=== PATIENT | male | born 1935 | race Caucasian/White ===

== ENCOUNTER 2017-03-31 10:44 | Inpatient (IN) | payer MEDICARE, BC ==
[~2017-03-31] VITALS: Ht 170.2 cm; Wt 83.8 kg
--- NOTE | 2017-03-31 11:11 | NUR ---
TO XRY PER CART
[2017-03-31] MEDS ORDERED: GEMF600T3 PO (11:36)
[2017-03-31] MEDS ORDERED: FISH1CAP2 PO (11:36)
[2017-03-31] MEDS ORDERED: ASPI-557 PO (11:36)
[2017-03-31] MEDS ORDERED: CARV12.52 PO (11:36)
[2017-03-31] MEDS ORDERED: METF500T4 PO (11:38)
[2017-03-31] MEDS ORDERED: ONDA-55 PO (11:38)
[2017-03-31] MEDS ORDERED: PARO-38 PO (11:38)
[2017-03-31] MEDS ORDERED: MULT-669 PO (11:38)
[2017-03-31] MEDS ORDERED: WARF5TAB6 PO ×2 (11:42)
[2017-03-31] MEDS ORDERED: RED600TA PO (11:42)
[2017-03-31] MEDS ORDERED: TRAM50TA4 PO (11:42)
[2017-03-31] MEDS ORDERED: NITR0.4T39 SL (11:43)
--- NOTE | 2017-03-31 11:47 | DI ---
INDICATION: ITS.REASON: chest pain PROCEDURE: CHEST 2-VIEWS UPRIGHT (PA \T\ LAT) Encounter: Initial COMPARISON: None FINDINGS: Linear atelectasis or scarring in the right middle lobe. Lungs are otherwise clear. There is no pleural effusion or pneumothorax. Left cardiac pacemaker defibrillator. Prior CABG. Cardiac silhouette is moderately enlarged. Mediastinal contours are within normal limits. Pulmonary vascularity is normal. Impression: 1. No focal pneumonia or congestive failure. 2. Enlarged cardiac silhouette could be due to cardiomegaly or pericardial effusion. .
[2017-03-31 12:16] LABS: BASOPHILS % (AUTO) 0.4 % (0-2); EOSINOPHILS # (AUTO) 0.1 T/MM3 (0-0.5); EOSINOPHILS % (AUTO) 1.1 % (0-4); HCT - HEMATOCRIT 42.8 % (41-53); HGB - HEMOGLOBIN 14.3 GM/DL (13.5-17.5); IMMATURE GRANULOCYTE # (AUTO) 0.01 T/MM3 (0.00-0.03); IMMATURE GRANULOCYTE % (AUTO) 0.1 % (0.0-0.5); LYMPHOCYTES # (AUTO) 1.4 T/MM3 (1-4.8); LYMPHOCYTES % (AUTO) 17.1 % (23-45); MEAN CORPUSCULAR HGB 30.4 UUG (26-34); MEAN CORPUSCULAR HGB CONC(MCHC 33.4 GM/DL (31-37); MEAN CORPUSCULAR VOLUME 91.1 UM3 (80-100); MONOCYTES # (AUTO) 0.8 T/MM3 (0-0.8); MONOCYTES % (AUTO) 9.5 % (0-9.0); NEUTROPHILS #(AUTO)-ABSOLUTE 5.7 T/MM3 (1.8-7.7); NEUTROPHILS % (AUTO) 71.8 % (33-66); WBC - WHITE BLOOD COUNT 7.9 T/MM3 (4.5-11.0)
[2017-03-31 12:26] LABS: ALBUMIN 4.2 G/DL (3.5-5.0); ALBUMIN/GLOBULIN RATIO 1.6 RATIO (1.1-2.2); ALKALINE PHOSPHATASE 81 U/L (38-126); ALT (SGPT) 36 U/L (21-72); ANION GAP 13 MEQ/L (5-15); AST (SGOT) 17 U/L (17-59); BUN/CREATININE RATIO 20 RATIO (6-26); CALCIUM 9.2 MG/DL (8.4-10.2); CHLORIDE 106 MEQ/L (98-107); CO2 - CARBON DIOXIDE 23 MEQ/L (22-30); CREATININE 0.9 MG/DL (0.8-1.5); GLOMERULAR FILTRATION RATE 81; GLUCOSE 230 MG/DL (75-110); POTASSIUM 4.4 MEQ/L (3.6-5); SODIUM 142 MEQ/L (134-144); TOTAL PROTEIN 6.9 G/DL (6.3-8.2)
[2017-03-31 12:27] LABS: AMPHETAMINE SCREEN,URINE NEGATIVE; BARBITURATE SCREEN,URINE NEGATIVE; BENZODIAZEPINES SCREEN,URINE NEGATIVE; CANNABINOID SCREEN,URINE NEGATIVE; COCAINE SCREEN,URINE NEGATIVE; METHADONE SCREEN, URINE NEGATIVE; METHAMPHETAMINE SCREEN, URINE NEGATIVE; OPIATE SCREEN,URINE NEGATIVE; PHENCYCLIDINE SCREEN,URINE NEGATIVE; TRICYCLIC ANTIDEPRESSANT,URINE NEGATIVE
[2017-03-31 12:32] LABS: INR 1.38 (0.77-1.03); PROTHROMBIN TIME 15.1 SEC (9.48-12.52)
[2017-03-31 12:40] LABS: ACETAMINOPHEN < 10 UG/ML (10-30); ETHANOL <10 MG/DL (<10); SALICYLATE < 1.0 MG/DL (2-20)
[2017-03-31 12:56] LABS: THYROID STIM HORMONE-TSH 1.86 MIU/L (0.47-4.68)
--- OUTSIDE RECORDS SUMMARY | 2017-03-31 14:38 | XMS REPORT | Continuity of Care Document ---
Author Author [facility] Organization [facility] Address Unknown Phone Unavailable Care Team Providers Care Hand Weaver Name Role Phone Duke Salinas Primary Care Physician [phone] Source Comments Some departments are not documenting in the electronic medical record. If you do not see the information that you expected, contact Release of Information in the Health Information Management department at [phone] for further assistance in locating additional records.[facility] Active Allergies and Adverse Reactions Not on File Current Medications Prescription Sig. Disp. Refills Start End Date Status Date carvedilol (COREG) 12.5 Take 12.5 mg by mouth Active mg tablet twice daily with meals. Take with food. Red Yeast Rice Extract Take 600 mg by mouth Active 600 mg cap twice daily. furosemide (LASIX) 40 mg Take 40 mg by mouth every Active tablet morning. potassium chloride SR Take 10 mEq by mouth Active (K-DUR) 10 mEq tablet daily. Take with a meal and a full glass of water. DOCOSAHEXANOIC ACID/EPA Take 1,000 mg by mouth Active (FISH OIL PO) daily. ASPIRIN PO Take 81 mg by mouth Active daily. metFORMIN (GLUCOPHAGE) Take 500 mg by mouth Active 500 mg tablet twice daily with meals. warfarin (COUMADIN) 5 mg Take 5 mg by mouth daily. Active tablet gemfibrozil (LOPID) 600 Take 600 mg by mouth Active mg tablet daily. Active Problems Problem Noted Date Brain mass 09/01/2016 Social History Tobacco Use Types Packs/Day Years Used Date Never Smoker Last Filed Vital Signs Vital Sign Reading Time Taken Blood Pressure 137/75 09/01/2016 12:02 PM CDT Pulse 87 09/01/2016 12:02 PM CDT Temperature 36.6 C (97.9 F) 09/01/2016 12:02 PM CDT Respiratory Rate 14 09/01/2016 12:02 PM CDT Height 1.702 m (5' 7") 09/01/2016 12:02 PM CDT Weight 81.92 kg (180 lb 9.6 oz) 09/01/2016 12:02 PM CDT Body Mass Index 28.28 09/01/2016 12:02 PM CDT Oxygen Saturation - - Plan of Care Health Maintenance Due Date Last Done Comments Physical (Comprehensive) 1941 Exam Pertussis Vaccine 1945 Tetanus Vaccine 1951 Shingles Vaccine 1994 Prevnar/Pneumovax (#1) 1999 Influenza Vaccine 07/16/2017 Results from Last 3 Months Not on file
--- OUTSIDE RECORDS SUMMARY | 2017-03-31 14:38 | XMS REPORT | Summary of Care ---
Author Author Jarek Salinas M.D. Organization Unknown Address [address], [place] [id number] Phone Unavailable Care Team Providers Care Wiring Mechanic Name Role Phone Duke Salinas M.D. Unavailable Unavailable Jarek Salinas PP Unavailable Unavailable Unavailable Functional Status Functional Status Health Issues* Name Dates Details Functional status health issues are not documented Status: Cognitive Status Health Issues* Name Dates Details Cognitive status health issues are not documented Status: Problems Name Dates Details Eye pain (379.91, H57.10) Status: Active Pre-procedural examination (V72.84, Z01.818) Status: Active Pain in hand (729.5, M79.643) Status: Active Type 2 diabetes mellitus (250.00, E11.9) Status: Active Acne (706.1, L70.9) Status: Active Trigger finger, acquired (727.03, M65.30) Status: Active Seborrheic keratosis (702.19, L82.1) Status: Active 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 Quantity: 0 Jarek Salinas M.D.* Started 16-Mar-2008 ActiveMultiple Vitamin Oral Tablet TAKE 1 TABLET DAILY. * Quantity: 0 Refills: 0 Jarek Salinas M.D.* Started 16-Mar-2008 ActiveMetFORMIN HCl - 1000 MG Oral Tablet Take One Tablet By Mouth Twice Daily * Quantity: 180 Refills: 3 Jarek Salinas M.D.* Started 18-Nov-2009 ActiveLisinopril 5 MG Oral Tablet TAKE 1 TABLET DAILY. * Quantity: 90 Refills: Jarek Xavier M.D.* Started 30-Aug-2008 ActiveGemfibrozil 600 MG Oral Tablet Take One Tablet By Mouth Twice Daily * Quantity: 180 Refills: Jarek Xavier M.D.* Started 29-Jul-2009 ActiveFish Oil 1000 MG Oral Capsule Take one capsule daily. * Refills: 0 Jarek Salinas M.D.* Started 07-Mar-2012 ActiveRed Yeast Rice 600 MG Oral Tablet TAKE 2 TABLETS DAILY. * Refills: 0 Jarek Salinas M.D.* Started 07-Mar-2012 ActiveMetoprolol Tartrate 100 MG Oral Tablet take one tablet by mouth every day * Quantity: 90 Refills: Jarek Xavier M.D.* Started 08-Mar-2012 ActiveNitrostat 0.4 MG Sublingual Tablet Sublingual PLACE 1 TABLET UNDER THE TONGUE EVERY 5 MINUTES UP TO 3 DOSES NEEDED FOR CHEST PAIN. * Quantity: 90 Refills: Jarek Xavier M.D.* Started 16-Jun-2012 ActiveTamsulosin HCl - 0.4 MG Oral Capsule TAKE 1 CAPSULE Daily * Quantity: 90 Refills: Jarek Xavier M.D.* Started 22-Sep-2013 ActiveWarfarin Sodium 5 MG Oral Tablet Take one tablet daily. * Quantity: 90 Refills: Jarek Xavier M.D.* Started 23-Mar-2014 ActiveGlipiZIDE 10 MG Oral Tablet Take one tablet twice daily. * Quantity: 180 Refills: Jarek Xavier M.D.* Started 24-Sep-2014 Active Allergies and Adverse Reactions Name Dates Details Pravachol TABS Status: Active Zocor TABS Status: Active Past Medical History Name Dates Details History of Actinic keratosis (702.0, L57.0) Status: Resolved History of Basal cell carcinoma of skin of ear (173.21, C44.211) Status: Resolved History of seborrheic keratosis (V13.3, Z87.2) Status: Resolved History of Skin Cancer (V10.83) Status: Resolved Procedures Procedure Dates Details History of Extracaps Cataract Extract With Prosthesis Insert Right Eye History of Extracaps Cataract Extract With Prosthesis Insert Left Eye History of Extracaps Cataract Extract With Prosthesis Insert Left Eye Completed:05-Aug-2010 History of Complete Colonoscopy Completed:28-Feb-2013 PROTIME PANEL 7000 Ordered:02-Nov-2014 PROTIME PANEL 7000 Ordered:29-Nov-2014 Immunization Name Dates Details Td Administered on:22-Oct-2001 Pneumo (Pneumovax) Administered on:14-Sep-2006 Influenza Administered on:03-Sep-2008 Td Lot #: [id number] Administered on: Influenza Administered on:09-Aug-2009 Influenza A (H1N1) Monoval Vac Intramuscular Suspension Administered on:28-Oct-2009 Influenza Administered on:29-Aug-2012 Influenza Administered on:05-Sep-2013 Fluzone High-Dose Intramuscular Suspension #1 Lot #: [id number] Administered on:20-Aug-2014 Prevnar 13 Intramuscular Suspension Administered on:21-Sep-2014 Family History Unknown Family Member* Name Dates Details Family history of Reported Family History Of Cancer Comments: Family History Status: Active Family history of Reported Family History Of Heart Disease Comments: Family History Status: Active Father* Name Dates Details Family history of Diabetes Mellitus (V18.0) Status: Active Social History Name Dates Details Smoking Status* Never smoker Vital Signs Date Test Result Details No Known Vitals to report Results Date Description Value Details Results not documented Plan of Care Planned Observations* Name Dates Details Planned Goals not documented Goal Planned Encounters* Appointment; Provider: Martha Gudino On 09:30 * Appointment; Provider: Donny Artis On 11-Mar-2015 08:30 * Appointment; Provider: Jarek Salinas On 18-Feb-2015 10:30 * Appointment; Provider: Alexandra Kline On 25-Dec-2014 11:00 Instructions * Instructions not documented Encounters Appointment; Noah Sheffield Encounter Diagnosis: Problem not documented On 14-Nov-2014 09:30 Appointment; Jarek Salinas Encounter Diagnosis: Problem not documented On 25-Oct-2014 15:45 Appointment; Martha Gudino Encounter Diagnosis: Problem not documented On 22-Oct-2014 09:30 Appointment; Jarek Salinas Encounter Diagnosis: Problem not documented On 21-Sep-2014 09:45 Appointment; Brianne Mendez Encounter Diagnosis: Problem not documented On 20-Aug-2014 13:00 Appointment; Jarek Salinas Encounter Diagnosis: Problem not documented On 23-Jul-2014 13:00 Appointment; Jarek Salinas Encounter Diagnosis: Problem not documented On 06-Jul-2014 13:15 Appointment; Jarek Salinas Encounter Diagnosis: Problem not documented On 22-Mar-2014 09:00 Appointment; Aleida Aparicio Encounter Diagnosis: Problem not documented On 05-Mar-2014 08:30 Appointment; Jarek Salinas Encounter Diagnosis: Problem not documented On 06-Oct-2013 14:00 Appointment; Jarek Salinas Encounter Diagnosis: Problem not documented On 21-Sep-2013 09:15 Appointment; Jarek Salinas Encounter Diagnosis: Problem not documented On 05-Sep-2013 08:30 Appointment; Jarek Salinas Encounter Diagnosis: Problem not documented On 11-Aug-2013 13:15 Appointment; Saúl Anaya Encounter Diagnosis: Problem not documented On 21-Mar-2013 07:30 Appointment; Saúl Anaya Encounter Diagnosis: Problem not documented On 14-Mar-2013 08:00 Appointment; Aleida Aparicio Encounter Diagnosis: Problem not documented On 02-Mar-2013 08:45 Appointment; Claudia Melgar Encounter Diagnosis: Problem not documented On 28-Feb-2013 07:15 Appointment; June Carmen Encounter Diagnosis: Problem not documented On 28-Feb-2013 07:15 Appointment; Jarek Salinas Encounter Diagnosis: Problem not documented On 21-Feb-2013 11:00 Appointment; Jarek Salinas Encounter Diagnosis: Problem not documented On 20-Feb-2013 09:00
--- OUTSIDE RECORDS SUMMARY | 2017-03-31 14:39 | XMS REPORT | Summary of Care ---
Author Author Jarek Salinas M.D. Organization Unknown Address [address], [place] [id number] Phone Unavailable Care Team Providers Care Pre K Special Education Teacher Name Role Phone Duke Salinas M.D. Unavailable Unavailable Elfego Sheffield M.D. Unavailable Unavailable Shahab Jovel, Martha Hollingsworth Unavailable Unavailable Jarek Salinas PP Unavailable Unavailable Unavailable Functional Status Functional Status Health Issues* Name Dates Details Functional status health issues are not documented Status: Cognitive Status Health Issues* Name Dates Details Cognitive status health issues are not documented Status: Problems Name Dates Details Atrial tachycardia (427.89, I47.1) Status: Active Fatigue (780.79, R53.83) Status: Active Dyslipidemia (272.4, E78.5) Status: Active Obesity (278.00, E66.9) Status: Active SOB (shortness of breath) on exertion (786.05, R06.02) Status: Active Shortness of breath (786.05, R06.02) Status: Active Coronary artery disease (414.00, 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 Atrial flutter with rapid ventricular response (427.32, I48.92) Status: Active AICD (automatic cardioverter/defibrillator) present (V45.02, Z95.810) Status: Active Nonsustained ventricular tachycardia (427.1, I47.2) Status: Active Anxiety (300.00, F41.9) Status: Active Cardiomyopathy (425.4, I42.9) Status: Active Diabetes mellitus, type 2 (250.00, E11.9) Status: Active CHF (congestive heart failure) (428.0, I50.9) Status: Active Cough (786.2, R05) Status: Active COPD (chronic obstructive pulmonary disease) (496, J44.9) Status: Active Hypertension (401.9, I10) Status: Active Medications Name Dates Details Aspir-81 81 MG Oral Tablet Delayed Release TAKE 1 TABLET DAILY. Quantity: 0 Jarek Salinas M.D.* Started 16-Mar-2008 ActiveMultiple Vitamin Oral Tablet TAKE 1 TABLET DAILY. * Quantity: 0 Refills: 0 Jarek Salinas M.D.* Started 16-Mar-2008 ActiveFish Oil 1000 MG Oral Capsule Take one capsule daily. * Refills: 0 Jarek Salinas M.D.* Started 07-Mar-2012 ActiveRed Yeast Rice 600 MG Oral Tablet TAKE 2 TABLETS DAILY. * Refills: 0 Jarek Salinas M.D.* Started 07-Mar-2012 ActiveWarfarin Sodium 5 MG Oral Tablet Take one tablet daily. * Quantity: 90 Refills: 3 Jarek Salinas M.D.* Started 23-Mar-2014 ActiveGemfibrozil 600 MG Oral Tablet Take 1 tablet at night * Refills: 0 Jarek Salinas M.D.* Started 25-Mar-2015 ActiveMetFORMIN HCl - 500 MG Oral Tablet TAKE ONE TABLET(S) BY MOUTH TWICE DAILY * Quantity: 60 Refills: 11 * Started ActiveTamsulosin HCl - 0.4 MG Oral Capsule take one capsule by mouth everyday * Refills: 0 * Started ActiveCarvedilol 12.5 MG Oral Tablet 1BID - TAKE ONE TABLET BY MOUTH TWICE DAILY * Quantity: 60 Refills: 5 Martha Gudino M.D.* Started 16-Sep-2015 ActiveSymbicort 160-4.5 MCG/ACT Inhalation Aerosol INHALE 2 PUFFS TWICE DAILY. RINSE MOUTH AFTER USE. * Quantity: 1 Refills: 6 Jarek Salinas M.D.* Started 17-Oct-2015 Active6 GM Inhaler Furosemide 40 MG Oral Tablet TAKE 1 TABLET DAILY DIRECTED. * Quantity: 30 Refills: 11 Noah Sheffield M.D.* Started 21-Oct-2015 Ended 19-Oct-2016 ActiveALPRAZolam 0.25 MG Oral Tablet Take 1-2 tablets every 8 hours as needed. * Quantity: 30 Refills: 3 Jarek Salinas M.D.* Started 25-Oct-2015 ActiveEscitalopram Oxalate 10 MG Oral Tablet TAKE 1 TABLET DAILY. * Quantity: 30 Refills: 5 Jarek Salinas M.D.* Started 25-Oct-2015 ActivePromethazine-Codeine 6.25-10 MG/5ML Oral Syrup TAKE 5 ML EVERY 4 HOURS NEEDED. * Quantity: 1 Refills: 0 Jarek Salinas M.D.* Started 28-Oct-2015 [id number] ML Bottle Allergies and Adverse Reactions Name Dates Details Pravachol TABS Status: Active Zocor TABS Status: Active Past Medical History Name Dates Details AICD (automatic cardioverter/defibrillator) present (V45.02, Z95.810) Status: Active Atrial flutter with rapid ventricular response (427.32, I48.92) Status: Active Cardiomyopathy (425.4, I42.9) Status: Active COPD (chronic obstructive pulmonary disease) (496, J44.9) Status: Active Coronary artery disease (414.00, 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 Diabetes mellitus, type 2 (250.00, E11.9) Status: Active Dyslipidemia (272.4, E78.5) Status: Active Hypertension (401.9, I10) Status: Active Nonsustained ventricular tachycardia (427.1, I47.2) Status: Active History of Basal cell carcinoma of skin of ear (173.21, C44.211) Status: Resolved History of myocardial infarction (412, I25.2) Status: Resolved History of seborrheic keratosis (V13.3, Z87.2) Status: Resolved History of Skin Cancer (V10.83) Status: Resolved Procedures Procedure Dates Details History of Extracaps Cataract Extract With Prosthesis Insert Right Eye History of Extracaps Cataract Extract With Prosthesis Insert Left Eye History of Extracaps Cataract Extract With Prosthesis Insert Left Eye Completed:05-Aug-2010 History of Complete Colonoscopy Completed:28-Feb-2013 History of Arterial Catheterization History of Pacemaker Placement CBC w/ Auto Diff 7150 Ordered:07-Oct-2015 Comprehensive Metabolic Panel 1212 Ordered:07-Oct-2015 THYROID STIM. HORMONE 3602 Ordered:07-Oct-2015 HEMOGLOBIN A1C 3507 Ordered:07-Oct-2015 PROTIME PANEL 7000 Ordered:18-Oct-2015 Immunization Name Dates Details Td Administered on:22-Oct-2001 Pneumo (Pneumovax) Administered on:14-Sep-2006 Influenza Administered on:03-Sep-2008 Td Lot #: [id number] Administered on: Influenza Administered on:09-Aug-2009 Influenza A (H1N1) Monoval Vac Intramuscular Suspension Administered on:28-Oct-2009 Influenza Administered on:29-Aug-2012 Influenza Administered on:05-Sep-2013 Fluzone High-Dose Intramuscular Suspension #1 Lot #: [id number] Administered on:20-Aug-2014 Prevnar 13 Intramuscular Suspension Administered on:21-Sep-2014 Fluzone High-Dose 0.5 ML Intramuscular Suspension Prefilled Syringe Lot #: [id number] Administered on:12-Aug-2015 Family History Unknown Family Member* Name Dates Details Family history of Reported Family History Of Cancer Comments: Family History Status: Active Family history of Reported Family History Of Heart Disease Comments: Family History Status: Active Father* Name Dates Details Family history of Diabetes Mellitus (V18.0) Status: Active Social History Smoking Status* Unknown if ever smoked Vital Signs Date Test Result Details 31-Oct-2015 10:34 BP Systolic 112 mm[Hg] Status: BP Diastolic 56 mm[Hg] Status: Heart Rate 80 /min Status: Height 65 in Status: Weight 192 lb Status: Body Mass Index Calculated 31.95 kg/m2 Status: Body Surface Area Calculated 1.94 m2 Status: 24-Oct-2015 15:34 BP Systolic 116 mm[Hg] Status: BP Diastolic 60 mm[Hg] Status: Heart Rate 84 /min Status: Height 65 in Status: Weight 192 lb Status: O2 SAT 94 % Status: Body Mass Index Calculated 31.95 kg/m2 Status: Body Surface Area Calculated 1.94 m2 Status: 21-Oct-2015 08:12 BP Systolic 138 mm[Hg] Status: BP Diastolic 66 mm[Hg] Status: Temperature 97.3 f Status: Heart Rate 92 /min Status: Respiration Rate 20 /min Status: O2 SAT 96 % Status: 07-Oct-2015 13:08 BP Systolic 134 mm[Hg] Status: BP Diastolic 78 mm[Hg] Status: Heart Rate 88 /min Status: Height 65 in Status: Weight 198 lb Status: Body Mass Index Calculated 32.95 kg/m2 Status: Body Surface Area Calculated 1.97 m2 Status: Results Date Description Value Details 08-Oct-2015 15:47 CBC w/ Auto Diff 7150 WBC 8.8 K/uL (Better) Range: 4.5-11.0 RBC 5.03 mil/uL (Better) Range: 4.20-5.40 HGB 15.2 g/dL (Better) Range: 14.0-18.0 HCT 47.6 % (Better) Range: 42.0-53.0 MCV 94.8 fL (Better) Range: 80.0-99.0 MCH 30.2 pg (Better) Range: 27.3-32.5 MCHC 31.9 % (Below low threshold) Range: 32.0-36.0 RDW 13.8 % (Better) Range: 11.6-14.8 PLATELETS 256 K/uL (Better) Range: 150-400 MPV 7.2 fL (Better) Range: 6.0-11.0 %NEUTRO 71.8 % (Better) Range: 37.0-80.0 %LYMPHS 15.9 % (Better) Range: 13.0-50.0 %MONO 5.8 % (Better) Range: 0.0-12.0 %EOS 2.5 % (Better) Range: 0.0-7.0 %BASO 0.6 % (Better) Range: 0.0-2.5 %LEILANI 3.3 % (Better) Range: 0.0-5.0 NEUTRO 6.3 K/uL (Better) Range: 2.0-6.9 LYMPHS 1.4 K/uL (Better) Range: 0.6-3.4 MONOS 0.5 K/uL (Better) Range: 0.0-0.9 EOS 0.2 K/uL (Better) Range: 0.0-0.7 BASO 0.1 K/uL (Better) Range: 0.0-0.2 15:48 ARTERIAL BLOOD GASES 3416 Comments: Pt is on room air pH 7.450 (Better) Range: 7.350-7.450 pCO2 31.0 mmHg (Below low threshold) Range: 35.0-45.0 pO2 83.0 mmHg (Below low threshold) Range: 85.0-95.0 HCO3 21.5 mmol/L (Better) Range: 20.0-30.0 TCO2 22.5 mmol/L (Better) Range: 19.0-29.0 BASE EXCESS -1.70 mmol/L (Better) Range: -2.50-2.50 %O2 SATURATION 97.0 % (Better) Range: 94.0-98.0 16:06 XRay CHEST-PA & LAT Comments: Exam Date: 10/08/2015 15: 48Dictation Date: 10/08/2015 16:06 X CHEST PA & LAT (Better) 16:13 Comprehensive Metabolic Panel 1212 SODIUM 138 mmol/L (Better) Range: 133-144 POTASSIUM 4.1 mmol/L (Better) Range: 3.5-5.1 CHLORIDE 103 mmol/L (Better) Range: 98-110 CARBON DIOXIDE 26.4 mmol/L (Better) Range: 23.0-33.0 ANION GAP 9 mmol/L (Better) Range: 6-16 BUN 23 mg/dL (Above high threshold) Range: 7-18 Comments: Variance from previous testing noted.----- CREATININE, SERUM 1.24 mg/dL (Better) Range: 0.70-1.30 Comments: Please note new reference ranges effective 2015.----- BUN:CREATININE RATIO 19 (Better) EST GFR, >60 ml/min (Better) Range: >60 EST GFR, NON-AFR CITIZEN OF [place] 56 ml/min (Below low threshold) Range: >60 Comments: EST GFR is reported in ml/min per 1.73 m2 of body surface area. For -[place]ian, please multiple result by 1.2.----- GLUCOSE 179 mg/dL (Above high threshold) Range: 70-100 ALK PHOSPHATASE 78 U/L (Better) Range: 46-116 TOTAL BILIRUBIN 0.50 mg/dL (Better) Range: 0.20-1.00 AST 23 U/L (Better) Range: 8-35 ALT 33 U/L (Better) Range: 16-63 Comments: Please note new reference ranges. Effective 01/24/2015.----- ALBUMIN 3.6 g/dL (Better) Range: 3.4-5.0 TOTAL PROTEIN 7.0 g/dL (Better) Range: 6.4-8.2 A/G RATIO 1.1 units (Better) Range: 1.0-1.8 CALCIUM 8.6 mg/dL (Better) Range: 8.5-10.1 16:13 CREATINE KINASE 1300 CREATINE KINASE 76 U/L (Better) Range: 39-308 16:13 TROPONIN I 3451 TROPONIN I 0.06 ng/mL (Better) Range: <0.10 Comments: Result called to Viviana by Keeley Ontiveros on 10/08/2015 at 4:18 PMVerified by Repeat Analysis<0.10 ng/ml=Negative for MI0.10-0.59 ng/ml= Indeterminate for MI0.60-1.50 ng/ml=Suggestive of [place]----- 18-Oct-2015 12:46 PROTIME PANEL 7000 Comments: Critical result called to Juwan by Sandra King on 10/18/2015 at 12:51 PM (INR) PROTIME 51.4 secs (Above high threshold) Range: 12.0-14.9 INR 5.59 (High alert) Comments: Verified by Repeat Analysis----- 21-Oct-2015 08:41 ECG/ EKG ([facility]) Electro CardioGram (Better) 09:13 XRay CHEST-PA & LAT Comments: Exam Date: 10/21/2015 08: 45Dictation Date: 10/21/2015 09:13 X CHEST PA & LAT (Better) 09:03 PROTIME PANEL 7000 PROTIME 24.2 secs (Above high threshold) Range: 12.0-14.9 INR 2.17 (Better) 09:08 CBC w/ Auto Diff 7150 Comments: Manual differential indicated. WBC 9.0 K/uL (Better) Range: 4.5-11.0 RBC 4.90 mil/uL (Better) Range: 4.20-5.40 HGB 14.8 g/dL (Better) Range: 14.0-18.0 HCT 46.2 % (Better) Range: 42.0-53.0 MCV 94.4 fL (Better) Range: 80.0-99.0 MCH 30.2 pg (Better) Range: 27.3-32.5 MCHC 32.0 % (Better) Range: 32.0-36.0 RDW 13.7 % (Better) Range: 11.6-14.8 PLATELETS 260 K/uL (Better) Range: 150-400 MPV 7.3 fL (Better) Range: 6.0-11.0 09:20 Manual Differential 7400 SEGS 77 % (Better) Range: 37-80 BANDS 0 % (Better) Range: 0-7 LYMPH 14 % (Better) Range: 13-50 MONO 8 % (Better) Range: 0-12 EOSIN 1 % (Better) Range: 0-7 BASO 0 % (Better) Range: 0-3 NORMA LYMPH 0 % (Better) Range: 0-0 META 0 % (Better) Range: 0-0 MYELO 0 % (Better) Range: 0-0 PRO 0 % (Better) Range: 0-0 BLAST 0 % (Better) Range: 0-0 NUC RBC 0 /100 WBC (Better) Range: 0-0 SMUDGE 0 /100 WBC (Better) PLATELET Adequate (Better) Range: Adequate ANISO Slight (Better) POLYCHRO Slight (Better) 09:29 BNP 3103 BNP 309.2 pg/mL (Above high threshold) Range: 0.0-100.0 09:34 TROPONIN I 3451 TROPONIN I 0.07 ng/mL (Better) Range: <0.10 Comments: <0.10 ng/ml=Negative for MI0.10-0.59 ng/ml=Indeterminate for MI0.60- 1.50 ng/ml=Suggestive of [place]----- 09:47 Comprehensive Metabolic Panel 1212 SODIUM 131 mmol/L (Below low threshold) Range: 133-144 POTASSIUM 4.2 mmol/L (Better) Range: 3.5-5.1 CHLORIDE 98 mmol/L (Better) Range: 98-110 CARBON DIOXIDE 22.7 mmol/L (Below low threshold) Range: 23.0-33.0 ANION GAP 10 mmol/L (Better) Range: 6-16 BUN 22 mg/dL (Above high threshold) Range: 7-18 CREATININE, SERUM 1.13 mg/dL (Better) Range: 0.70-1.30 Comments: Please note new reference ranges effective 2015.----- BUN:CREATININE RATIO 19 (Better) EST GFR, >60 ml/min (Better) Range: >60 EST GFR, NON-AFR CITIZEN OF [place] >60 ml/min (Better) Range: >60 Comments: EST GFR is reported in ml/min per 1.73 m2 of body surface area. For -[place]ian, please multiple result by 1.2.----- GLUCOSE 254 mg/dL (Above high threshold) Range: 70-100 Comments: Variance from previous testing noted.----- ALK PHOSPHATASE 84 U/L (Better) Range: 46-116 TOTAL BILIRUBIN 0.80 mg/dL (Better) Range: 0.20-1.00 AST 21 U/L (Better) Range: 8-35 ALT 37 U/L (Better) Range: 16-63 Comments: Please note new reference ranges. Effective 01/24/2015.----- ALBUMIN 3.6 g/dL (Better) Range: 3.4-5.0 TOTAL PROTEIN 7.0 g/dL (Better) Range: 6.4-8.2 A/G RATIO 1.1 units (Better) Range: 1.0-1.8 CALCIUM 8.7 mg/dL (Better) Range: 8.5-10.1 Plan of Care Planned Observations* Name Dates Details Planned Goals not documented Goal Planned Encounters* Appointment; Provider: Donny Artis On 12-Mar-2016 08:00 * Appointment; Provider: Martha Gudino On 02-Mar-2016 09:30 * Appointment; Provider: Jarek Salinas On 13-Feb-2016 10:00 * Appointment; Provider: Jarek Salinas On 05-Nov-2015 11:45 * Appointment; Provider: Martha Gudino On 04-Nov-2015 12:15 * Appointment; Provider: Martha Gudino On 01-Jul-2015 12:45 * Appointment; Provider: Martha Gudino On 16:00 Instructions * Instructions not documented Encounters Appointment; Jarek Salinas Encounter Diagnosis: Problem not documented On 31-Oct-2015 10:30 Appointment; Jarek Salinas Encounter Diagnosis: Problem not documented On 24-Oct-2015 15:30 Appointment; Noah Sheffield Encounter Diagnosis: Problem not documented On 21-Oct-2015 08:15 Appointment; Jarek Salinas Encounter Diagnosis: Problem not documented On 07-Oct-2015 13:15 Appointment; Martha Gudino Encounter Diagnosis: Problem not documented On 30-Sep-2015 12:45 Appointment; Martha Gudino Encounter Diagnosis: Problem not documented On 25-Sep-2015 12:00 Appointment; Martha Gudino Encounter Diagnosis: Problem not documented On 16-Sep-2015 12:15 Appointment; Martha Gudino Encounter Diagnosis: Problem not documented On 29-Aug-2015 14:00 Appointment; Jarek Salinas Encounter Diagnosis: Problem not documented On 26-Aug-2015 11:30 Appointment; Jarek Salinas Encounter Diagnosis: Problem not documented On 12-Aug-2015 12:30 Appointment; Jarek Salinas Encounter Diagnosis: Problem not documented On 30-Jul-2015 15:15 Appointment; Martha Gudino Encounter Diagnosis: Problem not documented On 18-Jul-2015 13:15 Appointment; Martha Gudino Encounter Diagnosis: Problem not documented On 15-Jul-2015 11:45 Appointment; Martha Gudino Encounter Diagnosis: Problem not documented On 24-Jun-2015 09:00 Appointment; Jarek Salinas Encounter Diagnosis: Problem not documented On 21-Jun-2015 10:45 Appointment; Noah Sheffield Encounter Diagnosis: Problem not documented On 12:35 Appointment; Martha Gudino Encounter Diagnosis: Problem not documented On 09:30 Appointment; Jarek Salinas Encounter Diagnosis: Problem not documented On 15:45 Appointment; Saúl Anaya Encounter Diagnosis: Problem not documented On 26-Mar-2015 13:15 Appointment; Jarek Salinas Encounter Diagnosis: Problem not documented On 22-Mar-2015 13:00 Appointment; Donny Artis Encounter Diagnosis: Problem not documented On 11-Mar-2015 08:30 Appointment; Jarek Salinas Encounter Diagnosis: Problem not documented On 18-Feb-2015 10:30 Appointment; Noah Sheffield Encounter Diagnosis: Problem not [...]
--- OUTSIDE RECORDS SUMMARY | 2017-03-31 14:39 | XMS REPORT | Summary of Care ---
Author Author Brock Rodriguez D.O. Organization Unknown Address [address], [place] [id number] Phone Unavailable Care Team Providers Care Material Manager Name Role Phone Brad Jovel, A Unavailable Unavailable Jarek Salinas PP Unavailable Unavailable Unavailable Functional Status Functional Status Health Issues* Name Dates Details Functional status health issues are not documented Status: Cognitive Status Health Issues* Name Dates Details Cognitive status health issues are not documented Status: Problems Name Dates Details Diabetes mellitus (250.00, E11.9) Status: Active Obesity (278.00, E66.9) Status: Active Type 2 diabetes mellitus (250.00, E11.9) Status: Active Hypertension (401.9, I10) Status: Active Dyslipidemia (272.4, E78.5) Status: Active Cardiomyopathy (425.4, I42.9) Status: Active Atrial fibrillation (427.31, I48.91) Status: Active Atherosclerotic heart disease of [place] coronary artery without angina pectoris (414.01, 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 Atrial flutter with rapid ventricular response (427.32, I48.92) Status: Active Medications Name Dates Details Aspir-81 [...] Salinas M.D.* Started 25-Mar-2015 ActiveMetFORMIN HCl - 1000 MG Oral Tablet Take one half tablet in the morning and one half tablet at night everyday * Refills: 0 * Started ActiveTamsulosin HCl - 0.4 MG Oral Capsule take one capsule by mouth everyday * Refills: 0 * Started ActiveLisinopril 5 MG Oral Tablet TAKE 1 TABLET DAILY. * Refills: 0 * Started Active Allergies and Adverse Reactions Name Dates Details Pravachol TABS Status: Active Zocor TABS Status: Active Past Medical History Name Dates Details Atherosclerotic heart disease of [place] coronary artery without angina pectoris (414.01, 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 Atrial fibrillation (427.31, I48.91) Status: Active Cardiomyopathy (425.4, I42.9) Status: Active Dyslipidemia (272.4, E78.5) Status: Active Hypertension (401.9, I10) Status: Active Type 2 diabetes mellitus (250.00, E11.9) Status: Active History of Basal cell carcinoma [...] of Complete Colonoscopy Completed:28-Feb-2013 PROTIME PANEL 7000 Ordered: Comprehensive Metabolic Panel 1212 Ordered: LIPID PROFILE 1184 Ordered: THYROID STIM. HORMONE 3602 Ordered: HEMOGLOBIN A1C 3507 Ordered: Immunization Name Dates Details Td Administered on:22-Oct-2001 Pneumo (Pneumovax) Administered on:14-Sep-2006 Influenza Administered on:03-Sep-2008 Td Lot #: [id number] Administered on: Influenza Administered on:09-Aug-2009 Influenza A (H1N1) Monoval Vac Intramuscular Suspension Administered on:28-Oct-2009 Influenza Administered on:29-Aug-2012 Influenza Administered on:05-Sep-2013 Fluzone High-Dose Intramuscular Suspension #1 Lot #: [id number] Administered on:20-Aug-2014 Prevnar 13 Intramuscular Suspension Administered [...] smoker Vital Signs Date Test Result Details 12:47 BP Systolic 136 mm[Hg] Status: BP Diastolic 86 mm[Hg] Status: Temperature 97.9 f Status: Heart Rate 151 /min Status: O2 SAT 97 % Status: Results Date Description Value Details 11:47 PROTIME PANEL 7000 PROTIME 15.0 secs (Above high threshold) Range: 12.0-14.9 INR 1.19 (Better) 13:04 ECG/ EKG ([facility]) Electro CardioGram (Better) Plan of Care Planned Observations* Name Dates Details Planned Goals not documented Goal Planned Encounters* Appointment; Provider: Donny Artis On 12-Mar-2016 08:00 * Appointment; Provider: Martha Gudino On 23-Oct-2015 09:30 * Appointment; Provider: Martha Gudino On 21-Jun-2015 14:15 * Appointment; Provider: Jarek Salinas On 21-Jun-2015 10:45 * Appointment; Provider: Martha Gudino On 16:00 [...]
--- OUTSIDE RECORDS SUMMARY | 2017-03-31 14:39 | XMS REPORT | Summary of Care ---
Author Author Martha Gudino M.D. Organization Unknown Address [address] [place] [address] Phone Unavailable Care Team Providers Care Flight Steward Name Role Phone Duke Salinas M.D. Unavailable Unavailable Martha Gudino M.D. Unavailable Unavailable Jarek Salinas PP Unavailable Unavailable Unavailable Functional Status Functional Status Health Issues* Name Dates Details Functional status health issues are not documented Status: Cognitive Status Health Issues* Name Dates Details Cognitive status health issues are not documented Status: Problems Name Dates Details Atrial tachycardia (427.89, I47.1) Status: Active Atrial flutter with rapid ventricular response (427.32, I48.92) Status: Active Fatigue (780.79, R53.83) Status: Active Nonsustained ventricular tachycardia (427.1, I47.2) Status: Active AICD (automatic cardioverter/defibrillator) present (V45.02, Z95.810) Status: Active Cardiomyopathy (425.4, I42.9) Status: Active Dyslipidemia (272.4, E78.5) Status: Active Hypertension (401.9, I10) Status: Active Obesity (278.00, E66.9) Status: Active Medications Name Dates Details Aspir-81 [...] ActiveMetFORMIN HCl - 500 MG Oral Tablet take one half tablet in the a.m. and one half tablet in the p.m. * Refills: 0 * Started ActiveTamsulosin HCl - 0.4 MG Oral Capsule take one capsule by mouth everyday * Refills: 0 * Started ActiveAmiodarone HCl - 200 MG Oral Tablet TAKE 1 TABLET TWICE DAILY. * Quantity: 60 Refills: 5 Martha Gudino M.D.* Started 16-Sep-2015 ActiveCarvedilol 3.125 MG Oral Tablet TAKE 1 TABLET TWICE DAILY, WITH MORNING AND EVENING MEAL * Quantity: 60 Refills: 5 Martha Gudino M.D.* Started 16-Sep-2015 Active Allergies and Adverse Reactions Name Dates Details Pravachol TABS Status: Active Zocor TABS Status: Active Past Medical History Name Dates Details Cardiomyopathy (425.4, I42.9) Status: Active Dyslipidemia (272.4, E78.5) Status: Active Hypertension (401.9, I10) Status: Active History of Basal cell carcinoma [...] Pacemaker Placement CBC w/ Auto Diff 7150 Ordered:02-Aug-2015 Comprehensive Metabolic Panel 1212 Ordered:02-Aug-2015 HEMOGLOBIN A1C 3507 Ordered:02-Aug-2015 LIPID PROFILE 1184 Ordered:02-Aug-2015 THYROID STIM. HORMONE 3602 Ordered:02-Aug-2015 PROTIME PANEL 7000 Ordered:09-Sep-2015 CBC w/ Auto Diff 7150 Ordered:23-Sep-2015 Comprehensive Metabolic Panel 1212 Ordered:23-Sep-2015 HEMOGLOBIN A1C 3507 Ordered:23-Sep-2015 LIPID PROFILE 1184 Ordered:23-Sep-2015 THYROID STIM. HORMONE 3602 Ordered:23-Sep-2015 Immunization Name Dates Details Td Administered on:22-Oct-2001 Pneumo (Pneumovax) Administered on:14-Sep-2006 Influenza Administered on:03-Sep-2008 Td Lot #: [id number] Administered on: Influenza Administered on:09-Aug-2009 Influenza A (H1N1) Monoval Vac Intramuscular Suspension Administered on:28-Oct-2009 Influenza Administered on:29-Aug-2012 Influenza Administered on:05-Sep-2013 Fluzone High-Dose Intramuscular Suspension #1 Lot #: [id number] Administered on:20-Aug-2014 Prevnar 13 Intramuscular Suspension Administered on:21-Sep-2014 Fluzone High-Dose 0.5 ML Intramuscular Suspension Prefilled Syringe Lot #: [id number] Administered on:12-Aug-2015 Family History Unknown Family Member* Name Dates Details Family history of Reported Family History Of Cancer Comments: Family History Status: Active Family history of Reported Family History Of Heart Disease Comments: Family History Status: Active Father* Name Dates Details Family history of Diabetes Mellitus (V18.0) Status: Active Social History Smoking Status* Unknown if ever smoked Vital Signs Date Test Result Details 25-Sep-2015 11:59 BP Systolic 124 mm[Hg] Status: BP Diastolic 82 mm[Hg] Status: Heart Rate 80 /min Status: Height 65 in Status: Weight 193 lb Status: Body Mass Index Calculated 32.12 kg/m2 Status: Body Surface Area Calculated 1.95 m2 Status: 16-Sep-2015 12:19 BP Systolic 126 mm[Hg] Status: BP Diastolic 83 mm[Hg] Status: Heart Rate 84 /min Status: Weight 193.2 lb Status: Body Mass Index Calculated 32.15 kg/m2 Status: Body Surface Area Calculated 1.95 m2 Status: 29-Aug-2015 13:58 BP Systolic 130 mm[Hg] Status: BP Diastolic 74 mm[Hg] Status: Heart Rate 84 /min Status: Weight 193.8 lb Status: Body Mass Index Calculated 32.25 kg/m2 Status: Body Surface Area Calculated 1.95 m2 Status: Results Date Description Value Details 09-Sep-2015 12:00 PROTIME PANEL 7000 PROTIME 22.8 secs (Above high threshold) Range: 12.0-14.9 INR 2.01 (Better) Plan of Care Planned Observations* Name Dates Details Planned Goals not documented Goal Planned Encounters* Appointment; Provider: Donny Artis On 12-Mar-2016 08:00 * Appointment; Provider: Martah Gudino On 02-Mar-2016 09:30 * Appointment; Provider: Jarek Salinas On 04-Oct-2015 10:30 * Appointment; Provider: Martha Gudino On 01-Jul-2015 12:45 * Appointment; Provider: Martha Gudino On 16:00 Instructions * Instructions not documented Encounters Appointment; Martha Gudino Encounter Diagnosis: Problem not [...]
--- OUTSIDE RECORDS SUMMARY | 2017-03-31 14:39 | XMS REPORT | Summary of Care ---
Author Author Jaclyn Jovel, [place] [place] Organization Unknown Address [address] [place], [place] [id number] Phone Unavailable Care Team Providers Care Branch Sales Manager Name Role Phone Duke Salinas M.D. 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, 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 Seborrheic keratosis (702.19, L82.1) Status: Active Benign neoplasm of skin of trunk (216.5, D23.5) Status: Active Diabetes mellitus (250.00, E11.9) Status: Active Dyslipidemia (272.4, E78.5) Status: Active Trigger finger, acquired (727.03, M65.30) Status: Active Arthralgia of multiple sites (719.49, M25.50) Status: Active Pain in hand (729.5, M79.643) Status: Active Tendinitis of finger (727.05, M77.9) Status: Active Type 2 diabetes mellitus (250.00, E11.9) Status: Active Hypertension (401.9, I10) Status: Active Coronary artery disease (414.00, 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 Atrial fibrillation (427.31, I48.91) Status: Active High risk medication use (V58.69, Z79.899) Status: Active Medications Name Dates Details MetFORMIN HCl - 1000 MG Oral Tablet TAKE 1 TABLET DAILY WITH FOOD. Jarek Salinas M.D.* Started 18-Nov-2009 ActiveLisinopril 5 MG Oral Tablet TAKE 1 TABLET DAILY. * Quantity: 90 Refills: Jarek Xavier M.D.* Started 30-Aug-2008 ActiveFish Oil 1000 MG Oral Capsule Take [...] 90 Refills: Jarek Xavier M.D.* Started 16-Jun-2012 ActiveWarfarin Sodium 5 MG Oral Tablet Take one tablet daily. * Quantity: 90 Refills: Jarek Xavier M.D.* Started 23-Mar-2014 ActiveGlipiZIDE 10 MG Oral Tablet Take one tablet twice daily. * Quantity: 180 Refills: Jarek Xavier M.D.* Started 24-Sep-2014 ActiveGemfibrozil 600 MG Oral Tablet TAKE 1 TABLET DAILY. * Refills: 0 Jarek Salinas M.D.* Started 25-Mar-2015 ActiveMultiple Vitamin Oral Tablet TAKE 1 TABLET DAILY. * Quantity: 0 Refills: 0 Jarek Salinas M.D.* Started 16-Mar-2008 ActiveAspir-81 81 MG Oral Tablet Delayed Release TAKE 1 TABLET DAILY. * Quantity: 0 Refills: 0 Jarek Salinas M.D.* Started 16-Mar-2008 Active Allergies and Adverse Reactions Name Dates Details Pravachol TABS Status: Active Zocor TABS Status: Active Past Medical History Name Dates Details History of Basal cell carcinoma of skin [...] of Complete Colonoscopy Completed:28-Feb-2013 PROTIME PANEL 7000 Ordered:04-Mar-2015 PROTIME PANEL 7000 Ordered:22-Mar-2015 Immunization Name Dates Details Td Administered on:22-Oct-2001 Pneumo (Pneumovax) Administered on:14-Sep-2006 Influenza Administered on:03-Sep-2008 Td Lot #: [id number] Administered on: Influenza Administered on:09-Aug-2009 Influenza A (H1N1) Monoval Vac Intramuscular Suspension Administered on:28-Oct-2009 Influenza Administered on:29-Aug-2012 Influenza Administered on:05-Sep-2013 Fluzone High-Dose Intramuscular Suspension #1 Lot #: [id number] Administered on:20-Aug-2014 Prevnar 13 Intramuscular Suspension Administered [...] smoker Vital Signs Date Test Result Details 26-Mar-2015 13:10 BP Systolic 126 mm[Hg] Status: BP Diastolic 70 mm[Hg] Status: Weight 196 lb Status: Body Mass Index Calculated 32.62 kg/m2 Status: Body Surface Area Calculated 1.96 m2 Status: 22-Mar-2015 13:01 BP Systolic 136 mm[Hg] Status: BP Diastolic 68 mm[Hg] Status: Heart Rate 76 /min Status: Weight 196 lb Status: Height 65 in Status: Body Mass Index Calculated 32.62 kg/m2 Status: Body Surface Area Calculated 1.96 m2 Status: Results Date Description Value Details 01-Mar-2015 10:34 PROTIME PANEL 7000 PROTIME 20.6 secs (Above high threshold) Range: 12.0-14.9 INR 1.80 (Better) 22-Mar-2015 14:00 PROTIME PANEL 7000 PROTIME 20.3 secs (Above high threshold) Range: 12.0-14.9 INR 1.77 (Better) 14:10 Urinalysis, Reflex to Microscopic or Culture PRN 8005 pH 5.5 (Better) Range: 5.0-7.5 SP GRAVITY 1.020 (Better) Range: 1.010-1.030 APPEARANCE CLEAR (Better) Range: Clear COLOR YELLOW (Better) Range: Straw-Yellow PROTEIN NEGATIVE mg/dL (Better) Range: Negative-Trace GLUCOSE NEGATIVE mg/dL (Better) Range: Negative KETONE NEGATIVE mg/dL (Better) Range: Negative BILIRUB NEGATIVE (Better) Range: Negative BLOOD NEGATIVE (Better) Range: Negative UROBIL 0.2 EU/dL (Better) Range: 0.2-1.0 NITRITE NEGATIVE (Better) Range: Negative LEUK NEGATIVE (Better) Range: Negative Plan of Care Planned Observations* Name Dates Details Planned Goals not documented Goal Planned Encounters* Appointment; Provider: Donny Artis On 12-Mar-2016 08:00 * Appointment; Provider: Jarek Salinas On 17-Jun-2015 09:15 * Appointment; Provider: Martha Gudino On 09:30 Instructions * Instructions not documented Encounters Appointment; Saúl Anaya Encounter Diagnosis: Problem not [...]
--- OUTSIDE RECORDS SUMMARY | 2017-03-31 14:39 | XMS REPORT | Summary of Care ---
Author Author Jarek Salinas M.D. Organization Unknown Address [address] [place], [place] [id number] Phone Unavailable Care Team Providers Care Daycare Assistant Name Role Phone Duke Salinas M.D. 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 * Quantity: 180 Refills: Jarek Xavire M.D.* Started 24-Sep-2014 Active Allergies and Adverse [...] Complete Colonoscopy Completed:28-Feb-2013 PROTIME PANEL 7000 Ordered:02-Nov-2014 Immunization Name Dates Details Td Administered on:22-Oct-2001 Pneumo (Pneumovax) Administered on:14-Sep-2006 Influenza Administered on:03-Sep-2008 Td Lot #: [id number] Administered on: Influenza Administered on:09-Aug-2009 Influenza A (H1N1) Monoval Vac Intramuscular Suspension Administered on:28-Oct-2009 Influenza Administered on:29-Aug-2012 Influenza Administered on:05-Sep-2013 Fluzone High-Dose Intramuscular Suspension #1 Lot #: [id number] Administered on:20-Aug-2014 Prevnar 13 Intramuscular Suspension Administered [...] smoker Vital Signs Date Test Result Details 14-Nov-2014 09:48 BP Systolic 142 mm[Hg] Status: BP Diastolic 68 mm[Hg] Status: Heart Rate 82 /min Status: Temperature 99 f Status: O2 SAT 98 % Status: Results Date Description Value Details 02-Nov-2014 13:36 PROTIME PANEL 7000 PROTIME 22.0 secs (Above high threshold) Range: 12.0-14.9 INR 1.96 (Better) Plan of Care Planned Observations* Name [...]
--- OUTSIDE RECORDS SUMMARY | 2017-03-31 14:39 | XMS REPORT | Summary of Care ---
Author Author Jarek Salinas M.D. Organization Unknown Address [address], [place] [id number] Phone Unavailable Care Team Providers Care Senior Embedded Software Engineer Name Role Phone Duke Salinas M.D. Unavailable Unavailable Martha Gudino M.D. Unavailable Unavailable Jarek Salinas Unavailable Unavailable Unavailable Unavailable Functional Status Name Dates Details Functional status health issues are not documented Status: Name Dates Details Cognitive status health issues are not documented Status: Problems Name Dates Details Atrial tachycardia (427.89, I47.1) Status: Active Fatigue (780.79, R53.83) Status: Active Shortness of breath (786.05, R06.02) Status: Active High risk medication use (V58.69, Z79.899) Status: Active Actinic keratosis (702.0, L57.0) Status: Active [place] hemangioma (448.1, I78.1) Status: Active Cardiomyopathy (425.4, I42.9) Status: Active Coronary artery disease (414.00, 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 Dyslipidemia (272.4, E78.5) Status: Active Nonsustained ventricular tachycardia (427.1, I47.2) Status: Active COPD (chronic obstructive pulmonary disease) (496, J44.9) Status: Active Hypertension (401.9, I10) Status: Active Nausea (787.02, R11.0) Status: Active Obesity (278.00, E66.9) Status: Active SOB (shortness of breath) on exertion (786.05, R06.02) Status: Active Anxiety (300.00, F41.9) Status: Active Seborrheic keratosis (702.19, L82.1) Status: Active 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, 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 Sustained VT (ventricular tachycardia) (427.1, I47.2) Status: Active 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, 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 Headache (784.0, R51) Status: Active Shingles (053.9, B02.9) Status: Active Atrial fibrillation (427.31, I48.91) Status: Active ACC/AHA stage C heart failure with preserved ejection fraction (428.9, I50.9) Status: Active Diabetes mellitus, type 2 (250.00, E11.9) Status: Active 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 Quantity: 0 Jarek Salinas M.D. * Start 16-Mar-2008 Active Multiple Vitamin TABS TAKE 1 TABLET DAILY. * Quantity: 0 Refills: 0 Jarek Salinas M.D. * Start 16-Mar-2008 Active Fish Oil 1000 MG Oral Capsule Take one capsule daily. * Refills: 0 Jarek Salinas M.D. * Start 07-Mar-2012 Active Red Yeast Rice 600 MG Oral Tablet TAKE 2 TABLETS DAILY. * Refills: 0 Jarek Salinas M.D. * Start 07-Mar-2012 Active Warfarin Sodium 5 MG Oral Tablet ON HOLD UNTIL LAB 01/21 * Refills: 3 Jarek Salinas M.D. * Start 23-Mar-2014 Active Gemfibrozil 600 MG Oral Tablet Take 1 tablet at night * Quantity: 90 Refills: 3 Jarek Salinas M.D. * Start 25-Mar-2015 Active Carvedilol 12.5 MG Oral Tablet Take One Tablet By Mouth Twice Daily * Quantity: 60 Refills: 5 Martha Gudino M.D. * Start 16-Sep-2015 Active MetFORMIN HCl - 500 MG Oral Tablet take 1/2 tablet twice daily * Refills: 0 Jarek Salinas M.D. * Start Active Potassium Chloride ER 10 MEQ Oral Tablet Extended Release Take one tablet daily. * Refills: 0 Brad Jovel, Jarek Wall * Start 13-Feb-2016 Active Furosemide 40 MG Oral Tablet TAKE 1 TABLET DAILY. * Refills: 0 Brad Jovel, Jarek Wall * Start 13-Feb-2016 Active Allergies and Adverse Reactions Name Dates Details Pravachol TABS (Allergy) Status: Active Zocor TABS (Allergy) Status: Active Past Medical History Name Dates Details ACC/AHA stage C heart failure with preserved ejection fraction (428.9, I50.9) Status: Active AICD (automatic cardioverter/defibrillator) present (V45.02, Z95.810) Status: Active Anxiety (300.00, F41.9) Status: Active Atrial flutter with rapid ventricular response (427.32, I48.92) Status: Active Cardiomyopathy (425.4, I42.9) Status: Active COPD (chronic obstructive pulmonary disease) (496, J44.9) Status: Active Coronary artery disease (414.00, 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 Diabetes mellitus, type 2 (250.00, E11.9) Status: Active Dyslipidemia (272.4, E78.5) Status: Active Hypertension (401.9, I10) Status: Active 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, 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 Nonsustained ventricular tachycardia (427.1, I47.2) Status: Active Obesity (278.00, E66.9) Status: Active 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, 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 Seborrheic keratosis (702.19, L82.1) Status: Active SOB (shortness of breath) on exertion (786.05, R06.02) Status: Active Sustained VT (ventricular tachycardia) (427.1, I47.2) Status: Active History of Basal [...] Cataract Extract With Prosthesis Insert Left Eye Completed: 05-Aug-2010 History of Complete Colonoscopy Completed: 28-Feb-2013 History of Arterial Catheterization History of Pacemaker Placement CBC w/ Auto Diff 7150 Ordered: 14-Jul-2016 Comprehensive Metabolic Panel 1212 Ordered: 14-Jul-2016 LIPID PROFILE 1184 Ordered: 14-Jul-2016 HEMOGLOBIN A1C 3507 Ordered: 14-Jul-2016 THYROID STIM. HORMONE 3602 Ordered: 14-Jul-2016 PROTIME PANEL 7000 Ordered: 07-Aug-2016 Immunization Name Dates Details Td on: 22-Oct-2001 Pneumo (Pneumovax) on: 14-Sep-2006 Influenza on: 03-Sep-2008 Td Lot #: [id number] on: Influenza on: 09-Aug-2009 Influenza A (H1N1) Monoval Vac SUSP on: 28-Oct-2009 Influenza on: 29-Aug-2012 Influenza on: 05-Sep-2013 Fluzone High-Dose SUSP #1 Lot #: [id number] on: 20-Aug-2014 Prevnar 13 Intramuscular Suspension on: 21-Sep-2014 Fluzone High-Dose 0.5 ML Intramuscular Suspension Prefilled Syringe Lot #: [id number] on: 12-Aug-2015 Pneumovax 23 25 MCG/0.5ML Injection Injectable Lot #: [id number] on: 10-Aug-2016 Fluzone High-Dose 0.5 ML Intramuscular Suspension Prefilled Syringe Lot #: [id number] on: 10-Aug-2016 Family History Name Dates Details Family history of Reported Family History Of Cancer Comments: Family History Status: Active Family history of Reported Family History Of Heart Disease Comments: Family History Status: Active Name Dates Details Family history of Diabetes Mellitus (V18.0) Status: Active Social History Name Dates Details - Status: Name Dates Details Never smoker Vital Signs Date Test Result Details 20-Aug-2016 14:18 BP Systolic 128 mm[Hg] Status: Comments: Location: LUE; Position: Sitting BP Diastolic 72 mm[Hg] Status: Comments: Location: LUE; Position: Sitting Heart Rate 91 /min Status: Comments: Location: ; Weight 184.0 lb Status: Physical Findings 95 Status: Comments: O2 Saturation Body Mass Index Calculated 30.62 kg/m2 Status: Body Surface Area Calculated 1.91 m2 Status: 13-Aug-2016 11:56 BP Systolic 120 mm[Hg] Status: Comments: Location: ; Position: BP Diastolic 78 mm[Hg] Status: Comments: Location: ; Position: Heart Rate 92 /min Status: Comments: Location: ; Weight 183 lb Status: Physical Findings 95 Status: Comments: O2 Saturation Body Mass Index Calculated 30.45 kg/m2 Status: Body Surface Area Calculated 1.9 m2 Status: 27-Jul-2016 09:23 BP Systolic 118 mm[Hg] Status: Comments: Location: RUE; Position: Sitting BP Diastolic 70 mm[Hg] Status: Comments: Location: RUE; Position: Sitting Heart Rate 85 /min Status: Comments: Location: ; Weight 185.4 lb Status: Physical Findings 93 Status: Comments: O2 Saturation Body Mass Index Calculated 30.85 kg/m2 Status: Body Surface Area Calculated 1.92 m2 Status: Results Date Description Value Details 29-Jul-2016 14:47 ECG/ EKG Outside Interp Electro CardioGram 31-Jul-2016 14:59 PROTIME PANEL 7000 PROTIME 33.1 secs (Above high threshold) Range: 12.0-14.9 INR 3.22 05-Aug-2016 09:23 Diabetic Eye Exam No diabetic retinopathy Range: 0 07-Aug-2016 11:54 PROTIME PANEL 7000 PROTIME 31.1 secs (Above high threshold) Range: 12.0-14.9 INR 2.97 19-Aug-2016 13:08 CT HEAD WITHOUT AND WITH IV CONTRAST Comments: Exam Date: 08/19/2016 12:32Dictation Date: 08/19/2016 13:08 [facility] Radiologic ReportETHAN NUNO- [id number] (X-RAY)PATIENT OF DR. HERNANDEZ BD: 1935 SECONDARY 08/19/16 XC HEAD WITHOUT/ WITH XC OPTIRAY 320 75ML INDICATION: R22.0: LOCAL Plan of Care Name Dates Details Planned Observations PROTIME PANEL 7000 On 10-Aug-2016 Intent Planned Goals not documented Planned Encounters Appointment; Provider: Donny Artis M.D. On 14-Jan-2017 09:15 Appointment; Provider: Jarek Salinas M.D. On 10-Sep-2016 10:15 Appointment; Provider: Schedule Radiology On 19-Aug-2016 13:00 Instructions Name Dates Details Instructions not documented Encounters Appointment; Glenroy Hernandez M.D. Encounter Diagnosis: Problem not documented On 27-Jul-2016 09:15 Appointment; Jarek Salinas M.D. Encounter Diagnosis: Problem not documented On 13-Jul-2016 09:00 Appointment; Glenroy Hernandez M.D. Encounter Diagnosis: Problem not documented On 25-Jun-2016 09:00 Appointment; Noah Sheffield M.D. Encounter Diagnosis: Problem not documented On 19-Jun-2016 14:25 Appointment; Jarek Salinas M.D. Encounter Diagnosis: Problem not documented On 14:00 Appointment; Glenroy Hernandez M.D. Encounter Diagnosis: Problem not documented On 11:45 Appointment; Noah Sheffield M.D. Encounter Diagnosis: Problem not documented On 11:44 Appointment; Jarek Salinas M.D. Encounter Diagnosis: Problem not documented On 02-Apr-2016 12:15 Appointment; Jarek Salinas M.D. Encounter Diagnosis: Problem not documented On 13-Feb-2016 10:00 Appointment; Martha Gudino M.D. Encounter Diagnosis: Problem not documented On 20-Jan-2016 09:30 Appointment; Megan Blanca P.A. Encounter Diagnosis: Problem not documented On 15-Jan-2016 09:45 Appointment; Martha Gudino M.D. Encounter Diagnosis: Problem not documented On 09-Dec-2015 11:45 Appointment; Jarek Salinas M.D. Encounter Diagnosis: Problem not documented On 09-Dec-2015 09:00 Appointment; Jarek Salinas M.D. Encounter Diagnosis: Problem not documented On 05-Nov-2015 11:45 Appointment; Jarek Salinas M.D. Encounter Diagnosis: Problem not documented On 31-Oct-2015 10:30 Appointment; Jarek Salinas M.D. Encounter Diagnosis: Problem not documented On 24-Oct-2015 15:30 Appointment; Noah Sheffield M.D. Encounter Diagnosis: Problem not documented On 21-Oct-2015 08:15 Appointment; Jarek Salinas M.D. Encounter Diagnosis: Problem not documented On 07-Oct-2015 13:15 Appointment; Martha Gudino M.D. Encounter Diagnosis: Problem not documented On 30-Sep-2015 12:45 Appointment; Martha Gudino M.D. Encounter Diagnosis: Problem not documented On 25-Sep-2015 12:00 Appointment; Martha Gudino M.D. Encounter Diagnosis: Problem not documented On 16-Sep-2015 12:15 Appointment; Martah Gudino M.D. Encounter Diagnosis: Problem not documented On 29-Aug-2015 14:00 Appointment; Jarek Salinas M.D. Encounter Diagnosis: Problem not documented On 26-Aug-2015 11:30 Appointment; Jarek Salinas M.D. Encounter Diagnosis: Problem not documented On 12-Aug-2015 12:30 Appointment; Jarek Salinas M.D. Encounter Diagnosis: Problem not documented On 30-Jul-2015 15:15 Appointment; Martha Gudino M.D. Encounter Diagnosis: Problem not documented On 18-Jul-2015 13:15 Appointment; Martha Gudino M.D. Encounter Diagnosis: Problem not documented On 15-Jul-2015 11:45 Appointment; Martha Gudino M.D. Encounter Diagnosis: Problem not documented On 24-Jun-2015 09:00 Appointment; Jarek Salinas M.D. Encounter Diagnosis: Problem not documented On 21-Jun-2015 10:45 Appointment; Noah Sheffield M.D. Encounter Diagnosis: Problem not documented On 12:35 Appointment; Martha Gudino M.D. Encounter Diagnosis: Problem not documented On 09:30 Appointment; Jarek Salinas M.D. Encounter Diagnosis: Problem not documented On 15:45 Appointment; Saúl Anaya M.D. Encounter Diagnosis: Problem not documented On 26-Mar-2015 13:15 Appointment; Jarek Salinas M.D. Encounter Diagnosis: Problem not documented On 22-Mar-2015 13:00 Appointment; Donny Artis M.D. Encounter Diagnosis: Problem not documented On 11-Mar-2015 08:30 Appointment; Jarek Salinas M.D. Encounter Diagnosis: Problem not documented On 18-Feb-2015 10:30 Appointment; Noah Sheffield M.D. Encounter Diagnosis: Problem not documented On 14-Nov-2014 09:30 Appointment; Jarek Salinas M.D. Encounter Diagnosis: Problem not documented On 25-Oct-2014 15:45 Appointment; Martha Gudino M.D. Encounter Diagnosis: Problem not documented On 22-Oct-2014 09:30 Appointment; Jarek Salinas M.D. Encounter Diagnosis: Problem not documented On 21-Sep-2014 09:45
--- OUTSIDE RECORDS SUMMARY | 2017-03-31 14:39 | XMS REPORT | Summary of Care ---
Author Author Jarek Salinas M.D. Organization Unknown Address [address] [place], [place] [id number] Phone Unavailable Care Team Providers Care Commercial Management Accountant Name Role Phone Duke Salinas M.D. Unavailable Unavailable Jarek Salinas PP Unavailable Unavailable Unavailable Functional Status Functional Status Health Issues* Name Dates Details Functional status health issues are not documented Status: Cognitive Status Health Issues* Name Dates Details Cognitive status health issues are not documented Status: Problems Name Dates Details Type 2 diabetes mellitus (250.00, E11.9) Status: Active Atrial tachycardia (427.89, I47.1) Status: Active Atrial flutter with rapid ventricular response (427.32, I48.92) Status: Active Diabetes mellitus (250.00, E11.9) Status: Active Fatigue (780.79, R53.83) Status: Active Atherosclerotic heart disease of [place] coronary artery without angina pectoris (414.01, 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 Atrial fibrillation (427.31, I48.91) Status: Active Cardiomyopathy (425.4, I42.9) Status: Active Dyslipidemia (272.4, E78.5) Status: Active Hypertension (401.9, I10) Status: Active Obesity (278.00, E66.9) Status: Active AICD (automatic cardioverter/defibrillator) present (V45.02, Z95.810) Status: Active Medications Name Dates Details Aspir-81 [...] mouth everyday * Refills: 0 * Started ActiveSotalol HCl - 80 MG Oral Tablet Take one tablet daily * Refills: 0 Jarek Salinas M.D.* Started 01-Aug-2015 Active Allergies and Adverse Reactions Name Dates Details Pravachol TABS Status: Active Zocor TABS Status: Active Past Medical History Name Dates Details Atherosclerotic heart disease of [place] coronary artery without angina pectoris (414.01, 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 Atrial fibrillation (427.31, I48.91) Status: Active Cardiomyopathy (425.4, I42.9) Status: Active Dyslipidemia (272.4, E78.5) Status: Active Hypertension (401.9, I10) Status: Active Type 2 diabetes mellitus (250.00, E11.9) Status: Active History of Basal cell carcinoma of skin of ear (173.21, C44.211) Status: Resolved History of myocardial infarction (412, I25.2) Status: Resolved History of Pre-operative cardiovascular examination (V72.81, Z01.810) Status: Resolved History of seborrheic keratosis (V13.3, Z87.2) Status: Resolved History of Skin Cancer (V10.83) Status: Resolved Procedures Procedure Dates Details History of Extracaps Cataract Extract With Prosthesis Insert Right Eye History of Extracaps Cataract Extract With Prosthesis Insert Left Eye History of Extracaps Cataract Extract With Prosthesis Insert Left Eye Completed:05-Aug-2010 History of Complete Colonoscopy Completed:28-Feb-2013 History of Arterial Catheterization CBC w/ Auto Diff 7150 Ordered:02-Aug-2015 Comprehensive Metabolic Panel 1212 Ordered:02-Aug-2015 HEMOGLOBIN A1C 3507 Ordered:02-Aug-2015 LIPID PROFILE 1184 Ordered:02-Aug-2015 THYROID STIM. HORMONE 3602 Ordered:02-Aug-2015 PROTIME PANEL 7000 Ordered:12-Aug-2015 Immunization Name Dates Details Td Administered on:22-Oct-2001 Pneumo (Pneumovax) Administered on:14-Sep-2006 Influenza Administered on:03-Sep-2008 Td Lot #: [id number] Administered on: Influenza Administered on:09-Aug-2009 Influenza A (H1N1) Monoval Vac Intramuscular Suspension Administered on:28-Oct-2009 Influenza Administered on:29-Aug-2012 Influenza Administered on:05-Sep-2013 Fluzone High-Dose Intramuscular Suspension #1 Lot #: [id number] Administered on:20-Aug-2014 Prevnar 13 Intramuscular Suspension Administered on:21-Sep-2014 Fluzone High-Dose 0.5 ML Intramuscular Suspension Prefilled Syringe Lot #: [id number] Administered on:12-Aug-2015 Family History Unknown Family Member* [...] smoker Vital Signs Date Test Result Details 29-Aug-2015 13:58 BP Systolic 130 mm[Hg] Status: BP Diastolic 74 mm[Hg] Status: Heart Rate 84 /min Status: Weight 193.8 lb Status: Body Mass Index Calculated 32.25 kg/m2 Status: Body Surface Area Calculated 1.95 m2 Status: 26-Aug-2015 11:16 BP Systolic 120 mm[Hg] Status: BP Diastolic 52 mm[Hg] Status: Heart Rate 92 /min Status: Height 65 in Status: Weight 194 lb Status: Body Mass Index Calculated 32.28 kg/m2 Status: Body Surface Area Calculated 1.95 m2 Status: Results Date Description Value Details 12-Aug-2015 13:29 PROTIME PANEL 7000 PROTIME 26.7 secs (Above high threshold) Range: 12.0-14.9 INR 2.45 (Better) 31-Jul-2015 10:43 Diabetic Eye Exam No diabetic retinopathy (Better) Range : 0 Plan of Care Planned Observations* Name Dates [...]
--- OUTSIDE RECORDS SUMMARY | 2017-03-31 14:40 | XMS REPORT | Summary of Care ---
Author Author Jarek Salinas M.D. Organization Unknown Address [address], [place] [id number] Phone Unavailable Care Team Providers Care Asphalt Screed Operator Name Role Phone Duke Salinas M.D. 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 Sustained VT (ventricular tachycardia) (427.1, I47.2) Status: Active Headache (784.0, R51) Status: Active Shingles (053.9, B02.9) Status: Active ACC/AHA stage C heart failure with preserved ejection fraction (428.9, I50.9) Status: Active Right forearm cellulitis (682.3, L03.113) Status: Active Dyslipidemia (272.4, E78.5) Status: Active Lung disease, chronic obstructive (496, J44.9) Status: Active 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, 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 Encounter for medication counseling (V65.49, Z71.89) Status: Active 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, 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 Quantity: 0 Brad Jovel, Jarek A * Start 16-Mar-2008 Active Multiple Vitamin TABS TAKE 1 TABLET DAILY. * Quantity: 0 Refills: 0 Brad Jovel, Jarek A * Start 16-Mar-2008 Active Fish Oil 1000 MG Oral Capsule Take one capsule daily. * Refills: 0 Brad Jovel, Jarek A * Start 07-Mar-2012 Active Red Yeast Rice 600 MG Oral Tablet TAKE 2 TABLETS DAILY. * Refills: 0 Brad Jovel, Jarek A * Start 07-Mar-2012 Active Warfarin Sodium 5 MG Oral Tablet TAKE ONE TABLET BY MOUTH ONCE DAILY * Quantity: 90 Refills: 0 Brad Jovel, Jarek A * Start 29-Jan-2017 Active Gemfibrozil 600 MG Oral Tablet TAKE ONE TABLET BY MOUTH ONCE DAILY AT NIGHT * Quantity: 90 Refills: 0 Brad Jovel, Jarek Wall * Start 01-Feb-2017 Active MetFORMIN HCl - 500 MG Oral Tablet take 1/2 tablet twice daily * Refills: 0 Brad Jovel, Jarek Duke * Start Active Carvedilol 12.5 MG Oral Tablet Take 1 1/2 tablets twice daily * Refills: 0 Martha Gudino M.D. * Start 16-Sep-2015 Active Potassium Chloride ER 10 MEQ Oral Tablet Extended Release Take one tablet daily. 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 Lung disease, chronic obstructive (496, J44.9) Status: Active Nonsustained ventricular tachycardia (427.1, I47.2) [...] of Arterial Catheterization History of Pacemaker Placement PROTIME PANEL 7000 Ordered: 28-Jan-2017 PROTIME PANEL 7000 Ordered: 12-Feb-2017 CT HEAD WITHOUT AND WITH IV CONTRAST Ordered: 11-Jan-2017 Immunization Name Dates Details Td on: 22-Oct-2001 Pneumo (Pneumovax) on: 14-Sep-2006 Influenza on: 03-Sep-2008 Td Lot #: [id number] on: Influenza on: 09-Aug-2009 Influenza A (H1N1) Monoval Vac SUSP on: 28-Oct-2009 Influenza on: 29-Aug-2012 Influenza on: 05-Sep-2013 Fluzone High-Dose SUSP #1 Lot #: [id number] on: 20-Aug-2014 Prevnar 13 Intramuscular Suspension on: 21-Sep-2014 Fluzone High-Dose 0.5 ML Intramuscular Suspension Prefilled Syringe Lot #: [id number] on: 12-Aug-2015 Pneumovax 23 25 MCG/0.5ML Injection Injectable Lot #: [id number] on: 10-Aug-2016 Fluzone High-Dose 0.5 ML Intramuscular Suspension Prefilled Syringe Lot #: [id number] on: 10-Aug-2016 Family History Name Dates Details Family history of Reported Family History Of Cancer Comments: Family History Status: Active Family history of Reported Family History Of Heart Disease Comments: Family History Status: Active Name Dates Details Family history of malignant neoplasm of breast (V16.3, Z80.3) Status: Active Name Dates Details Family history of cardiac disorder (V17.49, Z82.49) Status: Active Name Dates Details Family history of Diabetes Mellitus (V18.0) Status: Active Social History Name Dates Details - Status: Name Dates Details Never smoker Vital Signs Date Test Result Details 15-Feb-2017 13:58 BP Systolic 121 mm[Hg] Status: Comments: Location: ; Position: BP Diastolic 60 mm[Hg] Status: Comments: Location: ; Position: Heart Rate 77 /min Status: Comments: Location: ; Weight 183 lb Status: Physical Findings 93 Status: Comments: O2 Saturation Body Mass Index Calculated 30.45 kg/m2 Status: Body Surface Area Calculated 1.9 m2 Status: 04-Feb-2017 14:47 BP Systolic 120 mm[Hg] Status: Comments: Location: ; Position: Standing BP Diastolic 58 mm[Hg] Status: Comments: Location: ; Position: Standing Heart Rate 107 /min Status: Comments: Location: ; Weight 187 lb Status: Physical Findings 94 Status: Comments: O2 Saturation Body Mass Index Calculated 31.12 kg/m2 Status: Body Surface Area Calculated 1.92 m2 Status: 25-Jan-2017 13:46 BP Systolic 137 mm[Hg] Status: Comments: Location: ; Position: BP Diastolic 80 mm[Hg] Status: Comments: Location: ; Position: Heart Rate 91 /min Status: Comments: Location: ; Weight 183 lb Status: Body Mass Index Calculated 30.45 kg/m2 Status: Body Surface Area Calculated 1.9 m2 Status: 19-Jan-2017 14:07 BP Systolic 120 mm[Hg] Status: Comments: Location: ; Position: BP Diastolic 60 mm[Hg] Status: Comments: Location: ; Position: Heart Rate 78 /min Status: Comments: Location: ; Weight 184 lb Status: Physical Findings 94 Status: Comments: O2 Saturation Body Mass Index Calculated 30.62 kg/m2 Status: Body Surface Area Calculated 1.91 m2 Status: Results Date Description Value Details 27-Jan-2017 12:12 PROTIME PANEL 7000 PROTIME 27.9 secs (Above high threshold) Range: 12.0-14.9 INR 2.73 10-Feb-2017 12:55 PROTIME PANEL 7000 PROTIME 28.1 secs (Above high threshold) Range: 12.0-14.9 INR 2.76 12-Feb-2017 08:05 CBC w/ Auto Diff 7150 Comments: Fastin hours WBC 7.8 K/uL Range: 4.5-11.0 RBC 5.12 mil/uL Range: 4.20-5.40 HGB 15.8 g/dL Range: 14.0-18.0 HCT 47.0 % Range: 42.0-53.0 MCV 91.7 fL Range: 80.0-99.0 MCH 30.9 pg Range: 27.3-32.5 MCHC 33.7 % Range: 32.0-36.0 RDW 14.4 % Range: 11.6-14.8 PLATELETS 317 K/uL Range: 150-400 MPV 6.7 fL Range: 6.0-11.0 %NEUTRO 69.8 % Range: 37.0-80.0 %LYMPHS 18.6 % Range: 13.0-50.0 %MONO 6.3 % Range: 0.0-12.0 %EOS 2.1 % Range: 0.0-7.0 %BASO 0.6 % Range: 0.0-2.5 %LEILANI 2.5 % Range: 0.0-5.0 NEUTRO 5.4 K/uL Range: 2.0-6.9 LYMPHS 1.5 K/uL Range: 0.6-3.4 MONOS 0.5 K/uL Range: 0.0-0.9 EOS 0.2 K/uL Range: 0.0-0.7 BASO 0.1 K/uL Range: 0.0-0.2 08:35 LIPID PROFILE 1184 Comments: Fastin hours CHOLESTEROL 141 mg/dL Range: <200 TRIGLYCERIDES 82 mg/dL Range: 30-200 HDL Cholesterol 32 mg/dL (Below low threshold) Range: >39 NON HDL CHOLESTEROL 109 CARDIAC RSK FACTOR 4.4 units Range: 4.4-5.0 LDL - CALCULATED 93 mg/dL Range: 0-130 08:35 Comprehensive Metabolic Panel 1212 Comments: Fastin hours SODIUM 135 mmol/L Range: 133-144 POTASSIUM 4.0 mmol/L Range: 3.5-5.1 CHLORIDE 99 mmol/L Range: 98-110 CARBON DIOXIDE 28.3 mmol/L Range: 23.0-33.0 ANION GAP 8 mmol/L Range: 6-16 BUN 19 mg/dL (Above high threshold) Range: 7-18 CREATININE, SERUM 1.05 mg/dL Range: 0.70-1.30 BUN:CREATININE RATIO 18 EST GFR, >60 ml/min Range: >60 EST GFR, NON-AFR [place] >60 ml/min Range: >60 Comments: EST GFR is reported in ml/min per 1.73 m2 of body surface area. ----- GLUCOSE 164 mg/dL (Above high threshold) Range: 70-100 ALK PHOSPHATASE 88 U/L Range: 46-116 TOTAL BILIRUBIN 0.90 mg/dL Range: 0.20-1.00 AST 16 U/L Range: 8-35 ALT 18 U/L Range: 16-63 ALBUMIN 3.6 g/dL Range: 3.4-5.0 TOTAL PROTEIN 7.5 g/dL Range: 6.4-8.2 A/G RATIO 0.9 units (Below low threshold) Range: 1.0-1.8 CALCIUM 8.8 mg/dL Range: 8.5-10.1 08:46 HEMOGLOBIN A1C 3507 Comments: Fastin hours Hemoglobin A1C 9.6 % ESTIMATED AVG. GLUCOSE 229 08:53 THYROID STIM. HORMONE 3602 Comments: Fastin hours THYROID STIM. HORMONE 1.372 uIU/mL Range: 0.550-4.780 Comments: No established reference ranges for infants and children <2 years of age----- Plan of Care Name Dates Details Planned Observations Planned Goals not documented Planned Encounters Appointment; Provider: Glenroy Joyner M.D. On 09-Apr-2017 10:45 Appointment; Provider: Schedule Radiology On 22-Mar-2017 09:00 Appointment; Provider: Jarek Sailnas M.D. On 22-Mar-2017 08:00 Appointment; Provider: Devon Tyler M.D. On 22-Feb-2017 13:45 Appointment; Provider: Donny Artis M.D. On 18-Feb-2017 11:15 Instructions Name Dates Details Instructions not documented Encounters Appointment; Jarek Salinas M.D. Encounter Diagnosis: Problem not documented On 04-Feb-2017 14:45 Appointment; Shannon Reeder Au.D. Encounter Diagnosis: Problem not documented On 25-Jan-2017 14:15 Appointment; Devon Tyler M.D. Encounter Diagnosis: Problem not documented On 25-Jan-2017 14:00 Appointment; Jarek Salinas M.D. Encounter Diagnosis: Problem not documented On 19-Jan-2017 14:00 Appointment; Jarek Salinas M.D. Encounter Diagnosis: Problem not documented On 12-Jan-2017 11:45 Appointment; Glenroy Joyner M.D. Encounter Diagnosis: Problem not documented On 11-Jan-2017 09:00 Appointment; Zuri Benson A.P.R.N. Encounter Diagnosis: Problem not documented On 08-Jan-2017 13:00 Appointment; Zuri Benson A.P.R.N. Encounter Diagnosis: Problem not documented On 31-Dec-2016 13:00 Appointment; Glenroy Joyner M.D. Encounter Diagnosis: Problem not documented On 04-Nov-2016 08:30 Appointment; Jarek Salinas M.D. Encounter Diagnosis: Problem not documented On 05-Oct-2016 14:00 Appointment; Jarek Salinas M.D. Encounter Diagnosis: Problem not documented On 10-Sep-2016 10:15 Appointment; Glenroy Joyner M.D. Encounter Diagnosis: Problem not documented On 09-Sep-2016 09:45 Appointment; Glenroy Joyner M.D. Encounter Diagnosis: Problem not documented On 20-Aug-2016 14:15 Appointment; Jarek Salinas M.D. Encounter Diagnosis: Problem not documented On 13-Aug-2016 11:45 Appointment; Jarek Salinas M.D. Encounter Diagnosis: Problem not documented On 10-Aug-2016 12:00 Appointment; Glenroy Joyner M.D. Encounter Diagnosis: Problem not documented On 27-Jul-2016 09:15 Appointment; Jarek Salinas M.D. Encounter Diagnosis: Problem not documented On 13-Jul-2016 09:00 Appointment; Glenroy Joyner M.D. Encounter Diagnosis: Problem not documented On 25-Jun-2016 09:00 Appointment; Noah Sheffield M.D. Encounter Diagnosis: Problem not documented On 19-Jun-2016 14:25 Appointment; Jarek Salinas M.D. Encounter Diagnosis: Problem not documented On 14:00 Appointment; Glenroy Joyner M.D. Encounter Diagnosis: Problem not documented On [...] documented On 16-Sep-2015 12:15 Appointment; Martha Gudino M.D. Encounter Diagnosis: Problem [...]
--- OUTSIDE RECORDS SUMMARY | 2017-03-31 14:40 | XMS REPORT ---
Author Author GENERATED, SYSTEM Organization Unknown Address Unknown Phone Unavailable Care Team Providers Care Bar And Filler Assembler Name Role Phone MD TIGRE, COLLIN PP Unavailable Reason For Visit Chief Complaint TRANS FROM SAME DAY [facility] TO [facility] Social History Functional Status Vital Signs Results Problems Encounter Diagnosis No relevant problems exist. Additional Problems * Atrial Flutter Status:Active. * Diabetes Mellitus Status:Active. * Fall Risk Status:Active. * History of Atrial Fibrillation Status:Active. * History of Coronary Artery Bypass Grafting Status:Active. * History of Raised Blood Lipids Status:Active. * Mobility Impairment Status:Active. Encounters Encounter Diagnosis No relevant problems exist. Plan of Care Procedures No relevant procedures performed. Immunizations No immunizations administered or ordered. Hospital Course Hospital Discharge Instructions Allergies, Adverse Reactions, Alerts * Latex Allergy has not been assessed. * IV Contrast Allergy has not been assessed. * No Known Drug Allergies. Medication Medication reconciliation has not been performed.
--- OUTSIDE RECORDS SUMMARY | 2017-03-31 14:40 | XMS REPORT | Summary of Care ---
Author Author Noah Sheffield M.D. Unknown Address Unknown Phone Unavailable Care Team Providers Care Home Office Claims Examiner Name Role Phone Duke Salinas M.D. Unavailable Unavailable Elfego Sheffield M.D. Unavailable Unavailable Martha Gudino M.D. 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 Atrial flutter with rapid ventricular response (427.32, I48.92) Status: Active AICD (automatic cardioverter/defibrillator) present (V45.02, Z95.810) Status: Active Headache (784.0, R51) Status: Active Atrial fibrillation (427.31, I48.91) Status: Active Brain mass (348.9, G93.9) Status: Active Cerebral infarction (434.91, I63.9) Status: Active ACC/AHA stage C heart failure with preserved ejection fraction (428.9, I50.9) Status: Active Diabetes mellitus, type 2 (250.00, E11.9) Status: Active Shingles (053.9, B02.9) Status: Active Medications Name Dates Details Aspir-81 81 MG Oral Tablet Delayed Release TAKE 1 TABLET DAILY. Quantity: 0 Brad Jovel, Jarek Wall * Start 16-Mar-2008 Active Multiple Vitamin TABS [...] Jarek Salinas M.D. * Start 25-Mar-2015 Active MetFORMIN HCl - 500 MG Oral Tablet take 1/2 tablet twice daily * Refills: 0 Jarek Salinas M.D. * Start Active Carvedilol 12.5 MG Oral Tablet Take One Tablet By Mouth Twice Daily * Quantity: 60 Refills: 5 Martha Gudino M.D. * Start 16-Sep-2015 Active Furosemide 40 MG Oral Tablet TAKE 1 TABLET DAILY. * Refills: 0 Jarek Salinas M.D. * Start 13-Feb-2016 Active Potassium Chloride ER 10 MEQ Oral Tablet Extended Release Take one tablet daily. * Refills: 0 Brad Jovel, Jarek Wall * Start 13-Feb-2016 Active Acyclovir 800 MG Oral Tablet TAKE 1 TABLET EVERY 4 HOURS, 5 TIMES DAILY FOR 7 TO 10 DAYS. * Quantity: 35 Refills: 0 Nettie Jovel, Noah Telles * Start 19-Jun-2016 Active Allergies and Adverse Reactions Name Dates [...] of Pacemaker Placement PROTIME PANEL 7000 Ordered: CT HEAD WITHOUT AND WITH IV CONTRAST Ordered: Immunization Name Dates Details Td on: 22-Oct-2001 Pneumo (Pneumovax) on: 14-Sep-2006 Influenza on: 03-Sep-2008 Td Lot #: [id number] on: Influenza on: 09-Aug-2009 Influenza A (H1N1) Monoval Vac SUSP on: 28-Oct-2009 Influenza on: 29-Aug-2012 Influenza on: 05-Sep-2013 Fluzone High-Dose SUSP #1 Lot #: [id number] on: 20-Aug-2014 Prevnar 13 Intramuscular Suspension on: 21-Sep-2014 Fluzone High-Dose 0.5 ML Intramuscular Suspension Prefilled Syringe Lot #: [id number] on: 12-Aug-2015 Family History Name Dates Details Family history of Reported Family History Of Cancer Comments: Family History Status: Active Family history of Reported Family History Of Heart Disease Comments: Family History Status: Active Name Dates Details Family history of Diabetes Mellitus (V18.0) Status: Active Social History Name Dates Details - Status: Name Dates Details Never smoker Vital Signs Date Test Result Details 19-Jun-2016 14:46 BP Systolic 118 mm[Hg] Status: Comments: Location: [facility] [place] Position: Sitting BP Diastolic 60 mm[Hg] Status: Comments: Location: E; Position: Sitting Temperature 97.5 f Status: Heart Rate 68 /min Status: Comments: Location: ; Physical Findings 98 Status: Comments: O2 Saturation 13:52 BP Systolic 129 mm[Hg] Status: Comments: Location: ; Position: BP Diastolic 61 mm[Hg] Status: Comments: Location: ; Position: Heart Rate 82 /min Status: Comments: Location: ; Weight 186 lb Status: Body Mass Index Calculated 30.95 kg/m2 Status: Body Surface Area Calculated 1.92 m2 Status: 11:44 BP Systolic 130 mm[Hg] Status: Comments: Location: ; Position: BP Diastolic 76 mm[Hg] Status: Comments: Location: ; Position: Heart Rate 92 /min Status: Comments: Location: ; Weight 184.8 lb Status: Physical Findings 93 Status: Comments: O2 Saturation Body Mass Index Calculated 30.75 kg/m2 Status: Body Surface Area Calculated 1.91 m2 Status: Results Date Description Value Details 11:32 ECG/ EKG Outside Inter Electro CardioGram 10:47 BASIC METABOLIC PROFILE 1210 SODIUM 134 mmol/L Range: 133-144 POTASSIUM 3.8 mmol/L Range: 3.5-5.1 CHLORIDE 97 mmol/L (Below low threshold) Range: 98-110 CARBON DIOXIDE 26.0 mmol/L Range: 23.0-33.0 ANION GAP 11 mmol/L Range: 6-16 BUN 29 mg/dL (Above high threshold) Range: 7-18 CREATININE, SERUM 1.35 mg/dL (Above high threshold) Range: 0.70-1.30 Comments: Please note new reference ranges effective 2015.----- EST GFR, >60 ml/min Range: >60 EST GFR, NON-AFR [place] 51 ml/min (Below low threshold) Range: >60 Comments: EST GFR is reported in ml/min per 1.73 m2 of body surface area. For -[place], please multiple result by 1.2.----- BUN:CREATININE RATIO 21 GLUCOSE 293 mg/dL (Above high threshold) Range: 70-100 CALCIUM 8.7 mg/dL Range: 8.5-10.1 11:04 PROTIME PANEL 7000 PROTIME 23.7 secs (Above high threshold) Range: 12.0-14.9 INR 2.11 11:22 HEMOGLOBIN A1C 3507 Hemoglobin A1C 10.3 % ESTIMATED AVG. GLUCOSE 249 10:59 CT HEAD WITHOUT IV CONTRAST Comments: Exam Date: 2015 09:33Dictation Date: 06/05/2016 10:59 XC HEAD 11:45 PROTIME PANEL 7000 PROTIME 38.4 secs (Above high threshold) Range: 12.0-14.9 INR 3.88 Plan of Care Name Dates Details Planned Observations Planned Goals not documented Planned Encounters Appointment; Provider: Donny Artis M.D. On 14-Jan-2017 09:15 Appointment; Provider: Martha Gudino M.D. On 29-Jul-2016 09:45 Appointment; Provider: Jarek Salinas M.D. On 13-Jul-2016 09:00 Appointment; Provider: Glenroy Joyner M.D. On 25-Jun-2016 09:00 Appointment; Provider: Schedule Radiology On 24-Jun-2016 15:00 Interventions Provided Medication Changes* Acyclovir 800 MG Oral Tablet - Start Instructions Name Dates Details Instructions not documented [...] documented On 20-Aug-2014 13:00 Appointment; Jarek Salinas M.D. Encounter Diagnosis: Problem not documented On 23-Jul-2014 13:00 Appointment; Jarek Salinas M.D. Encounter Diagnosis: Problem not documented On 06-Jul-2014 13:15
--- OUTSIDE RECORDS SUMMARY | 2017-03-31 14:40 | XMS REPORT | Summary of Care ---
Author Jarek Jacobs M.D. Organization Unknown Address [address], [place] [id number] Phone Unavailable Care Team Providers Care Customer Resource Specialist Name Role Phone Duke Salinas M.D. Unavailable [...] Status: Active Fatigue (780.79, R53.83) Status: Active Coronary artery disease (414.00, 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 Atrial flutter with rapid ventricular response (427.32, I48.92) Status: Active AICD (automatic cardioverter/defibrillator) present (V45.02, Z95.810) Status: Active Cardiomyopathy (425.4, I42.9) Status: Active Dyslipidemia (272.4, E78.5) Status: Active Hypertension (401.9, I10) Status: Active Obesity (278.00, E66.9) Status: Active Nonsustained ventricular tachycardia (427.1, I47.2) Status: Active Medications Name Dates Details Aspir-81 [...] 5 Martha Gudino M.D.* Started 16-Sep-2015 ActiveCarvedilol 12.5 MG Oral Tablet 1BID - [...] 1184 Ordered:02-Aug-2015 THYROID STIM. HORMONE 3602 Ordered:02-Aug-2015 Comprehensive Metabolic Panel 1212 Ordered:23-Sep-2015 HEMOGLOBIN A1C 3507 Ordered:23-Sep-2015 LIPID PROFILE 1184 Ordered:23-Sep-2015 THYROID STIM. HORMONE 3602 Ordered:23-Sep-2015 PROTIME PANEL 7000 Ordered:09-Sep-2015 CBC w/ Auto Diff 7150 Ordered:23-Sep-2015 Immunization Name Dates Details Td Administered on:22-Oct-2001 Pneumo (Pneumovax) Administered on:14-Sep-2006 Influenza Administered on:03-Sep-2008 Td Lot #: [id number] Administered on: Influenza Administered on:09-Aug-2009 Influenza A (H1N1) Monoval Vac Intramuscular Suspension Administered on:28-Oct-2009 Influenza Administered on:29-Aug-2012 Influenza Administered on:05-Sep-2013 Fluzone High-Dose Intramuscular Suspension #1 Lot #: [id number] Administered on:20-Aug-2014 Prevnar 13 Intramuscular Suspension Administered on:21-Sep-2014 Fluzone High-Dose 0.5 ML Intramuscular Suspension Prefilled Syringe Lot #: [id number] Administered on:12-Aug-2015 Family History Unknown Family Member* [...] 10:30 * Appointment; Provider: Martha Gudino On 30-Sep-2015 12:45 * Appointment; Provider: Martha Gudino On 01-Jul-2015 [...]
--- OUTSIDE RECORDS SUMMARY | 2017-03-31 14:41 | XMS REPORT | Summary of Care ---
Author Author Martha Gudino M.D. Organization Unknown Address [address] [place] [address] Phone Unavailable Care Team Providers Care Maintenance Supervisor 2Nd Shift Name Role Phone Duke Salinas M.D. Unavailable Unavailable Jarek Salinas PP Unavailable Unavailable Unavailable Functional Status Functional Status Health Issues* Name Dates Details Functional status health issues are not documented Status: Cognitive Status Health Issues* Name Dates Details Cognitive status health issues are not documented Status: Problems Name Dates Details Diabetes mellitus (250.00, E11.9) Status: Active Type 2 diabetes mellitus (250.00, E11.9) Status: Active Atrial fibrillation (427.31, I48.91) Status: Active Pre-operative cardiovascular examination (V72.81, Z01.810) Status: Active Atrial tachycardia (427.89, I47.1) Status: Active Atrial flutter with rapid ventricular response (427.32, I48.92) Status: Active 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, 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 Cardiomyopathy (425.4, I42.9) Status: Active [...] Name Dates Details 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, I25.10) [...] Complete Colonoscopy Completed:28-Feb-2013 History of Arterial Catheterization PROTIME PANEL 7000 Ordered:20-Jun-2015 Immunization Name Dates Details Td Administered on:22-Oct-2001 Pneumo (Pneumovax) Administered on:14-Sep-2006 Influenza Administered on:03-Sep-2008 Td Lot #: [id number] Administered on: Influenza Administered on:09-Aug-2009 Influenza A (H1N1) Monoval Vac Intramuscular Suspension Administered on:28-Oct-2009 Influenza Administered on:29-Aug-2012 Influenza Administered on:05-Sep-2013 Fluzone High-Dose Intramuscular Suspension #1 Lot #: [id number] Administered on:20-Aug-2014 Prevnar 13 Intramuscular Suspension Administered [...] smoker Vital Signs Date Test Result Details 15-Jul-2015 11:42 BP Systolic 158 mm[Hg] Status: BP Diastolic 78 mm[Hg] Status: Heart Rate 80 /min Status: Weight 191.2 lb Status: Body Mass Index Calculated 31.82 kg/m2 Status: Body Surface Area Calculated 1.94 m2 Status: 24-Jun-2015 08:57 BP Systolic 148 mm[Hg] Status: BP Diastolic 70 mm[Hg] Status: Heart Rate 88 /min Status: Weight 189.0 lb Status: Body Mass Index Calculated 31.45 kg/m2 Status: Body Surface Area Calculated 1.93 m2 Status: 21-Jun-2015 10:59 BP Systolic 122 mm[Hg] Status: BP Diastolic 62 mm[Hg] Status: Heart Rate 76 /min Status: Height 65 in Status: Weight 190 lb Status: Body Mass Index Calculated 31.62 kg/m2 Status: Body Surface Area Calculated 1.94 m2 Status: Results Date Description Value Details 19-Jun-2015 09:22 PROTIME PANEL 7000 Comments: Fastin hours PROTIME 18.6 secs (Above high threshold) Range: 12.0-14.9 INR 1.58 (Better) 09:48 Comprehensive Metabolic Panel 1212 Comments: 06/17 Fastin hours SODIUM 138 mmol/L (Better) Range: 133-144 POTASSIUM 4.5 mmol/L (Better) Range: 3.5-5.1 CHLORIDE 101 mmol/L (Better) Range: 98-110 CARBON DIOXIDE 25.3 mmol/L (Better) Range: 23.0-33.0 ANION GAP 12 mmol/L (Better) Range: 6-16 BUN 24 mg/dL (Above high threshold) Range: 7-18 CREATININE, SERUM 1.25 mg/dL (Better) Range: 0.70-1.30 Comments: Please note new reference ranges effective 2015.----- BUN:CREATININE RATIO 19 (Better) EST GFR, >60 ml/min (Better) Range: >60 EST GFR, NON-AFR RWANDAN 55 ml/min (Below low threshold) Range: >60 Comments: EST GFR is reported in ml/min per 1.73 m2 of body surface area. For -Dominican, please multiple result by 1.2.----- GLUCOSE 149 mg/dL (Above high threshold) Range: 70-100 ALK PHOSPHATASE 81 U/L (Better) Range: 46-116 TOTAL BILIRUBIN 0.60 mg/dL (Better) Range: 0.20-1.00 AST 18 U/L (Better) Range: 8-35 ALT 25 U/L (Better) Range: 16-63 Comments: Please note new reference ranges. Effective 01/24/2015.----- ALBUMIN 3.5 g/dL (Better) Range: 3.4-5.0 TOTAL PROTEIN 7.6 g/dL (Better) Range: 6.4-8.2 A/G RATIO 0.9 units (Below low threshold) Range: 1.0-1.8 CALCIUM 9.2 mg/dL (Better) Range: 8.5-10.1 09:48 LIPID PROFILE 1184 Comments: Fastin hours CHOLESTEROL 174 mg/dL (Better) Range: <200 TRIGLYCERIDES 96 mg/dL (Better) Range: 30-200 HDL Cholesterol 38 mg/dL (Below low threshold) Range: >39 NON HDL CHOLESTEROL 136 (Better) CARDIAC RSK FACTOR 4.6 units (Better) Range: 4.4-5.0 LDL - CALCULATED 117 mg/dL (Better) Range: 0-130 10:11 THYROID STIM. HORMONE 3602 Comments: Fastin hours THYROID STIM. HORMONE 1.574 uIU/mL (Better) Range: 0.550-4.780 Comments: \[id number]\No established reference ranges for infants and children < 2 years of ageNo established reference ranges for infants and children <2 years of age----- 10:29 HEMOGLOBIN A1C 3507 Comments: Fastin hours Hemoglobin A1C 8.7 % (Better) ESTIMATED AVG. GLUCOSE 203 (Better) 28-Jun-2015 09:01 CBC w/ Auto Diff 7150 WBC 9.8 K/uL (Better) Range: 4.5-11.0 RBC 5.22 mil/uL (Better) Range: 4.20-5.40 HGB 16.2 g/dL (Better) Range: 14.0-18.0 HCT 47.9 % (Better) Range: 42.0-53.0 MCV 91.8 fL (Better) Range: 80.0-99.0 MCH 31.1 pg (Better) Range: 27.3-32.5 MCHC 33.9 % (Better) Range: 32.0-36.0 RDW 13.3 % (Better) Range: 11.6-14.8 PLATELETS 301 K/uL (Better) Range: 150-400 MPV 7.1 fL (Better) Range: 6.0-11.0 %NEUTRO 73.1 % (Better) Range: 37.0-80.0 %LYMPHS 17.1 % (Better) Range: 13.0-50.0 %MONO 4.4 % (Better) Range: 0.0-12.0 %EOS 1.8 % (Better) Range: 0.0-7.0 %BASO 0.7 % (Better) Range: 0.0-2.5 %LEILANI 3.0 % (Better) Range: 0.0-5.0 NEUTRO 7.2 K/uL (Above high threshold) Range: 2.0-6.9 LYMPHS 1.7 K/uL (Better) Range: 0.6-3.4 MONOS 0.4 K/uL (Better) Range: 0.0-0.9 EOS 0.2 K/uL (Better) Range: 0.0-0.7 BASO 0.1 K/uL (Better) Range: 0.0-0.2 09:14 PROTIME PANEL 7000 PROTIME 17.7 secs (Above high threshold) Range: 12.0-14.9 INR 1.48 (Better) 09:14 BASIC METABOLIC PROFILE 1210 SODIUM 138 mmol/L (Better) Range: 133-144 POTASSIUM 4.5 mmol/L (Better) Range: 3.5-5.1 CHLORIDE 103 mmol/L (Better) Range: 98-110 CARBON DIOXIDE 22.3 mmol/L (Below low threshold) Range: 23.0-33.0 ANION GAP 13 mmol/L (Better) Range: 6-16 BUN 24 mg/dL (Above high threshold) Range: 7-18 CREATININE, SERUM 1.09 mg/dL (Better) Range: 0.70-1.30 Comments: Please note new reference ranges effective 2015.----- EST GFR, >60 ml/min (Better) Range: >60 EST GFR, NON-AFR [place] >60 ml/min (Better) Range: >60 Comments: EST GFR is reported in ml/min per 1.73 m2 of body surface area. For -Dominican, please multiple result by 1.2.----- BUN:CREATININE RATIO 22 (Better) GLUCOSE 160 mg/dL (Above high threshold) Range: 70-100 CALCIUM 9.0 mg/dL (Better) Range: 8.5-10.1 10-Jul-2015 10:58 ECG/ EKG Outside Interp Electro CardioGram (Better) Plan of Care Planned Observations* Name Dates Details Planned Goals not documented Goal Planned Encounters* Appointment; Provider: Donny Artis On 12-Mar-2016 08:00 * Appointment; Provider: Jarek Salinas On 26-Jul-2015 09:15 * Appointment; Provider: Martha Gudino On 01-Jul-2015 [...] not documented On 26-Mar-2015 13:15 Appointment; Jarek aSlinas Encounter Diagnosis: Problem not documented On 22-Mar-2015 [...]
--- OUTSIDE RECORDS SUMMARY | 2017-03-31 14:41 | XMS REPORT | Summary of Care ---
Author Author Jarek Salinas M.D. Organization Unknown Address [address], [place] [id number] Phone Unavailable Care Team Providers Care Hardware Installer Name Role Phone Duke Salinas M.D. 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, 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 Dyslipidemia (272.4, E78.5) Status: Active Cardiomyopathy (425.4, I42.9) Status: Active Atrial flutter with rapid ventricular [...] Name Dates Details 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
--- OUTSIDE RECORDS SUMMARY | 2017-03-31 14:41 | XMS REPORT | Summary of Care ---
Author Author Glenroy Hernandez M.D. Unknown Address Unknown Phone Unavailable Care Team Providers Care Spa Technician Name Role Phone Duke Salinas M.D. Unavailable Unavailable Martha Gudino M.D. Unavailable Unavailable Anand Hernandez M.D. 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) Status: Active Right forearm cellulitis (682.3, L03.113) Status: Active AICD (automatic cardioverter/defibrillator) present (V45.02, Z95.810) Status: Active Atrial flutter with rapid ventricular response (427.32, I48.92) Status: Active 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 * Refills: 0 Brad Jovel, Jarek A * Start 13-Feb-2016 Active Allergies and Adverse [...] of Pacemaker Placement PROTIME PANEL 7000 Ordered: 03-Sep-2016 BASIC METABOLIC PROFILE 1210 Ordered: 07-Sep-2016 CT HEAD WITHOUT AND WITH IV CONTRAST Ordered: 09-Sep-2016 Immunization Name Dates Details Td on: 22-Oct-2001 Pneumo (Pneumovax) on: 14-Sep-2006 Influenza on: 03-Sep-2008 Td Lot #: [id number] on: Influenza on: 09-Aug-2009 Influenza A (H1N1) Monoval Vac SUSP on: 28-Oct-2009 Influenza on: 29-Aug-2012 Influenza on: 05-Sep-2013 Fluzone High-Dose SUSP #1 Lot #: [id number] on: 20-Aug-2014 Prevnar 13 Intramuscular Suspension on: 21-Sep-2014 Fluzone High-Dose 0.5 ML Intramuscular Suspension Prefilled Syringe Lot #: [id number] on: 12-Aug-2015 Pneumovax 23 25 MCG/0.5ML Injection Injectable Lot #: [id number] on: 10-Aug-2016 Fluzone High-Dose 0.5 ML Intramuscular Suspension Prefilled Syringe Lot #: [id number] on: 10-Aug-2016 Family History Name Dates Details Family history of Reported Family History Of Cancer Comments: Family History Status: Active Family history of Reported Family History Of Heart Disease Comments: Family History Status: Active Name Dates Details Family history of Diabetes Mellitus (V18.0) Status: Active Social History Name Dates Details - Status: Name Dates Details Never smoker Vital Signs Date Test Result Details 09-Sep-2016 09:50 BP Systolic 132 mm[Hg] Status: Comments: Location: ; Position: BP Diastolic 74 mm[Hg] Status: Comments: Location: ; Position: Heart Rate 84 /min Status: Comments: Location: ; Weight 183.0 lb Status: Physical Findings 92 Status: Comments: O2 Saturation Body Mass Index Calculated 30.45 kg/m2 Status: Body Surface Area Calculated 1.9 m2 Status: 20-Aug-2016 14:18 BP Systolic 128 mm[Hg] Status: Comments: Location: RUE; Position: Sitting BP Diastolic 72 mm[Hg] Status: Comments: Location: RUE; Position: Sitting Heart Rate 91 /min Status: Comments: Location: ; Weight 184.0 lb Status: Physical Findings 95 Status: Comments: O2 Saturation Body Mass Index Calculated 30.62 kg/m2 Status: Body Surface Area Calculated 1.91 m2 Status: 13-Aug-2016 11:56 BP Systolic 120 mm[Hg] Status: Comments: Location: LUE; Position: Sitting BP Diastolic 78 mm[Hg] Status: Comments: Location: LUE; Position: Sitting Heart Rate 92 /min Status: Comments: Location: ; Weight 183 lb Status: Physical Findings 95 Status: Comments: O2 Saturation Body Mass Index Calculated 30.45 kg/m2 Status: Body Surface Area Calculated 1.9 m2 Status: Results Date Description Value Details 19-Aug-2016 13:08 CT HEAD WITHOUT AND WITH IV CONTRAST Comments: Exam Date: 08/19/2016 12:32Dictation Date: 08/19/2016 13:08 [facility] Radiologic ReportETHAN NUNO- [id number] (X-RAY)PATIENT OF DR. HERNANDEZ BD: 1935 SECONDARY 08/19/16 XC HEAD WITHOUT/ WITH XC OPTIRAY 320 75ML INDICATION: R22.0: LOCAL 24-Aug-2016 14:45 PROTIME PANEL 7000 PROTIME 15.7 secs (Above high threshold) Range: 12.0-14.9 INR 1.26 02-Sep-2016 11:42 PROTIME PANEL 7000 PROTIME 21.3 secs (Above high threshold) Range: 12.0-14.9 INR 1.85 07-Sep-2016 08:30 CBC w/ Auto Diff 7150 Comments: Fastin hours WBC 7.8 K/uL Range: 4.5-11.0 RBC 5.01 mil/uL Range: 4.20-5.40 HGB 15.5 g/dL Range: 14.0-18.0 HCT 46.5 % Range: 42.0-53.0 MCV 92.8 fL Range: 80.0-99.0 MCH 31.0 pg Range: 27.3-32.5 MCHC 33.4 % Range: 32.0-36.0 RDW 14.4 % Range: 11.6-14.8 PLATELETS 281 K/uL Range: 150-400 MPV 6.4 fL Range: 6.0-11.0 %NEUTRO 66.9 % Range: 37.0-80.0 %LYMPHS 20.9 % Range: 13.0-50.0 %MONO 5.3 % Range: 0.0-12.0 %EOS 2.4 % Range: 0.0-7.0 %BASO 0.8 % Range: 0.0-2.5 %LEILANI 3.8 % Range: 0.0-5.0 NEUTRO 5.2 K/uL Range: 2.0-6.9 LYMPHS 1.6 K/uL Range: 0.6-3.4 MONOS 0.4 K/uL Range: 0.0-0.9 EOS 0.2 K/uL Range: 0.0-0.7 BASO 0.1 K/uL Range: 0.0-0.2 09:06 Comprehensive Metabolic Panel 1212 Comments: Fastin hours SODIUM 138 mmol/L Range: 133-144 POTASSIUM 3.8 mmol/L Range: 3.5-5.1 CHLORIDE 101 mmol/L Range: 98-110 CARBON DIOXIDE 28.2 mmol/L Range: 23.0-33.0 ANION GAP 9 mmol/L Range: 6-16 BUN 22 mg/dL (Above high threshold) Range: 7-18 CREATININE, SERUM 1.19 mg/dL Range: 0.70-1.30 BUN:CREATININE RATIO 18 EST GFR, >60 ml/min Range: >60 EST GFR, NON-AFR [place] 58 ml/min (Below low threshold) Range: >60 Comments: EST GFR is reported in ml/min per 1.73 m2 of body surface area. ----- GLUCOSE 171 mg/dL (Above high threshold) Range: 70-100 ALK PHOSPHATASE 80 U/L Range: 46-116 TOTAL BILIRUBIN 1.20 mg/dL (Above high threshold) Range: 0.20-1.00 AST 17 U/L Range: 8-35 ALT 16 U/L Range: 16-63 ALBUMIN 3.9 g/dL Range: 3.4-5.0 TOTAL PROTEIN 7.8 g/dL Range: 6.4-8.2 A/G RATIO 1.0 units Range: 1.0-1.8 CALCIUM 9.2 mg/dL Range: 8.5-10.1 09:06 LIPID PROFILE 1184 Comments: Fastin hours CHOLESTEROL 170 mg/dL Range: <200 TRIGLYCERIDES 78 mg/dL Range: 30-200 HDL Cholesterol 46 mg/dL Range: >39 NON HDL CHOLESTEROL 124 CARDIAC RSK FACTOR 3.7 units (Below low threshold) Range: 4.4-5.0 LDL - CALCULATED 108 mg/dL Range: 0-130 09:14 THYROID STIM. HORMONE 3602 Comments: Fastin hours THYROID STIM. HORMONE 1.320 uIU/mL Range: 0.550-4.780 Comments: No established reference ranges for infants and children <2 years of age----- 09:22 HEMOGLOBIN A1C 3507 Comments: Fastin hours Hemoglobin A1C 10.8 % ESTIMATED AVG. GLUCOSE 263 Plan of Care Name Dates Details Planned Observations CT HEAD WITHOUT AND WITH IV CONTRAST On 02-Nov-2016 Intent Planned Goals not documented Planned Encounters Appointment; Provider: Donny Artis M.D. On 14-Jan-2017 09:15 Appointment; Provider: Jarek Salinas M.D. On 10-Sep-2016 10:15 Instructions Name Dates Details Instructions not documented Encounters Appointment; Glenroy Hernandez M.D. Encounter Diagnosis: Problem not documented On 20-Aug-2016 14:15 Appointment; Jarek Salinas M.D. Encounter Diagnosis: Problem not documented On 13-Aug-2016 11:45 Appointment; Jarek Salinas M.D. Encounter Diagnosis: Problem not documented On 10-Aug-2016 12:00 Appointment; Glenroy Hernandez M.D. Encounter Diagnosis: Problem [...]
--- OUTSIDE RECORDS SUMMARY | 2017-03-31 14:41 | XMS REPORT | Summary of Care ---
Author Author Zuri Benson APRN Organization Unknown Address [address] [place] [id number] Phone Unavailable Care Team Providers Care Solar Energy System Installer Name Role Phone Duke Salinas M.D. Unavailable Unavailable Martha Gudino M.D. Unavailable Unavailable Zuri Benson APRN Unavailable Unavailable Jarek Salinas Unavailable Unavailable Unavailable Unavailable Functional Status Name Dates Details Functional status health issues are not documented Status: Name Dates Details Cognitive status health issues are not documented Status: Problems Name Dates Details Atrial tachycardia (427.89, I47.1) Status: Active Fatigue (780.79, R53.83) Status: Active Shortness of breath (786.05, R06.02) Status: Active High risk medication use (V58.69, Z79.899) Status: Active [place] hemangioma (448.1, I78.1) Status: Active Cardiomyopathy (425.4, I42.9) Status: Active Coronary artery disease (414.00, 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 Nonsustained ventricular tachycardia (427.1, I47.2) Status: Active Nausea (787.02, R11.0) Status: Active Obesity (278.00, E66.9) Status: Active SOB (shortness of breath) on exertion (786.05, R06.02) Status: Active 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, 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: [...] hearing loss, 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.18, H90.3) Status: Active Anxiety (300.00, F41.9) Status: Active Atrial fibrillation (427.31, I48.91) Status: Active CHF (congestive heart failure) (428.0, I50.9) Status: Active Diabetes mellitus, type 2 (250.00, E11.9) Status: Active Vestibular dizziness, bilateral (386.9, H83.8X3) Status: Active Actinic keratosis (702.0, L57.0) Status: Active Seborrheic keratosis (702.19, L82.1) Status: Active Benign neoplasm of skin of trunk (216.5, D23.5) Status: Active 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 Quantity: 0 Yackterrence M.D., Jarek A * Start 16-Mar-2008 Active Multiple Vitamin TABS TAKE 1 TABLET DAILY. * Quantity: 0 Refills: 0 Yackterrence M.D., Jarek A * Start 16-Mar-2008 Active Fish Oil 1000 MG Oral Capsule Take one capsule daily. * Refills: 0 Yabrady M.Richard., Jarek A * Start 07-Mar-2012 Active Red Yeast Rice 600 MG Oral Tablet TAKE 2 TABLETS DAILY. * Refills: 0 Yackterrence M.D., Jarek A * Start 07-Mar-2012 Active Warfarin Sodium 5 MG Oral Tablet TAKE ONE TABLET BY MOUTH ONCE DAILY * Quantity: 90 Refills: 0 Brad Jovel, Jarek Wall * Start 29-Jan-2017 Active Gemfibrozil 600 MG Oral Tablet TAKE ONE TABLET BY MOUTH ONCE DAILY AT NIGHT * Quantity: 90 Refills: 0 Brad Jovel, Jarek Wall * Start 01-Feb-2017 Active MetFORMIN HCl - 500 MG Oral Tablet Take 1 tablet twice daily * Refills: 0 Brad Jovel, Jarek Wall * Start Active Carvedilol 12.5 MG Oral Tablet Take 1 1/2 tablets twice daily * Refills: 0 Martha Gudino M.D. * Start 16-Sep-2015 Active TraZODone HCl - 50 MG Oral Tablet Take 1/2 to 1 tablet PO at HS PRN. * Quantity: 30 Refills: 0 Zuri Benson APRN * Start 01-Mar-2017 Active Allergies and Adverse Reactions Name Dates [...] 14-Sep-2006 Influenza on: 03-Sep-2008 Td Lot #: [id number] on: Influenza on: 09-Aug-2009 Influenza A (H1N1) Monoval Vac SUSP on: 28-Oct-2009 Influenza on: 29-Aug-2012 Influenza on: 05-Sep-2013 Fluzone High-Dose SUSP #1 Lot #: [id number] on: 20-Aug-2014 Prevnar 13 Intramuscular Suspension on: 21-Sep-2014 Fluzone High-Dose 0.5 ML Intramuscular Suspension Prefilled Syringe Lot #: [id number] on: 12-Aug-2015 Pneumovax 23 25 MCG/0.5ML Injection Injectable Lot #: [id number] on: 10-Aug-2016 Fluzone High-Dose 0.5 ML Intramuscular Suspension Prefilled Syringe Lot #: [id number] on: 10-Aug-2016 Family History Name Dates Details [...] smoker Vital Signs Date Test Result Details 01-Mar-2017 09:24 BP Systolic 110 mm[Hg] Status: Comments: Location: ; Position: BP Diastolic 70 mm[Hg] Status: Comments: Location: ; Position: Heart Rate 88 /min Status: Comments: Location: ; Weight 186.0 lb Status: Physical Findings 95 Status: Comments: O2 Saturation Body Mass Index Calculated 30.95 kg/m2 Status: Body Surface Area Calculated 1.92 m2 Status: 15-Feb-2017 13:58 BP Systolic 121 mm[Hg] Status: [...] Status: Comments: Location: ; Position: BP Diastolic 58 mm[Hg] Status: Comments: Location: ; Position: Heart Rate 107 /min Status: Comments: Location: ; Weight 187 lb Status: Physical Findings 94 Status: Comments: O2 Saturation Body Mass Index Calculated 31.12 kg/m2 Status: Body Surface Area Calculated 1.92 m2 Status: Results Date Description Value Details 10-Feb-2017 12:55 PROTIME PANEL 7000 PROTIME 28.1 [...] >60 ml/min Range: >60 EST GFR, NON-AFR CITIZEN OF [place] >60 ml/min Range: >60 Comments: EST GFR [...] Encounters Appointment; Provider: Donny Artis M.D. On 24-Feb-2018 11:15 Appointment; Provider: Glenroy Joyner M.D. On 09-Apr-2017 10:45 Appointment; Provider: Schedule Radiology On 22-Mar-2017 09:00 Appointment; Provider: Jarek Salinas M.D. On 22-Mar-2017 08:00 Interventions Provided Medication Changes* TraZODone HCl - 50 MG Oral Tablet - Start Instructions Name Dates Details Instructions not documented Encounters Appointment; Devon Tyler M.D. Encounter Diagnosis: Problem not documented On 22-Feb-2017 13:45 Appointment; Donny Artis M.D. Encounter Diagnosis: Problem not documented On 18-Feb-2017 11:15 Appointment; Jarek Salinas M.D. Encounter Diagnosis: Problem not documented On 15-Feb-2017 13:45 Appointment; Jarek Salinas M.D. Encounter Diagnosis: Problem [...] not documented On 11-Jan-2017 09:00 Appointment; Zuri Bneson A.P.R.N. Encounter Diagnosis: Problem not documented On [...]
--- OUTSIDE RECORDS SUMMARY | 2017-03-31 14:41 | XMS REPORT | Summary of Care ---
Author Author Jarek Salinas M.D. Organization Unknown Address [address], [place] [id number] Phone Unavailable Care Team Providers Care Inspector Agricultural Commodities Name Role Phone Duke Salinas M.D. 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 Sensorineural hearing loss, 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.18, H90.3) Status: Active Benign paroxysmal positional vertigo, right (386.11, H81.11) Status: Active Vestibular dizziness, bilateral (386.9, H83.8X3) Status: Active Anxiety (300.00, F41.9) Status: Active CHF (congestive heart failure) (428.0, I50.9) Status: Active Hypertension (401.9, I10) Status: Active [...] AT NIGHT * Quantity: 90 Refills: 0 Bard Jovel, Jarek Wall * Start 01-Feb-2017 Active [...] Pacemaker Placement PROTIME PANEL 7000 Ordered: 28-Jan-2017 CT HEAD WITHOUT AND WITH IV CONTRAST Ordered: 11-Jan-2017 Immunization Name Dates Details Td on: 22-Oct-2001 Pneumo (Pneumovax) on: 14-Sep-2006 Influenza on: 03-Sep-2008 Td Lot #: [id number] on: Influenza on: 09-Aug-2009 Influenza A (H1N1) Monoval Vac SUSP on: 28-Oct-2009 Influenza on: 29-Aug-2012 Influenza on: 05-Sep-2013 Fluzone High-Dose SUSP #1 Lot #: [id number] on: 20-Aug-2014 Prevnar 13 Intramuscular Suspension on: 21-Sep-2014 Fluzone High-Dose 0.5 ML Intramuscular Suspension Prefilled Syringe Lot #: [id number] on: 12-Aug-2015 Pneumovax 23 25 MCG/0.5ML Injection Injectable Lot #: [id number] on: 10-Aug-2016 Fluzone High-Dose 0.5 ML Intramuscular Suspension Prefilled Syringe Lot #: [id number] on: 10-Aug-2016 Family History Name Dates Details [...] smoker Vital Signs Date Test Result Details 04-Feb-2017 14:47 BP Systolic 120 mm[Hg] Status: [...] 137 mm[Hg] Status: Comments: Location: ; Position: Standing BP Diastolic 80 mm[Hg] Status: Comments: Location: ; Position: Standing Heart Rate 91 /min Status: Comments: Location: [...] Range: 0.0-0.7 BASO 0.1 K/uL Range: 0.0-0.2 Plan of Care Name Dates Details Planned Observations Comprehensive Metabolic Panel 1212 On 24-Jan-2017 Intent LIPID PROFILE 1184 On 24-Jan-2017 Intent THYROID STIM. HORMONE 3602 On 24-Jan-2017 Intent HEMOGLOBIN A1C 3507 On 24-Jan-2017 Intent Planned Goals not documented Planned Encounters Appointment; Provider: Glenroy Joyner M.D. On 09-Apr-2017 10:45 Appointment; Provider: Schedule Radiology On 22-Mar-2017 09:00 Appointment; Provider: Devon Tyler M.D. On 22-Feb-2017 13:45 Appointment; Provider: Donny Artis M.D. On 18-Feb-2017 11:15 Appointment; Provider: Jarek Salinas M.D. On 15-Feb-2017 13:45 Appointment; Provider: Schedule Radiology On 04-Jan-2017 09:00 Appointment; Provider: Schedule Radiology On 02-Nov-2016 09:00 Interventions Provided Labs/Procedures/Imaging* CBC w/ Auto Diff 7150; Done: Feb 12 2017 7:59AM Instructions Name Dates Details Instructions not documented Encounters Appointment; Glenroy Joyner M.D. Encounter Diagnosis: Problem [...]
--- OUTSIDE RECORDS SUMMARY | 2017-03-31 14:42 | XMS REPORT | Summary of Care ---
Author Author Jarek Salinas M.D. Organization Unknown Address [address], [place] [id number] Phone Unavailable Care Team Providers Care Production Operations Inspector Name Role Phone Duke Salinas M.D. 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 * Refills: 0 Brad Yates., Jarek A * Start 13-Feb-2016 Active Allergies [...] 3602 Ordered: 14-Jul-2016 PROTIME PANEL 7000 Ordered: 31-Jul-2016 PROTIME PANEL 7000 Ordered: 07-Aug-2016 CT HEAD WITHOUT AND WITH IV CONTRAST Ordered: 05-Aug-2016 Immunization Name Dates Details Td on: 22-Oct-2001 Pneumo (Pneumovax) on: 14-Sep-2006 Influenza on: 03-Sep-2008 Td Lot #: [id number] on: Influenza on: 09-Aug-2009 Influenza A (H1N1) Monoval Vac SUSP on: 28-Oct-2009 Influenza on: 29-Aug-2012 Influenza on: 05-Sep-2013 Fluzone High-Dose SUSP #1 Lot #: [id number] on: 20-Aug-2014 Prevnar 13 Intramuscular Suspension on: 21-Sep-2014 Fluzone High-Dose 0.5 ML Intramuscular Suspension Prefilled Syringe Lot #: [id number] on: 12-Aug-2015 Family History Name Dates Details Family history of Reported Family History Of Cancer Comments: Family History Status: Active Family history of Reported Family History Of Heart Disease Comments: Family History Status: Active Name Dates Details Family history of Diabetes Mellitus (V18.0) Status: Active Social History Name Dates Details - Status: Name Dates Details Never smoker Vital Signs Date Test Result Details 27-Jul-2016 09:23 BP Systolic 118 mm[Hg] Status: Comments: Location: ; Position: BP Diastolic 70 mm[Hg] Status: Comments: Location: ; Position: Heart Rate 85 /min Status: Comments: Location: ; Weight 185.4 lb Status: Physical Findings 93 Status: Comments: O2 Saturation Body Mass Index Calculated 30.85 kg/m2 Status: Body Surface Area Calculated 1.92 m2 Status: 13-Jul-2016 09:13 BP Systolic 120 mm[Hg] Status: Comments: Location: LUE; Position: Sitting BP Diastolic 70 mm[Hg] Status: Comments: Location: LUE; Position: Sitting Heart Rate 76 /min Status: Comments: Location: ; Weight 184.4 lb Status: Body Mass Index Calculated 30.69 kg/m2 Status: Body Surface Area Calculated 1.91 m2 Status: Results Date Description Value Details 13-Jul-2016 11:12 PROTIME PANEL 7000 PROTIME 31.6 secs (Above high threshold) Range: 12.0-14.9 INR 3.03 21-Jul-2016 14:00 PROTIME PANEL 7000 PROTIME 32.2 secs (Above high threshold) Range: 12.0-14.9 INR 3.11 24-Jul-2016 09:26 CT HEAD WITHOUT AND WITH IV CONTRAST Comments: Exam Date: 07/24/2016 08:40Dictation Date: 07/24/2016 09:26 XC HEAD 29-Jul-2016 14:47 ECG/ EKG Outside Interp Electro CardioGram 31-Jul-2016 14:59 PROTIME PANEL 7000 PROTIME 33.1 secs (Above high threshold) Range: 12.0-14.9 INR 3.22 05-Aug-2016 09:23 Diabetic Eye Exam No diabetic retinopathy Range: 0 Plan of Care Name Dates Details Planned Observations PROTIME PANEL 7000 On 03-Aug-2016 Intent Planned Goals not documented Planned Encounters Appointment; Provider: Donny Artis M.D. On 14-Jan-2017 09:15 Appointment; Provider: Jarek Salinas M.D. On 10-Sep-2016 10:15 Appointment; Provider: Glenroy Joyner M.D. On 20-Aug-2016 14:15 Appointment; Provider: Schedule Radiology On 19-Aug-2016 13:00 [...]
--- OUTSIDE RECORDS SUMMARY | 2017-03-31 14:42 | XMS REPORT | Summary of Care ---
Author Author Jarek Salinas M.D. Organization Unknown Address [address], [place] [id number] Phone Unavailable Care Team Providers Care Truck Leasing Manager Name Role Phone Duke Salinas M.D. 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 HORMONE 3602 Ordered: 14-Sep-2016 HEMOGLOBIN A1C 3507 Ordered: 14-Sep-2016 CT HEAD WITHOUT AND WITH IV CONTRAST Ordered: 09-Sep-2016 Immunization Name Dates Details Td on: 22-Oct-2001 Pneumo (Pneumovax) on: 14-Sep-2006 Influenza on: 03-Sep-2008 Td Lot #: [id number] on: Influenza on: 09-Aug-2009 Influenza A (H1N1) Monoval Vac SUSP on: 28-Oct-2009 Influenza on: 29-Aug-2012 Influenza on: 05-Sep-2013 Fluzone High-Dose SUSP #1 Lot #: [id number] on: 20-Aug-2014 Prevnar 13 Intramuscular Suspension on: 21-Sep-2014 Fluzone High-Dose 0.5 ML Intramuscular Suspension Prefilled Syringe Lot #: [id number] on: 12-Aug-2015 Pneumovax 23 25 MCG/0.5ML Injection Injectable Lot #: [id number] on: 10-Aug-2016 Fluzone High-Dose 0.5 ML Intramuscular Suspension Prefilled Syringe Lot #: [id number] on: 10-Aug-2016 Family History Name Dates Details Family history of Reported Family History Of Cancer Comments: Family History Status: Active Family history of Reported Family History Of Heart Disease Comments: Family History Status: Active Name Dates Details Family history of Diabetes Mellitus (V18.0) Status: Active Social History Name Dates Details - Status: Name Dates Details Never smoker Vital Signs Date Test Result Details 05-Oct-2016 13:46 BP Systolic 120 mm[Hg] Status: Comments: Location: ; Position: BP Diastolic 58 mm[Hg] Status: Comments: Location: ; Position: Heart Rate 78 /min Status: Comments: Location: ; Weight 182 lb Status: Physical Findings 96 Status: Comments: O2 Saturation Body Mass Index Calculated 30.29 kg/m2 Status: Body Surface Area Calculated 1.9 m2 Status: Results Date Description Value Details 16-Sep-2016 10:23 PROTIME PANEL 7000 PROTIME 18.2 secs (Above high threshold) Range: 12.0-14.9 INR 1.51 05-Oct-2016 13:42 PROTIME PANEL 7000 PROTIME 23.3 secs (Above high threshold) Range: 12.0-14.9 INR 2.07 Plan of Care Name Dates Details Planned Observations CBC w/ Auto Diff 7150 On 04-Feb-2017 Intent Comprehensive Metabolic Panel 1212 On 04-Feb-2017 Intent LIPID PROFILE 1184 On 04-Feb-2017 Intent THYROID STIM. HORMONE 3602 On 04-Feb-2017 Intent HEMOGLOBIN A1C 3507 On 04-Feb-2017 Intent Planned Goals not documented Planned Encounters Appointment; Provider: Jarek Salinas M.D. On 15-Feb-2017 13:45 Appointment; Provider: Jarek Salinas M.D. On 04-Feb-2017 10:00 Appointment; Provider: Donny Artis M.D. On 14-Jan-2017 09:15 Appointment; Provider: Glenroy Joyner M.D. On 04-Nov-2016 08:30 Appointment; Provider: Schedule Radiology On 02-Nov-2016 09:00 Instructions Name Dates Details Instructions not documented [...]
--- OUTSIDE RECORDS SUMMARY | 2017-03-31 14:42 | XMS REPORT | Summary of Care ---
Author Author Martha Gudino M.D. Organization Unknown Address [address] [place] [address] Phone Unavailable Care Team Providers Care Collections Officer Name Role Phone Duke Salinas M.D. 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, I25.10) [...] HORMONE 3602 Ordered:02-Aug-2015 PROTIME PANEL 7000 Ordered:09-Sep-2015 Immunization Name Dates Details Td Administered on:22-Oct-2001 Pneumo (Pneumovax) Administered on:14-Sep-2006 Influenza Administered on:03-Sep-2008 Td Lot #: [id number] Administered on: Influenza Administered on:09-Aug-2009 Influenza A (H1N1) Monoval Vac Intramuscular Suspension Administered on:28-Oct-2009 Influenza Administered on:29-Aug-2012 Influenza Administered on:05-Sep-2013 Fluzone High-Dose Intramuscular Suspension #1 Lot #: [id number] Administered on:20-Aug-2014 Prevnar 13 Intramuscular Suspension Administered on:21-Sep-2014 Fluzone High-Dose 0.5 ML Intramuscular Suspension Prefilled Syringe Lot #: [id number] Administered on:12-Aug-2015 Family History Unknown Family Member* [...] smoker Vital Signs Date Test Result Details 16-Sep-2015 12:19 BP Systolic 126 mm[Hg] Status: [...] m2 Status: Results Date Description Value Details 31-Jul-2015 10:43 Diabetic Eye Exam No diabetic retinopathy (Better) Range : 0 09-Sep-2015 12:00 PROTIME PANEL 7000 PROTIME 22.8 [...]
--- OUTSIDE RECORDS SUMMARY | 2017-03-31 14:42 | XMS REPORT | Summary of Care ---
Author Author Jarek Salinas M.D. Organization Unknown Address [address], [place] [id number] Phone Unavailable Care Team Providers Care Asset Manager Name Role Phone Duke Salinas M.D. 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 Atrial flutter with rapid ventricular response (427.32, I48.92) Status: Active Anxiety (300.00, F41.9) Status: Active AICD (automatic cardioverter/defibrillator) present (V45.02, Z95.810) Status: Active Abnormal brain scan (794.09, R94.02) Status: Active Brain mass (348.9, G93.9) Status: Active Diabetes mellitus, type 2 (250.00, E11.9) Status: Active Vestibular dizziness, bilateral (386.9, H83.8X3) Status: Active Hypertension (401.9, I10) Status: Active Atrial fibrillation (427.31, I48.91) Status: Active 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, 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) Status: Active Benign paroxysmal positional vertigo, right (386.11, H81.11) Status: Active Sensorineural hearing loss, 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.18, H90.3) Status: Active Medications Name Dates Details Aspir-81 [...] HOLD UNTIL LAB 01/21 * Refills: 3 Brad Jovel, Jarek A * Start 23-Mar-2014 Active Gemfibrozil 600 MG Oral Tablet Take 1 tablet at night * Quantity: 90 Refills: 3 Brad Jovel, Jarek Wall * Start 25-Mar-2015 Active MetFORMIN HCl - 500 MG Oral Tablet take 1/2 tablet twice daily * Refills: 0 Brad Jovel Jarek Duke * Start Active Carvedilol 12.5 MG Oral Tablet Take 1 1/2 tablets twice daily * Refills: 0 Martha Gudino M.D. * Start 16-Sep-2015 Active Furosemide 40 MG Oral Tablet TAKE 1 TABLET DAILY. * Refills: 0 Brad Jovel, Jarek Duke * Start 13-Feb-2016 Active Potassium Chloride ER [...] of Pacemaker Placement PROTIME PANEL 7000 Ordered: 12-Jan-2017 PROTIME PANEL 7000 Ordered: 19-Jan-2017 CT HEAD WITHOUT AND WITH IV CONTRAST Ordered: 11-Jan-2017 Immunization Name Dates Details Td on: 22-Oct-2001 Pneumo (Pneumovax) on: 14-Sep-2006 Influenza on: 03-Sep-2008 Td Lot #: [id number] on: Influenza on: 09-Aug-2009 Influenza A (H1N1) Monoval Vac SUSP on: 28-Oct-2009 Influenza on: 29-Aug-2012 Influenza on: 05-Sep-2013 Fluzone High-Dose SUSP #1 Lot #: [id number] on: 20-Aug-2014 Prevnar 13 Intramuscular Suspension on: 21-Sep-2014 Fluzone High-Dose 0.5 ML Intramuscular Suspension Prefilled Syringe Lot #: [id number] on: 12-Aug-2015 Pneumovax 23 25 MCG/0.5ML Injection Injectable Lot #: [id number] on: 10-Aug-2016 Fluzone High-Dose 0.5 ML Intramuscular Suspension Prefilled Syringe Lot #: [id number] on: 10-Aug-2016 Family History Name Dates Details [...] smoker Vital Signs Date Test Result Details 25-Jan-2017 13:46 BP Systolic 137 mm[Hg] Status: [...] Body Surface Area Calculated 1.91 m2 Status: 11-Jan-2017 08:55 BP Systolic 138 mm[Hg] Status: Comments: Location: RUE; Position: Sitting BP Diastolic 72 mm[Hg] Status: Comments: Location: RUE; Position: Sitting Heart Rate 90 /min Status: Comments: Location: ; Height 65 in Status: Weight 184.6 lb Status: Physical Findings 92 Status: Comments: O2 Saturation Body Mass Index Calculated 30.72 kg/m2 Status: Body Surface Area Calculated 1.91 m2 Status: 08-Jan-2017 13:12 BP Systolic 112 mm[Hg] Status: Comments: Location: ; Position: BP Diastolic 62 mm[Hg] Status: Comments: Location: ; Position: Heart Rate 67 /min Status: Comments: Location: ; Weight 182.4 lb Status: Physical Findings 90 Status: Comments: O2 Saturation Body Mass Index Calculated 30.35 kg/m2 Status: Body Surface Area Calculated 1.9 m2 Status: 31-Dec-2016 13:00 BP Systolic 122 mm[Hg] Status: Comments: Location: ; Position: Standing BP Diastolic 68 mm[Hg] Status: Comments: Location: ; Position: Standing Heart Rate 91 /min Status: Comments: Location: ; Weight 182.0 lb Status: Physical Findings 93 Status: Comments: O2 Saturation Body Mass Index Calculated 30.29 kg/m2 Status: Body Surface Area Calculated 1.9 m2 Status: Results Date Description Value Details 04-Jan-2017 09:17 CT HEAD WITHOUT AND WITH IV CONTRAST Comments: Exam Date: 01/04/2017 08:28Dictation Date: 01/04/2017 09:17 XC HEAD 12-Jan-2017 12:38 PROTIME PANEL 7000 PROTIME 21.7 secs (Above high threshold) Range: 12.0-14.9 INR 1.98 Plan of Care Name Dates Details Planned Observations Planned Goals not documented Planned Encounters Appointment; Provider: Glenroy Joyner M.D. On 09-Apr-2017 10:45 Appointment; Provider: Schedule Radiology On 22-Mar-2017 09:00 Appointment; Provider: Devon Tyler M.D. On 22-Feb-2017 13:45 Appointment; Provider: Donny Artis M.D. On 18-Feb-2017 11:15 Appointment; Provider: Jarek Salinas M.D. On 15-Feb-2017 13:45 Interventions Provided Labs/Procedures/Imaging* PROTIME PANEL 7000; To be Done: 19 Jan 2017 Instructions Name Dates Details Instructions not documented Encounters Appointment; Jarek Salinas M.D. Encounter Diagnosis: Problem not documented On 12-Jan-2017 11:45 Appointment; Glenroy Joyner M.D. Encounter Diagnosis: Problem not documented On 11-Jan-2017 09:00 Appointment; Zuri Benson A.P.RLester Encounter Diagnosis: Problem not documented On 08-Jan-2017 13:00 Appointment; Zuri Benson A.P.RLester Encounter Diagnosis: Problem not documented On 31-Dec-2016 [...]
--- OUTSIDE RECORDS SUMMARY | 2017-03-31 14:43 | XMS REPORT ---
Author Author Aleida Aparicio Organization Unknown Address [address], [place] [id number] Phone Care Team Providers Care Broadcast Maintenance Technician Name Role Phone Brad Tilley PP Unavailable Unavailable Reason for Referral No Reason for Referral was given. History of Present Illness No HPI available. 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); (Active) * Eye Pain (379.91); (Active) * Acne (706.1); (Active) * Diabetes Mellitus (250.00); (Active) * Hypertension (401.9); (Active) * Benign Prostatic Hypertrophy (600.00); (Active) * Visit For: Pre-procedural Exam (V72.84); (Active) * Visit For: Screening Malignant Neoplasm Colon (V76.51); (Active) * Atrial Fibrillation (427.31); (Active) Medication * Aspir-81 81 MG Oral Tablet Delayed Release; TAKE 1 TABLET DAILY.; Start Date: 03/16/2008 (Active) * Multiple Vitamin Oral Tablet; TAKE 1 TABLET DAILY.; Start Date: 03/16/2008 ( Active) * MetFORMIN HCl 1000 MG Oral Tablet; Take One Tablet By Mouth Twice Daily; Start Date: 11/18/2009; End Date: (Active) * Lisinopril 5 MG Oral Tablet; TAKE 1 TABLET DAILY.; Start Date: 08/30/2008 ( Active) * Gemfibrozil 600 MG Oral Tablet; Take One Tablet By Mouth Twice Daily; Start Date: 07/29/2009; End Date: (Active) * Tamsulosin HCl 0.4 MG Oral Capsule; Take one capsule daily.; Start Date: 09/10; End Date: (Active) * Warfarin Sodium 5 MG Oral Tablet; Take one tablet daily.; Start Date: 2011; End Date: (Active) * Fish Oil 1000 MG Oral Capsule; Take one capsule daily.; Start Date: 2011 (Active) * Red Yeast Rice 600 MG Oral Tablet; TAKE 2 TABLETS DAILY.; Start Date: 2011 (Active) * Metoprolol Tartrate 100 MG Oral Tablet; TAKE 1 TABLET DAILY.; Start Date: (Active) * Nitrostat 0.4 MG Sublingual Tablet Sublingual; PLACE 1 TABLET UNDER THE TONGUE EVERY 5 MINUTES UP TO 3 DOSES NEEDED FOR CHEST PAIN.; Start Date: 12/2011; End Date: (Active) Allergies and Adverse Reactions * Zocor TABS (Active) * Pravachol TABS (Active) Past Medical History * History of Actinic Keratosis (702.0); (Resolved) * History of Skin Cancer Comments: 04/24/2003: BCC Right Mid SubOrbital Crease; Excised (V10.83); (Resolved) * History of Seborrheic Keratosis (702.19); (Resolved) * 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 Comments: 07/29/11 L postauricular ear, Alvaro/c (173.2); (Resolved) Procedures Procedure Procedure Date Date Completed Status Extracaps Cataract Extract With Prosthesis Insert Right Eye - - Active Extracaps Cataract Extract With Prosthesis Insert Left Eye - - Active Extracaps Cataract Extract With Prosthesis Insert Left Eye 08/05/2010 - Active Complete Colonoscopy 02/28/2013 - Active Immunization * Td - Administered on: 10/22/2001 * Pneumo (Pneumovax) - Administered on: 09/14/2006 * Influenza - Administered on: 09/03/2008 * Td (Lot #: [id number]) - Administered on: 05/22/2009 * Influenza - Administered on: 08/09/2009 * Influenza A (H1N1) Monoval Vac Intramuscular Suspension - Administered on: * Influenza - Administered on: 08/29/2012 Family History * Paternal history of Diabetes Mellitus (V18.0); (Active) * Family history of Reported Family History Of Cancer (Active) * Family history of Reported Family History Of Heart Disease (Active) Social History * Marital History - Currently (Active) * No History of Alcohol Use (Active) * Never A Smoker (Active) Vital Signs Date Description Test Result 28 Feb 2013 10:22 AM recorded by: Neris Mckeon BP Systolic 144 mm[Hg] BP Diastolic 78 mm[Hg] Temperature 98.3 F Heart Rate 80 /min O2 SAT 94 % Results Date Description Test Name Value Reference Interpretation Status 02 Mar 2013 10:05 AM PROTIME PANEL 7000 PROTIME 16.3 secs 12.0-14.9 H Active INR 1.36 Active 28 Feb 2013 07:43 AM PROTIME PANEL 7000 INR 1.44 Active PROTIME 17.0 secs 12.0-14.9 H Active Treatment Plan * XO ELBOW (2V) RT 05/16/2009 Routine * Urine Culture PRN 8000 02/27/2010 Routine * XC CT RECON FOR NON CTA EXAMS 07/14/2010 Routine * Urine Culture PRN 8000 07/22/2010 Routine * PROTIME PANEL 7000 02/27/2013 Routine * PROTIME PANEL 7000 03/21/2013 Routine Advance Directives * No Advance Directives available. Encounters * Appointment 03/02/2013 * RTNPT , Provider: Brad Tilley, Status: Can , Time: 10:00 AM 2012 * NEWPT30 , Provider: Jaclyn Hays, Status: Mois[place] , Time: 8:00 AM * RTNPT , Provider: Brad Tilley, Status: Mois[place] , Time: 9:45 AM 2012 * RTNPT , Provider: Markus Shin, Status: Mois[place] , Time: 8:30 AM 2013
--- OUTSIDE RECORDS SUMMARY | 2017-03-31 14:43 | XMS REPORT | Summary of Care ---
Author Author Jarek Salinas M.D. Organization Unknown Address [address], [place] [id number] Phone Unavailable Care Team Providers Care Herb Digger Name Role Phone Duke Salinas M.D. 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 * Quantity: 90 Refills: 3 Jarek Salinas M.D.* Started 16-Jun-2012 ActiveTamsulosin HCl - 0.4 MG Oral Capsule TAKE 1 CAPSULE Daily * Quantity: 90 Refills: Jarek Xavier M.D.* Started 22-Sep-2013 ActiveWarfarin Sodium 5 MG Oral Tablet Take one tablet daily. * Quantity: 90 Refills: Jarek Xavier M.D.* Started 23-Mar-2014 ActiveGlipiZIDE 10 MG Oral Tablet Take one tablet twice daily. * Quantity: 180 Refills: Jarek Xavier M.D.* Started 24-Sep-2014 ActiveRed Yeast Rice 600 MG Oral Tablet TAKE 2 TABLETS DAILY. * Refills: 0 Jarek Salinas M.D.* Started 07-Mar-2012 ActiveFish Oil 1000 MG Oral Capsule Take one capsule daily. * Refills: 0 Jarek Salinas M.D.* Started 07-Mar-2012 ActiveGemfibrozil 600 MG Oral Tablet Take One Tablet By Mouth Twice Daily * Quantity: 180 Refills: Jarek Xavier M.D.* Started 29-Jul-2009 ActiveLisinopril 5 MG Oral Tablet TAKE 1 TABLET DAILY. * Quantity: 90 Refills: Jarek Xavier M.D.* Started 30-Aug-2008 ActiveMetFORMIN HCl - 1000 MG Oral Tablet Take One Tablet By Mouth Twice Daily * Quantity: 180 Refills: Jarek Xavier M.D.* Started 18-Nov-2009 ActiveMultiple Vitamin Oral Tablet TAKE 1 TABLET [...] on:14-Sep-2006 Influenza Administered on:03-Sep-2008 Td Lot #: [id number] Administered on: Influenza Administered on:09-Aug-2009 Influenza A (H1N1) Monoval Vac Intramuscular Suspension Administered on:28-Oct-2009 Influenza Administered on:29-Aug-2012 Influenza Administered on:05-Sep-2013 Fluzone High-Dose Intramuscular Suspension #1 Lot #: [id number] Administered on:20-Aug-2014 Prevnar 13 Intramuscular Suspension Administered [...] not documented On 21-Sep-2014 09:45 Appointment; Brianne Mednez Encounter Diagnosis: Problem not documented On 20-Aug-2014 [...]
--- OUTSIDE RECORDS SUMMARY | 2017-03-31 14:43 | XMS REPORT | Summary of Care ---
Author Author Noah Sheffield M.D. Unknown Address Unknown Phone Unavailable Care Team Providers Care Monitor Worker Name Role Phone Duke Salinas M.D. Unavailable [...] Shortness of breath (786.05, R06.02) Status: Active Atrial flutter with rapid ventricular response (427.32, I48.92) Status: Active High risk medication use (V58.69, Z79.899) Status: Active Actinic keratosis (702.0, L57.0) Status: Active [place] hemangioma (448.1, I78.1) Status: Active AICD (automatic cardioverter/defibrillator) present (V45.02, Z95.810) Status: Active Cardiomyopathy (425.4, I42.9) Status: Active Coronary artery disease (414.00, 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 Dyslipidemia (272.4, E78.5) Status: Active Nonsustained ventricular tachycardia (427.1, I47.2) Status: Active Diabetes mellitus, type 2 (250.00, E11.9) Status: Active COPD (chronic obstructive pulmonary disease) (496, J44.9) Status: Active Hypertension (401.9, I10) Status: Active Atrial fibrillation (427.31, I48.91) Status: Active Headache (784.0, R51) Status: Active Nausea (787.02, R11.0) Status: Active Obesity (278.00, E66.9) Status: Active SOB (shortness of breath) on exertion (786.05, R06.02) Status: Active CHF (congestive heart failure) (428.0, I50.9) Status: Active Anxiety (300.00, F41.9) Status: Active Seborrheic keratosis (702.19, L82.1) Status: Active 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, 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 Sustained VT (ventricular tachycardia) (427.1, I47.2) Status: Active 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, 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 Cerebral infarction (434.91, I63.9) Status: Active Medications Name Dates Details Aspir-81 [...] 07-Mar-2012 ActiveWarfarin Sodium 5 MG Oral Tablet ON HOLD UNTIL LAB 01/21 * Refills: 3 Jarek Salinas M.D.* Started 23-Mar-2014 ActiveGemfibrozil 600 MG Oral Tablet Take 1 tablet at night * Quantity: 90 Refills: 3 Jarek Salinas M.D.* Started 25-Mar-2015 ActiveMetFORMIN HCl - 500 MG Oral Tablet TAKE 1 TABLET(S) BY MOUTH TWICE DAILY * Quantity: 60 Refills: 0 Jarek Salinas M.D.* Started ActiveTamsulosin HCl - 0.4 MG Oral Capsule take one capsule by mouth everyday * Refills: 0 * Started ActiveCarvedilol 12.5 MG Oral Tablet Take One Tablet By Mouth Twice Daily * Quantity: 60 Refills: 5 Martha Gudino M.D.* Started 16-Sep-2015 ActiveFurosemide 40 MG Oral Tablet TAKE 1 TABLET DAILY. * Refills: 0 Jarek Salinas M.D.* Started 13-Feb-2016 ActivePotassium Chloride ER 10 MEQ Oral Tablet Extended Release Take one tablet daily. * Refills: 0 Jarek Salinas M.D.* Started 13-Feb-2016 ActiveMorphine Sulfate 10 MG/ML Injection Solution 5 MG injection * Quantity: 1 Refills: 0 Noah Sheffield M.D.* Started Admin Requested Allergies and Adverse Reactions Name Dates Details Pravachol TABS Status: Active Zocor TABS Status: Active Past Medical History Name Dates Details AICD (automatic cardioverter/defibrillator) present (V45.02, Z95.810) Status: Active Anxiety (300.00, F41.9) Status: Active Atrial flutter with rapid ventricular response (427.32, I48.92) Status: Active Cardiomyopathy (425.4, I42.9) Status: Active CHF (congestive heart failure) (428.0, I50.9) Status: Active COPD (chronic obstructive pulmonary disease) [...] History of Pacemaker Placement PROTIME PANEL 7000 Ordered:06-Apr-2016 BASIC METABOLIC PROFILE 1210 Ordered: HEMOGLOBIN A1C 3507 Ordered: Immunization Name Dates Details Td Administered on:22-Oct-2001 Pneumo (Pneumovax) Administered on:14-Sep-2006 Influenza Administered on:03-Sep-2008 Td Lot #: [id number] Administered on: Influenza Administered on:09-Aug-2009 Influenza A (H1N1) Monoval Vac Intramuscular Suspension Administered on:28-Oct-2009 Influenza Administered on:29-Aug-2012 Influenza Administered on:05-Sep-2013 Fluzone High-Dose Intramuscular Suspension #1 Lot #: [id number] Administered on:20-Aug-2014 Prevnar 13 Intramuscular Suspension Administered on:21-Sep-2014 Fluzone High-Dose 0.5 ML Intramuscular Suspension Prefilled Syringe Lot #: [id number] Administered on:12-Aug-2015 Family History Unknown Family Member* [...] smoker Vital Signs Date Test Result Details 12:06 BP Systolic 132 mm[Hg] Status: BP Diastolic 73 mm[Hg] Status: Temperature 98.6 f Status: Heart Rate 77 /min Status: O2 SAT 95 % Status: Results Date Description Value Details 09:50 ECG/ EKG Outside Interp Electro CardioGram (Better) 12:42 ECG/ EKG (Specialists) Electro CardioGram (Better) 12:41 CBC w/ Auto Diff 7150 Comments: Items were attached to this order : Extra Tube WBC 8.9 K/uL (Better) Range: 4.5-11.0 RBC 4.77 mil/uL (Better) Range: 4.20-5.40 HGB 14.9 g/dL (Better) Range: 14.0-18.0 HCT 44.9 % (Better) Range: 42.0-53.0 MCV 94.1 fL (Better) Range: 80.0-99.0 MCH 31.2 pg (Better) Range: 27.3-32.5 MCHC 33.2 % (Better) Range: 32.0-36.0 RDW 13.9 % (Better) Range: 11.6-14.8 PLATELETS 328 K/uL (Better) Range: 150-400 MPV 6.8 fL (Better) Range: 6.0-11.0 %NEUTRO 72.3 % (Better) Range: 37.0-80.0 %LYMPHS 17.6 % (Better) Range: 13.0-50.0 %MONO 4.9 % (Better) Range: 0.0-12.0 %EOS 2.0 % (Better) Range: 0.0-7.0 %BASO 0.6 % (Better) Range: 0.0-2.5 %LEILANI 2.7 % (Better) Range: 0.0-5.0 NEUTRO 6.4 K/uL (Better) Range: 2.0-6.9 LYMPHS 1.6 K/uL (Better) Range: 0.6-3.4 MONOS 0.4 K/uL (Better) Range: 0.0-0.9 EOS 0.2 K/uL (Better) Range: 0.0-0.7 BASO 0.1 K/uL (Better) Range: 0.0-0.2 13:10 CT HEAD WITHOUT IV CONTRAST Comments: Exam Date: 05/19/2016 12: 35Dictation Date: 05/19/2016 13:10 XC HEAD (Better) 13:09 Comprehensive Metabolic Panel 1212 Comments: Items were attached to this order: Extra Tube SODIUM 132 mmol/L (Below low threshold) Range: 133-144 POTASSIUM 4.3 mmol/L (Better) Range: 3.5-5.1 CHLORIDE 97 mmol/L (Below low threshold) Range: 98-110 CARBON DIOXIDE 28.3 mmol/L (Better) Range: 23.0-33.0 ANION GAP 7 mmol/L (Better) Range: 6-16 BUN 24 mg/dL (Above high threshold) Range: 7-18 CREATININE, SERUM 1.29 mg/dL (Better) Range: 0.70-1.30 Comments: Please note new reference ranges effective 2015.----- BUN:CREATININE RATIO 19 (Better) EST GFR, >60 ml/min (Better) Range: >60 EST GFR, NON-AFR QATARI 53 ml/min (Below low threshold) Range: >60 Comments: EST GFR is reported in ml/min per 1.73 m2 of body surface area. For -[place]isian, please multiple result by 1.2.----- GLUCOSE 314 mg/dL (Above high threshold) Range: 70-100 ALK PHOSPHATASE 90 U/L (Better) Range: 46-116 TOTAL BILIRUBIN 0.70 mg/dL (Better) Range: 0.20-1.00 AST 17 U/L (Better) Range: 8-35 ALT 19 U/L (Better) Range: 16-63 Comments: Please note new reference ranges. Effective 01/24/2015.----- ALBUMIN 3.7 g/dL (Better) Range: 3.4-5.0 TOTAL PROTEIN 7.5 g/dL (Better) Range: 6.4-8.2 A/G RATIO 1.0 units (Better) Range: 1.0-1.8 CALCIUM 8.6 mg/dL (Better) Range: 8.5-10.1 13:10 TROPONIN I 3451 Comments: Items were attached to this order: Extra Tube TROPONIN I 0.04 ng/mL (Better) Range: <0.10 Comments: Result called to Marily by Keeley Ontiveros on 05/19/2016 at 1:15 PMVerified by Repeat Analysis<0.10 ng/ml=Negative for MI0.10-0.59 ng/ml= Indeterminate for MI0.60-1.50 ng/ml=Suggestive of [place]----- 13:12 BNP 3103 Comments: Items were attached to this order: Extra Tube BNP 302.6 pg/mL (Above high threshold) Range: 0.0-100.0 Plan of Care Planned Observations* Name Dates Details Planned Goals not documented Goal Planned Encounters* Appointment; Provider: Donny Artis On 14-Jan-2017 09:15 * Appointment; Provider: Martha Gudino On 29-Jul-2016 09:45 * Appointment; Provider: Jarek Salinas On 09:30 * Appointment; Provider: Schedule Radiology On 13:00 * Appointment; Provider: Martha Gudino On 01-Jul-2015 12:45 * Appointment; Provider: Martha Gudino On 16:00 Instructions * Instructions not documented Encounters Appointment; Noah Sheffield Encounter Diagnosis: Problem not documented On 11:44 Appointment; Jarek Salinas Encounter Diagnosis: Problem not documented On 02-Apr-2016 12:15 Appointment; Jarek Salinas Encounter Diagnosis: Problem not documented On 13-Feb-2016 10:00 Appointment; Martha Gudino Encounter Diagnosis: Problem not documented On 20-Jan-2016 09:30 Appointment; Megan Blanca Encounter Diagnosis: Problem not documented On 15-Jan-2016 09:45 Appointment; Martha Gudino Encounter Diagnosis: Problem not documented On 09-Dec-2015 11:45 Appointment; Jarek Salinas Encounter Diagnosis: Problem not documented On 09-Dec-2015 09:00 Appointment; Jarek Salinas Encounter Diagnosis: Problem not documented On 05-Nov-2015 11:45 Appointment; Jarek Salinas Encounter Diagnosis: Problem not [...] not documented On 21-Jun-2015 10:45 Appointment; Noah Sheffiedl Encounter Diagnosis: Problem not documented On 12:35 [...]
--- OUTSIDE RECORDS SUMMARY | 2017-03-31 14:43 | XMS REPORT | Summary of Care ---
Author Author Jarek Salinas M.D. Organization Unknown Address Unknown Phone Unavailable Care Team Providers Care Party Director Name Role Phone Duke Salinas M.D. Unavailable [...] Refills: 0 Jarek Salinas M.D.* Started 13-Feb-2016 ActiveAmiodarone HCl - 100 MG Oral Tablet TAKE 1 TABLET DAILY. * Quantity: 90 Refills: 0 Jarek Salinas M.D.* Started Active Allergies and Adverse Reactions Name [...] of Arterial Catheterization History of Pacemaker Placement BASIC METABOLIC PROFILE 1210 Ordered: HEMOGLOBIN A1C 3507 Ordered: PROTIME PANEL 7000 Ordered: Immunization Name Dates Details Td Administered on:22-Oct-2001 Pneumo (Pneumovax) Administered on:14-Sep-2006 Influenza Administered on:03-Sep-2008 Td Lot #: [id number] Administered on: Influenza Administered on:09-Aug-2009 Influenza A (H1N1) Monoval Vac Intramuscular Suspension Administered on:28-Oct-2009 Influenza Administered on:29-Aug-2012 Influenza Administered on:05-Sep-2013 Fluzone High-Dose Intramuscular Suspension #1 Lot #: [id number] Administered on:20-Aug-2014 Prevnar 13 Intramuscular Suspension Administered on:21-Sep-2014 Fluzone High-Dose 0.5 ML Intramuscular Suspension Prefilled Syringe Lot #: [id number] Administered on:12-Aug-2015 Family History Unknown Family Member* [...] ml/min (Better) Range: >60 EST GFR, NON-AFR BURKINAN 53 ml/min (Below low threshold) Range: >60 Comments: EST GFR is reported in ml/min per 1.73 m2 of body surface area. For -[place]ian, please multiple result by 1.2.----- GLUCOSE 314 [...] MI0.10-0.59 ng/ml= Indeterminate for MI0.60-1.50 ng/ml=Suggestive of [place]----- 13:12 BNP 3103 Comments: Items were attached to this order: Extra Tube BNP 302.6 pg/mL (Above high threshold) Range: 0.0-100.0 11:32 ECG/ EKG Outside Interp Electro CardioGram ECG waiting for interpretation, click ImageLink button to view/confirm the study. (Better) Plan of Care Planned Observations* Name Dates Details Planned Goals not documented Goal Planned Encounters* Appointment; Provider: Donny Artis On 14-Jan-2017 09:15 * Appointment; Provider: Martha Gudino On 29-Jul-2016 09:45 * Appointment; Provider: Jarek Salinsa On 14:00 * Appointment; Provider: Glenroy Joyner On 11:45 * Appointment; Provider: Schedule Radiology On 10:30 * Appointment; Provider: Schedule Radiology On 13:00 [...]
--- OUTSIDE RECORDS SUMMARY | 2017-03-31 14:43 | XMS REPORT | Summary of Care ---
Author Author Noah Sheffield M.D. Organization Unknown Address [address], [place] [id number] Phone Unavailable Care Team Providers Care Plush Weaver Name Role Phone Duke Salinas M.D. Unavailable [...] Status: Active Fatigue (780.79, R53.83) Status: Active AICD (automatic cardioverter/defibrillator) present (V45.02, Z95.810) Status: Active Dyslipidemia (272.4, E78.5) Status: Active Obesity (278.00, E66.9) Status: Active Nonsustained ventricular tachycardia (427.1, I47.2) Status: Active Cardiomyopathy (425.4, I42.9) Status: Active Coronary artery disease (414.00, 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 Atrial flutter with rapid ventricular response (427.32, I48.92) Status: Active Hypertension (401.9, I10) Status: Active Diabetes mellitus, type 2 (250.00, E11.9) Status: Active SOB (shortness of breath) on exertion (786.05, R06.02) Status: Active COPD (chronic obstructive pulmonary disease) (496, J44.9) Status: Active Shortness of breath (786.05, R06.02) Status: Active CHF (congestive heart failure) (428.0, I50.9) Status: Active Medications Name Dates Details Aspir-81 [...] TAKE 1 TABLET DAILY DIRECTED. * Quantity: 5 Refills: 0 Noah Sheffield M.D.* Started 21-Oct-2015 Ended 26-Oct-2015 Active Allergies and Adverse Reactions Name Dates [...] on:14-Sep-2006 Influenza Administered on:03-Sep-2008 Td Lot #: [id number] Administered on: Influenza Administered on:09-Aug-2009 Influenza A (H1N1) Monoval Vac Intramuscular Suspension Administered on:28-Oct-2009 Influenza Administered on:29-Aug-2012 Influenza Administered on:05-Sep-2013 Fluzone High-Dose Intramuscular Suspension #1 Lot #: [id number] Administered on:20-Aug-2014 Prevnar 13 Intramuscular Suspension Administered on:21-Sep-2014 Fluzone High-Dose 0.5 ML Intramuscular Suspension Prefilled Syringe Lot #: [id number] Administered on:12-Aug-2015 Family History Unknown Family Member* Name Dates Details Family history of Reported Family History Of Cancer Comments: Family History Status: Active Family history of Reported Family History Of Heart Disease Comments: Family History Status: Active Father* Name Dates Details Family history of Diabetes Mellitus (V18.0) Status: Active Social History Smoking Status* Unknown if ever smoked Vital Signs Date Test Result Details 21-Oct-2015 08:12 BP Systolic 138 mm[Hg] Status: [...] Body Surface Area Calculated 1.97 m2 Status: 30-Sep-2015 13:01 BP Systolic 128 mm[Hg] Status: BP Diastolic 64 mm[Hg] Status: Heart Rate 78 /min Status: Weight 195.0 lb Status: Body Mass Index Calculated 32.45 kg/m2 Status: Body Surface Area Calculated 1.96 m2 Status: 25-Sep-2015 11:59 BP Systolic 124 mm[Hg] Status: BP Diastolic 82 mm[Hg] Status: Heart Rate 80 /min Status: Height 65 in Status: Weight 193 lb Status: Body Mass Index Calculated 32.12 kg/m2 Status: Body Surface Area Calculated 1.95 m2 Status: Results Date Description Value Details 30-Sep-2015 07:46 CBC w/ Auto Diff 7150 Comments: Fastin hours WBC 8.1 K/uL (Better) Range: 4.5-11.0 RBC 5.34 mil/uL (Better) Range: 4.20-5.40 HGB 16.3 g/dL (Better) Range: 14.0-18.0 HCT 50.6 % (Better) Range: 42.0-53.0 MCV 94.8 fL (Better) Range: 80.0-99.0 MCH 30.5 pg (Better) Range: 27.3-32.5 MCHC 32.2 % (Better) Range: 32.0-36.0 RDW 13.8 % (Better) Range: 11.6-14.8 PLATELETS 293 K/uL (Better) Range: 150-400 MPV 7.2 fL (Better) Range: 6.0-11.0 %NEUTRO 70.1 % (Better) Range: 37.0-80.0 %LYMPHS 17.1 % (Better) Range: 13.0-50.0 %MONO 6.2 % (Better) Range: 0.0-12.0 %EOS 2.3 % (Better) Range: 0.0-7.0 %BASO 0.8 % (Better) Range: 0.0-2.5 %LEILANI 3.4 % (Better) Range: 0.0-5.0 NEUTRO 5.7 K/uL (Better) Range: 2.0-6.9 LYMPHS 1.4 K/uL (Better) Range: 0.6-3.4 MONOS 0.5 K/uL (Better) Range: 0.0-0.9 EOS 0.2 K/uL (Better) Range: 0.0-0.7 BASO 0.1 K/uL (Better) Range: 0.0-0.2 07:58 PROTIME PANEL 7000 Comments: Fastin hours PROTIME 20.4 secs (Above high threshold) Range: 12.0-14.9 INR 1.75 (Better) 08:13 Comprehensive Metabolic Panel 1212 Comments: Fastin hours SODIUM 135 mmol/L (Better) Range: 133-144 POTASSIUM 3.9 mmol/L (Better) Range: 3.5-5.1 CHLORIDE 99 mmol/L (Better) Range: 98-110 CARBON DIOXIDE 24.8 mmol/L (Better) Range: 23.0-33.0 ANION GAP 11 mmol/L (Better) Range: 6-16 BUN 12 mg/dL (Better) Range: 7-18 CREATININE, SERUM 1.20 mg/dL (Better) Range: 0.70-1.30 Comments: Please note new reference ranges effective 2015.----- BUN:CREATININE RATIO 10 (Better) EST GFR, >60 ml/min (Better) Range: >60 EST GFR, NON-AFR GAMBIAN 58 ml/min (Below low threshold) Range: >60 Comments: EST GFR is reported in ml/min per 1.73 m2 of body surface area. For -Nicaraguan, please multiple result by 1.2.----- GLUCOSE 170 mg/dL (Above high threshold) Range: 70-100 ALK PHOSPHATASE 79 U/L (Better) Range: 46-116 TOTAL BILIRUBIN 0.90 mg/dL (Better) Range: 0.20-1.00 AST 17 U/L (Better) Range: 8-35 ALT 19 U/L (Better) Range: 16-63 Comments: Please note new reference ranges. Effective 01/24/2015.----- ALBUMIN 3.8 g/dL (Better) Range: 3.4-5.0 TOTAL PROTEIN 7.4 g/dL (Better) Range: 6.4-8.2 A/G RATIO 1.1 units (Better) Range: 1.0-1.8 CALCIUM 8.6 mg/dL (Better) Range: 8.5-10.1 08:13 LIPID PROFILE 1184 Comments: Fastin hours CHOLESTEROL 186 mg/dL (Better) Range: <200 TRIGLYCERIDES 85 mg/dL (Better) Range: 30-200 HDL Cholesterol 38 mg/dL (Below low threshold) Range: >39 NON HDL CHOLESTEROL 148 (Better) CARDIAC RSK FACTOR 4.9 units (Better) Range: 4.4-5.0 LDL - CALCULATED 131 mg/dL (Above high threshold) Range: 0-130 08:59 HEMOGLOBIN A1C 3507 Comments: Fastin hours Hemoglobin A1C 9.0 % (Better) ESTIMATED AVG. GLUCOSE 212 (Better) 09:07 THYROID STIM. HORMONE 3602 Comments: Fastin hours THYROID STIM. HORMONE 2.932 uIU/mL (Better) Range: 0.550-4.780 Comments: No established reference ranges for infants and children <2 years of age----- 08-Oct-2015 15:47 CBC w/ Auto Diff 7150 [...] ml/min (Better) Range: >60 EST GFR, NON-AFR GAMBIAN 56 ml/min (Below low threshold) Range: >60 Comments: EST GFR is reported in ml/min per 1.73 m2 of body surface area. For -[place]icaraguan, please multiple result by 1.2.----- GLUCOSE 179 [...] MI0.10-0.59 ng/ml= Indeterminate for MI0.60-1.50 ng/ml=Suggestive of [place]----- 18-Oct-2015 12:46 PROTIME PANEL 7000 Comments: Critical [...] MI0.10-0.59 ng/ml=Indeterminate for MI0.60- 1.50 ng/ml=Suggestive of [place]----- 09:47 Comprehensive Metabolic Panel 1212 SODIUM 131 [...] ml/min (Better) Range: >60 EST GFR, NON-AFR GAMBIAN >60 ml/min (Better) Range: >60 Comments: EST GFR is reported in ml/min per 1.73 m2 of body surface area. For -[place]icaraguan, please multiple result by 1.2.----- GLUCOSE 254 [...] Salinas On 13-Feb-2016 10:00 * Appointment; Provider: Martha Gudino On 28-Oct-2015 09:00 * Appointment; Provider: Martha Gudino On 01-Jul-2015 [...] not documented On 21-Sep-2014 09:45 Appointment; Brianne eMndez Encounter Diagnosis: Problem not documented On 20-Aug-2014 13:00 Appointment; Jarek Salinas Encounter Diagnosis: Problem not documented On 23-Jul-2014 13:00 Appointment; Jarek Salinas Encounter Diagnosis: Problem not documented On 06-Jul-2014 13:15 Appointment; Jarek Salinas Encounter Diagnosis: Problem not documented On 22-Mar-2014 09:00 Appointment; Aleida Aparicio Encounter Diagnosis: Problem not documented On 05-Mar-2014 08:30
--- OUTSIDE RECORDS SUMMARY | 2017-03-31 14:44 | XMS REPORT | Summary of Care ---
Author Author Jarek Salinas M.D. Organization Unknown Address [address], [place] [id number] Phone Unavailable Care Team Providers Care Geology Technician Name Role Phone Duke Salinas M.D. Unavailable Unavailable Elfego Rodriguez D.O. Unavailable Unavailable Martha Gudino M.D. 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 Encounter for medication counseling (V65.49, Z71.89) Status: Active Atrial flutter with rapid ventricular response (427.32, I48.92) Status: Active AICD (automatic cardioverter/defibrillator) present (V45.02, Z95.810) Status: Active Abnormal brain scan (794.09, R94.02) Status: Active Brain mass (348.9, G93.9) Status: Active Sensorineural hearing loss, 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.18, H90.3) Status: Active CHF (congestive heart failure) (428.0, I50.9) Status: Active Vestibular dizziness, bilateral (386.9, H83.8X3) Status: Active Actinic keratosis (702.0, L57.0) Status: Active Seborrheic keratosis (702.19, L82.1) Status: Active Benign neoplasm of skin of trunk (216.5, D23.5) Status: Active 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, 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 Benign paroxysmal positional vertigo, right (386.11, H81.11) Status: Active Insomnia (780.52, G47.00) Status: Active Nocturia (788.43, R35.1) Status: Active 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 Quantity: 0 Brad Michel.Richard., Jarek A * Start 16-Mar-2008 Active Multiple [...] Jarek Salinas M.D. * Start 07-Mar-2012 Active Carvedilol 12.5 MG Oral Tablet Take 1 1/2 tablets twice daily * Refills: 0 Martha Gudino M.D. * Start 16-Sep-2015 Active Zolpidem Tartrate 10 MG Oral Tablet TAKE ONE TABLET BY MOUTH EVERY NIGHT AT BEDTIME * Quantity: 30 Refills: 1 Zuri Benson APRN * Start 03-Mar-2017 Active TraMADol HCl - 50 MG Oral Tablet 1-2 PO every 6 hours as needed for Headache * Quantity: 50 Refills: 0 Brock Rodriguez D.O. * Start 12-Mar-2017 Active MetFORMIN HCl - 500 MG Oral Tablet Take 1 tablet twice daily * Refills: 0 Jarek Salinas M.D. * Start Active Gemfibrozil 600 MG Oral Tablet TAKE ONE TABLET BY MOUTH ONCE DAILY AT NIGHT * Quantity: 90 Refills: 0 Jarek Salinas M.D. * Start 01-Feb-2017 Active Warfarin Sodium 5 MG Oral Tablet TAKE ONE TABLET BY MOUTH ONCE DAILY * Quantity: 90 Refills: 0 Jarek Salinas M.D. * Start 29-Jan-2017 Active BusPIRone HCl - 10 MG Oral Tablet take one tab bid * Quantity: 60 Refills: 4 Jarek Salinas M.D. * Start 17-Mar-2017 Active Ondansetron 4 MG Oral Tablet Dispersible TAKE 1 TABLET Every 6 hours PRN nausea and vomiting * Quantity: 20 Refills: 0 Brock Rodriguez D.O. * Start 12-Mar-2017 Active Allergies and Adverse Reactions Name Dates [...] Ordered: 28-Jan-2017 PROTIME PANEL 7000 Ordered: 12-Feb-2017 Immunization Name Dates Details Td on: 22-Oct-2001 Pneumo (Pneumovax) on: 14-Sep-2006 Influenza on: 03-Sep-2008 Td Lot #: [id number] on: Influenza on: 09-Aug-2009 Influenza A (H1N1) Monoval Vac SUSP on: 28-Oct-2009 Influenza on: 29-Aug-2012 Influenza on: 05-Sep-2013 Fluzone High-Dose SUSP #1 Lot #: [id number] on: 20-Aug-2014 Prevnar 13 Intramuscular Suspension on: 21-Sep-2014 Fluzone High-Dose 0.5 ML Intramuscular Suspension Prefilled Syringe Lot #: [id number] on: 12-Aug-2015 Pneumovax 23 25 MCG/0.5ML Injection Injectable Lot #: [id number] on: 10-Aug-2016 Fluzone High-Dose 0.5 ML Intramuscular Suspension Prefilled Syringe Lot #: [id number] on: 10-Aug-2016 Family History Name Dates Details [...] smoker Vital Signs Date Test Result Details 22-Mar-2017 14:25 BP Systolic 140 mm[Hg] Status: Comments: Location: ; Position: BP Diastolic 60 mm[Hg] Status: Comments: Location: ; Position: Heart Rate 107 /min Status: Comments: Location: ; Weight 187 lb Status: Body Mass Index Calculated 29.29 kg/m2 Status: Body Surface Area Calculated 1.97 m2 Status: 19-Mar-2017 15:25 BP Systolic 130 mm[Hg] Status: Comments: Location: LUE; Position: Sitting BP Diastolic 60 mm[Hg] Status: Comments: Location: LUE; Position: Sitting Heart Rate 80 /min Status: Comments: Location: ; Weight 184 lb Status: Body Mass Index Calculated 28.82 kg/m2 Status: Body Surface Area Calculated 1.95 m2 Status: 16-Mar-2017 10:20 BP Systolic 120 mm[Hg] Status: Comments: Location: ; Position: BP Diastolic 58 mm[Hg] Status: Comments: Location: ; Position: Heart Rate 78 /min Status: Comments: Location: ; Weight 186 lb Status: Body Mass Index Calculated 29.13 kg/m2 Status: Body Surface Area Calculated 1.96 m2 Status: 12-Mar-2017 12:33 BP Systolic 163 mm[Hg] Status: Comments: Location: ; Position: BP Diastolic 93 mm[Hg] Status: Comments: Location: ; Position: Temperature 96.5 f Status: Heart Rate 89 /min Status: Comments: Location: ; Height 67 in Status: Weight 181.5 lb Status: Physical Findings 94 Status: Comments: O2 Saturation Body Mass Index Calculated 28.43 kg/m2 Status: Body Surface Area Calculated 1.94 m2 Status: 01-Mar-2017 09:24 BP Systolic 110 mm[Hg] Status: Comments: Location: ; Position: BP Diastolic 70 mm[Hg] Status: Comments: Location: ; Position: Heart Rate 88 /min Status: Comments: Location: ; Weight 186.0 lb Status: Physical Findings 95 Status: Comments: O2 Saturation Body Mass Index Calculated 30.95 kg/m2 Status: Body Surface Area Calculated 1.92 m2 Status: Results Date Description Value Details 15-Mar-2017 11:32 CT HEAD WITHOUT AND WITH IV CONTRAST Comments: Exam Date: 03/15/2017 10:53Dictation Date: 03/15/2017 11:32 [facility] Radiologic ReportHUETHAN NUNO A- [id number] (X-RAY)PATIENT OF DR. 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 On 24-Feb-2018 11:15 Appointment; Provider: Glenroy Joyner M.D. On 09-Apr-2017 10:45 Appointment; Provider: Jarek Salinas M.D. On 01-Apr-2017 14:15 Instructions Name Dates Details Instructions not documented Encounters Appointment; Jarek Salinas M.D. Encounter Diagnosis: Problem not documented On 19-Mar-2017 15:30 Appointment; Jarek Salinas M.D. Encounter Diagnosis: Problem not documented On 16-Mar-2017 10:00 Appointment; Brock Rodriguez D.O. Encounter Diagnosis: Problem not documented On 12-Mar-2017 12:15 Appointment; Zuri Benson A.P.R.N. Encounter Diagnosis: Problem not documented On 01-Mar-2017 09:45 Appointment; Devon Tyler M.D. Encounter Diagnosis: Problem [...] documented On 11-Jan-2017 09:00 Appointment; Zuri Benson A.PLluviaRLester Encounter Diagnosis: Problem not documented On 08-Jan-2017 13:00 Appointment; Zuri Benson A.PLluviaRLester Encounter Diagnosis: Problem not documented On 31-Dec-2016 13:00 Appointment; Glenroy Joyner M.D. Encounter Diagnosis: Problem not documented On 04-Nov-2016 08:30 Appointment; Jarek Salinas M.D. Encounter Diagnosis: Problem not documented On 05-Oct-2016 14:00 Appointment; Jarek Salinas M.D. Encounter Diagnosis: Problem not documented On 10-Sep-2016 10:15 Appointment; Glenroy Joyenr M.D. Encounter Diagnosis: Problem not documented On [...] Problem not documented On 24-Oct-2015 15:30 Appointment; Noha Sheffield M.D. Encounter Diagnosis: Problem not documented [...] Problem not documented On 26-Mar-2015 13:15 Appointment; aJrek Salinas M.D. Encounter Diagnosis: Problem not documented On 22-Mar-2015 13:00
--- OUTSIDE RECORDS SUMMARY | 2017-03-31 14:44 | XMS REPORT | Summary of Care ---
Author Author Jarek Salinas M.D. Organization Unknown Address [address], [place] [id number] Phone Unavailable Care Team Providers Care Psychology Intern Name Role Phone Duke Salinas M.D. 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 * Quantity: 90 Refills: 3 Jarek Salinas M.D.* Started 30-Aug-2008 ActiveGemfibrozil 600 MG Oral Tablet Take One Tablet By Mouth Twice Daily * Quantity: 180 Refills: 3 Jarek Salinas M.D.* Started 29-Jul-2009 ActiveMetoprolol Tartrate 100 MG Oral Tablet take one tablet by mouth every day * Quantity: 90 Refills: 3 Jarek Salinas M.D.* Started 08-Mar-2012 ActiveNitrostat 0.4 MG Sublingual Tablet Sublingual PLACE 1 TABLET UNDER THE TONGUE EVERY 5 MINUTES UP TO 3 DOSES NEEDED FOR CHEST PAIN. * Quantity: 90 Refills: 3 Jarek Salinas M.D.* Started 16-Jun-2012 ActiveWarfarin Sodium 5 MG Oral Tablet Take one tablet daily. * Quantity: 90 Refills: 3 Jarek Salinas M.D.* Started 23-Mar-2014 ActiveGlipiZIDE 10 MG Oral Tablet Take one tablet twice daily. * Quantity: 180 Refills: 3 Jarek Salinas M.D.* Started 24-Sep-2014 ActiveOndansetron HCl - 4 MG Oral Tablet ONE TABLET BY MOUTH EVERY 4 HOURS NEEDED * Quantity: 10 Refills: 1 Jarek Salinas M.D.* Started 19-Feb-2015 ActiveRed Yeast Rice 600 MG Oral Tablet TAKE 2 TABLETS DAILY. * Refills: 0 Jarek Salinas M.D.* Started 07-Mar-2012 ActiveFish Oil 1000 MG Oral Capsule Take one capsule daily. * Refills: 0 Jarek Salinas M.D.* Started 07-Mar-2012 Active Allergies and Adverse Reactions Name Dates [...] of Complete Colonoscopy Completed:28-Feb-2013 PROTIME PANEL 7000 Ordered:28-Jan-2015 Immunization Name Dates Details Td Administered on:22-Oct-2001 Pneumo (Pneumovax) Administered on:14-Sep-2006 Influenza Administered on:03-Sep-2008 Td Lot #: [id number] Administered on: Influenza Administered on:09-Aug-2009 Influenza A (H1N1) Monoval Vac Intramuscular Suspension Administered on:28-Oct-2009 Influenza Administered on:29-Aug-2012 Influenza Administered on:05-Sep-2013 Fluzone High-Dose Intramuscular Suspension #1 Lot #: [id number] Administered on:20-Aug-2014 Prevnar 13 Intramuscular Suspension Administered [...] smoker Vital Signs Date Test Result Details 18-Feb-2015 10:48 BP Systolic 138 mm[Hg] Status: BP Diastolic 62 mm[Hg] Status: Heart Rate 84 /min Status: Weight 194 lb Status: Height 65 in Status: Body Mass Index Calculated 32.28 kg/m2 Status: Body Surface Area Calculated 1.95 m2 Status: Results Date Description Value Details 13-Feb-2015 09:14 CBC w/ Auto Diff 7150 Comments: Fastin hours WBC 7.9 K/uL (Better) Range: 4.5-11.0 RBC 5.14 mil/uL (Better) Range: 4.20-5.40 HGB 15.8 g/dL (Better) Range: 14.0-18.0 HCT 45.3 % (Better) Range: 42.0-53.0 MCV 88.1 fL (Better) Range: 80.0-99.0 MCH 30.7 pg (Better) Range: 27.3-32.5 MCHC 34.9 % (Better) Range: 32.0-36.0 RDW 13.5 % (Better) Range: 11.6-14.8 PLATELETS 322 K/uL (Better) Range: 150-400 MPV 6.9 fL (Better) Range: 6.0-11.0 %NEUTRO 72.3 % (Better) Range: 37.0-80.0 %LYMPHS 17.9 % (Better) Range: 13.0-50.0 %MONO 5.7 % (Better) Range: 0.0-12.0 %EOS 1.3 % (Better) Range: 0.0-7.0 %BASO 0.6 % (Better) Range: 0.0-2.5 %LEILANI 2.1 % (Better) Range: 0.0-5.0 NEUTRO 5.7 K/uL (Better) Range: 2.0-6.9 LYMPHS 1.4 K/uL (Better) Range: 0.6-3.4 MONOS 0.5 K/uL (Better) Range: 0.0-0.9 EOS 0.1 K/uL (Better) Range: 0.0-0.7 BASO 0.1 K/uL (Better) Range: 0.0-0.2 09:33 Comprehensive Metabolic Panel 1212 Comments: Fastin hours SODIUM 138 mmol/L (Better) Range: 133-144 POTASSIUM 4.4 mmol/L (Better) Range: 3.5-5.1 CHLORIDE 102 mmol/L (Better) Range: 98-110 CARBON DIOXIDE 23.7 mmol/L (Better) Range: 23.0-33.0 ANION GAP 12 mmol/L (Better) Range: 6-16 BUN 25 mg/dL (Above high threshold) Range: 7-18 CREATININE, SERUM 1.10 mg/dL (Better) Range: 0.43-1.13 BUN:CREATININE RATIO 23 (Better) EST GFR, >60 ml/min (Better) Range: >60 EST GFR, NON-AFR [place] >60 ml/min (Better) Range: >60 Comments: EST GFR is reported in ml/min per 1.73 m2 of body surface area. For -Jordanian, please multiple result by 1.2.----- GLUCOSE 98 mg/dL (Better) Range: 70-100 ALK PHOSPHATASE 66 U/L (Better) Range: 46-116 TOTAL BILIRUBIN 1.10 mg/dL (Above high threshold) Range: 0.20-1.00 AST 17 U/L (Better) Range: 8-35 ALT 20 U/L (Better) Range: 16-63 Comments: Please note new reference ranges. Effective 01/24/2015.----- ALBUMIN 4.0 g/dL (Better) Range: 3.4-5.0 TOTAL PROTEIN 7.7 g/dL (Better) Range: 6.4-8.2 A/G RATIO 1.1 units (Better) Range: 1.0-1.8 CALCIUM 9.1 mg/dL (Better) Range: 8.5-10.1 09:33 LIPID PROFILE 1184 Comments: Fastin hours CHOLESTEROL 145 mg/dL (Better) Range: <200 TRIGLYCERIDES 63 mg/dL (Better) Range: 30-200 HDL Cholesterol 40 mg/dL (Better) Range: >39 NON HDL CHOLESTEROL 105 (Better) CARDIAC RSK FACTOR 3.6 units (Below low threshold) Range: 4.4-5.0 LDL - CALCULATED 92 mg/dL (Better) Range: 0-130 10:02 THYROID STIM. HORMONE 3602 Comments: Fastin hours THYROID STIM. HORMONE 1.090 uIU/mL (Better) Range: 0.550-4.780 Comments: \[id number]\No established reference ranges for infants and children < 2 years of ageNo established reference ranges for infants and children <2 years of age----- 10:10 HEMOGLOBIN A1C 3507 Comments: Fastin hours Hemoglobin A1C 7.8 % (Better) ESTIMATED AVG. GLUCOSE 177 (Better) Plan of Care Planned Observations* Name Dates Details Planned Goals not documented Goal Planned Encounters* Appointment; Provider: Jarek Salinas On 17-Jun-2015 09:15 * Appointment; Provider: Martha Gudino On 09:30 * Appointment; Provider: Donny Artis On 11-Mar-2015 08:30 Instructions * Instructions not documented Encounters Appointment; [...]
--- OUTSIDE RECORDS SUMMARY | 2017-03-31 14:44 | XMS REPORT | Summary of Care ---
Author Author Jarek Salinas M.D. Organization Unknown Address [address], [place] [id number] Phone Unavailable Care Team Providers Care Cotton Presser Name Role Phone Duke Salinas M.D. 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, I63.311) Status: Active Atrial fibrillation (427.31, I48.91) Status: [...] of Pacemaker Placement PROTIME PANEL 7000 Ordered: 13-Jul-2016 CT HEAD WITHOUT AND WITH IV CONTRAST Ordered: 25-Jun-2016 Immunization Name Dates Details Td on: 22-Oct-2001 Pneumo (Pneumovax) on: 14-Sep-2006 Influenza on: 03-Sep-2008 Td Lot #: [id number] on: Influenza on: 09-Aug-2009 Influenza A (H1N1) Monoval Vac SUSP on: 28-Oct-2009 Influenza on: 29-Aug-2012 Influenza on: 05-Sep-2013 Fluzone High-Dose SUSP #1 Lot #: [id number] on: 20-Aug-2014 Prevnar 13 Intramuscular Suspension on: 21-Sep-2014 Fluzone High-Dose 0.5 ML Intramuscular Suspension Prefilled Syringe Lot #: [id number] on: 12-Aug-2015 Family History Name Dates Details Family history of Reported Family History Of Cancer Comments: Family History Status: Active Family history of Reported Family History Of Heart Disease Comments: Family History Status: Active Name Dates Details Family history of Diabetes Mellitus (V18.0) Status: Active Social History Name Dates Details - Status: Name Dates Details Never smoker Vital Signs Date Test Result Details 13-Jul-2016 09:13 BP Systolic 120 mm[Hg] Status: Comments: Location: ; Position: BP Diastolic 70 mm[Hg] Status: Comments: Location: ; Position: Heart Rate 76 /min Status: Comments: Location: ; Weight 184.4 lb Status: Body Mass Index Calculated 30.69 kg/m2 Status: Body Surface Area Calculated 1.91 m2 Status: 25-Jun-2016 09:14 BP Systolic 136 mm[Hg] Status: Comments: Location: LUE; Position: Sitting BP Diastolic 72 mm[Hg] Status: Comments: Location: LUE; Position: Sitting Heart Rate 83 /min Status: Comments: Location: ; Weight 183.6 lb Status: Physical Findings 92 Status: Comments: O2 Saturation Body Mass Index Calculated 30.55 kg/m2 Status: Body Surface Area Calculated 1.91 m2 Status: 19-Jun-2016 14:46 BP Systolic 118 mm[Hg] Status: Comments: Location: ; Position: BP Diastolic 60 mm[Hg] Status: Comments: Location: ; Position: Temperature 97.5 f Status: Heart Rate 68 /min Status: Comments: Location: ; Physical Findings 98 Status: Comments: O2 Saturation Results Date Description Value Details 24-Jun-2016 14:48 PROTIME PANEL 7000 PROTIME 20.3 secs (Above high threshold) Range: 12.0-14.9 INR 1.74 15:21 CT HEAD WITHOUT AND WITH IV CONTRAST Comments: Exam Date: 06/24/2016 14:31Dictation Date: 06/24/2016 15:21 XC HEAD 06-Jul-2016 10:58 PROTIME PANEL 7000 PROTIME 30.3 secs (Above high threshold) Range: 12.0-14.9 INR 2.88 Plan of Care Name Dates Details Planned Observations Planned Goals not documented Planned Encounters Appointment; Provider: Donny Artis M.D. On 14-Jan-2017 09:15 Appointment; Provider: Martha Gudino M.D. On 29-Jul-2016 09:45 Appointment; Provider: Glenroy Joyner M.D. On 27-Jul-2016 09:15 Appointment; Provider: Schedule Radiology On 24-Jul-2016 09:00 Interventions Provided Medication Changes* Acyclovir 800 MG Oral Tablet - Completed Labs/Procedures/Imaging* PROTIME PANEL 7000; To be Done: 13 Jul 2016 Instructions Name Dates Details Instructions not documented [...]
--- OUTSIDE RECORDS SUMMARY | 2017-03-31 14:44 | XMS REPORT | Summary of Care ---
Author Author Jarek Salinas M.D. Organization Unknown Address Unknown Phone Unavailable Care Team Providers Care Ornamental Metal Erector Apprentice Name Role Phone Duke Salinas M.D. Unavailable [...] mellitus, type 2 (250.00, E11.9) Status: Active Medications Name Dates Details Aspir-81 [...] twice daily * Refills: 0 Jarek Salinas M.D.* Started ActiveCarvedilol 12.5 MG Oral Tablet Take One Tablet By Mouth Twice Daily * Quantity: 60 Refills: 5 Martha Gudino M.D.* Started 16-Sep-2015 ActiveFurosemide 40 MG Oral Tablet TAKE 1 TABLET DAILY. * Refills: 0 Jarek Salinas M.D.* Started 13-Feb-2016 ActivePotassium Chloride ER 10 MEQ Oral Tablet Extended Release Take one tablet daily. * Refills: 0 Jarek Salinas M.D.* Started 13-Feb-2016 Active Allergies and Adverse Reactions Name [...] CONTRAST Ordered: Immunization Name Dates Details Td Administered on:22-Oct-2001 Pneumo (Pneumovax) Administered on:14-Sep-2006 Influenza Administered on:03-Sep-2008 Td Lot #: [id number] Administered on: Influenza Administered on:09-Aug-2009 Influenza A (H1N1) Monoval Vac Intramuscular Suspension Administered on:28-Oct-2009 Influenza Administered on:29-Aug-2012 Influenza Administered on:05-Sep-2013 Fluzone High-Dose Intramuscular Suspension #1 Lot #: [id number] Administered on:20-Aug-2014 Prevnar 13 Intramuscular Suspension Administered on:21-Sep-2014 Fluzone High-Dose 0.5 ML Intramuscular Suspension Prefilled Syringe Lot #: [id number] Administered on:12-Aug-2015 Family History Unknown Family Member* [...] smoker Vital Signs Date Test Result Details 13:52 BP Systolic 129 mm[Hg] Status: BP Diastolic 61 mm[Hg] Status: Heart Rate 82 /min Status: Weight 186 lb Status: Body Mass Index Calculated 30.95 kg/m2 Status: Body Surface Area Calculated 1.92 m2 Status: 11:44 BP Systolic 130 mm[Hg] Status: BP Diastolic 76 mm[Hg] Status: Heart Rate 92 /min Status: Weight 184.8 lb Status: O2 SAT 93 % Status: Body Mass Index Calculated 30.75 kg/m2 Status: Body Surface Area Calculated 1.91 m2 Status: 12:06 BP Systolic 132 mm[Hg] Status: BP Diastolic 73 mm[Hg] Status: Temperature 98.6 f Status: Heart Rate 77 /min Status: O2 SAT 95 % Status: Results Date Description Value Details 12:42 ECG/ EKG (Specialists) Electro CardioGram (Better) [...] ml/min (Better) Range: >60 EST GFR, NON-AFR [place] 53 ml/min (Below low threshold) Range: >60 Comments: EST GFR is reported in ml/min per 1.73 m2 of body surface area. For -Honduran, please multiple result by 1.2.----- GLUCOSE 314 [...] MI0.10-0.59 ng/ml= Indeterminate for MI0.60-1.50 ng/ml=Suggestive of MA----- 13:12 BNP 3103 Comments: Items were attached to this order: Extra Tube BNP 302.6 pg/mL (Above high threshold) Range: 0.0-100.0 11:32 ECG/ EKG Outside Interp Electro CardioGram (Better) 10:47 BASIC METABOLIC PROFILE 1210 SODIUM 134 mmol/L (Better) Range: 133-144 POTASSIUM 3.8 mmol/L (Better) Range: 3.5-5.1 CHLORIDE 97 mmol/L (Below low threshold) Range: 98-110 CARBON DIOXIDE 26.0 mmol/L (Better) Range: 23.0-33.0 ANION GAP 11 mmol/L (Better) Range: 6-16 BUN 29 mg/dL (Above high threshold) Range: 7-18 CREATININE, SERUM 1.35 mg/dL (Above high threshold) Range: 0.70-1.30 Comments: Please note new reference ranges effective 2015.----- EST GFR, >60 ml/min (Better) Range: >60 EST GFR, NON-AFR [place] 51 ml/min (Below low threshold) Range: >60 Comments: EST GFR is reported in ml/min per 1.73 m2 of body surface area. For -Honduran, please multiple result by 1.2.----- BUN:CREATININE RATIO 21 (Better) GLUCOSE 293 mg/dL (Above high threshold) Range: 70-100 CALCIUM 8.7 mg/dL (Better) Range: 8.5-10.1 11:04 PROTIME PANEL 7000 PROTIME 23.7 secs (Above high threshold) Range: 12.0-14.9 INR 2.11 (Better) 11:22 HEMOGLOBIN A1C 3507 Hemoglobin A1C 10.3 % (Better) ESTIMATED AVG. GLUCOSE 249 (Better) 10:59 CT HEAD WITHOUT IV CONTRAST Comments: Exam Date: 09:33Dictation Date: 06/05/2016 10:59 XC HEAD (Better) Plan of Care Planned Observations* Name Dates Details Planned Goals not documented Goal Planned Encounters* Appointment; Provider: Donny Artis On 14-Jan-2017 09:15 * Appointment; Provider: Martha Gudino On 29-Jul-2016 09:45 * Appointment; Provider: Jarek Salinas On 13-Jul-2016 09:00 * Appointment; Provider: Glenroy Joyner On 25-Jun-2016 09:00 * Appointment; Provider: Schedule Radiology On 24-Jun-2016 15:00 * Appointment; Provider: Schedule Radiology On 10:30 * Appointment; Provider: Schedule Radiology On 13:00 * Appointment; Provider: Martha Gudino On 01-Jul-2015 12:45 * Appointment; Provider: Martha Gudino On 16:00 Instructions * Instructions not documented Encounters Appointment; Jarek Salinas Encounter Diagnosis: Problem not documented On 14:00 Appointment; Glenroy Joyner Encounter Diagnosis: Problem not documented On 11:45 Appointment; Noah Sheffield Encounter Diagnosis: Problem not [...]
--- OUTSIDE RECORDS SUMMARY | 2017-03-31 14:45 | XMS REPORT ---
Author Author Hemalatha Davidson Organization [employer] Address Unknown Phone Unavailable Care Team Providers Care Scheduling Analyst Name Role Phone Hemalatha Davidson CP Unavailable Allergies No Known Allergies Problems Problem Type Condition Code Onset Dates Condition Status Problem Ventricular Tachycardia, Nonsustained 427.1 Active Problem Atrial flutter 427.32 Active Problem Atrial flutter I48.92 Active Problem ICD (implantable cardioverter-defibrillator) in place Z95.810 Active Problem Ventricular tachyarrhythmia I47.2 Active Problem High risk medication use Z79.899 Active Problem S/P AICD V45.02 Active Problem Chronic atrial fibrillation I48.2 Active Problem Congestive heart failure I50.9 Active Medications Medication Code System Code Instructions Start Date End Date Status Dosage Lab Order NDC 0 Orders Sep 07, 2016 as directed Results No Known Results Summary Purpose [employer] Submission
--- OUTSIDE RECORDS SUMMARY | 2017-03-31 14:45 | XMS REPORT | Summary of Care ---
Author Author Martha Gudino M.D. 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, I25.10) [...] on:14-Sep-2006 Influenza Administered on:03-Sep-2008 Td Lot #: [id number] Administered on: Influenza Administered on:09-Aug-2009 Influenza A (H1N1) Monoval Vac Intramuscular Suspension Administered on:28-Oct-2009 Influenza Administered on:29-Aug-2012 Influenza Administered on:05-Sep-2013 Fluzone High-Dose Intramuscular Suspension #1 Lot #: [id number] Administered on:20-Aug-2014 Prevnar 13 Intramuscular Suspension Administered on:21-Sep-2014 Fluzone High-Dose 0.5 ML Intramuscular Suspension Prefilled Syringe Lot #: [id number] Administered on:12-Aug-2015 Family History Unknown Family Member* [...]
--- OUTSIDE RECORDS SUMMARY | 2017-03-31 14:45 | XMS REPORT | Summary of Care ---
Author Author Jarek Salinas M.D. Organization Unknown Address [address], [place] [id number] Phone Unavailable Care Team Providers Care Player Services Representative Name Role Phone Duke Salinas M.D. 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) Status: Active Cardiomyopathy (425.4, I42.9) Status: Active Coronary artery disease (414.00, 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 Dyslipidemia (272.4, E78.5) Status: Active Nonsustained ventricular tachycardia (427.1, I47.2) Status: Active Obesity (278.00, E66.9) Status: Active CHF (congestive heart failure) (428.0, I50.9) Status: Active Diabetes mellitus, type 2 (250.00, E11.9) Status: Active COPD (chronic obstructive pulmonary disease) (496, J44.9) Status: Active Anxiety (300.00, F41.9) Status: Active Hypertension (401.9, I10) Status: Active Atrial fibrillation (427.31, I48.91) Status: Active Sustained VT (ventricular tachycardia) (427.1, I47.2) Status: Active Medications Name Dates Details Aspir-81 81 MG Oral Tablet Delayed Release TAKE 1 TABLET DAILY. Quantity: 0 Jarek Salinas M.D.* Started 16-Mar-2008 ActiveMultiple Vitamin Oral Tablet TAKE 1 TABLET DAILY. * Quantity: 0 Refills: 0 Jarek Salinas M.D.* Started 16-Mar-2008 ActiveWarfarin Sodium 5 MG Oral Tablet ON HOLD UNTIL LAB 01/21 * Refills: 3 Jarek Salinas M.D.* Started 23-Mar-2014 ActiveGemfibrozil 600 MG Oral Tablet Take 1 tablet at night * Quantity: 90 Refills: Jarek Xavier M.D.* Started 25-Mar-2015 ActiveMetFORMIN HCl - 500 [...] Refills: 0 Jarek Salinas M.D.* Started 13-Feb-2016 ActiveRed Yeast Rice 600 MG Oral Tablet [...] History of Pacemaker Placement PROTIME PANEL 7000 Ordered:19-Mar-2016 Immunization Name Dates Details Td Administered on:22-Oct-2001 Pneumo (Pneumovax) Administered on:14-Sep-2006 Influenza Administered on:03-Sep-2008 Td Lot #: [id number] Administered on: Influenza Administered on:09-Aug-2009 Influenza A (H1N1) Monoval Vac Intramuscular Suspension Administered on:28-Oct-2009 Influenza Administered on:29-Aug-2012 Influenza Administered on:05-Sep-2013 Fluzone High-Dose Intramuscular Suspension #1 Lot #: [id number] Administered on:20-Aug-2014 Prevnar 13 Intramuscular Suspension Administered on:21-Sep-2014 Fluzone High-Dose 0.5 ML Intramuscular Suspension Prefilled Syringe Lot #: [id number] Administered on:12-Aug-2015 Family History Unknown Family Member* Name Dates Details Family history of Reported Family History Of Cancer Comments: Family History Status: Active Family history of Reported Family History Of Heart Disease Comments: Family History Status: Active Father* Name Dates Details Family history of Diabetes Mellitus (V18.0) Status: Active Social History Smoking Status* Unknown if ever smoked Vital Signs Date Test Result Details 01-Apr-2016 12:26 BP Systolic 128 mm[Hg] Status: BP Diastolic 66 mm[Hg] Status: Temperature 97.7 f Status: Heart Rate 80 /min Status: Respiration Rate 16 /min Status: O2 SAT 97 % Status: Results Date Description Value Details 09-Mar-2016 10:43 PROTIME PANEL 7000 PROTIME 19.2 secs (Above high threshold) Range: 12.0-14.9 INR 1.62 (Better) 18-Mar-2016 13:51 PROTIME PANEL 7000 PROTIME 26.0 secs (Above high threshold) Range: 12.0-14.9 INR 2.37 (Better) Plan of Care Planned Observations* Name Dates Details Planned Goals not documented Goal Planned Encounters* Appointment; Provider: Donny Artis On 14-Jan-2017 09:15 * Appointment; Provider: Martha Gudino On 29-Jul-2016 09:45 * Appointment; Provider: Jarek Salinas On 09:30 * Appointment; Provider: Martha Gudino On 01-Jul-2015 [...]
--- OUTSIDE RECORDS SUMMARY | 2017-03-31 14:45 | XMS REPORT | Summary of Care ---
Author Author Jarek Salinas M.D. Organization Unknown Address [address], [place] [id number] Phone Unavailable Care Team Providers Care Fashion Show Director Name Role Phone Duke Salinas M.D. [...] I48.91) Status: Active Medications Name Dates Details Fish Oil 1000 MG Oral Capsule Take one capsule daily. Jarek Salinas M.D.* Started 07-Mar-2012 ActiveRed Yeast Rice 600 MG Oral Tablet TAKE 2 TABLETS DAILY. * Refills: 0 Jarek Salinas M.D.* Started 07-Mar-2012 ActiveTamsulosin HCl - 0.4 MG Oral Capsule take one capsule by mouth everyday * Refills: 0 * Started ActivePotassium Chloride ER 10 MEQ Oral Tablet Extended Release Take one tablet daily. * Refills: 0 Jarek Salinas M.D.* Started 13-Feb-2016 ActiveFurosemide 40 MG Oral Tablet TAKE 1 TABLET DAILY. * Refills: 0 Jarek Salinas M.D.* Started 13-Feb-2016 ActiveMetFORMIN HCl - 500 MG Oral Tablet TAKE 1 TABLET(S) BY MOUTH TWICE DAILY * Quantity: 60 Refills: 0 Jarek Salinas M.D.* Started ActiveGemfibrozil 600 MG Oral Tablet Take 1 tablet at night * Quantity: 90 Refills: 3 Jarek Salinas M.D.* Started 25-Mar-2015 ActiveCarvedilol 12.5 MG Oral Tablet 1BID - TAKE ONE TABLET BY MOUTH TWICE DAILY * Quantity: 60 Refills: 5 Martha Gudino M.D.* Started 16-Sep-2015 ActiveWarfarin Sodium 5 MG Oral Tablet ON HOLD UNTIL LAB 01/21 * Refills: 3 Jarek Salinas M.D.* Started 23-Mar-2014 ActiveAspir-81 81 MG Oral Tablet Delayed Release TAKE 1 TABLET DAILY. * Quantity: 0 Refills: 0 Jarek Salinas M.D.* Started 16-Mar-2008 ActiveMultiple [...] History of Pacemaker Placement PROTIME PANEL 7000 Ordered:24-Feb-2016 Immunization Name Dates Details Td Administered on:22-Oct-2001 Pneumo (Pneumovax) Administered on:14-Sep-2006 Influenza Administered on:03-Sep-2008 Td Lot #: [id number] Administered on: Influenza Administered on:09-Aug-2009 Influenza A (H1N1) Monoval Vac Intramuscular Suspension Administered on:28-Oct-2009 Influenza Administered on:29-Aug-2012 Influenza Administered on:05-Sep-2013 Fluzone High-Dose Intramuscular Suspension #1 Lot #: [id number] Administered on:20-Aug-2014 Prevnar 13 Intramuscular Suspension Administered on:21-Sep-2014 Fluzone High-Dose 0.5 ML Intramuscular Suspension Prefilled Syringe Lot #: [id number] Administered on:12-Aug-2015 Family History Unknown Family Member* Name Dates Details Family history of Reported Family History Of Cancer Comments: Family History Status: Active Family history of Reported Family History Of Heart Disease Comments: Family History Status: Active Father* Name Dates Details Family history of Diabetes Mellitus (V18.0) Status: Active Social History Smoking Status* Unknown if ever smoked Vital Signs Date Test Result Details 13-Feb-2016 09:56 BP Systolic 108 mm[Hg] Status: BP Diastolic 60 mm[Hg] Status: Heart Rate 72 /min Status: Height 65 in Status: Weight 187 lb Status: Body Mass Index Calculated 31.12 kg/m2 Status: Body Surface Area Calculated 1.92 m2 Status: Results Date Description Value Details 03-Feb-2016 13:16 PROTIME PANEL 7000 Comments: Critical result called to Ariela by Sandra King on 02/03/2016 at 1:20 PM (INR) PROTIME 44.3 secs (Above high threshold) Range: 12.0-14.9 INR 4.64 Verified by Repeat Analysis (High alert) 05-Feb-2016 10:29 ECG/ EKG Outside Interp Electro CardioGram (Better) 10-Feb-2016 07:45 CBC w/ Auto Diff 7150 Comments: Fastin hours WBC 8.8 K/uL (Better) Range: 4.5-11.0 RBC 5.11 mil/uL (Better) Range: 4.20-5.40 HGB 15.9 g/dL (Better) Range: 14.0-18.0 HCT 49.4 % (Better) Range: 42.0-53.0 MCV 96.7 fL (Better) Range: 80.0-99.0 MCH 31.2 pg (Better) Range: 27.3-32.5 MCHC 32.2 % (Better) Range: 32.0-36.0 RDW 14.2 % (Better) Range: 11.6-14.8 PLATELETS 323 K/uL (Better) Range: 150-400 MPV 5.8 fL (Below low threshold) Range: 6.0-11.0 %NEUTRO 72.2 % (Better) Range: 37.0-80.0 %LYMPHS 15.8 % (Better) Range: 13.0-50.0 %MONO 7.2 % (Better) Range: 0.0-12.0 %EOS 1.2 % (Better) Range: 0.0-7.0 %BASO 0.7 % (Better) Range: 0.0-2.5 %LEILANI 2.9 % (Better) Range: 0.0-5.0 NEUTRO 6.3 K/uL (Better) Range: 2.0-6.9 LYMPHS 1.4 K/uL (Better) Range: 0.6-3.4 MONOS 0.6 K/uL (Better) Range: 0.0-0.9 EOS 0.1 K/uL (Better) Range: 0.0-0.7 BASO 0.1 K/uL (Better) Range: 0.0-0.2 08:03 PROTIME PANEL 7000 Comments: Fastin hours PROTIME 21.7 secs (Above high threshold) Range: 12.0-14.9 INR 1.89 (Better) 08:26 Comprehensive Metabolic Panel 1212 Comments: Fastin hours SODIUM 134 mmol/L (Better) Range: 133-144 POTASSIUM 3.7 mmol/L (Better) Range: 3.5-5.1 CHLORIDE 97 mmol/L (Below low threshold) Range: 98-110 CARBON DIOXIDE 30.2 mmol/L (Better) Range: 23.0-33.0 ANION GAP 7 mmol/L (Better) Range: 6-16 BUN 26 mg/dL (Above high threshold) Range: 7-18 CREATININE, SERUM 1.16 mg/dL (Better) Range: 0.70-1.30 Comments: Please note new reference ranges effective 2015.----- BUN:CREATININE RATIO 22 (Better) EST GFR, >60 ml/min (Better) Range: >60 EST GFR, NON-AFR [place] >60 ml/min (Better) Range: >60 Comments: EST GFR is reported in ml/min per 1.73 m2 of body surface area. For -[place], please multiple result by 1.2.----- GLUCOSE 183 mg/dL (Above high threshold) Range: 70-100 ALK PHOSPHATASE 81 U/L (Better) Range: 46-116 TOTAL BILIRUBIN 1.20 mg/dL (Above high threshold) Range: 0.20-1.00 AST 16 U/L (Better) Range: 8-35 ALT 23 U/L (Better) Range: 16-63 Comments: Please note new reference ranges. Effective 01/24/2015.----- ALBUMIN 3.7 g/dL (Better) Range: 3.4-5.0 TOTAL PROTEIN 7.3 g/dL (Better) Range: 6.4-8.2 A/G RATIO 1.0 units (Better) Range: 1.0-1.8 CALCIUM 9.0 mg/dL (Better) Range: 8.5-10.1 08:28 HEMOGLOBIN A1C 3507 Comments: Fastin hours Hemoglobin A1C 10.1 % (Better) ESTIMATED AVG. GLUCOSE 243 (Better) 09:43 THYROID STIM. HORMONE 3602 Comments: Fastin hours THYROID STIM. HORMONE 2.421 uIU/mL (Better) Range: 0.550-4.780 Comments: No established reference ranges for infants and children <2 years of age----- 24-Feb-2016 08:16 PROTIME PANEL 7000 Comments: Critical result called to Viviana by Elsie Pulliam on 02/24/2016 at 8:21 AM (INR) PROTIME 41.0 secs (Above high threshold) Range: 12.0-14.9 INR 4.22 (High alert) Comments: Verified by Repeat Analysis----- Plan of Care Planned Observations* Name Dates [...]
--- OUTSIDE RECORDS SUMMARY | 2017-03-31 14:45 | XMS REPORT | Summary of Care ---
Author Author Jarek Salinas M.D. Organization Unknown Address [address] [place], [place] [id number] Phone Unavailable Care Team Providers Care Interface Analyst Name Role Phone Duke Salinas M.D. Unavailable [...] Jarek Salinas M.D. * Start 07-Mar-2012 Active Gemfibrozil 600 MG Oral Tablet Take [...] tablet daily. * Refills: 0 Jarek Salinas M.D. * Start 13-Feb-2016 Active Warfarin Sodium 5 MG Oral Tablet ON HOLD UNTIL LAB 01/21 * Refills: 3 Brad Jovel, Jarek A * Start 23-Mar-2014 Active Allergies and Adverse Reactions Name Dates [...] 14-Sep-2006 Influenza on: 03-Sep-2008 Td Lot #: [id number] on: Influenza on: 09-Aug-2009 Influenza A (H1N1) Monoval Vac SUSP on: 28-Oct-2009 Influenza on: 29-Aug-2012 Influenza on: 05-Sep-2013 Fluzone High-Dose SUSP #1 Lot #: [id number] on: 20-Aug-2014 Prevnar 13 Intramuscular Suspension on: 21-Sep-2014 Fluzone High-Dose 0.5 ML Intramuscular Suspension Prefilled Syringe Lot #: [id number] on: 12-Aug-2015 Family History Name Dates Details [...] Details 13:52 BP Systolic 129 mm[Hg] Status: Comments: Location: ; Position: BP Diastolic 61 mm[Hg] Status: Comments: Location: ; Position: Heart Rate 82 /min Status: Comments: Location: ; Weight 186 lb Status: Body Mass Index Calculated 30.95 kg/m2 Status: Body Surface Area Calculated 1.92 m2 Status: 11:44 BP Systolic 130 mm[Hg] Status: Comments: Location: LUE; Position: Sitting BP Diastolic 76 mm[Hg] Status: Comments: Location: LUE; Position: Sitting Heart Rate 92 /min Status: Comments: Location: ; Weight 184.8 lb Status: Physical Findings 93 Status: Comments: O2 Saturation Body Mass Index Calculated 30.75 kg/m2 Status: Body Surface Area Calculated 1.91 m2 Status: 12:06 BP Systolic 132 mm[Hg] Status: Comments: Location: ; Position: BP Diastolic 73 mm[Hg] Status: Comments: Location: ; Position: Temperature 98.6 f Status: Heart Rate 77 /min Status: Comments: Location: ; Physical Findings 95 Status: Comments: O2 Saturation Results Date Description Value Details 12:42 ECG/ EKG ([facility]) Electro CardioGram 12:41 CBC w/ Auto Diff 7150 Comments: Items were attached to this order: Extra Tube WBC 8.9 K/uL Range: 4.5-11.0 RBC 4.77 mil/uL Range: 4.20-5.40 HGB 14.9 g/dL Range: 14.0-18.0 HCT 44.9 % Range: 42.0-53.0 MCV 94.1 fL Range: 80.0-99.0 MCH 31.2 pg Range: 27.3-32.5 MCHC 33.2 % Range: 32.0-36.0 RDW 13.9 % Range: 11.6-14.8 PLATELETS 328 K/uL Range: 150-400 MPV 6.8 fL Range: 6.0-11.0 %NEUTRO 72.3 % Range: 37.0-80.0 %LYMPHS 17.6 % Range: 13.0-50.0 %MONO 4.9 % Range: 0.0-12.0 %EOS 2.0 % Range: 0.0-7.0 %BASO 0.6 % Range: 0.0-2.5 %LEILANI 2.7 % Range: 0.0-5.0 NEUTRO 6.4 K/uL Range: 2.0-6.9 LYMPHS 1.6 K/uL Range: 0.6-3.4 MONOS 0.4 K/uL Range: 0.0-0.9 EOS 0.2 K/uL Range: 0.0-0.7 BASO 0.1 K/uL Range: 0.0-0.2 13:10 CT HEAD WITHOUT IV CONTRAST Comments: Exam Date: 05/19/2016 12: 35Dictation Date: 05/19/2016 13:10 XC HEAD 13:09 Comprehensive Metabolic Panel 1212 Comments: Items were attached to this order: Extra Tube SODIUM 132 mmol/L (Below low threshold) Range: 133-144 POTASSIUM 4.3 mmol/L Range: 3.5-5.1 CHLORIDE 97 mmol/L (Below low threshold) Range: 98-110 CARBON DIOXIDE 28.3 mmol/L Range: 23.0-33.0 ANION GAP 7 mmol/L Range: 6-16 BUN 24 mg/dL (Above high threshold) Range: 7-18 CREATININE, SERUM 1.29 mg/dL Range: 0.70-1.30 Comments: Please note new reference ranges effective 2015.----- BUN:CREATININE RATIO 19 EST GFR, >60 ml/min Range: >60 EST GFR, NON-AFR NIUEAN 53 ml/min (Below low threshold) Range: >60 Comments: EST GFR is reported in ml/min per 1.73 m2 of body surface area. For -[place], please multiple result by 1.2.----- GLUCOSE 314 mg/dL (Above high threshold) Range: 70-100 ALK PHOSPHATASE 90 U/L Range: 46-116 TOTAL BILIRUBIN 0.70 mg/dL Range: 0.20-1.00 AST 17 U/L Range: 8-35 ALT 19 U/L Range: 16-63 Comments: Please note new reference ranges. Effective 01/24/2015.----- ALBUMIN 3.7 g/dL Range: 3.4-5.0 TOTAL PROTEIN 7.5 g/dL Range: 6.4-8.2 A/G RATIO 1.0 units Range: 1.0-1.8 CALCIUM 8.6 mg/dL Range: 8.5-10.1 13:10 TROPONIN I 3451 Comments: Items were attached to this order: Extra Tube TROPONIN I 0.04 ng/mL Range: <0.10 Comments: Result called to Marily by Keeley Ontiveros on 05/19/2016 at 1:15 PMVerified by Repeat Analysis<0.10 ng/ml=Negative for MI0.10-0.59 ng/ml= Indeterminate for MI0.60-1.50 ng/ml=Suggestive of [place]----- 13:12 BNP 3103 Comments: Items were attached to this order: Extra Tube BNP 302.6 pg/mL (Above high threshold) Range: 0.0-100.0 11:32 ECG/ EKG Outside Interp Electro CardioGram 10:47 BASIC METABOLIC PROFILE 1210 [...] >60 ml/min Range: >60 EST GFR, NON-AFR NIUEAN 51 ml/min (Below low threshold) Range: >60 Comments: EST GFR is reported in ml/min per 1.73 m2 of body surface area. For -[place], please multiple result by 1.2.----- BUN:CREATININE RATIO 21 GLUCOSE 293 mg/dL (Above high threshold) Range: 70-100 CALCIUM 8.7 mg/dL Range: 8.5-10.1 11:04 PROTIME PANEL 7000 PROTIME 23.7 secs (Above high threshold) Range: 12.0-14.9 INR 2.11 11:22 HEMOGLOBIN A1C 3507 Hemoglobin A1C 10.3 % ESTIMATED AVG. GLUCOSE 249 10:59 CT HEAD WITHOUT IV CONTRAST Comments: Exam Date: 2015 09:33Dictation Date: 06/05/2016 10:59 XC HEAD Plan of Care Name Dates Details Planned Observations PROTIME PANEL 7000 On Intent Planned Goals not documented Planned Encounters Appointment; Provider: Donny Artis M.D. On 14-Jan-2017 09:15 Appointment; Provider: Martha Gudino M.D. On 29-Jul-2016 09:45 Appointment; Provider: Jarek Salinas M.D. On 13-Jul-2016 09:00 Appointment; Provider: Glenroy Joyner M.D. On 25-Jun-2016 09:00 Appointment; Provider: Schedule Radiology On 24-Jun-2016 15:00 Appointment; Provider: Schedule Radiology On 10:30 Instructions Name Dates Details Instructions not documented Encounters Appointment; Noah Sheffield M.D. Encounter Diagnosis: Problem [...]
--- OUTSIDE RECORDS SUMMARY | 2017-03-31 14:45 | XMS REPORT | Summary of Care ---
Author Author Jarek Salinas M.D. Organization Unknown Address [address], [place] [id number] Phone Unavailable Care Team Providers Care Instructor [employer] Name Role Phone Duke Salinas M.D. Unavailable [...] Status: Active Anxiety (300.00, F41.9) Status: Active High risk medication use (V58.69, Z79.899) Status: Active SOB (shortness of breath) on exertion (786.05, R06.02) Status: Active CHF (congestive heart failure) (428.0, I50.9) Status: Active COPD (chronic obstructive pulmonary disease) (496, J44.9) Status: Active Diabetes mellitus, type 2 (250.00, E11.9) Status: Active Actinic keratosis (702.0, L57.0) Status: [...] HCl - 500 MG Oral Tablet TAKE 1/2 TABLET(S) BY MOUTH TWICE DAILY * Refills: 0 * Started ActiveTamsulosin HCl - 0.4 MG Oral Capsule take one capsule by mouth everyday * Refills: 0 * Started ActiveCarvedilol 12.5 MG Oral Tablet 1BID - TAKE ONE TABLET BY MOUTH TWICE DAILY * Quantity: 60 Refills: 5 Martha Gudino M.D.* Started 16-Sep-2015 ActiveAmiodarone HCl - 200 MG Oral Tablet TAKE 1 TABLET DAILY. * Quantity: 30 Refills: 5 Martha Gudino M.D.* Started 11-Dec-2015 Active Allergies and Adverse Reactions Name Dates [...] of Arterial Catheterization History of Pacemaker Placement ECG/ EKG Outside Interp Pendin29-Jan-2016 PROTIME PANEL 7000 Ordered:23-Jan-2016 Immunization Name Dates Details Td Administered on:22-Oct-2001 Pneumo (Pneumovax) Administered on:14-Sep-2006 Influenza Administered on:03-Sep-2008 Td Lot #: [id number] Administered on: Influenza Administered on:09-Aug-2009 Influenza A (H1N1) Monoval Vac Intramuscular Suspension Administered on:28-Oct-2009 Influenza Administered on:29-Aug-2012 Influenza Administered on:05-Sep-2013 Fluzone High-Dose Intramuscular Suspension #1 Lot #: [id number] Administered on:20-Aug-2014 Prevnar 13 Intramuscular Suspension Administered on:21-Sep-2014 Fluzone High-Dose 0.5 ML Intramuscular Suspension Prefilled Syringe Lot #: [id number] Administered on:12-Aug-2015 Family History Unknown Family Member* Name Dates Details Family history of Reported Family History Of Cancer Comments: Family History Status: Active Family history of Reported Family History Of Heart Disease Comments: Family History Status: Active Father* Name Dates Details Family history of Diabetes Mellitus (V18.0) Status: Active Social History Smoking Status* Unknown if ever smoked Vital Signs Date Test Result Details 20-Jan-2016 09:41 BP Systolic 118 mm[Hg] Status: BP Diastolic 66 mm[Hg] Status: Heart Rate 72 /min Status: Height 65 in Status: Weight 188 lb Status: Body Mass Index Calculated 31.29 kg/m2 Status: Body Surface Area Calculated 1.93 m2 Status: Results Date Description Value Details 15-Jan-2016 09:13 PROTIME PANEL 7000 Comments: Critical result called to Camron by Dannielle Sam on 01/15/2016 at 9:18 AM (INR) PROTIME 49.0 secs (Above high threshold) Range: 12.0-14.9 INR 5.27 (High alert) Comments: Verified by Repeat Analysis----- 22-Jan-2016 09:58 PROTIME PANEL 7000 PROTIME 23.0 secs (Above high threshold) Range: 12.0-14.9 INR 2.03 (Better) Plan of Care Planned Observations* Name Dates Details Planned Goals not documented Goal Planned Encounters* Appointment; Provider: Donny Artis On 14-Jan-2017 09:15 * Appointment; Provider: Martha Gudino On 29-Jul-2016 09:45 * Appointment; Provider: Jarek Salinas On 13-Feb-2016 10:00 * Appointment; Provider: Jarek Salinas On 11-Feb-2016 09:15 * Appointment; Provider: Martha Gudino On [...] not documented On 07-Oct-2015 13:15 Appointment; Martha Gudion Encounter Diagnosis: Problem not documented On 30-Sep-2015 [...]
--- OUTSIDE RECORDS SUMMARY | 2017-03-31 14:46 | XMS REPORT | Summary of Care ---
Author Author Jarek Salinas M.D. Organization Unknown Address [address], [place] [id number] Phone Unavailable Care Team Providers Care Clinical Rehab Liaison Name Role Phone Duke Salinas M.D. 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: Active Lung disease, chronic obstructive (496, J44.9) Status: Active CHF (congestive heart failure) (428.0, I50.9) Status: Active Atrial flutter with rapid ventricular response (427.32, I48.92) Status: Active AICD (automatic cardioverter/defibrillator) present (V45.02, Z95.810) Status: Active 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, 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 Abnormal brain scan (794.09, R94.02) Status: Active 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, 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 Brain mass (348.9, G93.9) Status: [...] of Pacemaker Placement PROTIME PANEL 7000 Ordered: 18-Nov-2016 CT HEAD WITHOUT AND WITH IV CONTRAST Ordered: 04-Nov-2016 Immunization Name Dates Details Td on: 22-Oct-2001 Pneumo (Pneumovax) on: 14-Sep-2006 Influenza on: 03-Sep-2008 Td Lot #: [id number] on: Influenza on: 09-Aug-2009 Influenza A (H1N1) Monoval Vac SUSP on: 28-Oct-2009 Influenza on: 29-Aug-2012 Influenza on: 05-Sep-2013 Fluzone High-Dose SUSP #1 Lot #: [id number] on: 20-Aug-2014 Prevnar 13 Intramuscular Suspension on: 21-Sep-2014 Fluzone High-Dose 0.5 ML Intramuscular Suspension Prefilled Syringe Lot #: [id number] on: 12-Aug-2015 Pneumovax 23 25 MCG/0.5ML Injection Injectable Lot #: [id number] on: 10-Aug-2016 Fluzone High-Dose 0.5 ML Intramuscular Suspension Prefilled Syringe Lot #: [id number] on: 10-Aug-2016 Family History Name Dates Details Family history of Reported Family History Of Cancer Comments: Family History Status: Active Family history of Reported Family History Of Heart Disease Comments: Family History Status: Active Name Dates Details Family history of Diabetes Mellitus (V18.0) Status: Active Social History Name Dates Details - Status: Name Dates Details Never smoker Vital Signs Date Test Result Details 04-Nov-2016 08:30 BP Systolic 138 mm[Hg] Status: Comments: Location: LUE; Position: Sitting BP Diastolic 78 mm[Hg] Status: Comments: Location: LUE; Position: Sitting Heart Rate 85 /min Status: Comments: Location: ; Weight 184.4 lb Status: Physical Findings 98 Status: Comments: O2 Saturation Body Mass Index Calculated 30.69 kg/m2 Status: Body Surface Area Calculated 1.91 m2 Status: Results Date Description Value Details 28-Oct-2016 13:12 ECG/ EKG Outside Interp Electro CardioGram 02-Nov-2016 09:35 CT HEAD WITHOUT AND WITH IV CONTRAST Comments: Exam Date: 11/02/2016 08:47Dictation Date: 11/02/2016 09:35 XC HEAD 04-Nov-2016 10:09 PROTIME PANEL 7000 PROTIME 20.1 secs (Above high threshold) Range: 12.0-14.9 INR 1.72 Plan of Care Name Dates Details Planned Observations PROTIME PANEL 7000 On 18-Nov-2016 Intent Planned Goals not documented Planned Encounters Appointment; Provider: Jarek Salinas M.D. On 15-Feb-2017 13:45 Appointment; Provider: Jarek Salinas M.D. On 04-Feb-2017 10:00 Appointment; Provider: Donny Artis M.D. On 14-Jan-2017 09:15 Appointment; Provider: Glenroy Joyner M.D. On 11-Jan-2017 09:00 Instructions Name Dates Details Instructions not [...] not documented On 20-Aug-2016 14:15 Appointment; Jarek Slainas M.D. Encounter Diagnosis: Problem not documented On [...]
--- OUTSIDE RECORDS SUMMARY | 2017-03-31 14:46 | XMS REPORT | Summary of Care ---
Author Author Martha Gudino M.D. Organization Unknown Address [address] [place] [address] Phone Unavailable Care Team Providers Care Contract Engineer Name Role Phone Duke Salinas M.D. 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, I25.10) [...] on:14-Sep-2006 Influenza Administered on:03-Sep-2008 Td Lot #: [id number] Administered on: Influenza Administered on:09-Aug-2009 Influenza A (H1N1) Monoval Vac Intramuscular Suspension Administered on:28-Oct-2009 Influenza Administered on:29-Aug-2012 Influenza Administered on:05-Sep-2013 Fluzone High-Dose Intramuscular Suspension #1 Lot #: [id number] Administered on:20-Aug-2014 Prevnar 13 Intramuscular Suspension Administered [...] smoker Vital Signs Date Test Result Details 18-Jul-2015 13:22 BP Systolic 122 mm[Hg] Status: BP Diastolic 78 mm[Hg] Status: Heart Rate 92 /min Status: Weight 191.4 lb Status: Body Mass Index Calculated 31.85 kg/m2 Status: Body Surface Area Calculated 1.94 m2 Status: 15-Jul-2015 11:42 BP Systolic 158 mm[Hg] Status: [...] ml/min (Better) Range: >60 EST GFR, NON-AFR NIGERIAN 55 ml/min (Below low threshold) Range: >60 Comments: EST GFR is reported in ml/min per 1.73 m2 of body surface area. For -Nigerien, please multiple result by 1.2.----- GLUCOSE 149 [...] ml/min (Better) Range: >60 EST GFR, NON-AFR NIGERIAN >60 ml/min (Better) Range: >60 Comments: EST GFR is reported in ml/min per 1.73 m2 of body surface area. For -[place], please multiple result by 1.2.----- BUN:CREATININE RATIO 22 (Better) GLUCOSE 160 mg/dL (Above high threshold) Range: 70-100 CALCIUM 9.0 mg/dL (Better) Range: 8.5-10.1 10-Jul-2015 10:58 ECG/ EKG Outside Interp Electro CardioGram (Better) Plan of Care Planned Observations* Name Dates Details Planned Goals not documented Goal Planned Encounters* Appointment; Provider: Donny Artis On 12-Mar-2016 08:00 * Appointment; Provider: Jarek Salinas On 30-Jul-2015 15:15 * Appointment; Provider: Martha Gudino On 01-Jul-2015 [...]
--- OUTSIDE RECORDS SUMMARY | 2017-03-31 14:46 | XMS REPORT | Summary of Care ---
Author Author Jarek Salinas M.D. Organization Unknown Address [address], [place] [id number] Phone Unavailable Care Team Providers Care Professor Of Historical Theology Name Role Phone Duke Salinas M.D. Unavailable [...] middle cerebral artery (434.01, I63.311) Status: Active Medications Name Dates Details Aspir-81 [...] 1/2 tablet twice daily * Refills: 0 Yackley M.D., Jarek Wall * Start Active Carvedilol 12.5 [...] of Pacemaker Placement PROTIME PANEL 7000 Ordered: 19-Jan-2017 PROTIME PANEL 7000 Ordered: 12-Jan-2017 CT HEAD WITHOUT AND WITH IV CONTRAST Ordered: 11-Jan-2017 Immunization Name Dates Details Td on: 22-Oct-2001 Pneumo (Pneumovax) on: 14-Sep-2006 Influenza on: 03-Sep-2008 Td Lot #: [id number] on: Influenza on: 09-Aug-2009 Influenza A (H1N1) Monoval Vac SUSP on: 28-Oct-2009 Influenza on: 29-Aug-2012 Influenza on: 05-Sep-2013 Fluzone High-Dose SUSP #1 Lot #: [id number] on: 20-Aug-2014 Prevnar 13 Intramuscular Suspension on: 21-Sep-2014 Fluzone High-Dose 0.5 ML Intramuscular Suspension Prefilled Syringe Lot #: [id number] on: 12-Aug-2015 Pneumovax 23 25 MCG/0.5ML Injection Injectable Lot #: [id number] on: 10-Aug-2016 Fluzone High-Dose 0.5 ML Intramuscular Suspension Prefilled Syringe Lot #: [id number] on: 10-Aug-2016 Family History Name Dates Details Family history of Reported Family History Of Cancer Comments: Family History Status: Active Family history of Reported Family History Of Heart Disease Comments: Family History Status: Active Name Dates Details Family history of Diabetes Mellitus (V18.0) Status: Active Social History Name Dates Details - Status: Name Dates Details Never smoker Vital Signs Date Test Result Details 19-Jan-2017 14:07 BP Systolic 120 mm[Hg] Status: Comments: Location: ; Position: BP Diastolic 60 mm[Hg] Status: Comments: Location: ; Position: Heart Rate 78 /min Status: Comments: Location: ; Weight 184 lb Status: Physical Findings 94 Status: Comments: O2 Saturation Body Mass Index Calculated 30.62 kg/m2 Status: Body Surface Area Calculated 1.91 m2 Status: 11-Jan-2017 08:55 BP Systolic 138 mm[Hg] Status: Comments: Location: ; Position: BP Diastolic 72 mm[Hg] Status: Comments: Location: ; Position: Heart Rate 90 /min Status: Comments: Location: ; Height 65 in Status: Weight 184.6 lb Status: Physical Findings 92 Status: Comments: O2 Saturation Body Mass Index Calculated 30.72 kg/m2 Status: Body Surface Area Calculated 1.91 m2 Status: 08-Jan-2017 13:12 BP Systolic 112 mm[Hg] Status: Comments: Location: RUE; Position: Sitting BP Diastolic 62 mm[Hg] Status: Comments: Location: RUE; Position: Sitting Heart Rate 67 /min Status: Comments: Location: ; Weight 182.4 lb Status: Physical Findings 90 Status: Comments: O2 Saturation Body Mass Index Calculated 30.35 kg/m2 Status: Body Surface Area Calculated 1.9 m2 Status: 31-Dec-2016 13:00 BP Systolic 122 mm[Hg] Status: Comments: Location: ; Position: BP Diastolic 68 mm[Hg] Status: Comments: Location: ; Position: Heart [...] Details Planned Observations PROTIME PANEL 7000 On 26-Jan-2017 Intent Planned Goals not documented Planned Encounters Appointment; Provider: Glenroy Joyner M.D. On 09-Apr-2017 10:45 Appointment; Provider: Schedule Radiology On 22-Mar-2017 09:00 Appointment; Provider: Jarek Salinas M.D. On 22-Feb-2017 14:45 Appointment; Provider: Donny Artis M.D. On 18-Feb-2017 11:15 Appointment; Provider: Jarek Salinas M.D. On 15-Feb-2017 13:45 Appointment; Provider: Devon Tyler M.D. On 25-Jan-2017 14:00 Instructions Name Dates Details Instructions not documented [...]
--- OUTSIDE RECORDS SUMMARY | 2017-03-31 14:46 | XMS REPORT | Summary of Care ---
Author Author Martha Gudino M.D. [facility] Unknown Address [address] [place] [address] Phone Unavailable Care Team Providers Care Table Saw Operator Name Role Phone Duke Salinas M.D. 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 * Quantity: 90 Refills: 3 Jarek Salinas M.D.* Started 23-Mar-2014 ActiveGlipiZIDE 10 MG Oral Tablet Take one tablet twice daily. * Quantity: 180 Refills: 3 Jarek Salinas M.D.* Started 24-Sep-2014 ActiveRed Yeast Rice 600 MG Oral Tablet TAKE 2 TABLETS DAILY. * Refills: 0 Jarek Salinas M.D.* Started 07-Mar-2012 ActiveFish Oil 1000 MG Oral Capsule Take one capsule daily. * Refills: 0 Jarek Salinas M.D.* Started 07-Mar-2012 ActiveMultiple Vitamin Oral Tablet TAKE 1 TABLET [...] on:14-Sep-2006 Influenza Administered on:03-Sep-2008 Td Lot #: [id number] Administered on: Influenza Administered on:09-Aug-2009 Influenza A (H1N1) Monoval Vac Intramuscular Suspension Administered on:28-Oct-2009 Influenza Administered on:29-Aug-2012 Influenza Administered on:05-Sep-2013 Fluzone High-Dose Intramuscular Suspension #1 Lot #: [id number] Administered on:20-Aug-2014 Prevnar 13 Intramuscular Suspension Administered [...]
--- OUTSIDE RECORDS SUMMARY | 2017-03-31 14:46 | XMS REPORT | Summary of Care ---
Author Author Jarek Salinas M.D. Organization Unknown Address [address], [place] [id number] Phone Unavailable Care Team Providers Care Surgical Manager Name Role Phone Duke Salinas M.D. 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 HORMONE 3602 Ordered:12-Feb-2015 HEMOGLOBIN A1C 3507 Ordered:12-Feb-2015 PROTIME PANEL 7000 Ordered:28-Jan-2015 Immunization Name Dates Details Td Administered on:22-Oct-2001 Pneumo (Pneumovax) Administered on:14-Sep-2006 Influenza Administered on:03-Sep-2008 Td Lot #: [id number] Administered on: Influenza Administered on:09-Aug-2009 Influenza A (H1N1) Monoval Vac Intramuscular Suspension Administered on:28-Oct-2009 Influenza Administered on:29-Aug-2012 Influenza Administered on:05-Sep-2013 Fluzone High-Dose Intramuscular Suspension #1 Lot #: [id number] Administered on:20-Aug-2014 Prevnar 13 Intramuscular Suspension Administered [...] to report Results Date Description Value Details 25-Jan-2015 09:46 PROTIME PANEL 7000 PROTIME 27.5 secs (Above high threshold) Range: 12.0-14.9 INR 2.62 (Better) Plan of Care Planned Observations* Name Dates Details Planned Goals not documented Goal Planned Encounters* Appointment; Provider: Martha Gudino On 09:30 * Appointment; Provider: Donny Artis On 11-Mar-2015 08:30 * Appointment; Provider: Jarek Salinas On 18-Feb-2015 10:30 Instructions * Instructions not documented Encounters Appointment; [...]
--- OUTSIDE RECORDS SUMMARY | 2017-03-31 14:47 | XMS REPORT | Summary of Care ---
Author Author Jarek Salinas M.D. Organization Unknown Address [address] [place], [place] [id number] Phone Unavailable Care Team Providers Care Bottle Filler Name Role Phone Duke Salinas M.D. Unavailable [...] breath) on exertion (786.05, R06.02) Status: Active Coronary artery disease (414.00, 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 AICD (automatic cardioverter/defibrillator) present (V45.02, Z95.810) Status: Active Dyslipidemia (272.4, E78.5) Status: Active Nonsustained ventricular tachycardia (427.1, I47.2) Status: Active CHF (congestive heart failure) (428.0, I50.9) Status: Active Cardiomyopathy (425.4, I42.9) Status: Active [...] 07-Mar-2012 ActiveGemfibrozil 600 MG Oral Tablet Take 1 [...] 16-Sep-2015 ActiveFurosemide 40 MG Oral Tablet TAKE 1/2 TABLET DAILY DIRECTED. * Refills: 0 Noah Sheffield M.D.* Started 21-Oct-2015 Ended 03-Dec-2016 ActiveAmiodarone HCl - 200 MG Oral Tablet TAKE 1 TABLET DAILY. * Quantity: 30 Refills: 5 Martha Gudino M.D.* Started 11-Dec-2015 ActiveWarfarin Sodium 5 MG Oral Tablet TAKE ONE TABLET BY MOUTH ONCE DAILY * Quantity: 90 Refills: 3 Jarek Salinas M.D.* Started 23-Mar-2014 Active Allergies and Adverse Reactions Name [...] History of Pacemaker Placement PROTIME PANEL 7000 Ordered:10-Dec-2015 PROTIME PANEL 7000 Ordered:31-Dec-2015 Immunization Name Dates Details Td Administered on:22-Oct-2001 Pneumo (Pneumovax) Administered on:14-Sep-2006 Influenza Administered on:03-Sep-2008 Td Lot #: [id number] Administered on: Influenza Administered on:09-Aug-2009 Influenza A (H1N1) Monoval Vac Intramuscular Suspension Administered on:28-Oct-2009 Influenza Administered on:29-Aug-2012 Influenza Administered on:05-Sep-2013 Fluzone High-Dose Intramuscular Suspension #1 Lot #: [id number] Administered on:20-Aug-2014 Prevnar 13 Intramuscular Suspension Administered on:21-Sep-2014 Fluzone High-Dose 0.5 ML Intramuscular Suspension Prefilled Syringe Lot #: [id number] Administered on:12-Aug-2015 Family History Unknown Family Member* Name Dates Details Family history of Reported Family History Of Cancer Comments: Family History Status: Active Family history of Reported Family History Of Heart Disease Comments: Family History Status: Active Father* Name Dates Details Family history of Diabetes Mellitus (V18.0) Status: Active Social History Smoking Status* Unknown if ever smoked Vital Signs Date Test Result Details No Known Vitals to report Results Date Description Value Details Results not documented Plan of Care Planned Observations* Name Dates Details Planned Goals not documented Goal Planned Encounters* Appointment; Provider: Donny Artis On 12-Mar-2016 08:00 * Appointment; Provider: Martha Gudino On 02-Mar-2016 09:30 * Appointment; Provider: Jarek Salinas On 13-Feb-2016 10:00 * Appointment; Provider: Martha Gudino On 01-Jul-2015 [...] not documented On 25-Sep-2015 12:00 Appointment; Martha Gudion Encounter Diagnosis: Problem not documented On 16-Sep-2015 [...]
--- OUTSIDE RECORDS SUMMARY | 2017-03-31 14:47 | XMS REPORT | Summary of Care ---
Author Author Jarek Salinas M.D. Organization Unknown Address [address] [place], [place] [address] Phone Unavailable Care Team Providers Care Inspector Water Pollution Control Name Role Phone Duke Salinas M.D. 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 Atrial fibrillation (427.31, I48.91) Status: Active AICD (automatic cardioverter/defibrillator) present (V45.02, [...] of Pacemaker Placement PROTIME PANEL 7000 Ordered:10-Dec-2015 Immunization Name Dates Details Td Administered on:22-Oct-2001 Pneumo (Pneumovax) Administered on:14-Sep-2006 Influenza Administered on:03-Sep-2008 Td Lot #: [id number] Administered on: Influenza Administered on:09-Aug-2009 Influenza A (H1N1) Monoval Vac Intramuscular Suspension Administered on:28-Oct-2009 Influenza Administered on:29-Aug-2012 Influenza Administered on:05-Sep-2013 Fluzone High-Dose Intramuscular Suspension #1 Lot #: [id number] Administered on:20-Aug-2014 Prevnar 13 Intramuscular Suspension Administered on:21-Sep-2014 Fluzone High-Dose 0.5 ML Intramuscular Suspension Prefilled Syringe Lot #: [id number] Administered on:12-Aug-2015 Family History Unknown Family Member* [...] Problem not documented On 15-Jan-2016 09:45 Appointment; aMrtha Gudino Encounter Diagnosis: Problem not documented On [...] Problem not documented On 16-Sep-2015 12:15 Appointment; Matrha Gudino Encounter Diagnosis: Problem not documented On [...]
--- OUTSIDE RECORDS SUMMARY | 2017-03-31 14:47 | XMS REPORT ---
Author Author Hemalahta Davidson [facility] eClinical[employer] Address Unknown Phone Unavailable Care Team Providers Care Hospital Nurse Liaison Name Role Phone Hemalatha Davidson CP Unavailable Allergies, Adverse Reactions, Alerts Substance Reaction Event Type Zocor Info Not Available Drug Allergy Pravachol Info Not Available Drug Allergy Problems Problem Type Condition ICD-9 Code Onset Dates Condition Status Problem Ventricular Tachycardia, Nonsustained 427.1 Active Problem Atrial flutter 427.32 Active Problem S/P AICD V45.02 Active Assessment S/P AICD V45.02 Active Assessment Ventricular Tachycardia, Nonsustained 427.1 Active Assessment Atrial flutter 427.32 Active Medications Medication Code System Code Instructions Start Date End Date Status Dosage Lisinopril [facility] [address]-27 5 MG Orally Once a day 1 tablet Warfarin Sodium [facility] [address]-84 5 MG ASDIR 1 tablet Tamsulosin HCl [facility] [address]-41 0.4 MG Orally Once a day 1 capsule 30 minutes after the same meal each day Gemfibrozil [facility] [address]-33 600 MG Orally Twice a day 1 tablet Fish Oil [facility] [address]-02 1000 MG Orally Once a day 1 capsule Metformin HCl [facility] [address]-88 1000 MG Orally Twice a day 1 tablet with meals Multiple Vitamin [facility] [address]-61 Orally Once a day 1 tablet Red Yeast Rice [facility] [address] 600 MG Orally QD 2 cap Aspirin [facility] [address] 81 MG Orally Once a day 1 tablet Procedures Procedure Coding System Code Date Office Visit, Est Pt., Level 4 CPT-4 83270 Aug 01, 2015 Ofc Program ICD Dual, Staff CPT-4 79825 Aug 01, 2015 ELECTROCARDIOGRAM, COMPLETE CPT-4 11549 Aug 01, 2015 Vital Signs Date/Time: Aug 01, 2015 BMI 29.85 Index Weight 190.6 lbs Height 67 in Cardiac Monitoring Heart Rate 81 /min Oximetry 99% % Blood Pressure Diastolic 62 mm Hg Blood Pressure Systolic 120 mm Hg Results Name Result Date Reference Range Unit Abnormality Flag Atria ECG Summary Purpose eClinicalWorks Submission
--- OUTSIDE RECORDS SUMMARY | 2017-03-31 14:47 | XMS REPORT | Continuity of Care Document ---
Author Author [facility] Organization [facility] Address Unknown Phone Unavailable Allergies Active Description Code Type Severity Reaction Onset Reported/Identified Relationship to Patient Clinical Status Yes pravastatin pravastatin Drug Allergy Unknown LEG SWELLING 07/25/2015 Yes pravastatin pravastatin Drug Allergy Unknown UNKNOWN 07/25/2015 Yes simvastatin simvastatin Drug Allergy Unknown LEG MUSCLE CRAMPS 07/25/2015 Yes simvastatin simvastatin Drug Allergy Unknown UNKNOWN 07/25/2015 Medications Problems Date Dx Coded Attending Type Code Diagnosis Diagnosed By 06/18/2015 UNASSIGNED DOCTORDOCTOR Ramos 85349 ATRIAL FIBRILLATION 06/18/2015 COLLIN LADNEROS 01439 DM2/NOS UNCOMP NSU 06/18/2015 COLLIN LANDEROS 2724 HYPERLIPIDEMIA NEC/NOS 06/18/2015 COLLIN LANDEROS 13832 OBESITY, UNSPECIFIED 06/18/2015 COLLIN LANDEROS 68572 ANXIETY STATE NOS 06/18/2015 COLLIN LANDEROS 33567 HTN CKD NOS I-IV/NOS 06/18/2015 COLLIN LANDEROS 14574 CAD UNS VESSEL/NINILCHIK/GR 06/18/2015 COLLIN LANDEROS 4254 PRIM CARDIOMYOPATHY NEC 06/18/2015 COLLIN LANDEROS 17892 ATRIAL FIBRILLATION 06/18/2015 COLLIN LANDEROS 92974 ATRIAL FLUTTER 06/18/2015 COLLIN LANDEROS 5859 CHRONIC KIDNEY DIS NOS 06/18/2015 COLLIN LADNEROS V4581 AORTOCORONARY BYPASS 06/18/2015 COLLIN LANDEROS V8530 BMI 30.0-30.9 ADULT 03/26/2017 LAURA BRYSON R400 Somnolence 03/26/2017 LAURA BRYSON R410 Disorientation, unspecified 03/26/2017 LAURA BRYSON R4182 Altered mental status, unspecified 03/26/2017 LAURA BRYSON Z950 Presence of cardiac pacemaker 03/26/2017 LAURA BRYSON Z951 Presence of aortocoronary bypass graft Procedures Code Description Performed By Performed On A0398 06/10/2015 A0425 06/10/2015 A0427 06/10/2015 8872 06/11/2015 37.26 CATHETER BASED INVASIVE ELECTROPHYSIOLOGIC TESTING Jame Davidson MD, [facility] 07/25/2015 37.27 CARDIAC MAPPING Jame Davidson MD, [facility] 07/25/2015 37.28 INTRACARDIAC ECHOCARDIOGRAPHY Jame Davidson MD, [facility] 07/25/2015 37.34 EXC/DESTRUCTN OF OTH LES/TIS OF HEART, ENDOVASCULA Jame Davidson MD, [facility] 07/25/2015 37.94 IMPLT/REPL CARDDEFIB TOT Jame Davidson MD , [facility] 07/25/2015 28581 03/19/2017 73702 03/19/2017 74222 03/19/2017 80040 03/19/2017 03206 03/19/2017 68082 03/19/2017 81259 03/19/2017 28883 03/19/2017 41421 03/19/2017 Results Test Result Range B-TYPE NATRIURETIC PEPTIDE - 07/25/15 12:37 B-TYPE NATRIURETIC PEPTIDE 113 pg/mL < 100 Microbiology CBC - 07/25/15 12:37 MEAN CELL HGB 30.0 pg 27.0-33.0 MEAN CELL HGB CONCENTRATION 34.1 g/dL 32.0-37.0 MEAN CELL VOLUME 87.9 fl 80.0-100.0 RED BLOOD CELL 5.30 m/cumm 4.00-6.00 RED CELL DISTRIBUTION WIDTH 13.2 % 11.0- 15.6 WHITE BLOOD CELL 10.2 k/cumm 5.0-10.0 HEMOGLOBIN 15.9 gm/dL 14.0-18.0 HEMATOCRIT 46.6 % 40.0-54.0 PLATELET COUNT 312 k/cumm 150-400 PROTHROMBIN TIME WITH INR - 07/25/15 12:37 INTERNATIONAL NORMAL RATIO 1.1 0.9-1.1 PROTHROMBIN TIME 12.6 sec 9.3-12.2 Microbiology PARTIAL THROMBOPLASTIN TIME - 07/25/15 12:37 PARTIAL THROMBOPLASTIN TIME 35 sec 24-36 METABOLIC PANEL, COMPREHN - 07/25/15 12:37 POTASSIUM 4.5 mmol/L 3.5-5.3 EST GFR (MDRD) > 60 mL/min > 59 ANION GAP 10 mmol/L 5-15 EST CrCl (CG) 58 mL/min > 59 GLUCOSE 175 mg/dL 70-99 CALCIUM 9.5 mg/dL 8.5-10.1 BLOOD UREA NITROGEN 23 mg/dL 7-20 CREATININE 1.0 mg/dL 0.7-1.3 SODIUM 138 mmol/L 135-148 CHLORIDE 104 mmol/L 98-110 AST/SGOT 20 Units/L 10-37 ALT/SGPT 17 Units/L < 66 CARBON DIOXIDE 24 mmol/L 21-32 TOTAL PROTEIN 7.9 gm/dL 6.4-8.2 ALBUMIN 3.9 gm/dL 3.4-5.0 BILI TOTAL 0.8 mg/dL 0.0-1.0 ALKALINE PHOSPHATASE TOTAL 83 IU/L 45- 117 Microbiology MAGNESIUM - 07/25/15 12:37 MAGNESIUM 2.1 mg/dL 1.8-2.4 THYROID STIM HORMONE (TSH) - 07/25/15 12:37 THYROID STIM HORMONE (TSH) 1.82 uIU/mL 0.34-4.82 GLUCOSE (POC) - 07/26/15 05:46 GLUCOSE (POC) 149 mg/dL 70-99 Microbiology CBC WITH PLATELET AND DIFFERENTIAL - 03/19/17 04:33 SEGS 62.3 % NRG *BASOPHILS 1.3 % NRG *EOSINOPHILS 2.8 % NRG AUTOMATED DIFF PERFORMED NRG *LYMPHOCYTES 23.1 % NRG *MONOCYTES 10.5 % NRG *ABSOLUTE BASOPHILS 0.10 10*3/uL 0.00- 0.20 *ABSOLUTE EOSINOPHILS 0.20 10*3/uL 0.00- 0.50 *ABSOLUTE LYMPHOCYTES 1.70 10*3/uL 1.00- 3.00 *ABSOLUTE MONOCYTES 0.80 10*3/uL 0.30- 1.00 *ABSOLUTE NEUTROPHILS 4.60 10*3/uL 1.80- 7.80 MPV 7.0 fL 7.4-10.4 PLATELETS 237 10*3/uL 159-386 WBC 7.3 10*3/uL 3.6-11.2 RBC 4.98 4.06-5.63 HEMOGLOBIN 14.8 12.5-16.3 HEMATOCRIT 44.9 % 36.7-47.1 MCV 90.1 fL 80.0-100.0 MCH 29.7 pg 27.0-33.0 MCHC 33.0 32.0-36.0 RDW 14.5 % 12.3-17.0 RDWSD 45.9 37.1-47.8 PROTHROMBIN TIME - 03/19/17 04:33 *INR 1.6 0.9-1.1 *PROTHROMBIN TIME 17.0 s 9.4-11.5 COMPREHENSIVE METABOLIC PANEL - 03/19/17 04:33 BILIFUBIN TOTAL 0.70 0.20-1.00 TOTAL PROTEIN 7.2 6.4-8.2 ALBUMIN 3.7 3.4-5.0 *GLOBULIN 3.5 2.3-3.5 *A/G RATIO 1.1 1.5-2.2 ALK PHOS 91 U/L 46-116 ALT (SGPT) 25 U/L 14-59 AST (SGOT) 19 U/L 15-37 GFR ESTIMATION - 03/19/17 04:33 *GFR EST NON AFR ZAMBIAN 65 mL/min NRG *GRFA EST AFR AMER 76 mL/min NRG TROPONIN-I - 03/19/17 04:33 TROPONIN-I 0.031 ng/mL 0.000-0.056 URINALYSIS (CULTURE PRN) - 03/19/17 05:30 *URINE APPEARANCE CLEAR CLEAR *URINE BILIRUBIN NEGATIVE NEGATIVE *URINE BLOOD NEGATIVE NEGATIVE *URINE GLUCOSE NEGATIVE NEGATIVE *URINE KETONES NEGATIVE NEGATIVE *URINE LEUKOCYTES NEGATIVE NEGATIVE *URINE NITRITES NEGATIVE NEGATIVE URINE PH 5.5 5.0-8.0 *URINE PROTEIN NEGATIVE NEGATIVE URINE SPECIFIC GRAVITY 1.010 <=1.005->= 1.030 *URINE UROBILINOGEN 0.2 0.2-1.0 *URINE COLOR YELLOW STRAW/YELL/DK YELL Encounters ACCT No. Visit Date/Time Discharge Status Pt. Type Provider Facility Loc./Unit Complaint [id number] 07/25/2015 11:43:00 2014 12:15:00 DIS Outpatient Jame Davidson MD, [facility]
--- OUTSIDE RECORDS SUMMARY | 2017-03-31 14:47 | XMS REPORT | Summary of Care ---
Author Author Jarek Salinas M.D. Organization Unknown Address Unknown Phone Unavailable Care Team Providers Care Remote Encoding Center Manager Name Role Phone Duke Salinas M.D. [...] on:14-Sep-2006 Influenza Administered on:03-Sep-2008 Td Lot #: [id number] Administered on: Influenza Administered on:09-Aug-2009 Influenza A (H1N1) Monoval Vac Intramuscular Suspension Administered on:28-Oct-2009 Influenza Administered on:29-Aug-2012 Influenza Administered on:05-Sep-2013 Fluzone High-Dose Intramuscular Suspension #1 Lot #: [id number] Administered on:20-Aug-2014 Prevnar 13 Intramuscular Suspension Administered on:21-Sep-2014 Fluzone High-Dose 0.5 ML Intramuscular Suspension Prefilled Syringe Lot #: [id number] Administered on:12-Aug-2015 Family History Unknown Family Member* [...] ml/min (Better) Range: >60 EST GFR, NON-AFR [place]YRGY[place] 53 ml/min (Below low threshold) Range: >60 Comments: EST GFR is reported in ml/min per 1.73 m2 of body surface area. For -Malian, please multiple result by 1.2.----- GLUCOSE 314 [...] MI0.10-0.59 ng/ml= Indeterminate for MI0.60-1.50 ng/ml=Suggestive of [place]----- 13:12 BNP 3103 Comments: Items were attached [...] 09:45 * Appointment; Provider: Jarek Salinas On 14:00 * Appointment; Provider: Glenroy Joyner [...]
--- OUTSIDE RECORDS SUMMARY | 2017-03-31 14:47 | XMS REPORT | Summary of Care ---
Author Author Jarek Salinas M.D. Organization Unknown Address [address], [place] [id number] Phone Unavailable Care Team Providers Care Internal Wholesaler Name Role Phone Duke Salinas M.D. Unavailable [...] of Arterial Catheterization History of Pacemaker Placement Procedures not documented Immunization Name Dates Details Td Administered on:22-Oct-2001 Pneumo (Pneumovax) Administered on:14-Sep-2006 Influenza Administered on:03-Sep-2008 Td Lot #: [id number] Administered on: Influenza Administered on:09-Aug-2009 Influenza A (H1N1) Monoval Vac Intramuscular Suspension Administered on:28-Oct-2009 Influenza Administered on:29-Aug-2012 Influenza Administered on:05-Sep-2013 Fluzone High-Dose Intramuscular Suspension #1 Lot #: [id number] Administered on:20-Aug-2014 Prevnar 13 Intramuscular Suspension Administered on:21-Sep-2014 Fluzone High-Dose 0.5 ML Intramuscular Suspension Prefilled Syringe Lot #: [id number] Administered on:12-Aug-2015 Family History Unknown Family Member* [...] ml/min (Better) Range: >60 EST GFR, NON-AFR [place] >60 ml/min (Better) Range: >60 Comments: EST GFR is reported in ml/min per 1.73 m2 of body surface area. For -Surinamese, please multiple result by 1.2.----- GLUCOSE 183 [...] (High alert) Comments: Verified by Repeat Analysis----- 27-Feb-2016 08:30 PROTIME PANEL 7000 Comments: Critical result called to Viviana by Dannielle Sam on 02/27/2016 at 8:35 AM (INR)Verified by Repeat Analysis PROTIME 40.1 secs (Above high threshold) Range: 12.0-14.9 INR 4.09 (High alert) Plan of Care Planned Observations* Name Dates [...]
--- OUTSIDE RECORDS SUMMARY | 2017-03-31 14:48 | XMS REPORT | Summary of Care ---
Author Author Jarek Salinas M.D. Organization Unknown Address [address], [place] [id number] Phone Unavailable Care Team Providers Care Astrophysics Teacher Name Role Phone Duke Salinas M.D. [...] Mouth Twice Daily * Quantity: 60 Refills: 0 Shahab Jovel, Martha Hollingsworth * Start 19-Oct-2016 Active Furosemide 40 MG Oral Tablet TAKE [...] Ordered: 14-Sep-2016 HEMOGLOBIN A1C 3507 Ordered: 14-Sep-2016 PROTIME PANEL 7000 Ordered: 02-Nov-2016 CT HEAD WITHOUT AND WITH IV CONTRAST Ordered: 09-Sep-2016 Immunization Name Dates Details Td on: 22-Oct-2001 Pneumo (Pneumovax) on: 14-Sep-2006 Influenza on: 03-Sep-2008 Td Lot #: [id number] on: Influenza on: 09-Aug-2009 Influenza A (H1N1) Monoval Vac SUSP on: 28-Oct-2009 Influenza on: 29-Aug-2012 Influenza on: 05-Sep-2013 Fluzone High-Dose SUSP #1 Lot #: [id number] on: 20-Aug-2014 Prevnar 13 Intramuscular Suspension on: 21-Sep-2014 Fluzone High-Dose 0.5 ML Intramuscular Suspension Prefilled Syringe Lot #: [id number] on: 12-Aug-2015 Pneumovax 23 25 MCG/0.5ML Injection Injectable Lot #: [id number] on: 10-Aug-2016 Fluzone High-Dose 0.5 ML Intramuscular Suspension Prefilled Syringe Lot #: [id number] on: 10-Aug-2016 Family History Name Dates Details [...] m2 Status: Results Date Description Value Details 05-Oct-2016 13:42 PROTIME PANEL 7000 PROTIME 23.3 secs (Above high threshold) Range: 12.0-14.9 INR 2.07 28-Oct-2016 13:12 ECG/ EKG Outside Interp Electro CardioGram Plan of Care Name Dates Details Planned Observations Planned Goals not documented Planned Encounters Appointment; Provider: Jarek Salinas M.D. On 15-Feb-2017 13:45 Appointment; Provider: Jarek Salinas M.D. On 04-Feb-2017 10:00 Appointment; Provider: Donny Artis M.D. On 14-Jan-2017 09:15 Appointment; Provider: Glenroy Joyner M.D. On 04-Nov-2016 08:30 Appointment; Provider: Schedule Radiology On 02-Nov-2016 09:00 Interventions Provided Labs/Procedures/Imaging* PROTIME PANEL 7000; To be Done: 02 Nov 2016 Instructions Name Dates Details Instructions not [...]
--- OUTSIDE RECORDS SUMMARY | 2017-03-31 14:48 | XMS REPORT ---
Author Author Hemalatha Davidson [facility] eClinical[employer] Address Unknown Phone Unavailable Care Team Providers Care Bottling Attendant Name Role Phone Hemalatha Davidson CP Unavailable Allergies No Known Allergies Problems Problem Type Condition ICD-9 Code Onset Dates Condition Status Problem Atrial flutter 427.32 Active Problem Ventricular Tachycardia, Nonsustained 427.1 Active Medications No Known Medications Results No Known Results Summary Purpose eClinicalWorks Submission
--- OUTSIDE RECORDS SUMMARY | 2017-03-31 14:48 | XMS REPORT ---
Author Author Hemalatha Davidson [facility] [employer] Address Unknown Phone Unavailable Care Team Providers Care Loss Control Technician Name Role Phone Hemalatha Davidson CP Unavailable Allergies No Known Allergies Problems Problem Type Condition ICD-9 Code Onset Dates Condition Status Problem Atrial flutter 427.32 Active Problem Ventricular Tachycardia, Nonsustained 427.1 Active Medications No Known Medications Results No Known Results Summary Purpose eClinicalWorks Submission
--- OUTSIDE RECORDS SUMMARY | 2017-03-31 14:48 | XMS REPORT | Summary of Care ---
Author Author Jarek Salinas M.D. Organization Unknown Address Unknown Phone Unavailable Care Team Providers Care Lead Infrastructure Architect Name Role Phone Duke Salinsa M.D. Unavailable Unavailable Martha Gudino M.D. Unavailable [...] of Pacemaker Placement ECG/ EKG Outside Interp Pendin BASIC METABOLIC PROFILE 1210 Ordered: HEMOGLOBIN A1C 3507 Ordered: Immunization Name Dates Details Td Administered on:22-Oct-2001 Pneumo (Pneumovax) Administered on:14-Sep-2006 Influenza Administered on:03-Sep-2008 Td Lot #: [id number] Administered on: Influenza Administered on:09-Aug-2009 Influenza A (H1N1) Monoval Vac Intramuscular Suspension Administered on:28-Oct-2009 Influenza Administered on:29-Aug-2012 Influenza Administered on:05-Sep-2013 Fluzone High-Dose Intramuscular Suspension #1 Lot #: [id number] Administered on:20-Aug-2014 Prevnar 13 Intramuscular Suspension Administered on:21-Sep-2014 Fluzone High-Dose 0.5 ML Intramuscular Suspension Prefilled Syringe Lot #: [id number] Administered on:12-Aug-2015 Family History Unknown Family Member* [...] Range: >60 EST GFR, NON-AFR CITIZEN OF [place] 53 ml/min (Below low threshold) Range: >60 Comments: EST GFR is reported in ml/min per 1.73 m2 of body surface area. For -Panamanian, please multiple result by 1.2.----- GLUCOSE 314 [...] MI0.10-0.59 ng/ml= Indeterminate for MI0.60-1.50 ng/ml=Suggestive of [place]----- 13:12 BNP 3103 Comments: Items were attached [...]
--- OUTSIDE RECORDS SUMMARY | 2017-03-31 14:48 | XMS REPORT | Summary of Care ---
Author Author Glenroy Joyner M.D. Unknown Address Unknown Phone Unavailable Care Team Providers Care Manager Field Services Name Role Phone Duke Salinas M.D. 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, 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 Atrial flutter with rapid ventricular response (427.32, I48.92) Status: Active AICD (automatic cardioverter/defibrillator) present (V45.02, Z95.810) Status: Active Headache (784.0, R51) Status: Active Medications Name Dates Details Aspir-81 [...] on:14-Sep-2006 Influenza Administered on:03-Sep-2008 Td Lot #: [id number] Administered on: Influenza Administered on:09-Aug-2009 Influenza A (H1N1) Monoval Vac Intramuscular Suspension Administered on:28-Oct-2009 Influenza Administered on:29-Aug-2012 Influenza Administered on:05-Sep-2013 Fluzone High-Dose Intramuscular Suspension #1 Lot #: [id number] Administered on:20-Aug-2014 Prevnar 13 Intramuscular Suspension Administered on:21-Sep-2014 Fluzone High-Dose 0.5 ML Intramuscular Suspension Prefilled Syringe Lot #: [id number] Administered on:12-Aug-2015 Family History Unknown Family Member* [...] smoker Vital Signs Date Test Result Details 11:44 BP Systolic 130 mm[Hg] Status: BP [...] ml/min (Better) Range: >60 EST GFR, NON-AFR [place] 53 ml/min (Below low threshold) Range: >60 Comments: EST GFR is reported in ml/min per 1.73 m2 of body surface area. For -Colombian, please multiple result by 1.2.----- GLUCOSE 314 [...] ml/min (Better) Range: >60 EST GFR, NON-AFR [place] 51 ml/min (Below low threshold) Range: >60 Comments: EST GFR is reported in ml/min per 1.73 m2 of body surface area. For -Colombian, please multiple result by 1.2.----- BUN:CREATININE RATIO [...] Gudino On 29-Jul-2016 09:45 * Appointment; Provider: Glenroy Joyner On 25-Jun-2016 09:00 * Appointment; Provider: Jarek Salinas On 14:00 * Appointment; Provider: Schedule Radiology On 10:30 * Appointment; Provider: Schedule Radiology On 13:00 * Appointment; Provider: Martha Gudino On 01-Jul-2015 12:45 * Appointment; Provider: Martha Gudino On 16:00 Instructions * Instructions not documented Encounters Appointment; Glenroy Joyner Encounter Diagnosis: Problem not [...]
--- OUTSIDE RECORDS SUMMARY | 2017-03-31 14:48 | XMS REPORT | Summary of Care ---
Author Author Noah Sheffield M.D. Organization Unknown Address [address], [place] [id number] Phone Unavailable Care Team Providers Care Xm1 Tank Driver Name Role Phone Duke Salinas M.D. Unavailable [...] Shortness of breath (786.05, R06.02) Status: Active Medications Name Dates Details Aspir-81 [...] Salinas M.D.* Started 17-Oct-2015 Active6 GM Inhaler Allergies and Adverse Reactions Name Dates Details [...] A1C 3507 Ordered:07-Oct-2015 PROTIME PANEL 7000 Ordered:18-Oct-2015 BNP 3103 Ordered:21-Oct-2015 Comprehensive Metabolic Panel 1212 Ordered:21-Oct-2015 CBC w/ Auto Diff 7150 Ordered:21-Oct-2015 TROPONIN I 3451 Ordered:21-Oct-2015 PROTIME PANEL 7000 Ordered:21-Oct-2015 XRay CHEST-PA & LAT Ordered:21-Oct-2015 Immunization Name Dates Details Td Administered on:22-Oct-2001 Pneumo (Pneumovax) Administered on:14-Sep-2006 Influenza Administered on:03-Sep-2008 Td Lot #: [id number] Administered on: Influenza Administered on:09-Aug-2009 Influenza A (H1N1) Monoval Vac Intramuscular Suspension Administered on:28-Oct-2009 Influenza Administered on:29-Aug-2012 Influenza Administered on:05-Sep-2013 Fluzone High-Dose Intramuscular Suspension #1 Lot #: [id number] Administered on:20-Aug-2014 Prevnar 13 Intramuscular Suspension Administered on:21-Sep-2014 Fluzone High-Dose 0.5 ML Intramuscular Suspension Prefilled Syringe Lot #: [id number] Administered on:12-Aug-2015 Family History Unknown Family Member* [...] ml/min (Better) Range: >60 EST GFR, NON-AFR [place] 58 ml/min (Below low threshold) Range: >60 Comments: EST GFR is reported in ml/min per 1.73 m2 of body surface area. For -Tuvaluan, please multiple result by 1.2.----- GLUCOSE 170 [...] ml/min (Better) Range: >60 EST GFR, NON-AFR [place] 56 ml/min (Below low threshold) Range: >60 Comments: EST GFR is reported in ml/min per 1.73 m2 of body surface area. For -Tuvaluan, please multiple result by 1.2.----- GLUCOSE 179 [...] MI0.10-0.59 ng/ml= Indeterminate for MI0.60-1.50 ng/ml=Suggestive of [place]----- 18-Oct-2015 12:46 PROTIME PANEL 7000 Comments: Critical [...]
--- OUTSIDE RECORDS SUMMARY | 2017-03-31 14:49 | XMS REPORT | Summary of Care ---
Author Author Devon Tyler M.D. Unknown Address Unknown Phone Unavailable Care Team Providers Care Patient Consumer Marketer Name Role Phone Duke Salinas M.D. Unavailable Unavailable Martha Gudino M.D. Unavailable Unavailable Duke Tyler M.D. Unavailable Unavailable Jarek Salinas Unavailable Unavailable [...] 14-Sep-2006 Influenza on: 03-Sep-2008 Td Lot #: [id number] on: Influenza on: 09-Aug-2009 Influenza A (H1N1) Monoval Vac SUSP on: 28-Oct-2009 Influenza on: 29-Aug-2012 Influenza on: 05-Sep-2013 Fluzone High-Dose SUSP #1 Lot #: [id number] on: 20-Aug-2014 Prevnar 13 Intramuscular Suspension on: 21-Sep-2014 Fluzone High-Dose 0.5 ML Intramuscular Suspension Prefilled Syringe Lot #: [id number] on: 12-Aug-2015 Pneumovax 23 25 MCG/0.5ML Injection Injectable Lot #: [id number] on: 10-Aug-2016 Fluzone High-Dose 0.5 ML Intramuscular Suspension Prefilled Syringe Lot #: [id number] on: 10-Aug-2016 Family History Name Dates Details [...] Salinas M.D. On 22-Feb-2017 14:45 Appointment; Provider: Devon Tyler M.D. On 22-Feb-2017 13:45 Appointment; Provider: Donny Artis M.D. On 18-Feb-2017 11:15 Appointment; Provider: Jarek Salinas M.D. On 15-Feb-2017 13:45 Instructions Name Dates Details Instructions not documented [...]
--- OUTSIDE RECORDS SUMMARY | 2017-03-31 14:49 | XMS REPORT | Summary of Care ---
Author Author Jarek Salinas M.D. Organization Unknown Address [address], [place] [id number] Phone Unavailable Care Team Providers Care Shark Biologist Name Role Phone Duke Salinas M.D. 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
--- OUTSIDE RECORDS SUMMARY | 2017-03-31 14:49 | XMS REPORT | Summary of Care ---
Author Author Jarek Salinas M.D. Organization Unknown Address [address], [place] [id number] Phone Unavailable Care Team Providers Care Cross Cut Saw Operator Name Role Phone Duke Salinas [...] breath) on exertion (786.05, R06.02) Status: Active Medications Name Dates Details Aspir-81 81 MG Oral Tablet Delayed Release TAKE 1 TABLET DAILY. Quantity: 0 Jarek Salinas M.D.* Started 16-Mar-2008 ActiveMultiple Vitamin Oral Tablet TAKE 1 TABLET DAILY. * Quantity: 0 Refills: 0 Jarek Slainas M.D.* Started 16-Mar-2008 ActiveFish Oil 1000 MG [...] History of Pacemaker Placement PROTIME PANEL 7000 Ordered:30-Sep-2015 CBC w/ Auto Diff 7150 Ordered:07-Oct-2015 Comprehensive Metabolic Panel 1212 Ordered:07-Oct-2015 THYROID STIM. HORMONE 3602 Ordered:07-Oct-2015 HEMOGLOBIN A1C 3507 Ordered:07-Oct-2015 Comprehensive Metabolic Panel 1212 Ordered:08-Oct-2015 TROPONIN I 3451 Ordered:08-Oct-2015 CREATINE KINASE 1300 Ordered:08-Oct-2015 ARTERIAL BLOOD GASES 3416 Ordered:08-Oct-2015 CBC w/ Auto Diff 7150 Ordered:08-Oct-2015 XRay CHEST-PA & LAT Ordered:08-Oct-2015 Immunization Name Dates Details Td Administered on:22-Oct-2001 Pneumo (Pneumovax) Administered on:14-Sep-2006 Influenza Administered on:03-Sep-2008 Td Lot #: [id number] Administered on: Influenza Administered on:09-Aug-2009 Influenza A (H1N1) Monoval Vac Intramuscular Suspension Administered on:28-Oct-2009 Influenza Administered on:29-Aug-2012 Influenza Administered on:05-Sep-2013 Fluzone High-Dose Intramuscular Suspension #1 Lot #: [id number] Administered on:20-Aug-2014 Prevnar 13 Intramuscular Suspension Administered on:21-Sep-2014 Fluzone High-Dose 0.5 ML Intramuscular Suspension Prefilled Syringe Lot #: [id number] Administered on:12-Aug-2015 Family History Unknown Family Member* Name Dates Details Family history of Reported Family History Of Cancer Comments: Family History Status: Active Family history of Reported Family History Of Heart Disease Comments: Family History Status: Active Father* Name Dates Details Family history of Diabetes Mellitus (V18.0) Status: Active Social History Smoking Status* Unknown if ever smoked Vital Signs Date Test Result Details 07-Oct-2015 13:08 BP Systolic 134 mm[Hg] Status: [...] high threshold) Range: 12.0-14.9 INR 2.01 (Better) 30-Sep-2015 07:46 CBC w/ Auto Diff 7150 [...] ml/min (Better) Range: >60 EST GFR, NON-AFR [place] 58 ml/min (Below low threshold) Range: >60 Comments: EST GFR is reported in ml/min per 1.73 m2 of body surface area. For -Kyrgyz, please multiple result by 1.2.----- GLUCOSE 170 [...] <2 years of age----- Plan of Care Planned Observations* Name Dates [...]
--- OUTSIDE RECORDS SUMMARY | 2017-03-31 14:49 | XMS REPORT | Summary of Care ---
Author Author Jarek Salinas M.D. Organization Unknown Address [address], [place] [id number] Phone Unavailable Care Team Providers Care Novelty Candy Maker Name Role Phone Duke Salinas M.D. 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 * Quantity: 90 Refills: 3 Jarek Salinas M.D.* Started 30-Aug-2008 ActiveGlipiZIDE 10 MG Oral Tablet Take one tablet twice daily. * Quantity: 180 Refills: 3 Jarek Salinas M.D.* Started 24-Sep-2014 ActiveWarfarin Sodium 5 MG Oral Tablet Take [...] of Complete Colonoscopy Completed:28-Feb-2013 PROTIME PANEL 7000 Ordered:29-Nov-2014 PROTIME PANEL 7000 Ordered:02-Nov-2014 Immunization Name Dates Details Td Administered on:22-Oct-2001 Pneumo (Pneumovax) Administered on:14-Sep-2006 Influenza Administered on:03-Sep-2008 Td Lot #: [id number] Administered on: Influenza Administered on:09-Aug-2009 Influenza A (H1N1) Monoval Vac Intramuscular Suspension Administered on:28-Oct-2009 Influenza Administered on:29-Aug-2012 Influenza Administered on:05-Sep-2013 Fluzone High-Dose Intramuscular Suspension #1 Lot #: [id number] Administered on:20-Aug-2014 Prevnar 13 Intramuscular Suspension Administered [...] Instructions * Instructions not documented Encounters Appointment; oNah Sheffield Encounter Diagnosis: Problem not documented On [...]
--- OUTSIDE RECORDS SUMMARY | 2017-03-31 14:49 | XMS REPORT | Summary of Care ---
Author Author Jarek Salinas M.D. Organization Unknown Address [address], [place] [id number] Phone Unavailable Care Team Providers Care Shot Blaster Name Role Phone Duke Salinas M.D. Unavailable [...] 2 TABLETS DAILY. * Refills: 0 Brad Jvoel, Jarek A * Start 07-Mar-2012 Active Warfarin [...] tablets twice daily * Refills: 0 Martha Gudnio M.D. * Start 16-Sep-2015 Active Furosemide 40 [...] 7000 Ordered: 12-Jan-2017 PROTIME PANEL 7000 Ordered: 28-Jan-2017 CT HEAD WITHOUT AND WITH IV CONTRAST Ordered: 11-Jan-2017 Immunization Name Dates Details Td on: 22-Oct-2001 Pneumo (Pneumovax) on: 14-Sep-2006 Influenza on: 03-Sep-2008 Td Lot #: [id number] on: Influenza on: 09-Aug-2009 Influenza A (H1N1) Monoval Vac SUSP on: 28-Oct-2009 Influenza on: 29-Aug-2012 Influenza on: 05-Sep-2013 Fluzone High-Dose SUSP #1 Lot #: [id number] on: 20-Aug-2014 Prevnar 13 Intramuscular Suspension on: 21-Sep-2014 Fluzone High-Dose 0.5 ML Intramuscular Suspension Prefilled Syringe Lot #: [id number] on: 12-Aug-2015 Pneumovax 23 25 MCG/0.5ML Injection Injectable Lot #: [id number] on: 10-Aug-2016 Fluzone High-Dose 0.5 ML Intramuscular Suspension Prefilled Syringe Lot #: [id number] on: 10-Aug-2016 Family History Name Dates Details [...] BP Systolic 137 mm[Hg] Status: Comments: Location: RUE; Position: Sitting BP Diastolic 80 mm[Hg] Status: Comments: Location: RUE; Position: Sitting [...] 138 mm[Hg] Status: Comments: Location: ; Position: Standing BP Diastolic 72 mm[Hg] Status: Comments: Location: ; Position: Standing Heart Rate 90 /min Status: Comments: Location: [...] m2 Status: Results Date Description Value Details 12-Jan-2017 12:38 PROTIME PANEL 7000 PROTIME 21.7 secs (Above high threshold) Range: 12.0-14.9 INR 1.98 27-Jan-2017 12:12 PROTIME PANEL 7000 PROTIME 27.9 secs (Above high threshold) Range: 12.0-14.9 INR 2.73 Plan of Care Name Dates Details Planned Observations Planned Goals not documented Planned Encounters Appointment; Provider: Glenroy Joyner M.D. On 09-Apr-2017 10:45 Appointment; Provider: Schedule Radiology On 22-Mar-2017 09:00 Appointment; Provider: Devon Tyler M.D. On 22-Feb-2017 13:45 Appointment; Provider: Donny Artis M.D. On 18-Feb-2017 11:15 Appointment; Provider: Jarek Salinas M.D. On 15-Feb-2017 13:45 Instructions Name Dates Details Instructions not documented Encounters Appointment; Shannon Reeder Au.D. Encounter Diagnosis: Problem [...]
--- OUTSIDE RECORDS SUMMARY | 2017-03-31 14:50 | XMS REPORT | Summary of Care ---
Author Author Martha Gudino M.D. Organization Unknown Address [address] [place] [address] Phone Unavailable Care Team Providers Care Shipping Clerk Name Role Phone Duke Salinas M.D. 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 * Refills: 0 * Started ActiveAmiodarone HCl - 200 MG Oral Tablet TAKE 1 TABLET TWICE DAILY. 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, I25.10) [...] of Complete Colonoscopy Completed:28-Feb-2013 PROTIME PANEL 7000 Ordered:20-Jun-2015 BASIC METABOLIC PROFILE 1210 Ordered:24-Jun-2015 CBC w/ Auto Diff 7150 Ordered:24-Jun-2015 PROTIME PANEL 7000 Ordered:24-Jun-2015 Immunization Name Dates Details Td Administered on:22-Oct-2001 Pneumo (Pneumovax) Administered on:14-Sep-2006 Influenza Administered on:03-Sep-2008 Td Lot #: [id number] Administered on: Influenza Administered on:09-Aug-2009 Influenza A (H1N1) Monoval Vac Intramuscular Suspension Administered on:28-Oct-2009 Influenza Administered on:29-Aug-2012 Influenza Administered on:05-Sep-2013 Fluzone High-Dose Intramuscular Suspension #1 Lot #: [id number] Administered on:20-Aug-2014 Prevnar 13 Intramuscular Suspension Administered [...] smoker Vital Signs Date Test Result Details 24-Jun-2015 08:57 BP Systolic 148 mm[Hg] Status: [...] Body Surface Area Calculated 1.94 m2 Status: 12:47 BP Systolic 136 mm[Hg] Status: BP Diastolic 86 mm[Hg] Status: Temperature 97.9 f Status: Heart Rate 151 /min Status: O2 SAT 97 % Status: Results Date Description Value Details 13:04 ECG/ EKG (Specialists) Electro CardioGram (Better) 19-Jun-2015 09:22 PROTIME PANEL 7000 Comments: Fastin [...] ml/min (Better) Range: >60 EST GFR, NON-AFR [place] 55 ml/min (Below low threshold) Range: >60 Comments: EST GFR is reported in ml/min per 1.73 m2 of body surface area. For -[place], please multiple result by 1.2.----- GLUCOSE 149 [...] % (Better) ESTIMATED AVG. GLUCOSE 203 (Better) Plan of Care Planned Observations* Name Dates Details Planned Goals not documented Goal Planned Encounters* Appointment; Provider: Donny Artis On 12-Mar-2016 08:00 * Appointment; Provider: Martha Gudino On 23-Oct-2015 09:30 * Appointment; Provider: Jarek Salinas On 26-Jul-2015 09:15 * Appointment; Provider: Martha Gudino On 16:00 [...]
--- OUTSIDE RECORDS SUMMARY | 2017-03-31 14:50 | XMS REPORT | Summary of Care ---
Author Author Jarek Salinas M.D. Organization Unknown Address [address], [place] [id number] Phone Unavailable Care Team Providers Care Public Policy Analyst Name Role Phone Duke Salinas M.D. [...] Ordered: 14-Sep-2016 HEMOGLOBIN A1C 3507 Ordered: 14-Sep-2016 BASIC METABOLIC PROFILE 1210 Ordered: 07-Sep-2016 CT HEAD WITHOUT AND WITH IV CONTRAST Ordered: 09-Sep-2016 Immunization Name Dates Details Td on: 22-Oct-2001 Pneumo (Pneumovax) on: 14-Sep-2006 Influenza on: 03-Sep-2008 Td Lot #: [id number] on: Influenza on: 09-Aug-2009 Influenza A (H1N1) Monoval Vac SUSP on: 28-Oct-2009 Influenza on: 29-Aug-2012 Influenza on: 05-Sep-2013 Fluzone High-Dose SUSP #1 Lot #: [id number] on: 20-Aug-2014 Prevnar 13 Intramuscular Suspension on: 21-Sep-2014 Fluzone High-Dose 0.5 ML Intramuscular Suspension Prefilled Syringe Lot #: [id number] on: 12-Aug-2015 Pneumovax 23 25 MCG/0.5ML Injection Injectable Lot #: [id number] on: 10-Aug-2016 Fluzone High-Dose 0.5 ML Intramuscular Suspension Prefilled Syringe Lot #: [id number] on: 10-Aug-2016 Family History Name Dates Details [...] Comments: Location: LUE; Position: Sitting BP Diastolic 58 mm[Hg] Status: Comments: Location: LUE; Position: Sitting Heart Rate 78 /min Status: Comments: Location: ; Weight 182 lb Status: Physical Findings 96 Status: Comments: O2 Saturation Body Mass Index Calculated 30.29 kg/m2 Status: Body Surface Area Calculated 1.9 m2 Status: 10-Sep-2016 09:14 BP Systolic 120 mm[Hg] Status: Comments: Location: ; Position: BP Diastolic 60 mm[Hg] Status: Comments: Location: ; Position: Heart Rate 71 /min Status: Comments: Location: ; Weight 183 lb Status: Physical Findings 93 Status: Comments: O2 Saturation Body Mass Index Calculated 30.45 kg/m2 Status: Body Surface Area Calculated 1.9 m2 Status: 09-Sep-2016 09:50 BP Systolic 132 mm[Hg] Status: Comments: Location: ; Position: BP Diastolic 74 mm[Hg] Status: Comments: Location: ; Position: Heart Rate 84 /min Status: Comments: Location: ; Weight 183.0 lb Status: Physical Findings 92 Status: Comments: O2 Saturation Body Mass Index Calculated 30.45 kg/m2 Status: Body Surface Area Calculated 1.9 m2 Status: Results Date Description Value Details 07-Sep-2016 08:30 CBC w/ Auto Diff 7150 [...] >60 ml/min Range: >60 EST GFR, NON-AFR [place] 58 ml/min (Below low threshold) Range: >60 [...] A1C 10.8 % ESTIMATED AVG. GLUCOSE 263 16-Sep-2016 10:23 PROTIME PANEL 7000 PROTIME 18.2 [...]
--- OUTSIDE RECORDS SUMMARY | 2017-03-31 14:50 | XMS REPORT | Summary of Care ---
Author Author Martha Gudino M.D. Organization Unknown Address [address] [place] [address] Phone Unavailable Care Team Providers Care Powerhouse Mechanic Name Role Phone Duke Salinas M.D. [...] 2 TABLETS DAILY. * Refills: 0 Jarek aSlinas M.D.* Started 07-Mar-2012 ActiveWarfarin Sodium 5 MG [...] on:14-Sep-2006 Influenza Administered on:03-Sep-2008 Td Lot #: [id number] Administered on: Influenza Administered on:09-Aug-2009 Influenza A (H1N1) Monoval Vac Intramuscular Suspension Administered on:28-Oct-2009 Influenza Administered on:29-Aug-2012 Influenza Administered on:05-Sep-2013 Fluzone High-Dose Intramuscular Suspension #1 Lot #: [id number] Administered on:20-Aug-2014 Prevnar 13 Intramuscular Suspension Administered on:21-Sep-2014 Fluzone High-Dose 0.5 ML Intramuscular Suspension Prefilled Syringe Lot #: [id number] Administered on:12-Aug-2015 Family History Unknown Family Member* [...] 09:15 * Appointment; Provider: Martha Gudino On 02-Mar-2016 [...]
--- OUTSIDE RECORDS SUMMARY | 2017-03-31 14:50 | XMS REPORT | Summary of Care ---
Author Author Martha Gudino M.D. Organization Unknown Address [address] [place] [address] Phone Unavailable Care Team Providers Care Artificial Flowers Supervisor Name Role Phone Duke Salinas M.D. 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, I25.10) [...] on:14-Sep-2006 Influenza Administered on:03-Sep-2008 Td Lot #: [id number] Administered on: Influenza Administered on:09-Aug-2009 Influenza A (H1N1) Monoval Vac Intramuscular Suspension Administered on:28-Oct-2009 Influenza Administered on:29-Aug-2012 Influenza Administered on:05-Sep-2013 Fluzone High-Dose Intramuscular Suspension #1 Lot #: [id number] Administered on:20-Aug-2014 Prevnar 13 Intramuscular Suspension Administered [...] ml/min (Better) Range: >60 EST GFR, NON-AFR [place] 55 ml/min (Below low threshold) Range: >60 Comments: EST GFR is reported in ml/min per 1.73 m2 of body surface area. For -[place], please multiple result by 1.2.----- GLUCOSE 149 [...] Problem not documented On 23-Jul-2014 13:00 Appointment; Jaerk Salinas Encounter Diagnosis: Problem not documented On [...]
--- OUTSIDE RECORDS SUMMARY | 2017-03-31 14:51 | XMS REPORT | Summary of Care ---
Author Author Megan Velarde Unknown Address [address] [place] [id number] Phone Unavailable Care Team Providers Care Sourcing Associate Name Role Phone Duke Salinas M.D. 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 Medications Name Dates Details Aspir-81 [...] 07-Mar-2012 ActiveWarfarin Sodium 5 MG Oral Tablet TAKE [...] TWICE DAILY * Quantity: 60 Refills: 5 aMrtha Gudino M.D.* Started 16-Sep-2015 ActiveFurosemide 40 MG [...] on:14-Sep-2006 Influenza Administered on:03-Sep-2008 Td Lot #: [id number] Administered on: Influenza Administered on:09-Aug-2009 Influenza A (H1N1) Monoval Vac Intramuscular Suspension Administered on:28-Oct-2009 Influenza Administered on:29-Aug-2012 Influenza Administered on:05-Sep-2013 Fluzone High-Dose Intramuscular Suspension #1 Lot #: [id number] Administered on:20-Aug-2014 Prevnar 13 Intramuscular Suspension Administered on:21-Sep-2014 Fluzone High-Dose 0.5 ML Intramuscular Suspension Prefilled Syringe Lot #: [id number] Administered on:12-Aug-2015 Family History Unknown Family Member* [...] to report Results Date Description Value Details 15-Jan-2016 09:13 [...] Instructions * Instructions not documented Encounters Appointment; Megan Blanca Encounter Diagnosis: Problem not [...] not documented On 07-Oct-2015 13:15 Appointment; Martha uGdino Encounter Diagnosis: Problem not documented On 30-Sep-2015 [...]
--- OUTSIDE RECORDS SUMMARY | 2017-03-31 14:51 | XMS REPORT ---
Author Author GENERATED, SYSTEM Organization Unknown Address Unknown Phone Unavailable Care Team Providers Care Switchboard Mechanic Name Role Phone MD TIGRE, COLLIN GONZALEZ Unavailable Reason For Visit Reason for Visit from 05/19/2016 3:50 PM:* Pt Stated Reason for Adm : i have been having headaches for last 3 days Chief Complaint CEREBRAL INFARCTION Social History Social History from 05/22/2016 10:06 AM:* Tobacco Use? : Never Smoker Social History from 05/19/2016 3:50 PM:* Tobacco Use? : Never Smoker Functional Status Functional Status from 05/22/2016 9:03 AM:* LOC : Alert * Oriented To : Person,Place,Time,Event * Weight Bearing Status : Full * Assist Level : Independent * # Assists : Independent Functional Status from 05/22/2016 8:57 AM:* # Assists : Independent Functional Status from 05/21/2016 7:47 PM:* LOC : Alert * Oriented To : Person,Place,Time,Event * Weight Bearing Status : Full * Assist Level : Independent * # Assists : 1 Functional Status from 05/21/2016 9:38 AM:* LOC : Alert * Oriented To : Person,Place,Time,Event * Weight Bearing Status : Full * Assist Level : Independent * # Assists : 1 Functional Status from 05/20/2016 8:29 PM:* LOC : Alert * Oriented To : Person,Place,Time,Event * Weight Bearing Status : Full * Assist Level : Independent * # Assists : Independent Functional Status from 05/20/2016 9:55 AM:* Oriented To : Person,Place,Event Functional Status from 05/20/2016 9:09 AM:* Oriented To : Person,Place,Time,Event Functional Status from 05/20/2016 8:47 AM:* Oriented To : Person,Place,Time,Event Functional Status from 05/20/2016 7:40 AM:* LOC : Alert * Oriented To : Person,Place,Time,Event * Weight Bearing Status : Full * Assist Level : Partial * # Assists : 1 Functional Status from 05/19/2016 7:40 PM:* LOC : Alert * Oriented To : Person,Place,Time * Weight Bearing Status : Full * Assist Level : Partial * # Assists : 1 Functional Status from 05/19/2016 3:50 PM:* LOC : Alert * Oriented To : Person,Place,Time * Weight Bearing Status : Full * Assist Level : Partial * # Assists : 1 Vital Signs Hospital Vital Signs from 05/22/2016 9:03 AM:* Heart Rate : 75 Hospital Vital Signs from 05/22/2016 8:33 AM:* Height : 5/7 ft,in * Temperature : 97.1 F * Pulse : 66 * Respirations : 20 * BP : 133/58 Hospital Vital Signs from 05/22/2016 4:08 AM:* Heart Rate : 66 Hospital Vital Signs from 05/22/2016 3:21 AM:* Height : 5/7 ft,in * Temperature : 96.6 F * Pulse : 71 * Respirations : 18 * BP : 127/58 Hospital Vital Signs from 05/21/2016 10:31 PM:* Height : 5/7 ft,in * Temperature : 97.1 F * Pulse : 65 * Respirations : 18 * BP : 114/55 Hospital Vital Signs from 05/21/2016 7:47 PM:* Heart Rate : 72 Hospital Vital Signs from 05/21/2016 7:34 PM:* Height : 5/7 ft,in * Temperature : 96.8 F * Pulse : 68 * Respirations : 18 * BP : 127/58 Hospital Vital Signs from 05/21/2016 3:48 PM:* Height : 5/7 ft,in * Temperature : 96.5 F * Pulse : 60 * Respirations : 18 * BP : 119/65 Hospital Vital Signs from 05/21/2016 10:20 AM:* Height : 5/7 ft,in * Temperature : 96.9 F * Pulse : 59 * Respirations : 18 * BP : 107/58 Hospital Vital Signs from 05/21/2016 9:38 AM:* Heart Rate : 67 Hospital Vital Signs from 05/21/2016 7:05 AM:* Height : 5/7 ft,in * Temperature : 96.4 F * Pulse : 75 * Respirations : 18 * BP : 129/58 Hospital Vital Signs from 05/21/2016 4:00 AM:* Heart Rate : 65 Hospital Vital Signs from 05/21/2016 3:36 AM:* Height : 5/7 ft,in * Temperature : 97.3 F * Pulse : 66 * Respirations : 20 * BP : 104/56 Hospital Vital Signs from 05/20/2016 10:47 PM:* Height : 5/7 ft,in * Temperature : 98.2 F * Pulse : 66 * Respirations : 20 * BP : 118/56 Hospital Vital Signs from 05/20/2016 8:31 PM:* Height : 5/7 ft,in * Pulse : 66 * BP : 113/64 Hospital Vital Signs from 05/20/2016 8:29 PM:* Heart Rate : 66 Hospital Vital Signs from 05/20/2016 7:04 PM:* Height : 5/7 ft,in * Temperature : 96.7 F * Pulse : 76 * Respirations : 20 * BP : 110/57 Hospital Vital Signs from 05/20/2016 3:54 PM:* Height : 5/7 ft,in * Temperature : 98.1 F * Pulse : 68 * Respirations : 20 * BP : 103/53 Hospital Vital Signs from 05/20/2016 11:00 AM:* Height : 5/7 ft,in * Temperature : 97.9 F * Pulse : 66 * Respirations : 20 * BP : 98/53 Hospital Vital Signs from 05/20/2016 8:54 AM:* Height : 5/7 ft,in Hospital Vital Signs from 05/20/2016 7:34 AM:* Height : 5/7 ft,in * Temperature : 97.7 F * Pulse : 70 * Respirations : 20 * BP : 114/73 Hospital Vital Signs from 05/20/2016 2:44 AM:* Height : 5/7 ft,in * Temperature : 98.0 F * Pulse : 72 * Respirations : 20 * BP : 97/55 Hospital Vital Signs from 05/19/2016 10:22 PM:* Height : 5/7 ft,in * Temperature : 98.0 F * Pulse : 81 * Respirations : 20 * BP : 132/70 Hospital Vital Signs from 05/19/2016 7:40 PM:* Heart Rate : 74 Hospital Vital Signs from 05/19/2016 7:01 PM:* Height : 5/7 ft,in * Temperature : 96.9 F * Pulse : 94 * Respirations : 20 * BP : 109/75 Hospital Vital Signs from 05/19/2016 3:53 PM:* Weight : 82.0/ kg * Height : 5/7 ft,in * Temperature : 98.7 F * Pulse : 72 * Respirations : 20 * BP : 146/84 Hospital Vital Signs from 05/19/2016 3:50 PM:* Weight : 84.7/ kg * Height : 5/7 ft,in Results Chemistry from 05/22/2016 6:07 AMSODIUM 138 MMOL/L (136-145 MMOL/L) POTASSIUM 3.6 MMOL/L (3.5-5.1 MMOL/L) CHLORIDE 101 MMOL/L (98-107 MMOL/L) TCO2 28.8 MMOL/L (21.0-32.0 MMOL/L) *ANION GAP 8.2 MMOL/L (8.0-16.0 MMOL/L) BUN 21 MG/DL H (7-18 MG/DL) CREATININE 1.37 MG/DL H (0.70-1.30 MG/DL) *BUN/CREATININE RATIO 15.3 (9.1-17.0 ) GLUCOSE 157 MG/DL H (65-99 MG/DL) *GFR EST NON AFR PERUVIAN 48 ML/MIN *GFRA EST AFR AMER 55 ML/MIN CALCIUM 8.4 MG/DL L (8.5-10.1 MG/DL) Chemistry from 05/21/2016 12:21 PMBUN 30 MG/DL H (7-18 MG/DL) CREATININE 1.52 MG/DL H (0.70-1.30 MG/DL) *GFR EST NON AFR PERUVIAN 42 ML/MIN *GFRA EST AFR AMER 49 ML/MIN Hematology from 05/22/2016 6:07 AMWBC 7.2 X10e3/UL (3.6-11.2 X10e3/UL) RBC 4.53 X10e6/UL (4.06-5.63 X10e6/UL) HEMOGLOBIN 14.0 G/DL (12.5-16.3 G/DL) HEMATOCRIT 41.2 % (36.7-47.1 %) *MCV 90.9 FL (80.0-100.0 FL) *MCH 30.8 PG (27.0-33.0 PG) *MCHC 33.9 G/DL (32.0-36.0 G/DL) *RDW 13.2 % (12.3-17.0 %) *RDWSD 42.0 (37.1-47.8 ) PLATELET 258 X10e3/UL (159-386 X10e3/UL) *MPV 6.9 FL L (7.4-10.4 FL) Coagulation from 05/22/2016 6:07 AM*PROTHROMBIN TIME 14.0 SECONDS H (9.4-11.5 SECONDS) *INR 1.3 H (0.9-1.1 ) Problems Encounter Diagnosis * Acute Pain Status:Active. * Cerebral infarction Status:Active. * Fall Risk Status:Active. Additional Problems * Atrial Flutter Comment:Problem resolved by [facility] upon Discharge, Status:Resolved. * Diabetes Mellitus Comment:Problem resolved by [facility] upon Discharge , Status:Resolved. * History of Atrial Fibrillation Comment:Problem resolved by [facility] upon Discharge, Status:Resolved. * History of Coronary Artery Bypass Grafting Comment:Problem resolved by [facility] upon Discharge, Status:Resolved. * History of Raised Blood Lipids Comment:Problem resolved by [facility] upon Discharge, Status:Resolved. * Mobility Impairment Comment:Problem resolved by [facility] upon Discharge, Status:Resolved. Encounters Encounter Diagnosis * Acute Pain Status:Active. * Cerebral infarction Status:Active. * Fall Risk Status:Active. Plan of Care Follow-up Appointments from 05/22/2016 10:06 AM:* #1 Office appointment: : [facility]--go for lab only at anytime during the day * #1 Date/Time : 05/22/2016 8:00 AM * Address # 1 : [facility]: [address] [place]- [phone] or * #2 Office appointment: : X-ray dept at [facility] * #2 Date/Time : 06/05/2016 10:30 AM * Address # 2 : [facility]: [address] [place]- [phone] or * #3 Office appointment: : Dr. Joyner * #3 Date/Time : 06/05/2016 11:45 AM * Address # 3 : [facility]: [address] [place]- [phone] or * #4 Office appointment: : Dr. Landeros * #4 Date/Time : 06/05/2016 2:00 PM * Address # 4 : [facility]: [address] [place]- or Treatment Plan from 05/22/2016 9:55 AM:* Care Management Note : Spoke with both patient and spouse regarding possible needs at discharge. Both in agreement that patient will return home where he lives with spouse. Both in agreement that they are able to manage needs at home and deny need for assistance. Spouse plans to provide transportation. Patient at this time is a rising risk for hostipal readmit. Treatment Plan from 05/22/2016 8:00 AM:* Care Management Note : patient is going home today - will notify Arley HUSTON. Treatment Plan from 05/21/2016 12:30 PM:* Care Management Note : patient up ambulating in halls without deficit noted. CT pending to evaluate cerebral infarct and mass. neurology following. follow labs. Patient is still complaining of ELENA - requiring PRN Tylenol. Started Coumadin again today - monitor closely for deficit. stay to exceed 2 midnights for monitoring following CVA. talked with Dr Landeros's nurse. meets inpatient status - see orders. Treatment Plan from 05/20/2016 10:25 AM:* Care Management Note : Spoke with patient, spouse and family in the room regarding possible needs at discharge. Patient stated that his plan was to return home where he lives with his spouse. Patient and spouse both deny at this time the need for services to be set up. Contact information left in patient's room, SW will continue to assist as needed. Treatment Plan from 05/20/2016 9:53 AM:* Care Management Note : Admission status: Outpatient observation Patient presented to clinic for complaints of ELENA. CT head: Moderate-sized area of low density right temporal cortex which is indeterminate between a moderate sized common nonhemorrhagic infarct and right temporal mass with surrounding edema. labs: Bun 24. Bun/cr 20.5. Glucose 181. Bili 1.10. Alb 3.3. ALT 10. Neurology and Cardiology consulted. PT/OT/ST to evaluate. patient is up walking in halls with PT as SBA. follow vital signs with oximetry. bedside gluce checks ac/hs. Up ad kyra. Monitor I/O and daily weight. Continuous cardiac monitoring. patient is anticipate to have a short stay. meets outpatient observation status. Procedures * Completed Procedure Code: 00.00 Procedure Name: not valued, on 07/01/2015 12: 00 AM * Completed Procedure Code: 88.72 Procedure Name: not valued, on 06/11/2015 12: 00 AM Immunizations No immunizations administered or ordered. Hospital Course Hospital Discharge Instructions How to care for yourself at home from 05/22/2016 10:06 AM:* Discharge Activity : Activity as tolerated,May Shower * Do not drive or operate machinery for: : Until cleared by physician. * Discharge Diet : As before hospitalization * Discharge Diet: : DiabeticDiabetic * Call your doctor if: : Fever over 101 F or severe chills,Chest pain or other unexplained symptoms,Tingling or numbness develops,A sudden increase or decrease in weight,You have persistent or worsening symptoms,If you have Heart Failure and you gain 3 pounds within 1 week or your symptoms worsen. (Weigh at home tomorrow morning) * Specific Discharge Teaching Instructions provided: : Yes * Specific Discharge Teaching Instructions Reviewed: : Coumadin Teaching,Stroke Education Packet * Discharge on Warfarin : Yes * Appointment for INR : 05/29/16 Allergies, Adverse Reactions, Alerts * Pravachol causes unspecified. * Zocor causes unspecified. * No Latex Allergy. * No IV Contrast Allergy. Medication It is the responsibility of the patient or patient customer engagement representative to confirm the list of medications with either the patient's personal care provider or the patient's follow-up care provider to ensure the patient has an appropriate list of medications to take at home. Discharge medications New medications* polyethylene glycol 3350 17 gram Powder in Packet, Ordered By: COLLIN LANDEROS MD Directions: 1 each oral daily Continued medications* furosemide 40 mg Tablet, Ordered By: COLLIN LANDEROS MD Directions: 1 tablet oral daily * gemfibrozil 600 mg Tablet, Ordered By: COLLIN LANDEROS MD Directions: 1 tablet oral daily at bedtime * metFORMIN 500 mg Tablet, Ordered By: ELIANE FARR RN Directions: 0.5 tablet oral twice a day with or after meal Additional Instructions: Restart on 05/23/16 with evening meal * multivitamin supplement 1 tab daily * omega-3 fatty acids (Fish Oil) 500 mg Capsule, Ordered By: COLLIN LANDEROS MD Directions: 2 capsule oral daily * potassium chloride 10 mEq Capsule, Extended Release, Ordered By: COLLIN LANDEROS MD Directions: 1 capsule oral daily * red yeast rice 600 mg Capsule, Ordered By: COLLIN LANDEROS MD Directions: 1 capsule oral twice a day * warfarin 5 mg Tablet, Ordered By: COLLIN LANDEROS MD Directions: 1 tablet oral daily * carvedilol (Coreg) 12.5 mg Tablet, Ordered By: ELIANE FARR RN Directions: 1.5 tablet oral twice a day Changed medications* aspirin 81 mg tablet,chewable, Ordered By: COLLIN LANDEROS MD Directions: 1 tablet oral daily every morning * amiodarone 200 mg Tablet, Ordered By: ELIANE FARR RN Directions: 0.5 tablet oral daily Additional Instructions: ZYD Stopped medications* None
--- OUTSIDE RECORDS SUMMARY | 2017-03-31 14:51 | XMS REPORT | Summary of Care ---
Author Author Jarek Salinas M.D. Organization Unknown Address [address], [place] [id number] Phone Unavailable Care Team Providers Care Direct Support Specialist Name Role Phone Duke Salinas M.D. 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 Jarek Salinas M.D. * Start 07-Mar-2012 Active Red Yeast Rice 600 MG Oral Tablet TAKE 2 TABLETS DAILY. * Refills: 0 Jarek Salinas M.D. * Start 07-Mar-2012 Active MetFORMIN HCl - 500 MG Oral Tablet take 1/2 tablet twice daily * Refills: 0 Jarek Salinas M.D. * Start Active Warfarin Sodium 5 MG Oral Tablet ON HOLD UNTIL LAB 01/21 * Refills: 3 Jarek Salinas M.D. * Start 23-Mar-2014 Active Multiple Vitamin TABS TAKE 1 TABLET DAILY. * Quantity: 0 Refills: 0 Jarek Salinas M.D. * Start 16-Mar-2008 Active Aspir-81 81 MG Oral Tablet Delayed Release TAKE 1 TABLET DAILY. * Quantity: 0 Refills: 0 Jarek Salinas M.D. * Start 16-Mar-2008 Active Potassium Chloride ER 10 MEQ Oral Tablet Extended Release Take one tablet daily. * Refills: 0 Brad Jovel, Jarek Wall * Start 13-Feb-2016 Active Furosemide 40 MG Oral Tablet TAKE 1 TABLET DAILY. * Refills: 0 Brad Jovel, Jarek Wall * Start 13-Feb-2016 Active Carvedilol 12.5 MG Oral Tablet Take 1 1/2 tablets twice daily * Refills: 0 Shahab Jovel, Martha Hollingsworth * Start 16-Sep-2015 Active Gemfibrozil 600 MG Oral Tablet Take 1 tablet at night * Quantity: 90 Refills: 3 Bard Yates., Jarek Wall * Start 25-Mar-2015 Active Allergies and Adverse Reactions Name Dates [...] Pacemaker Placement PROTIME PANEL 7000 Ordered: 12-Jan-2017 CT HEAD WITHOUT AND WITH IV CONTRAST Ordered: 11-Jan-2017 Immunization Name Dates Details Td on: 22-Oct-2001 Pneumo (Pneumovax) on: 14-Sep-2006 Influenza on: 03-Sep-2008 Td Lot #: [id number] on: Influenza on: 09-Aug-2009 Influenza A (H1N1) Monoval Vac SUSP on: 28-Oct-2009 Influenza on: 29-Aug-2012 Influenza on: 05-Sep-2013 Fluzone High-Dose SUSP #1 Lot #: [id number] on: 20-Aug-2014 Prevnar 13 Intramuscular Suspension on: 21-Sep-2014 Fluzone High-Dose 0.5 ML Intramuscular Suspension Prefilled Syringe Lot #: [id number] on: 12-Aug-2015 Pneumovax 23 25 MCG/0.5ML Injection Injectable Lot #: [id number] on: 10-Aug-2016 Fluzone High-Dose 0.5 ML Intramuscular Suspension Prefilled Syringe Lot #: [id number] on: 10-Aug-2016 Family History Name Dates Details Family history of Reported Family History Of Cancer Comments: Family History Status: Active Family history of Reported Family History Of Heart Disease Comments: Family History Status: Active Name Dates Details Family history of Diabetes Mellitus (V18.0) Status: Active Social History Name Dates Details - Status: Name Dates Details Never smoker Vital Signs Date Test Result Details 11-Jan-2017 08:55 BP Systolic 138 mm[Hg] Status: [...] BP Systolic 122 mm[Hg] Status: Comments: Location: RUE; Position: Sitting BP Diastolic 68 mm[Hg] Status: Comments: Location: RUE; Position: Sitting Heart Rate 91 /min Status: Comments: Location: ; Weight 182.0 lb Status: Physical Findings 93 Status: Comments: O2 Saturation Body Mass Index Calculated 30.29 kg/m2 Status: Body Surface Area Calculated 1.9 m2 Status: Results Date Description Value Details 14-Dec-2016 11:44 PROTIME PANEL 7000 PROTIME 24.1 secs (Above high threshold) Range: 12.0-14.9 INR 2.26 04-Jan-2017 09:17 CT HEAD WITHOUT AND WITH IV CONTRAST Comments: Exam Date: 01/04/2017 08:28Dictation Date: 01/04/2017 09:17 XC HEAD 12-Jan-2017 12:38 PROTIME PANEL 7000 PROTIME 21.7 secs (Above high threshold) Range: 12.0-14.9 INR 1.98 Plan of Care Name Dates Details Planned Observations Planned Goals not documented Planned Encounters Appointment; Provider: Glenroy Joyner M.D. On 09-Apr-2017 10:45 Appointment; Provider: Donny Artis M.D. On 18-Feb-2017 11:15 Appointment; Provider: Jarek Salinas M.D. On 15-Feb-2017 13:45 Appointment; Provider: Devon Tyler M.D. On 25-Jan-2017 14:00 Appointment; Provider: Jarek Salinas M.D. On 19-Jan-2017 14:00 Instructions Name Dates Details Instructions not [...]
--- OUTSIDE RECORDS SUMMARY | 2017-03-31 14:51 | XMS REPORT ---
Author Author Hemalatha Davidson [facility] eClinicalWorks Address Unknown Phone Unavailable Care Team Providers Care Boring Machine Operator Name Role Phone Hemalatha Davidson CP Unavailable [...] Problem Congestive heart failure I50.9 Active Medications No Known Medications Results No Known Results Summary Purpose eClinicalWorks Submission
--- OUTSIDE RECORDS SUMMARY | 2017-03-31 14:51 | XMS REPORT | Summary of Care ---
Author Author Jarek Salinas M.D. Organization Unknown Address [address], [place] [phone] Phone Unavailable Care Team Providers Care Paper Core Machine Operator Name Role Phone Duke Salinas M.D. [...] Jovel, Jarek A * Start 07-Mar-2012 Active Furosemide 40 MG Oral Tablet TAKE 1 TABLET DAILY. * Refills: 0 Brad Jovel, Jarek A * Start 13-Feb-2016 Active Potassium Chloride ER 10 MEQ Oral Tablet Extended Release Take one tablet daily. * Refills: 0 Brad Jovel, Jarek Wall * Start 13-Feb-2016 Active MetFORMIN HCl - 500 MG Oral Tablet take 1/2 tablet twice daily * Refills: 0 Jarek Salinas M.D. * Start Active Carvedilol 12.5 MG Oral Tablet Take 1 1/2 tablets twice daily * Refills: 0 Martha Gudino M.D. * Start 16-Sep-2015 Active Warfarin Sodium 5 MG Oral Tablet TAKE ONE TABLET BY MOUTH ONCE DAILY * Quantity: 90 Refills: 0 Brad Jovel, Jarek Wall * Start 29-Jan-2017 Active Gemfibrozil 600 MG Oral Tablet TAKE ONE TABLET BY MOUTH ONCE DAILY AT NIGHT * Quantity: 90 Refills: 0 Brad Jovel, Jarek Wall * Start 01-Feb-2017 Active Allergies and Adverse Reactions Name Dates [...] 14-Sep-2006 Influenza on: 03-Sep-2008 Td Lot #: [id number] on: Influenza on: 09-Aug-2009 Influenza A (H1N1) Monoval Vac SUSP on: 28-Oct-2009 Influenza on: 29-Aug-2012 Influenza on: 05-Sep-2013 Fluzone High-Dose SUSP #1 Lot #: [id number] on: 20-Aug-2014 Prevnar 13 Intramuscular Suspension on: 21-Sep-2014 Fluzone High-Dose 0.5 ML Intramuscular Suspension Prefilled Syringe Lot #: [id number] on: 12-Aug-2015 Pneumovax 23 25 MCG/0.5ML Injection Injectable Lot #: [id number] on: 10-Aug-2016 Fluzone High-Dose 0.5 ML Intramuscular Suspension Prefilled Syringe Lot #: [id number] on: 10-Aug-2016 Family History Name Dates Details [...] Details Planned Observations PROTIME PANEL 7000 On 29-Jan-2017 Intent Planned Goals not documented Planned Encounters [...] not documented On 20-Aug-2016 14:15 Appointment; Jarek Sailnas M.D. Encounter Diagnosis: Problem not documented On [...] Problem not documented On 19-Jun-2016 14:25 Appointment; Jaerk Salinas M.D. Encounter Diagnosis: Problem not documented [...] Problem not documented On 12:35 Appointment; Martha Guidno M.D. Encounter Diagnosis: Problem not documented On [...]
--- OUTSIDE RECORDS SUMMARY | 2017-03-31 14:51 | XMS REPORT | Summary of Care ---
Author Author Glenroy Hernandez M.D. Unknown Address Unknown Phone Unavailable Care Team Providers Care Leach Runner Name Role Phone Duke Salinas M.D. Unavailable Unavailable Martha Gudino M.D. Unavailable Unavailable Anand Hernandez M.D. Unavailable Unavailable Jarek Salinas Unavailable Unavailable [...] one tablet daily. * Refills: 0 Brad Jvoel, Jarek A * Start 13-Feb-2016 Active Allergies [...] 14-Sep-2006 Influenza on: 03-Sep-2008 Td Lot #: [id number] on: Influenza on: 09-Aug-2009 Influenza A (H1N1) Monoval Vac SUSP on: 28-Oct-2009 Influenza on: 29-Aug-2012 Influenza on: 05-Sep-2013 Fluzone High-Dose SUSP #1 Lot #: [id number] on: 20-Aug-2014 Prevnar 13 Intramuscular Suspension on: 21-Sep-2014 Fluzone High-Dose 0.5 ML Intramuscular Suspension Prefilled Syringe Lot #: [id number] on: 12-Aug-2015 Pneumovax 23 25 MCG/0.5ML Injection Injectable Lot #: [id number] on: 10-Aug-2016 Fluzone High-Dose 0.5 ML Intramuscular Suspension Prefilled Syringe Lot #: [id number] on: 10-Aug-2016 Family History Name Dates Details [...] m2 Status: Results Date Description Value Details 24-Jul-2016 09:26 CT HEAD WITHOUT AND WITH [...] 12:32Dictation Date: 08/19/2016 13:08 [facility] Radiologic ReportHUETHAN NUNO A- [id number] (X-RAY)PATIENT OF DR. HERNANDEZ BD: 1935 SECONDARY 08/19/16 XC HEAD WITHOUT/ WITH XC OPTIRAY 320 75ML INDICATION: R22.0: LOCAL Plan of Care Name Dates Details Planned Observations Planned Goals not documented Planned Encounters Appointment; Provider: Donny Artis M.D. On 14-Jan-2017 09:15 Appointment; Provider: Jarek Salinas M.D. On 10-Sep-2016 10:15 Interventions Provided Medication Changes* Cephalexin 500 MG Oral Capsule - Completed Instructions Name Dates Details Instructions not documented [...]
--- OUTSIDE RECORDS SUMMARY | 2017-03-31 14:52 | XMS REPORT | Summary of Care ---
Author Author Jarek Salinas M.D. Organization Unknown Address [address], [place] [address] Phone Unavailable Care Team Providers Care Shift Supervisor Name Role Phone Duke Salinas M.D. [...] HORMONE 3602 Ordered:07-Oct-2015 HEMOGLOBIN A1C 3507 Ordered:07-Oct-2015 Immunization Name Dates Details Td Administered on:22-Oct-2001 Pneumo (Pneumovax) Administered on:14-Sep-2006 Influenza Administered on:03-Sep-2008 Td Lot #: [id number] Administered on: Influenza Administered on:09-Aug-2009 Influenza A (H1N1) Monoval Vac Intramuscular Suspension Administered on:28-Oct-2009 Influenza Administered on:29-Aug-2012 Influenza Administered on:05-Sep-2013 Fluzone High-Dose Intramuscular Suspension #1 Lot #: [id number] Administered on:20-Aug-2014 Prevnar 13 Intramuscular Suspension Administered on:21-Sep-2014 Fluzone High-Dose 0.5 ML Intramuscular Suspension Prefilled Syringe Lot #: [id number] Administered on:12-Aug-2015 Family History Unknown Family Member* [...] ml/min (Better) Range: >60 EST GFR, NON-AFR MEXICAN 58 ml/min (Below low threshold) Range: >60 Comments: EST GFR is reported in ml/min per 1.73 m2 of body surface area. For -Fijian, please multiple result by 1.2.----- GLUCOSE 170 [...]
--- OUTSIDE RECORDS SUMMARY | 2017-03-31 14:52 | XMS REPORT | Summary of Care ---
Author Author Jarek Salinas M.D. Organization Unknown Address [address], [place] [address] Phone Unavailable Care Team Providers Care Residential Treatment Staff Name Role Phone Duke Salinas M.D. Unavailable Unavailable Martha Guidno M.D. Unavailable Unavailable Jarek Salinas Unavailable Unavailable [...] obstructive pulmonary disease) (496, J44.9) Status: Active Nausea (787.02, R11.0) Status: Active [...] Status: Active Dyslipidemia (272.4, E78.5) Status: Active Medications Name Dates Details Aspir-81 [...] Twice Daily * Quantity: 60 Refills: 5 AhMartha mendoza M.D. * Start 16-Sep-2015 Active Furosemide 40 [...] 3507 Ordered: 14-Sep-2016 PROTIME PANEL 7000 Ordered: 17-Sep-2016 BASIC METABOLIC PROFILE 1210 Ordered: 07-Sep-2016 CT HEAD WITHOUT AND WITH IV CONTRAST Ordered: 09-Sep-2016 Immunization Name Dates Details Td on: 22-Oct-2001 Pneumo (Pneumovax) on: 14-Sep-2006 Influenza on: 03-Sep-2008 Td Lot #: [id number] on: Influenza on: 09-Aug-2009 Influenza A (H1N1) Monoval Vac SUSP on: 28-Oct-2009 Influenza on: 29-Aug-2012 Influenza on: 05-Sep-2013 Fluzone High-Dose SUSP #1 Lot #: [id number] on: 20-Aug-2014 Prevnar 13 Intramuscular Suspension on: 21-Sep-2014 Fluzone High-Dose 0.5 ML Intramuscular Suspension Prefilled Syringe Lot #: [id number] on: 12-Aug-2015 Pneumovax 23 25 MCG/0.5ML Injection Injectable Lot #: [id number] on: 10-Aug-2016 Fluzone High-Dose 0.5 ML Intramuscular Suspension Prefilled Syringe Lot #: [id number] on: 10-Aug-2016 Family History Name Dates Details Family history of Reported Family History Of Cancer Comments: Family History Status: Active Family history of Reported Family History Of Heart Disease Comments: Family History Status: Active Name Dates Details Family history of Diabetes Mellitus (V18.0) Status: Active Social History Name Dates Details - Status: Name Dates Details Never smoker Vital Signs Date Test Result Details 10-Sep-2016 09:14 BP Systolic 120 mm[Hg] Status: Comments: Location: LUE; Position: Sitting BP Diastolic 60 mm[Hg] Status: Comments: Location: LUE; Position: Sitting Heart Rate 71 /min Status: Comments: Location: [...] >60 ml/min Range: >60 EST GFR, NON-AFR [place] 58 ml/min (Below low threshold) Range: >60 [...] (Above high threshold) Range: 12.0-14.9 INR 1.51 Plan of Care Name Dates Details Planned Observations PROTIME PANEL 7000 On 20-Sep-2016 Intent Planned Goals not documented Planned Encounters Appointment; Provider: Jarek Salinas M.D. On 04-Feb-2017 [...]
--- OUTSIDE RECORDS SUMMARY | 2017-03-31 14:52 | XMS REPORT | Summary of Care ---
Author Author Jarek Salinas M.D. Organization Unknown Address [address] [place], [place] [id number] Phone Unavailable Care Team Providers Care Klystrom Tube Tester Name Role Phone Duke Salinas M.D. 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 Seborrheic keratosis (702.19, L82.1) Status: Active Benign neoplasm of skin of trunk (216.5, D23.5) Status: Active Trigger finger, acquired (727.03, M65.30) Status: Active Arthralgia of multiple sites (719.49, M25.50) Status: Active Pain in hand (729.5, M79.643) Status: Active Tendinitis of finger (727.05, M77.9) Status: Active Type 2 diabetes mellitus (250.00, E11.9) Status: Active Atrial fibrillation (427.31, I48.91) Status: Active High risk medication use (V58.69, Z79.899) Status: Active Diabetes mellitus (250.00, E11.9) Status: [...] Refills: 0 Jarek Salinas M.D.* Started 07-Mar-2012 ActiveNitrostat 0.4 MG Sublingual Tablet Sublingual PLACE 1 TABLET UNDER THE TONGUE EVERY 5 MINUTES UP TO 3 DOSES NEEDED FOR CHEST PAIN. * Quantity: 90 Refills: 3 Jarek Salinas M.D.* Started 16-Jun-2012 ActiveWarfarin Sodium 5 MG Oral Tablet Take one tablet daily. * Quantity: 90 Refills: 3 Jarek Salinas M.D.* Started 23-Mar-2014 ActiveGemfibrozil 600 MG Oral Tablet TAKE 1 TABLET DAILY. * Refills: 0 Jarek Salinas M.D.* Started 25-Mar-2015 Active Allergies and Adverse Reactions Name [...] on:14-Sep-2006 Influenza Administered on:03-Sep-2008 Td Lot #: [id number] Administered on: Influenza Administered on:09-Aug-2009 Influenza A (H1N1) Monoval Vac Intramuscular Suspension Administered on:28-Oct-2009 Influenza Administered on:29-Aug-2012 Influenza Administered on:05-Sep-2013 Fluzone High-Dose Intramuscular Suspension #1 Lot #: [id number] Administered on:20-Aug-2014 Prevnar 13 Intramuscular Suspension Administered [...] smoker Vital Signs Date Test Result Details 15:51 BP Systolic 156 mm[Hg] Status: BP Diastolic 66 mm[Hg] Status: Heart Rate 88 /min Status: Weight 193 lb Status: Height 65 in Status: Body Mass Index Calculated 32.12 kg/m2 Status: Body Surface Area Calculated 1.95 m2 Status: 26-Mar-2015 13:10 BP Systolic 126 mm[Hg] Status: [...] m2 Status: Results Date Description Value Details 22-Mar-2015 14:00 PROTIME PANEL 7000 PROTIME 20.3 [...]
--- OUTSIDE RECORDS SUMMARY | 2017-03-31 14:52 | XMS REPORT | Summary of Care ---
Author Author Martha Gudino M.D. Organization Unknown Address [address] [place] [address] Phone Unavailable Care Team Providers Care Graphics Production Specialist Name Role Phone Duke Salinas M.D. 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, I25.10) [...] on:14-Sep-2006 Influenza Administered on:03-Sep-2008 Td Lot #: [id number] Administered on: Influenza Administered on:09-Aug-2009 Influenza A (H1N1) Monoval Vac Intramuscular Suspension Administered on:28-Oct-2009 Influenza Administered on:29-Aug-2012 Influenza Administered on:05-Sep-2013 Fluzone High-Dose Intramuscular Suspension #1 Lot #: [id number] Administered on:20-Aug-2014 Prevnar 13 Intramuscular Suspension Administered on:21-Sep-2014 Fluzone High-Dose 0.5 ML Intramuscular Suspension Prefilled Syringe Lot #: [id number] Administered on:12-Aug-2015 Family History Unknown Family Member* [...] Body Surface Area Calculated 1.95 m2 Status: 30-Jul-2015 15:55 BP Systolic 93 mm[Hg] Status: BP Diastolic 61 mm[Hg] Status: Temperature 97.8 f Status: Heart Rate 66 /min Status: Weight 190 lb Status: O2 SAT 96 % Status: Body Mass Index Calculated 31.62 kg/m2 Status: Body Surface Area Calculated 1.94 m2 Status: Results Date Description Value Details 30-Jul-2015 16:38 PROTIME PANEL 7000 PROTIME 15.9 secs (Above high threshold) Range: 12.0-14.9 INR 1.29 (Better) 07-Aug-2015 11:35 ECG/ EKG Outside Interp Electro CardioGram (Better) 12-Aug-2015 13:29 PROTIME PANEL 7000 PROTIME 26.7 [...] not documented On 22-Mar-2014 09:00 Appointment; Aleida Aapricio Encounter Diagnosis: Problem not documented On 05-Mar-2014 08:30 Appointment; Jarek Salinas Encounter Diagnosis: Problem not documented On 06-Oct-2013 14:00 Appointment; Jarek Salinas Encounter Diagnosis: Problem not documented On 21-Sep-2013 09:15 Appointment; Jarek Salinas Encounter Diagnosis: Problem not documented On 05-Sep-2013 08:30
--- OUTSIDE RECORDS SUMMARY | 2017-03-31 14:52 | XMS REPORT | Summary of Care ---
Author Author Glenroy Joyner M.D. Unknown Address Unknown Phone Unavailable Care Team Providers Care Capacitor Repairer Name Role Phone Brad Jovel, Duke Unavailable Unavailable Nettie Jovel, Elfego Unavailable Unavailable Shahab Jovel, Martha Hollingsworth Unavailable Unavailable Anand Joyner M.D. Unavailable Unavailable Jarek Salinas Unavailable Unavailable [...] VT (ventricular tachycardia) (427.1, I47.2) Status: Active Mass of right temporal lobe [...] one tablet daily. * Refills: 0 Brad JovelJarek * Start 13-Feb-2016 Active Acyclovir 800 MG Oral Tablet TAKE 1 TABLET EVERY 4 HOURS, 5 TIMES DAILY FOR 7 TO 10 DAYS. * Quantity: 35 Refills: 0 Davontedawn BeckaNoah Start 19-Jun-2016 Active Allergies and Adverse Reactions [...] not documented Immunization Name Dates Details Td on: 22-Oct-2001 Pneumo (Pneumovax) on: 14-Sep-2006 Influenza on: 03-Sep-2008 Td Lot #: [id number] on: Influenza on: 09-Aug-2009 Influenza A (H1N1) Monoval Vac SUSP on: 28-Oct-2009 Influenza on: 29-Aug-2012 Influenza on: 05-Sep-2013 Fluzone High-Dose SUSP #1 Lot #: [id number] on: 20-Aug-2014 Prevnar 13 Intramuscular Suspension on: 21-Sep-2014 Fluzone High-Dose 0.5 ML Intramuscular Suspension Prefilled Syringe Lot #: [id number] on: 12-Aug-2015 Family History Name Dates Details [...] BP Systolic 118 mm[Hg] Status: Comments: Location: [facility]; Position: Sitting BP Diastolic 60 mm[Hg] Status: Comments: Location: [facility]; Position: Sitting Temperature 97.5 f Status: Heart [...] Description Value Details 11:32 ECG/ EKG Outside [facility] Electro CardioGram 10:47 BASIC METABOLIC PROFILE 1210 [...] >60 ml/min Range: >60 EST GFR, NON-AFR [place] 51 ml/min (Below low threshold) Range: >60 Comments: EST GFR is reported in ml/min per 1.73 m2 of body surface area. For -Irish, please multiple result by 1.2.----- BUN:CREATININE RATIO [...] (Above high threshold) Range: 12.0-14.9 INR 3.88 24-Jun-2016 14:48 PROTIME PANEL 7000 PROTIME 20.3 secs (Above high threshold) Range: 12.0-14.9 INR 1.74 15:21 CT HEAD WITHOUT AND WITH IV CONTRAST Comments: Exam Date: 06/24/2016 14:31Dictation Date: 06/24/2016 15:21 XC HEAD Plan of Care Name Dates Details Planned Observations Planned Goals not documented Planned Encounters Appointment; Provider: Donny Artis M.D. On 14-Jan-2017 09:15 Appointment; Provider: Martha Gudino M.D. On 29-Jul-2016 09:45 Appointment; Provider: Jarek Salinas M.D. On 13-Jul-2016 09:00 Appointment; Provider: Schedule Radiology On 24-Jun-2016 15:00 Interventions Provided Labs/Procedures/Imaging* CT HEAD WITHOUT AND WITH IV CONTRAST; Done: Jun 24 2016 3:21PM Instructions Name Dates Details Instructions not documented [...]
--- OUTSIDE RECORDS SUMMARY | 2017-03-31 14:53 | XMS REPORT | Summary of Care ---
Author Author Jarek Salinas M.D. Organization Unknown Address [address], [place] [id number] Phone Unavailable Care Team Providers Care Lens Matcher Name Role Phone Duke Salinas M.D. 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 Obesity (278.00, E66.9) Status: Active Sustained VT (ventricular tachycardia) (427.1, [...] 14-Sep-2006 Influenza on: 03-Sep-2008 Td Lot #: [id number] on: Influenza on: 09-Aug-2009 Influenza A (H1N1) Monoval Vac SUSP on: 28-Oct-2009 Influenza on: 29-Aug-2012 Influenza on: 05-Sep-2013 Fluzone High-Dose SUSP #1 Lot #: [id number] on: 20-Aug-2014 Prevnar 13 Intramuscular Suspension on: 21-Sep-2014 Fluzone High-Dose 0.5 ML Intramuscular Suspension Prefilled Syringe Lot #: [id number] on: 12-Aug-2015 Pneumovax 23 25 MCG/0.5ML Injection Injectable Lot #: [id number] on: 10-Aug-2016 Fluzone High-Dose 0.5 ML Intramuscular Suspension Prefilled Syringe Lot #: [id number] on: 10-Aug-2016 Family History Name Dates Details [...] BP Systolic 120 mm[Hg] Status: Comments: Location: RUE; Position: Sitting BP Diastolic 60 mm[Hg] Status: Comments: Location: RUE; Position: Sitting Heart Rate 71 /min Status: Comments: Location: ; Weight 183 lb Status: Physical Findings 93 Status: Comments: O2 Saturation Body Mass Index Calculated 30.45 kg/m2 Status: Body Surface Area Calculated 1.9 m2 Status: 09-Sep-2016 09:50 BP Systolic 132 mm[Hg] Status: Comments: Location: LUE; Position: Sitting BP Diastolic 74 mm[Hg] Status: Comments: Location: LUE; Position: Sitting Heart Rate 84 /min Status: Comments: Location: ; Weight 183.0 lb Status: Physical Findings 92 Status: Comments: O2 Saturation Body Mass Index Calculated 30.45 kg/m2 Status: Body Surface Area Calculated 1.9 m2 Status: 20-Aug-2016 14:18 BP Systolic 128 mm[Hg] Status: Comments: Location: ; Position: BP [...] FINAL RESULTCan[facility] Treatment [facility] Of America Radiologic ReportHUNURYSETHAN A- [id number] (X-RAY)PATIENT OF DR. HERNANDEZ BD: 1935 SECONDARY [...] Range: >60 EST GFR, NON-AFR CITIZ[place] 58 ml/min (Below low threshold) Range: >60 [...] Artis M.D. On 14-Jan-2017 09:15 Appointment; Provider: Schedule Radiology On 02-Nov-2016 09:00 Interventions Provided Labs/Procedures/Imaging* PROTIME PANEL 7000; Done: Sep 16 2016 10:14AM Instructions Name Dates Details Instructions not documented [...]
--- OUTSIDE RECORDS SUMMARY | 2017-03-31 14:53 | XMS REPORT | Summary of Care ---
Author Author Jarek Salinas M.D. Organization Unknown Address [address], [place] [address] Phone Unavailable Care Team Providers Care Librarian Assistant Name Role Phone Duke Salinas M.D. [...] Active Atrial fibrillation (427.31, I48.91) Status: Active Lung disease, chronic obstructive (496, [...] (automatic cardioverter/defibrillator) present (V45.02, Z95.810) Status: Active Vestibular dizziness, bilateral (386.9, H83.8X3) Status: Active Abnormal brain scan (794.09, R94.02) [...] of Arterial Catheterization History of Pacemaker Placement CT HEAD WITHOUT AND WITH IV CONTRAST Ordered: 11-Jan-2017 Immunization Name Dates Details Td on: 22-Oct-2001 Pneumo (Pneumovax) on: 14-Sep-2006 Influenza on: 03-Sep-2008 Td Lot #: [id number] on: Influenza on: 09-Aug-2009 Influenza A (H1N1) Monoval Vac SUSP on: 28-Oct-2009 Influenza on: 29-Aug-2012 Influenza on: 05-Sep-2013 Fluzone High-Dose SUSP #1 Lot #: [id number] on: 20-Aug-2014 Prevnar 13 Intramuscular Suspension on: 21-Sep-2014 Fluzone High-Dose 0.5 ML Intramuscular Suspension Prefilled Syringe Lot #: [id number] on: 12-Aug-2015 Pneumovax 23 25 MCG/0.5ML Injection Injectable Lot #: [id number] on: 10-Aug-2016 Fluzone High-Dose 0.5 ML Intramuscular Suspension Prefilled Syringe Lot #: [id number] on: 10-Aug-2016 Family History Name Dates Details [...] Provider: Jarek Salinas M.D. On 19-Jan-2017 14:00 Appointment; Provider: Schedule Radiology On 04-Jan-2017 09:00 Interventions Provided Labs/Procedures/Imaging* PROTIME PANEL 7000; Done: Jan 12 2017 12:29PM Instructions Name Dates Details Instructions not documented [...] Problem not documented On 20-Jan-2016 09:30 Appointment; Megna Blanca P.A. Encounter Diagnosis: Problem not documented [...] not documented On 26-Mar-2015 13:15 Appointment; Jarek Salians M.D. Encounter Diagnosis: Problem not documented On 22-Mar-2015 13:00 Appointment; Donny Artis M.D. Encounter Diagnosis: Problem not documented On 11-Mar-2015 08:30 Appointment; Jarek Salinas M.D. Encounter Diagnosis: Problem not documented On 18-Feb-2015 10:30
--- OUTSIDE RECORDS SUMMARY | 2017-03-31 14:53 | XMS REPORT | Summary of Care ---
Author Author Jarek Salinas M.D. Organization Unknown Address [address], [place] [address] Phone Unavailable Care Team Providers Care Mobility Manager Name Role Phone Duke Salinas M.D. 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 * Quantity: 90 Refills: 3 Jarek Salinas M.D.* Started 30-Aug-2008 ActiveGemfibrozil 600 MG Oral Tablet Take One Tablet By Mouth Twice Daily * Quantity: 180 Refills: 3 Jarek Sailnas M.D.* Started 29-Jul-2009 ActiveFish Oil 1000 MG [...] 180 Refills: Jarek Xavier M.D.* Started 24-Sep-2014 ActiveMetFORMIN HCl - 1000 MG Oral Tablet Take One Tablet By Mouth Twice Daily * Quantity: 180 Refills: 3 Jarek Salinas M.D.* Started 18-Nov-2009 Active Allergies and Adverse Reactions Name Dates [...] of Complete Colonoscopy Completed:28-Feb-2013 PROTIME PANEL 7000 Ordered:28-Dec-2014 Immunization Name Dates Details Td Administered on:22-Oct-2001 Pneumo (Pneumovax) Administered on:14-Sep-2006 Influenza Administered on:03-Sep-2008 Td Lot #: [id number] Administered on: Influenza Administered on:09-Aug-2009 Influenza A (H1N1) Monoval Vac Intramuscular Suspension Administered on:28-Oct-2009 Influenza Administered on:29-Aug-2012 Influenza Administered on:05-Sep-2013 Fluzone High-Dose Intramuscular Suspension #1 Lot #: [id number] Administered on:20-Aug-2014 Prevnar 13 Intramuscular Suspension Administered [...]
--- OUTSIDE RECORDS SUMMARY | 2017-03-31 14:53 | XMS REPORT | Summary of Care ---
Author Author Jarek Salinas M.D. Organization Unknown Address [address], [place] [address] Phone Unavailable Care Team Providers Care Voip Engineer Name Role Phone Duke Salinas M.D. 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 Quantity: 0 Jarek Salinas M.D.* Started 16-Mar-2008 ActiveMultiple Vitamin Oral Tablet TAKE 1 TABLET DAILY. * Quantity: 0 Refills: 0 Jarek Salinas M.D.* Started 16-Mar-2008 ActiveLisinopril 5 MG Oral Tablet TAKE 1 TABLET DAILY. * Quantity: 30 Refills: 0 Jarek Salinas M.D.* Started 30-Aug-2008 ActiveMetoprolol Tartrate 100 MG Oral Tablet take one tablet by mouth every day * Quantity: 30 Refills: 11 Jarek Salinas M.D.* Started 08-Mar-2012 ActiveGlipiZIDE 5 MG Oral Tablet Take one tablet twice daily. * Quantity: 60 Refills: 11 Jarek Salinas M.D.* Started 24-Jul-2014 ActiveMetFORMIN HCl - 1000 MG Oral Tablet Take One Tablet By Mouth Twice Daily * Quantity: 60 Refills: 11 Jarek Salinas M.D.* Started 18-Nov-2009 ActiveWarfarin Sodium 5 MG Oral Tablet Take one tablet daily. * Quantity: 90 Refills: 3 Jarek Salinas M.D.* Started 23-Mar-2014 ActiveTamsulosin HCl - 0.4 MG Oral Capsule TAKE 1 CAPSULE Daily * Quantity: 30 Refills: 12 Jarek Salinas M.D.* Started 22-Sep-2013 ActiveNitrostat 0.4 MG Sublingual Tablet Sublingual PLACE 1 TABLET UNDER THE TONGUE EVERY 5 MINUTES UP TO 3 DOSES NEEDED FOR CHEST PAIN. * Quantity: 1 Refills: 12 Jarek Salinas M.D.* Started 16-Jun-2012 Dtstrv73 EA Bottle Red Yeast Rice 600 MG Oral Tablet TAKE 2 TABLETS DAILY. * Refills: 0 Jarek Salinas M.D.* Started 07-Mar-2012 ActiveFish Oil 1000 MG Oral Capsule Take one capsule daily. * Refills: 0 Jarek Salinas M.D.* Started 07-Mar-2012 ActiveGemfibrozil 600 MG Oral Tablet Take One Tablet By Mouth Twice Daily * Quantity: 60 Refills: 5 Jarek Salinas M.D.* Started 29-Jul-2009 Active Allergies and Adverse Reactions Name Dates [...] of Complete Colonoscopy Completed:28-Feb-2013 PROTIME PANEL 7000 Ordered:10-Aug-2014 Immunization Name Dates Details Td Administered on:22-Oct-2001 Pneumo (Pneumovax) Administered on:14-Sep-2006 Influenza Administered on:03-Sep-2008 Td Lot #: [id number] Administered on: Influenza Administered on:09-Aug-2009 Influenza A (H1N1) Monoval Vac Intramuscular Suspension Administered on:28-Oct-2009 Influenza Administered on:29-Aug-2012 Influenza Administered on:05-Sep-2013 Fluzone High-Dose Intramuscular Suspension #1 Lot #: [id number] Administered on:20-Aug-2014 Family History Unknown Family Member* Name Dates [...] to report Results Date Description Value Details 10-Aug-2014 12:07 PROTIME PANEL 7000 PROTIME 30.6 secs (Above high threshold) Range: 12.0-14.9 INR 3.08 (Better) Plan of Care Planned Observations* Name Dates Details Planned Goals not documented Goal Planned Encounters* Appointment; Provider: Donny Artis On 11-Mar-2015 08:30 * Appointment; Provider: Martha Gudino On 22-Oct-2014 09:30 * Appointment; Provider: Jarek Salinas On 21-Sep-2014 09:45 Instructions * Instructions not documented Encounters Appointment; Brianne Mendez Encounter Diagnosis: Problem not [...] Problem not documented On 21-Sep-2013 09:15 Appointment; Jarke Salinas Encounter Diagnosis: Problem not documented On [...] Diagnosis: Problem not documented On 20-Feb-2013 09:00 Appointment; Jarek Salinas Encounter Diagnosis: Problem not documented On 12-Sep-2012 09:45 Appointment; Jarek Salinas Encounter Diagnosis: Problem not documented On 29-Aug-2012 12:30
--- OUTSIDE RECORDS SUMMARY | 2017-03-31 14:53 | XMS REPORT | Summary of Care ---
Author Author Jarek Salinas M.D. Organization Unknown Address [address], [place] [id number] Phone Unavailable Care Team Providers Care Refinery Operator Assistant Name Role Phone Duke Salinas M.D. [...] History of Pacemaker Placement PROTIME PANEL 7000 Ordered:03-Feb-2016 Immunization Name Dates Details Td Administered on:22-Oct-2001 Pneumo (Pneumovax) Administered on:14-Sep-2006 Influenza Administered on:03-Sep-2008 Td Lot #: [id number] Administered on: Influenza Administered on:09-Aug-2009 Influenza A (H1N1) Monoval Vac Intramuscular Suspension Administered on:28-Oct-2009 Influenza Administered on:29-Aug-2012 Influenza Administered on:05-Sep-2013 Fluzone High-Dose Intramuscular Suspension #1 Lot #: [id number] Administered on:20-Aug-2014 Prevnar 13 Intramuscular Suspension Administered on:21-Sep-2014 Fluzone High-Dose 0.5 ML Intramuscular Suspension Prefilled Syringe Lot #: [id number] Administered on:12-Aug-2015 Family History Unknown Family Member* [...] high threshold) Range: 12.0-14.9 INR 2.03 (Better) 03-Feb-2016 13:16 PROTIME PANEL 7000 Comments: Critical result called to Viviana/Brad by Sandra King on 02/03/2016 at 1:20 [...] Problem not documented On 18-Jul-2015 13:15 Appointment; Matrha Gudino Encounter Diagnosis: Problem not [...]
--- OUTSIDE RECORDS SUMMARY | 2017-03-31 14:53 | XMS REPORT | Summary of Care ---
Author Author Jarek Landeros M.D. Organization Unknown Address [address], [place] [id number] Phone Unavailable Care Team Providers Care Rose Grading Supervisor Name Role Phone Duke Landeros M.D. Unavailable Unavailable Elfego Sheffield M.D. Unavailable Unavailable Shahab Jovel, Martha Hollingsworth Unavailable Unavailable Jarek Landeros PP Unavailable Unavailable Unavailable Functional Status Functional [...] risk medication use (V58.69, Z79.899) Status: Active Cough (786.2, R05) Status: Active SOB (shortness of breath) on exertion (786.05, R06.02) Status: Active Coronary artery disease (414.00, 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 AICD (automatic cardioverter/defibrillator) present (V45.02, Z95.810) Status: Active Dyslipidemia (272.4, E78.5) Status: Active Nonsustained ventricular tachycardia (427.1, I47.2) Status: Active CHF (congestive heart failure) (428.0, I50.9) Status: Active Atrial fibrillation (427.31, I48.91) Status: Active Cardiomyopathy (425.4, I42.9) Status: Active COPD (chronic obstructive pulmonary disease) (496, J44.9) Status: Active Diabetes mellitus, type 2 (250.00, E11.9) Status: Active Hypertension (401.9, I10) Status: Active Obesity (278.00, E66.9) Status: Active Medications Name Dates Details Aspir-81 81 MG Oral Tablet Delayed Release TAKE 1 TABLET DAILY. Quantity: 0 Jarek Landeros M.D.* Started 16-Mar-2008 ActiveMultiple Vitamin Oral Tablet TAKE 1 TABLET DAILY. * Quantity: 0 Refills: 0 Jarek Landeros M.D.* Started 16-Mar-2008 ActiveFish Oil 1000 MG Oral Capsule Take one capsule daily. * Refills: 0 Jarek Landeros M.D.* Started 07-Mar-2012 ActiveRed Yeast Rice 600 MG Oral Tablet TAKE 2 TABLETS DAILY. * Refills: 0 Jarek Landeros M.D.* Started 07-Mar-2012 ActiveWarfarin Sodium 5 MG Oral Tablet TAKE ONE TABLET BY MOUTH ONCE DAILY * Quantity: 90 Refills: 3 Jarek Landeros M.D.* Started 23-Mar-2014 ActiveGemfibrozil 600 MG Oral Tablet Take 1 tablet at night * Quantity: 90 Refills: 3 Jarek Landeros M.D.* Started 25-Mar-2015 ActiveMetFORMIN HCl - 500 [...] Noah Sheffield M.D.* Started 21-Oct-2015 Ended 03-Dec-2016 Active Allergies and Adverse Reactions Name Dates [...] on:14-Sep-2006 Influenza Administered on:03-Sep-2008 Td Lot #: [id number] Administered on: Influenza Administered on:09-Aug-2009 Influenza A (H1N1) Monoval Vac Intramuscular Suspension Administered on:28-Oct-2009 Influenza Administered on:29-Aug-2012 Influenza Administered on:05-Sep-2013 Fluzone High-Dose Intramuscular Suspension #1 Lot #: [id number] Administered on:20-Aug-2014 Prevnar 13 Intramuscular Suspension Administered on:21-Sep-2014 Fluzone High-Dose 0.5 ML Intramuscular Suspension Prefilled Syringe Lot #: [id number] Administered on:12-Aug-2015 Family History Unknown Family Member* Name Dates Details Family history of Reported Family History Of Cancer Comments: Family History Status: Active Family history of Reported Family History Of Heart Disease Comments: Family History Status: Active Father* Name Dates Details Family history of Diabetes Mellitus (V18.0) Status: Active Social History Smoking Status* Unknown if ever smoked Vital Signs Date Test Result Details 09-Dec-2015 11:53 BP Systolic 124 mm[Hg] Status: BP Diastolic 72 mm[Hg] Status: Heart Rate 72 /min Status: Height 65 in Status: Weight 190 lb Status: Body Mass Index Calculated 31.62 kg/m2 Status: Body Surface Area Calculated 1.94 m2 Status: 09-Dec-2015 08:54 BP Systolic 128 mm[Hg] Status: BP Diastolic 70 mm[Hg] Status: Heart Rate 88 /min Status: Height 65 in Status: Weight 191 lb Status: Body Mass Index Calculated 31.78 kg/m2 Status: Body Surface Area Calculated 1.94 m2 Status: Results Date Description Value Details 26-Nov-2015 13:01 PROTIME PANEL 7000 PROTIME 21.1 secs (Above high threshold) Range: 12.0-14.9 INR 1.82 (Better) 14:15 XRay CHEST-PA & LAT Comments: Exam Date: 11/26/2015 13: 35Dictation Date: 11/26/2015 14:15 X [facility]ST PA & [facility] Radiologic ReportETHAN [id number] (X-RAY)PATIENT OF DR. LANDEROS BD: 1935 SECONDARY 11/26/15 X CHEST PA & LAT INDICATION: R06.02: SHORTNESS OF BREATHCO (Better) 09-Dec-2015 08:15 PROTIME PANEL 7000 PROTIME 22.5 secs (Above high threshold) Range: 12.0-14.9 INR 1.98 (Better) Plan of Care Planned Observations* Name Dates Details Planned Goals not documented Goal Planned Encounters* Appointment; Provider: Donny Artis On 12-Mar-2016 08:00 * Appointment; Provider: Martha Gudino On 02-Mar-2016 09:30 * Appointment; Provider: Jarek Landeros On 13-Feb-2016 10:00 * Appointment; Provider: Martha Gudino On 10-Dec-2015 11:00 * Appointment; Provider: Martha Gudino On 01-Jul-2015 12:45 * Appointment; Provider: Martha Gudino On 16:00 Instructions * Instructions not documented Encounters Appointment; Martha Gudino Encounter Diagnosis: Problem not documented On 09-Dec-2015 11:45 Appointment; Jarek Landeros Encounter Diagnosis: Problem not documented On 09-Dec-2015 09:00 Appointment; Jarek Landeros Encounter Diagnosis: Problem not documented On 05-Nov-2015 11:45 Appointment; Jarek Landeros Encounter Diagnosis: Problem not documented On 31-Oct-2015 10:30 Appointment; Jarek Landeros Encounter Diagnosis: Problem not documented On 24-Oct-2015 15:30 Appointment; Noah Sheffield Encounter Diagnosis: Problem not documented On 21-Oct-2015 08:15 Appointment; Jarek Landeros Encounter Diagnosis: Problem not documented On 07-Oct-2015 13:15 Appointment; Martha Gudino Encounter Diagnosis: Problem not documented On 30-Sep-2015 12:45 Appointment; Martha Gudino Encounter Diagnosis: Problem not documented On 25-Sep-2015 12:00 Appointment; Martha Gudino Encounter Diagnosis: Problem not documented On 16-Sep-2015 12:15 Appointment; Martha Gudino Encounter Diagnosis: Problem not documented On 29-Aug-2015 14:00 Appointment; Jarek Landeros Encounter Diagnosis: Problem not documented On 26-Aug-2015 11:30 Appointment; Jarek Landeros Encounter Diagnosis: Problem not documented On 12-Aug-2015 12:30 Appointment; Jarek Landeros Encounter Diagnosis: Problem not documented On 30-Jul-2015 15:15 Appointment; Martha Gudino Encounter Diagnosis: Problem not documented On 18-Jul-2015 13:15 Appointment; Martha Gudino Encounter Diagnosis: Problem not documented On 15-Jul-2015 11:45 Appointment; Martha Gudino Encounter Diagnosis: Problem not documented On 24-Jun-2015 09:00 Appointment; Jarek Landeros Encounter Diagnosis: Problem not documented On 21-Jun-2015 10:45 Appointment; Noah Sheffield Encounter Diagnosis: Problem not documented On 12:35 Appointment; Martha Gudino Encounter Diagnosis: Problem not documented On 09:30 Appointment; Jarek Landeros Encounter Diagnosis: Problem not documented On 15:45 Appointment; Saúl Anaya Encounter Diagnosis: Problem not documented On 26-Mar-2015 13:15 Appointment; Jarek Landeros Encounter Diagnosis: Problem not documented On 22-Mar-2015 13:00 Appointment; Donny Artis Encounter Diagnosis: Problem not documented On 11-Mar-2015 08:30 Appointment; Jarek Landeros Encounter Diagnosis: Problem not documented On 18-Feb-2015 10:30 Appointment; Noah Sheffield Encounter Diagnosis: Problem not documented On 14-Nov-2014 09:30 Appointment; Jarek Landeros Encounter Diagnosis: Problem not documented On 25-Oct-2014 15:45 Appointment; Martha Gudino Encounter Diagnosis: Problem not documented On 22-Oct-2014 09:30 Appointment; Jarek Landeros Encounter Diagnosis: Problem not documented On 21-Sep-2014 09:45 Appointment; Brianne Mendez Encounter Diagnosis: Problem not documented On 20-Aug-2014 13:00 Appointment; Jarek Landeros Encounter Diagnosis: Problem not documented On 23-Jul-2014 13:00 Appointment; Jarek Landeros Encounter Diagnosis: Problem not documented On 06-Jul-2014 13:15 Appointment; Jarek Landeros Encounter Diagnosis: Problem not documented On 22-Mar-2014 09:00 Appointment; Aleida Aparicio Encounter Diagnosis: Problem not documented On 05-Mar-2014 08:30
--- OUTSIDE RECORDS SUMMARY | 2017-03-31 14:54 | XMS REPORT | Summary of Care ---
Author Author Jarek Salinas M.D. Organization Unknown Address [address] [place], [place] [id number] Phone Unavailable Care Team Providers Care Assurance Auditor Name Role Phone Duke Salinas M.D. 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* Started 18-Nov-2009 ActiveLisinopril 5 MG Oral [...] 180 Refills: Jarek Xavier M.D.* Started 24-Sep-2014 ActiveOndansetron HCl - 4 MG Oral Tablet ONE TABLET BY MOUTH EVERY 4 HOURS NEEDED * Quantity: 10 Refills: 1 Jarek Salinas M.D.* Started 19-Feb-2015 Active Allergies and Adverse Reactions Name Dates [...] Complete Colonoscopy Completed:28-Feb-2013 PROTIME PANEL 7000 Ordered:04-Mar-2015 Urinalysis, Reflex to Microscopic or Culture PRN [id number] Ordered:22-Mar-2015 PROTIME PANEL 7000 Ordered:22-Mar-2015 Immunization Name Dates Details Td Administered on:22-Oct-2001 Pneumo (Pneumovax) Administered on:14-Sep-2006 Influenza Administered on:03-Sep-2008 Td Lot #: [id number] Administered on: Influenza Administered on:09-Aug-2009 Influenza A (H1N1) Monoval Vac Intramuscular Suspension Administered on:28-Oct-2009 Influenza Administered on:29-Aug-2012 Influenza Administered on:05-Sep-2013 Fluzone High-Dose Intramuscular Suspension #1 Lot #: [id number] Administered on:20-Aug-2014 Prevnar 13 Intramuscular Suspension Administered [...] smoker Vital Signs Date Test Result Details 22-Mar-2015 13:01 BP Systolic 136 mm[Hg] Status: BP Diastolic 68 mm[Hg] Status: Heart Rate 76 /min Status: Weight 196 lb Status: Height 65 in Status: Body Mass Index Calculated 32.62 kg/m2 Status: Body Surface Area Calculated 1.96 m2 Status: Results Date Description Value Details 01-Mar-2015 10:34 PROTIME PANEL 7000 PROTIME 20.6 secs (Above high threshold) Range: 12.0-14.9 INR 1.80 (Better) Plan of Care Planned Observations* Name Dates Details Planned Goals not documented Goal Planned Encounters* Appointment; Provider: Donny Artis On 12-Mar-2016 08:00 * Appointment; Provider: Jarek Salinas On 17-Jun-2015 09:15 * Appointment; Provider: Martha Gudino On 09:30 * Appointment; Provider: Saúl Anaya On 26-Mar-2015 13:15 Instructions * Instructions not documented Encounters Appointment; [...]
--- OUTSIDE RECORDS SUMMARY | 2017-03-31 14:54 | XMS REPORT | Summary of Care ---
Author Jarek Jacobs M.D. Organization Unknown Address [address] [place], [place] [id number] Phone Unavailable Care Team Providers Care Dredge Pipe Installer Name Role Phone Duke Salinas M.D. [...] on:14-Sep-2006 Influenza Administered on:03-Sep-2008 Td Lot #: [id number] Administered on: Influenza Administered on:09-Aug-2009 Influenza A (H1N1) Monoval Vac Intramuscular Suspension Administered on:28-Oct-2009 Influenza Administered on:29-Aug-2012 Influenza Administered on:05-Sep-2013 Fluzone High-Dose Intramuscular Suspension #1 Lot #: [id number] Administered on:20-Aug-2014 Prevnar 13 Intramuscular Suspension Administered on:21-Sep-2014 Fluzone High-Dose 0.5 ML Intramuscular Suspension Prefilled Syringe Lot #: [id number] Administered on:12-Aug-2015 Family History Unknown Family Member* [...]
--- OUTSIDE RECORDS SUMMARY | 2017-03-31 14:54 | XMS REPORT | Summary of Care ---
Author Author Jarek Salinas M.D. Organization Unknown Address [address] [place], [place] [phone] Phone Unavailable Care Team Providers Care District Extension Service Agent Name Role Phone Duke Salinas M.D. Unavailable [...] Refills: 3 Jarek Salinas M.D.* Started 25-Mar-2015 ActiveTamsulosin HCl - 0.4 MG Oral Capsule take one capsule by mouth everyday * Refills: 0 * Started ActiveFurosemide 40 MG Oral Tablet TAKE 1 TABLET DAILY. * Refills: 0 Jarek Salinas M.D.* Started 13-Feb-2016 ActivePotassium Chloride ER 10 MEQ Oral Tablet Extended Release Take one tablet daily. * Refills: 0 Jarek Salinas M.D.* Started 13-Feb-2016 ActiveCarvedilol 12.5 MG Oral Tablet 1BID - TAKE ONE TABLET BY MOUTH TWICE DAILY * Quantity: 60 Refills: 5 Martha Gudino M.D.* Started 16-Sep-2015 ActiveMetFORMIN HCl - 500 MG Oral Tablet TAKE 1 TABLET(S) BY MOUTH TWICE DAILY * Quantity: 60 Refills: 0 Jarek Salinas M.D.* Started ActiveRed Yeast Rice 600 MG Oral Tablet [...] History of Pacemaker Placement PROTIME PANEL 7000 Ordered:10-Feb-2016 Immunization Name Dates Details Td Administered on:22-Oct-2001 Pneumo (Pneumovax) Administered on:14-Sep-2006 Influenza Administered on:03-Sep-2008 Td Lot #: [id number] Administered on: Influenza Administered on:09-Aug-2009 Influenza A (H1N1) Monoval Vac Intramuscular Suspension Administered on:28-Oct-2009 Influenza Administered on:29-Aug-2012 Influenza Administered on:05-Sep-2013 Fluzone High-Dose Intramuscular Suspension #1 Lot #: [id number] Administered on:20-Aug-2014 Prevnar 13 Intramuscular Suspension Administered on:21-Sep-2014 Fluzone High-Dose 0.5 ML Intramuscular Suspension Prefilled Syringe Lot #: [id number] Administered on:12-Aug-2015 Family History Unknown Family Member* [...] ml/min (Better) Range: >60 EST GFR, NON-AFR SAO TOMEAN >60 ml/min (Better) Range: >60 Comments: EST GFR is reported in ml/min per 1.73 m2 of body surface area. For -[place]zerbaijani, please multiple result by 1.2.----- GLUCOSE 183 [...] Problem not documented On 12:35 Appointment; Martha Gduino Encounter Diagnosis: Problem not documented On 09:30 [...]
--- OUTSIDE RECORDS SUMMARY | 2017-03-31 14:54 | XMS REPORT | Summary of Care ---
Author Author Jarek Salinas M.D. Organization Unknown Address [address] [place], [place] [id number] Phone Unavailable Care Team Providers Care Product Manager Name Role Phone Duke Salinas M.D. Unavailable Unavailable Jarek Salinas PP Unavailable Unavailable Unavailable Functional Status Functional Status Health Issues* Name Dates Details Functional status health issues are not documented Status: Cognitive Status Health Issues* Name Dates Details Cognitive status health issues are not documented Status: Problems Name Dates Details Type 2 diabetes mellitus (250.00, E11.9) Status: Active Pre-operative cardiovascular examination (V72.81, Z01.810) Status: Active Atrial tachycardia (427.89, I47.1) Status: Active Atherosclerotic heart disease of [place] coronary artery without angina pectoris (414.01, 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 Dyslipidemia (272.4, E78.5) Status: Active Obesity (278.00, E66.9) Status: Active Atrial flutter with rapid ventricular response (427.32, I48.92) Status: Active Diabetes mellitus (250.00, E11.9) Status: Active Cardiomyopathy (425.4, I42.9) Status: Active Fatigue (780.79, R53.83) Status: Active Atrial fibrillation (427.31, I48.91) Status: [...] TABLET DAILY. * Refills: 0 * Started ActiveSotalol HCl - 120 MG Oral Tablet TAKE 1 TABLET TWICE DAILY. * Refills: 0 Jarek Salinas M.D.* Started 01-Aug-2015 Active Allergies and Adverse Reactions Name Dates Details Pravachol TABS Status: Active Zocor TABS Status: Active Past Medical History Name Dates Details Atherosclerotic heart disease of [place] coronary artery without angina pectoris (414.01, I25.10) [...] on:14-Sep-2006 Influenza Administered on:03-Sep-2008 Td Lot #: [id number] Administered on: Influenza Administered on:09-Aug-2009 Influenza A (H1N1) Monoval Vac Intramuscular Suspension Administered on:28-Oct-2009 Influenza Administered on:29-Aug-2012 Influenza Administered on:05-Sep-2013 Fluzone High-Dose Intramuscular Suspension #1 Lot #: [id number] Administered on:20-Aug-2014 Prevnar 13 Intramuscular Suspension Administered on:21-Sep-2014 Fluzone High-Dose 0.5 ML Intramuscular Suspension Prefilled Syringe Lot #: [id number] Administered on:12-Aug-2015 Family History Unknown Family Member* [...] smoker Vital Signs Date Test Result Details 26-Aug-2015 11:16 BP Systolic 120 mm[Hg] Status: [...] 08:00 * Appointment; Provider: Jarek Salinas On 04-Oct-2015 10:30 * Appointment; Provider: Martha Gudino On 29-Aug-2015 14:00 * Appointment; Provider: Martha Gudino On 01-Jul-2015 [...]
--- OUTSIDE RECORDS SUMMARY | 2017-03-31 14:54 | XMS REPORT | Summary of Care ---
Author Author Jarek Salinas M.D. Organization Unknown Address [address], [place] [id number] Phone Unavailable Care Team Providers Care Organizational Consultant Name Role Phone Duke Salinas M.D. Unavailable Unavailable Jarek Salinas PP Unavailable Unavailable Unavailable Functional Status Functional Status Health Issues* Name Dates Details Functional status health issues are not documented Status: Cognitive Status Health Issues* Name Dates Details Cognitive status health issues are not documented Status: Problems Name Dates Details Diabetes mellitus (250.00, E11.9) Status: Active Obesity (278.00, E66.9) Status: Active Dyslipidemia (272.4, E78.5) Status: Active Cardiomyopathy (425.4, I42.9) Status: Active Atrial flutter with rapid ventricular response (427.32, I48.92) Status: Active Atrial fibrillation (427.31, I48.91) Status: Active Atherosclerotic heart disease of [place] coronary artery without angina pectoris (414.01, 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 Hypertension (401.9, I10) Status: Active Type 2 diabetes mellitus (250.00, E11.9) Status: Active Medications Name Dates [...] Name Dates Details Atherosclerotic heart disease of [place] coronary artery without angina pectoris (414.01, I25.10) [...] Complete Colonoscopy Completed:28-Feb-2013 PROTIME PANEL 7000 Ordered:20-Jun-2015 Immunization Name Dates Details Td Administered on:22-Oct-2001 Pneumo (Pneumovax) Administered on:14-Sep-2006 Influenza Administered on:03-Sep-2008 Td Lot #: [id number] Administered on: Influenza Administered on:09-Aug-2009 Influenza A (H1N1) Monoval Vac Intramuscular Suspension Administered on:28-Oct-2009 Influenza Administered on:29-Aug-2012 Influenza Administered on:05-Sep-2013 Fluzone High-Dose Intramuscular Suspension #1 Lot #: [id number] Administered on:20-Aug-2014 Prevnar 13 Intramuscular Suspension Administered [...] smoker Vital Signs Date Test Result Details 21-Jun-2015 10:59 BP Systolic 122 mm[Hg] Status: [...] ml/min (Better) Range: >60 EST GFR, NON-AFR BERMUDIAN 55 ml/min (Below low threshold) Range: >60 Comments: EST GFR is reported in ml/min per 1.73 m2 of body surface area. For -Yemeni, please multiple result by 1.2.----- GLUCOSE 149 [...] 09:15 * Appointment; Provider: Martha Gudino On 24-Jun-2015 09:00 * Appointment; Provider: Martha Gudino On 16:00 [...] Problem not documented On 20-Aug-2014 13:00 Appointment; aJrek Salinas Encounter Diagnosis: Problem not documented On [...]
--- OUTSIDE RECORDS SUMMARY | 2017-03-31 14:55 | XMS REPORT | Summary of Care ---
Author Author Jarek Salinas M.D. Organization Unknown Address [address] [place], [place] [phone] Phone Unavailable Care Team Providers Care Floorman Name Role Phone Duke Salinas M.D. Unavailable [...] History of Pacemaker Placement PROTIME PANEL 7000 Ordered:27-Feb-2016 Immunization Name Dates Details Td Administered on:22-Oct-2001 Pneumo (Pneumovax) Administered on:14-Sep-2006 Influenza Administered on:03-Sep-2008 Td Lot #: [id number] Administered on: Influenza Administered on:09-Aug-2009 Influenza A (H1N1) Monoval Vac Intramuscular Suspension Administered on:28-Oct-2009 Influenza Administered on:29-Aug-2012 Influenza Administered on:05-Sep-2013 Fluzone High-Dose Intramuscular Suspension #1 Lot #: [id number] Administered on:20-Aug-2014 Prevnar 13 Intramuscular Suspension Administered on:21-Sep-2014 Fluzone High-Dose 0.5 ML Intramuscular Suspension Prefilled Syringe Lot #: [id number] Administered on:12-Aug-2015 Family History Unknown Family Member* [...] m2 Status: Results Date Description Value Details 10-Feb-2016 07:45 CBC w/ Auto Diff 7150 [...] 1.73 m2 of body surface area. For -Nauruan, please multiple result by 1.2.----- GLUCOSE 183 [...] not documented On 15-Jan-2016 09:45 Appointment; Martha Gduino Encounter Diagnosis: Problem not documented On 09-Dec-2015 [...]
--- OUTSIDE RECORDS SUMMARY | 2017-03-31 14:55 | XMS REPORT | Summary of Care ---
Author Author Jarek Salinas M.D. Organization Unknown Address [address] [place], [place] [id number] Phone Unavailable Care Team Providers Care Implementation Services Analyst Name Role Phone Duke Salinas M.D. [...] for influenza vaccination (V04.81, Z23) Status: Active Actinic keratosis (702.0, L57.0) Status: [...] 2 diabetes mellitus (250.00, E11.9) Status: Active High risk medication use (V58.69, Z79.899) Status: Active Diabetes mellitus (250.00, E11.9) Status: Active Coronary artery disease (414.00, 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 Atherosclerotic heart disease of [place] coronary artery without angina pectoris (414.01, I25.10) [...] of Complete Colonoscopy Completed:28-Feb-2013 PROTIME PANEL 7000 Ordered:22-Mar-2015 Immunization Name Dates Details Td Administered on:22-Oct-2001 Pneumo (Pneumovax) Administered on:14-Sep-2006 Influenza Administered on:03-Sep-2008 Td Lot #: [id number] Administered on: Influenza Administered on:09-Aug-2009 Influenza A (H1N1) Monoval Vac Intramuscular Suspension Administered on:28-Oct-2009 Influenza Administered on:29-Aug-2012 Influenza Administered on:05-Sep-2013 Fluzone High-Dose Intramuscular Suspension #1 Lot #: [id number] Administered on:20-Aug-2014 Prevnar 13 Intramuscular Suspension Administered [...] smoker Vital Signs Date Test Result Details 09:31 BP Systolic 144 mm[Hg] Status: BP Diastolic 78 mm[Hg] Status: Heart Rate 80 /min Status: Weight 194.4 lb Status: Body Mass Index Calculated 32.35 kg/m2 Status: Body Surface Area Calculated 1.95 m2 Status: 15:51 BP Systolic 156 mm[Hg] Status: BP [...] m2 Status: Results Date Description Value Details Results not documented Plan of Care Planned Observations* Name Dates Details Planned Goals not documented Goal Planned Encounters* Appointment; Provider: Donny Artis On 12-Mar-2016 08:00 * Appointment; Provider: Martha Gudino On 23-Oct-2015 09:30 * Appointment; Provider: Jarek Salinas On 17-Jun-2015 09:15 Instructions * Instructions not documented Encounters Appointment; [...]
--- OUTSIDE RECORDS SUMMARY | 2017-03-31 14:55 | XMS REPORT | Summary of Care ---
Author Author Jarek Salinas M.D. Organization Unknown Address [address] [place], [place] [phone] Phone Unavailable Care Team Providers Care Title Abstractor Name Role Phone Duke Salinas M.D. Unavailable [...] 1 TABLET DAILY. * Refills: 0 Brad JovelJarek * Start 13-Feb-2016 Active Potassium Chloride ER [...] 14-Sep-2006 Influenza on: 03-Sep-2008 Td Lot #: [id number] on: Influenza on: 09-Aug-2009 Influenza A (H1N1) Monoval Vac SUSP on: 28-Oct-2009 Influenza on: 29-Aug-2012 Influenza on: 05-Sep-2013 Fluzone High-Dose SUSP #1 Lot #: [id number] on: 20-Aug-2014 Prevnar 13 Intramuscular Suspension on: 21-Sep-2014 Fluzone High-Dose 0.5 ML Intramuscular Suspension Prefilled Syringe Lot #: [id number] on: 12-Aug-2015 Family History Name Dates Details [...] BP Systolic 118 mm[Hg] Status: Comments: Location: LUE; Position: Sitting BP Diastolic 60 mm[Hg] Status: Comments: Location: LUE; Position: Sitting Temperature 97.5 f Status: Heart [...] Description Value Details 11:32 ECG/ EKG Outside Interp Electro CardioGram [...] >60 ml/min Range: >60 EST GFR, NON-AFR LIBERIAN 51 ml/min (Below low threshold) Range: >60 Comments: EST GFR is reported in ml/min per 1.73 m2 of body surface area. For -[place]er, please multiple result by 1.2.----- BUN:CREATININE RATIO [...] Radiology On 24-Jun-2016 15:00 Interventions Provided Labs/Procedures/Imaging* PROTIME PANEL 7000; To be Done: 12 Jun 2016 Instructions Name Dates Details Instructions not [...]
--- OUTSIDE RECORDS SUMMARY | 2017-03-31 14:55 | XMS REPORT | Summary of Care ---
Author Author Jarek Salinas M.D. Organization Unknown Address [address], [place] [id number] Phone Unavailable Care Team Providers Care Tip Puncher Name Role Phone Duke Salinas M.D. 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 Quantity: 0 Jarek Salinas M.D. * Start 16-Mar-2008 Active Multiple Vitamin TABS TAKE 1 TABLET DAILY. * Quantity: 0 Refills: 0 Jarek Salinas M.D. * Start 16-Mar-2008 Active Gemfibrozil 600 MG Oral Tablet Take [...] Jarek Salinas M.D. * Start 23-Mar-2014 Active Red Yeast Rice 600 MG Oral Tablet TAKE 2 TABLETS DAILY. * Refills: 0 Jarek Salinas M.D. * Start 07-Mar-2012 Active Fish Oil 1000 MG Oral Capsule Take one capsule daily. * Refills: 0 Jarek Salinas M.D. * Start 07-Mar-2012 Active Potassium Chloride ER 10 MEQ Oral Tablet Extended Release Take one tablet daily. * Refills: 0 Brad Jovel, Jarek A * Start 13-Feb-2016 Active Furosemide 40 MG [...] 3602 Ordered: 14-Jul-2016 PROTIME PANEL 7000 Ordered: 21-Jul-2016 Immunization Name Dates Details Td on: 22-Oct-2001 Pneumo (Pneumovax) on: 14-Sep-2006 Influenza on: 03-Sep-2008 Td Lot #: [id number] on: Influenza on: 09-Aug-2009 Influenza A (H1N1) Monoval Vac SUSP on: 28-Oct-2009 Influenza on: 29-Aug-2012 Influenza on: 05-Sep-2013 Fluzone High-Dose SUSP #1 Lot #: [id number] on: 20-Aug-2014 Prevnar 13 Intramuscular Suspension on: 21-Sep-2014 Fluzone High-Dose 0.5 ML Intramuscular Suspension Prefilled Syringe Lot #: [id number] on: 12-Aug-2015 Family History Name Dates Details [...] m2 Status: Results Date Description Value Details 06-Jul-2016 10:58 PROTIME PANEL 7000 PROTIME 30.3 secs (Above high threshold) Range: 12.0-14.9 INR 2.88 13-Jul-2016 11:12 PROTIME PANEL 7000 PROTIME 31.6 secs (Above high threshold) Range: 12.0-14.9 INR 3.03 21-Jul-2016 14:00 PROTIME PANEL 7000 PROTIME 32.2 secs (Above high threshold) Range: 12.0-14.9 INR 3.11 24-Jul-2016 09:26 CT HEAD WITHOUT AND WITH IV CONTRAST Comments: Exam Date: 07/24/2016 08:40Dictation Date: 07/24/2016 09:26 XC HEAD 29-Jul-2016 14:47 ECG/ EKG Outside Interp Electro CardioGram Plan of Care Name Dates Details Planned Observations Planned Goals not documented Planned Encounters Appointment; Provider: Donny Artis M.D. On 14-Jan-2017 09:15 Appointment; Provider: Jarek Salinas M.D. On 10-Sep-2016 10:15 Appointment; Provider: Schedule Radiology On 24-Jul-2016 09:00 Interventions Provided Labs/Procedures/Imaging* PROTIME PANEL 7000; To be Done: 21 Jul 2016 Instructions Name Dates Details Instructions [...] Problem not documented On 09:30 Appointment; Jarek Salians M.D. Encounter Diagnosis: Problem [...]
--- OUTSIDE RECORDS SUMMARY | 2017-03-31 14:55 | XMS REPORT | Summary of Care ---
Author Author Jarek Salinas M.D. Organization Unknown Address [address], [place] [id number] Phone Unavailable Care Team Providers Care Film Rental Clerk Name Role Phone Duke Salinas M.D. [...] Refills: 5 Martha Gudino M.D.* Started 11-Dec-2015 ActiveFurosemide 40 MG Oral Tablet TAKE 1 [...] on:14-Sep-2006 Influenza Administered on:03-Sep-2008 Td Lot #: [id number] Administered on: Influenza Administered on:09-Aug-2009 Influenza A (H1N1) Monoval Vac Intramuscular Suspension Administered on:28-Oct-2009 Influenza Administered on:29-Aug-2012 Influenza Administered on:05-Sep-2013 Fluzone High-Dose Intramuscular Suspension #1 Lot #: [id number] Administered on:20-Aug-2014 Prevnar 13 Intramuscular Suspension Administered on:21-Sep-2014 Fluzone High-Dose 0.5 ML Intramuscular Suspension Prefilled Syringe Lot #: [id number] Administered on:12-Aug-2015 Family History Unknown Family Member* [...] Body Surface Area Calculated 1.92 m2 Status: 20-Jan-2016 09:41 BP Systolic 118 mm[Hg] Status: BP Diastolic 66 mm[Hg] Status: Heart Rate 72 /min Status: Height 65 in Status: Weight 188 lb Status: Body Mass Index Calculated 31.29 kg/m2 Status: Body Surface Area Calculated 1.93 m2 Status: Results Date Description Value Details 22-Jan-2016 09:58 PROTIME PANEL 7000 PROTIME 23.0 [...] ml/min (Better) Range: >60 EST GFR, NON-AFR [place] >60 ml/min (Better) Range: >60 Comments: EST GFR is reported in ml/min per 1.73 m2 of body surface area. For -Slovak, please multiple result by 1.2.----- GLUCOSE 183 [...]
--- OUTSIDE RECORDS SUMMARY | 2017-03-31 14:56 | XMS REPORT | Summary of Care ---
Author Author Jarek Salinas M.D. Organization Unknown Address [address], [place] [id number] Phone Unavailable Care Team Providers Care Network Firewall Engineer Name Role Phone Duke Salinas M.D. [...] obstructive pulmonary disease) (496, J44.9) Status: Active Medications Name Dates [...] Refills: 0 Jarek Salinas M.D.* Started 25-Mar-2015 ActiveTamsulosin HCl [...] * Quantity: 60 Refills: 11 * Started ActiveSymbicort 160-4.5 MCG/ACT Inhalation Aerosol INHALE 2 [...] on:14-Sep-2006 Influenza Administered on:03-Sep-2008 Td Lot #: [id number] Administered on: Influenza Administered on:09-Aug-2009 Influenza A (H1N1) Monoval Vac Intramuscular Suspension Administered on:28-Oct-2009 Influenza Administered on:29-Aug-2012 Influenza Administered on:05-Sep-2013 Fluzone High-Dose Intramuscular Suspension #1 Lot #: [id number] Administered on:20-Aug-2014 Prevnar 13 Intramuscular Suspension Administered on:21-Sep-2014 Fluzone High-Dose 0.5 ML Intramuscular Suspension Prefilled Syringe Lot #: [id number] Administered on:12-Aug-2015 Family History Unknown Family Member* [...] ml/min (Better) Range: >60 EST GFR, NON-AFR [place] 58 ml/min (Below low threshold) Range: >60 Comments: EST GFR is reported in ml/min per 1.73 m2 of body surface area. For -[place], please multiple result by 1.2.----- GLUCOSE 170 [...] ml/min (Better) Range: >60 EST GFR, NON-AFR [place] 56 ml/min (Below low threshold) Range: >60 Comments: EST GFR is reported in ml/min per 1.73 m2 of body surface area. For -[place], please multiple result by 1.2.----- GLUCOSE 179 [...] MI0.10-0.59 ng/ml= Indeterminate for MI0.60-1.50 ng/ml=Suggestive of MD----- Plan of Care Planned Observations* Name Dates [...] Problem not documented On 24-Jun-2015 09:00 Appointment; aJrek Salinas Encounter Diagnosis: Problem not [...]
--- OUTSIDE RECORDS SUMMARY | 2017-03-31 14:56 | XMS REPORT | Summary of Care ---
Author Author Jarek Salinas M.D. Organization Unknown Address [address], [place] [address] Phone Unavailable Care Team Providers Care Computer Systems Technician Name Role Phone Duke Salinas M.D. [...] Jovel, Jarek Wall * Start 13-Feb-2016 Active Cephalexin 500 MG Oral Capsule 500mg TID for 7 days * Quantity: 21 Refills: 0 Brad Jovel, Jarek Wall * Start 11-Aug-2016 Active Allergies and Adverse Reactions Name Dates [...] Ordered: 14-Jul-2016 PROTIME PANEL 7000 Ordered: 07-Aug-2016 CT HEAD WITHOUT AND WITH IV CONTRAST Ordered: 05-Aug-2016 Immunization Name Dates Details Td on: 22-Oct-2001 Pneumo (Pneumovax) on: 14-Sep-2006 Influenza on: 03-Sep-2008 Td Lot #: [id number] on: Influenza on: 09-Aug-2009 Influenza A (H1N1) Monoval Vac SUSP on: 28-Oct-2009 Influenza on: 29-Aug-2012 Influenza on: 05-Sep-2013 Fluzone High-Dose SUSP #1 Lot #: [id number] on: 20-Aug-2014 Prevnar 13 Intramuscular Suspension on: 21-Sep-2014 Fluzone High-Dose 0.5 ML Intramuscular Suspension Prefilled Syringe Lot #: [id number] on: 12-Aug-2015 Pneumovax 23 25 MCG/0.5ML Injection Injectable Lot #: [id number] on: 10-Aug-2016 Fluzone High-Dose 0.5 ML Intramuscular Suspension Prefilled Syringe Lot #: [id number] on: 10-Aug-2016 Family History Name Dates Details Family history of Reported Family History Of Cancer Comments: Family History Status: Active Family history of Reported Family History Of Heart Disease Comments: Family History Status: Active Name Dates Details Family history of Diabetes Mellitus (V18.0) Status: Active Social History Name Dates Details - Status: Name Dates Details Never smoker Vital Signs Date Test Result Details 13-Aug-2016 11:56 BP Systolic 120 mm[Hg] Status: Comments: Location: [facility] [place]; Position: Sitting BP Diastolic 78 mm[Hg] Status: [...] m2 Status: Results Date Description Value Details 21-Jul-2016 14:00 PROTIME PANEL 7000 PROTIME 32.2 [...] (Above high threshold) Range: 12.0-14.9 INR 2.97 Plan of Care Name Dates Details Planned [...]
--- OUTSIDE RECORDS SUMMARY | 2017-03-31 14:56 | XMS REPORT | Summary of Care ---
Author Author Jarek Salinas M.D. Organization Unknown Address [address], [place] [id number] Phone Unavailable Care Team Providers Care Newborn Hearing Screener Name Role Phone Duke Salinas M.D. 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
--- OUTSIDE RECORDS SUMMARY | 2017-03-31 14:56 | XMS REPORT ---
Author Author Hemalatha Davidson [facility] eClinicalWorks Address Unknown Phone Unavailable Care Team Providers Care Mc Kay Machine Operator Name Role Phone Hemalatha Davidson CP Unavailable Allergies No Known Allergies Problems Problem Type Condition Code Onset Dates Condition Status Assessment High risk medication use Z79.899 Active Problem Ventricular Tachycardia, Nonsustained 427.1 Active Problem [...] Instructions Start Date End Date Status Dosage Potassium Chloride Qiana ER [facility] [place] [place] [address]-08 10 MEQ Orally once a day 1 tablet Results No Known Results Summary Purpose eClinicalWorks Submission
--- OUTSIDE RECORDS SUMMARY | 2017-03-31 14:56 | XMS REPORT | Summary of Care ---
Author Author Jarek Salinas M.D. Organization Unknown Address [address], [place] [id number] Phone Unavailable Care Team Providers Care Act Tutor Name Role Phone Duke Salinas M.D. 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 HORMONE 3602 Ordered:02-Aug-2015 PROTIME PANEL 7000 Ordered:01-Aug-2015 Immunization Name Dates Details Td Administered on:22-Oct-2001 Pneumo (Pneumovax) Administered on:14-Sep-2006 Influenza Administered on:03-Sep-2008 Td Lot #: [id number] Administered on: Influenza Administered on:09-Aug-2009 Influenza A (H1N1) Monoval Vac Intramuscular Suspension Administered on:28-Oct-2009 Influenza Administered on:29-Aug-2012 Influenza Administered on:05-Sep-2013 Fluzone High-Dose Intramuscular Suspension #1 Lot #: [id number] Administered on:20-Aug-2014 Prevnar 13 Intramuscular Suspension Administered on:21-Sep-2014 Fluzone High-Dose 0.5 ML Intramuscular Suspension Prefilled Syringe Lot #: [id number] Administered on:12-Aug-2015 Family History Unknown Family Member* [...] smoker Vital Signs Date Test Result Details 30-Jul-2015 15:55 BP Systolic 93 mm[Hg] Status: BP Diastolic 61 mm[Hg] Status: Temperature 97.8 f Status: Heart Rate 66 /min Status: Weight 190 lb Status: O2 SAT 96 % Status: Body Mass Index Calculated 31.62 kg/m2 Status: Body Surface Area Calculated 1.94 m2 Status: 18-Jul-2015 13:22 BP Systolic 122 mm[Hg] Status: [...] not documented On 11-Mar-2015 08:30 Appointment; Jarek Salians Encounter Diagnosis: Problem not documented On 18-Feb-2015 [...]
--- OUTSIDE RECORDS SUMMARY | 2017-03-31 14:56 | XMS REPORT ---
Author Author Hemalatha Davidson [facility] eClinicalWorks Address Unknown Phone Unavailable Care Team Providers Care Hearing And Speech Assistant Name Role Phone Hemalatha Davidson CP Unavailable Allergies, Adverse Reactions, Alerts Substance Reaction Event Type Zocor Info Not Available Drug Allergy Pravachol Info Not Available Drug Allergy Problems Problem Type Condition Code Onset Dates Condition Status Assessment Ventricular tachyarrhythmia I47.2 Active Problem Ventricular Tachycardia, Nonsustained 427.1 Active Problem Atrial flutter 427.32 Active Problem Atrial flutter I48.92 Active Problem ICD (implantable cardioverter-defibrillator) in place Z95.810 Active Problem Ventricular tachyarrhythmia I47.2 Active Problem High risk medication use Z79.899 Active Problem S/P AICD V45.02 Active Problem Chronic atrial fibrillation I48.2 Active Problem Congestive heart failure I50.9 Active Assessment ICD (implantable cardioverter-defibrillator) in place Z95.810 Active Assessment Atrial flutter I48.92 Active Assessment Congestive heart failure I50.9 Active Assessment High risk medication use Z79.899 Active Assessment Chronic atrial fibrillation I48.2 Active Medications Medication Code System Code Instructions Start Date End Date Status Dosage Amiodarone HCl [facility] [address]-69 100 MG Orally Once a day 1 tablet Gemfibrozil [facility] [address]-72 600 MG Orally qd 1 tablet Red Yeast Rice [facility] [address] 600 MG Orally bid 2 cap Potassium Chloride Qiana ER [facility] [address]-97 10 MEQ Orally once a day 1 tablet Metformin HCl [facility] [address]-23 1000 MG Orally Twice a day 1/2 tablet with meals Furosemide [facility] [address]-95 40 MG Orally Once a day 1 tablet Multiple Vitamin [facility] [address]-77 Orally Once a day 1 tablet Warfarin Sodium [facility] [address]-71 5 MG ASDIR & 7.5 mg Carvedilol [facility] [address]-36 18.75 Orally Twice a day 1 tablet with food Aspirin [facility] [address] 81 MG Orally Once a day 1 tablet Fish Oil [facility] [address]-16 1000 MG Orally Once a day 1 capsule Procedures Procedure Coding System Code Date Ofc Program ICD Dual, Staff CPT-4 06375 Jul 29, 2016 Office Visit, Est Pt., Level 4 CPT-4 45683 Jul 29, 2016 Vital Signs Date/Time: Jul 29, 2016 BMI 28.97 Index Weight 185 lbs Height 67 in Cardiac Monitoring Heart Rate 80 /min Oximetry 96 % Blood Pressure Diastolic 70 mm Hg Blood Pressure Systolic 130 mm Hg Results No Known Results Summary Purpose eClinicalWorks Submission
--- OUTSIDE RECORDS SUMMARY | 2017-03-31 14:57 | XMS REPORT | Summary of Care ---
Author Author Jarek Salinas M.D. Organization Unknown Address [address], [place] [address] Phone Unavailable Care Team Providers Care Thread Cutter Name Role Phone Duke Salinas M.D. 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 * Refills: 0 Jarek Salinas M.D.* Started 07-Mar-2012 ActiveRed Yeast Rice 600 MG Oral Tablet TAKE 2 TABLETS DAILY. * Refills: 0 Jarek Salinas M.D.* Started 07-Mar-2012 ActiveMetoprolol Tartrate 100 MG Oral Tablet take one tablet by mouth every day * Quantity: 90 Refills: 3 Jarek Salinas M.D.* Started 08-Mar-2012 ActiveTamsulosin HCl - 0.4 MG Oral Capsule TAKE 1 CAPSULE Daily * Quantity: 90 Refills: 3 Jarek Salinas M.D.* Started 22-Sep-2013 ActiveWarfarin Sodium 5 MG Oral Tablet Take one tablet daily. * Quantity: 90 Refills: 3 Jarek Salinas M.D.* Started 23-Mar-2014 ActiveGlipiZIDE 10 MG Oral Tablet Take one tablet twice daily. * Quantity: 180 Refills: 3 Jarek Salinas M.D.* Started 24-Sep-2014 ActiveGemfibrozil 600 MG Oral Tablet Take One Tablet By Mouth Twice Daily * Quantity: 180 Refills: 3 Jarek Salinas M.D.* Started 29-Jul-2009 ActiveLisinopril 5 MG Oral Tablet TAKE 1 TABLET DAILY. * Quantity: 90 Refills: Jarek Xavier M.D.* Started 30-Aug-2008 ActiveNitrostat 0.4 MG Sublingual Tablet Sublingual PLACE 1 TABLET UNDER THE TONGUE EVERY 5 MINUTES UP TO 3 DOSES NEEDED FOR CHEST PAIN. * Quantity: 90 Refills: 3 Jarek Salinas M.D.* Started 16-Jun-2012 Active Allergies and Adverse Reactions Name Dates [...] on:14-Sep-2006 Influenza Administered on:03-Sep-2008 Td Lot #: [id number] Administered on: Influenza Administered on:09-Aug-2009 Influenza A (H1N1) Monoval Vac Intramuscular Suspension Administered on:28-Oct-2009 Influenza Administered on:29-Aug-2012 Influenza Administered on:05-Sep-2013 Fluzone High-Dose Intramuscular Suspension #1 Lot #: [id number] Administered on:20-Aug-2014 Prevnar 13 Intramuscular Suspension Administered [...] not documented On 28-Feb-2013 07:15 Appointment; Jarek Salians Encounter Diagnosis: Problem not documented On 21-Feb-2013 11:00 Appointment; Jarek Salinas Encounter Diagnosis: Problem not documented On 20-Feb-2013 09:00
--- OUTSIDE RECORDS SUMMARY | 2017-03-31 14:57 | XMS REPORT | Summary of Care ---
Author Author Martha Gudino M.D. 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, I25.10) [...] on:14-Sep-2006 Influenza Administered on:03-Sep-2008 Td Lot #: [id number] Administered on: Influenza Administered on:09-Aug-2009 Influenza A (H1N1) Monoval Vac Intramuscular Suspension Administered on:28-Oct-2009 Influenza Administered on:29-Aug-2012 Influenza Administered on:05-Sep-2013 Fluzone High-Dose Intramuscular Suspension #1 Lot #: [id number] Administered on:20-Aug-2014 Prevnar 13 Intramuscular Suspension Administered [...] ml/min (Better) Range: >60 EST GFR, NON-AFR [place] 55 ml/min (Below low threshold) Range: >60 Comments: EST GFR is reported in ml/min per 1.73 m2 of body surface area. For -[place], please multiple result by 1.2.----- GLUCOSE 149 [...]
--- OUTSIDE RECORDS SUMMARY | 2017-03-31 14:57 | XMS REPORT | Summary of Care ---
Author Author Orlando Donaldson M.D. Organization Unknown Address [address], [place] [address] Phone Unavailable Care Team Providers Care African History Professor Name Role Phone Duke Salinas M.D. Unavailable [...] Status: Active Obesity (278.00, E66.9) Status: Active Shortness of breath (786.05, R06.02) [...] Status: Active Hypertension (401.9, I10) Status: Active High risk medication use (V58.69, Z79.899) Status: Active Cough (786.2, R05) Status: Active CHF (congestive heart failure) (428.0, I50.9) Status: Active COPD (chronic obstructive pulmonary disease) (496, J44.9) Status: Active SOB (shortness of breath) on [...] Refills: 3 Jarek Salinas M.D.* Started 25-Oct-2015 ActivePromethazine-Codeine 6.25-10 MG/5ML Oral Syrup TAKE FIVE ML BY MOUTH EVERY 4 HOURS NEEDED * Quantity: 120 Refills: 0 Jarek Salinas M.D.* Started 28-Oct-2015 Active Allergies and Adverse Reactions Name Dates [...] on:14-Sep-2006 Influenza Administered on:03-Sep-2008 Td Lot #: [id number] Administered on: Influenza Administered on:09-Aug-2009 Influenza A (H1N1) Monoval Vac Intramuscular Suspension Administered on:28-Oct-2009 Influenza Administered on:29-Aug-2012 Influenza Administered on:05-Sep-2013 Fluzone High-Dose Intramuscular Suspension #1 Lot #: [id number] Administered on:20-Aug-2014 Prevnar 13 Intramuscular Suspension Administered on:21-Sep-2014 Fluzone High-Dose 0.5 ML Intramuscular Suspension Prefilled Syringe Lot #: [id number] Administered on:12-Aug-2015 Family History Unknown Family Member* Name Dates Details Family history of Reported Family History Of Cancer Comments: Family History Status: Active Family history of Reported Family History Of Heart Disease Comments: Family History Status: Active Father* Name Dates Details Family history of Diabetes Mellitus (V18.0) Status: Active Social History Smoking Status* Unknown if ever smoked Vital Signs Date Test Result Details 05-Nov-2015 11:39 BP Systolic 106 mm[Hg] Status: BP Diastolic 56 mm[Hg] Status: Heart Rate 84 /min Status: Height 65 in Status: Weight 191 lb Status: Body Mass Index Calculated 31.78 kg/m2 Status: Body Surface Area Calculated 1.94 m2 Status: 31-Oct-2015 10:34 BP Systolic 112 mm[Hg] Status: [...] 10:00 * Appointment; Provider: Martha Gudino On 09-Dec-2015 11:45 * Appointment; Provider: Jarek Salinas On 09-Dec-2015 09:00 * Appointment; Provider: Martha Gudino On [...] not documented On 22-Mar-2014 09:00 Appointment; Aleida Apraicio Encounter Diagnosis: Problem not documented On 05-Mar-2014 08:30
--- OUTSIDE RECORDS SUMMARY | 2017-03-31 14:57 | XMS REPORT | Summary of Care ---
Author Author Jarek Salinas M.D. Organization Unknown Address [address] [place], [place] [phone] Phone Unavailable Care Team Providers Care Blade Changer Name Role Phone Duke Salinas M.D. Unavailable [...] Jovel, Jarek Wall * Start 13-Feb-2016 Active Warfarin Sodium 5 MG Oral Tablet ON HOLD UNTIL LAB 01/21 * Refills: 3 Brad Jovel, Jarek Wall * Start 23-Mar-2014 Active Allergies and Adverse [...] 14-Sep-2006 Influenza on: 03-Sep-2008 Td Lot #: [id number] on: Influenza on: 09-Aug-2009 Influenza A (H1N1) Monoval Vac SUSP on: 28-Oct-2009 Influenza on: 29-Aug-2012 Influenza on: 05-Sep-2013 Fluzone High-Dose SUSP #1 Lot #: [id number] on: 20-Aug-2014 Prevnar 13 Intramuscular Suspension on: 21-Sep-2014 Fluzone High-Dose 0.5 ML Intramuscular Suspension Prefilled Syringe Lot #: [id number] on: 12-Aug-2015 Pneumovax 23 25 MCG/0.5ML Injection Injectable Lot #: [id number] on: 10-Aug-2016 Fluzone High-Dose 0.5 ML Intramuscular Suspension Prefilled Syringe Lot #: [id number] on: 10-Aug-2016 Family History Name Dates Details [...] to report Results Date Description Value Details 18-Nov-2016 12:56 PROTIME PANEL 7000 PROTIME 22.3 secs (Above high threshold) Range: 12.0-14.9 INR 2.05 Plan of Care Name Dates Details Planned Observations PROTIME PANEL 7000 On 05-Dec-2016 Intent Planned Goals not documented Planned Encounters Appointment; Provider: Donny Artis M.D. On 18-Feb-2017 11:15 Appointment; Provider: Jarek Salinas M.D. On 15-Feb-2017 13:45 Appointment; Provider: Glenroy Joyner M.D. On 11-Jan-2017 09:00 Appointment; Provider: Schedule Radiology On 04-Jan-2017 09:00 Instructions Name Dates Details Instructions not [...]
--- OUTSIDE RECORDS SUMMARY | 2017-03-31 14:57 | XMS REPORT | Summary of Care ---
Author Author Jarek Salinas M.D. Organization Unknown Address [address], [place] [address] Phone Unavailable Care Team Providers Care Classifier Operator Name Role Phone Duke Salinas M.D. 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
--- OUTSIDE RECORDS SUMMARY | 2017-03-31 14:57 | XMS REPORT | Summary of Care ---
Author Author Jarek Salinas M.D. Organization Unknown Address [address] [place], [place] [id number] Phone Unavailable Care Team Providers Care Bunch Breaker Name Role Phone Duke Salinas M.D. 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, I25.10) [...] Complete Colonoscopy Completed:28-Feb-2013 History of Arterial Catheterization Procedures not documented Immunization Name Dates Details Td Administered on:22-Oct-2001 Pneumo (Pneumovax) Administered on:14-Sep-2006 Influenza Administered on:03-Sep-2008 Td Lot #: [id number] Administered on: Influenza Administered on:09-Aug-2009 Influenza A (H1N1) Monoval Vac Intramuscular Suspension Administered on:28-Oct-2009 Influenza Administered on:29-Aug-2012 Influenza Administered on:05-Sep-2013 Fluzone High-Dose Intramuscular Suspension #1 Lot #: [id number] Administered on:20-Aug-2014 Prevnar 13 Intramuscular Suspension Administered [...] m2 Status: Results Date Description Value Details 10-Jul-2015 10:58 ECG/ EKG Outside Interp Electro CardioGram (Better) 30-Jul-2015 16:38 PROTIME PANEL 7000 PROTIME 15.9 secs (Above high threshold) Range: 12.0-14.9 INR 1.29 (Better) Plan of Care Planned Observations* Name [...]
--- OUTSIDE RECORDS SUMMARY | 2017-03-31 14:58 | XMS REPORT | Summary of Care ---
Author Author Jarek Salinas M.D. Organization Unknown Address [address], [place] [id number] Phone Unavailable Care Team Providers Care Allergy And Immunology Chief Name Role Phone Duke Salinas M.D. Unavailable [...] Refills: 5 Martha Gudino M.D.* Started 16-Sep-2015 ActiveGemfibrozil 600 MG Oral Tablet Take 1 tablet at night * Quantity: 90 Refills: 3 Jarek Salinas M.D.* Started 25-Mar-2015 ActiveWarfarin Sodium 5 MG Oral Tablet ON HOLD UNTIL LAB 01/21 * Refills: 3 Jarek Salinas M.D.* Started 23-Mar-2014 ActiveFurosemide 40 MG Oral Tablet TAKE 1 TABLET DAILY. * Refills: 0 Jarek Salinas M.D.* Started 13-Feb-2016 ActivePotassium Chloride ER 10 MEQ Oral Tablet Extended Release Take one tablet daily. * Refills: 0 Jarek Salinas M.D.* Started 13-Feb-2016 ActiveMetFORMIN HCl - 500 MG Oral Tablet TAKE 1 TABLET(S) BY MOUTH TWICE DAILY * Quantity: 60 Refills: 0 Jarek Salinas M.D.* Started Active [...] History of Pacemaker Placement PROTIME PANEL 7000 Ordered:09-Mar-2016 Immunization Name Dates Details Td Administered on:22-Oct-2001 Pneumo (Pneumovax) Administered on:14-Sep-2006 Influenza Administered on:03-Sep-2008 Td Lot #: [id number] Administered on: Influenza Administered on:09-Aug-2009 Influenza A (H1N1) Monoval Vac Intramuscular Suspension Administered on:28-Oct-2009 Influenza Administered on:29-Aug-2012 Influenza Administered on:05-Sep-2013 Fluzone High-Dose Intramuscular Suspension #1 Lot #: [id number] Administered on:20-Aug-2014 Prevnar 13 Intramuscular Suspension Administered on:21-Sep-2014 Fluzone High-Dose 0.5 ML Intramuscular Suspension Prefilled Syringe Lot #: [id number] Administered on:12-Aug-2015 Family History Unknown Family Member* [...] to report Results Date Description Value Details 24-Feb-2016 08:16 PROTIME PANEL 7000 Comments: Critical [...] threshold) Range: 12.0-14.9 INR 4.09 (High alert) 09-Mar-2016 10:43 PROTIME PANEL 7000 PROTIME 19.2 secs (Above high threshold) Range: 12.0-14.9 INR 1.62 (Better) Plan of Care Planned Observations* Name [...]
--- OUTSIDE RECORDS SUMMARY | 2017-03-31 14:58 | XMS REPORT | Summary of Care ---
Author Author Jarek Salinas M.D. Organization Unknown Address [address] [place], [place] [id number] Phone Unavailable Care Team Providers Care Electric Melt Operator Name Role Phone Duke Salinas M.D. [...] UNTIL LAB 01/21 * Refills: 3 Jarek aSlinas M.D. * Start 23-Mar-2014 Active Gemfibrozil 600 [...] 1 TABLET DAILY. * Refills: 0 Brad Jovel Jarek Wall * Start 13-Feb-2016 Active Potassium Chloride ER 10 MEQ Oral Tablet Extended Release Take one tablet daily. * Refills: 0 Brad Jovel, Jarek Wall * Start 13-Feb-2016 Active Acyclovir 800 MG Oral Tablet TAKE 1 TABLET EVERY 4 HOURS, 5 TIMES DAILY FOR 7 TO 10 DAYS. * Quantity: 35 Refills: 0 Nettie JovelNoah Too Start 19-Jun-2016 Active Allergies and Adverse Reactions [...] of Pacemaker Placement PROTIME PANEL 7000 Ordered: 25-Jun-2016 CT HEAD WITHOUT AND WITH IV CONTRAST Ordered: 25-Jun-2016 Immunization Name Dates Details Td on: 22-Oct-2001 Pneumo (Pneumovax) on: 14-Sep-2006 Influenza on: 03-Sep-2008 Td Lot #: [id number] on: Influenza on: 09-Aug-2009 Influenza A (H1N1) Monoval Vac SUSP on: 28-Oct-2009 Influenza on: 29-Aug-2012 Influenza on: 05-Sep-2013 Fluzone High-Dose SUSP #1 Lot #: [id number] on: 20-Aug-2014 Prevnar 13 Intramuscular Suspension on: 21-Sep-2014 Fluzone High-Dose 0.5 ML Intramuscular Suspension Prefilled Syringe Lot #: [id number] on: 12-Aug-2015 Family History Name Dates Details Family history of Reported Family History Of Cancer Comments: Family History Status: Active Family history of Reported Family History Of Heart Disease Comments: Family History Status: Active Name Dates Details Family history of Diabetes Mellitus (V18.0) Status: Active Social History Name Dates Details - Status: Name Dates Details Never smoker Vital Signs Date Test Result Details 25-Jun-2016 09:14 BP Systolic 136 mm[Hg] Status: Comments: Location: ; Position: BP Diastolic 72 mm[Hg] Status: Comments: Location: ; Position: Heart Rate 83 /min Status: Comments: Location: [...] O2 Saturation Results Date Description Value Details 11:45 PROTIME PANEL 7000 PROTIME 38.4 secs [...] Appointment; Provider: Schedule Radiology On 24-Jul-2016 09:00 Appointment; Provider: Jarek Salinas M.D. On 13-Jul-2016 09:00 Interventions Provided Labs/Procedures/Imaging* PROTIME PANEL 7000; To be Done: 25 Jun 2016 Instructions Name Dates Details Instructions [...]
--- OUTSIDE RECORDS SUMMARY | 2017-03-31 14:58 | XMS REPORT | Summary of Care ---
Author Author Jarek Salinas M.D. Organization Unknown Address [address] [place], [place] [phone] Phone Unavailable Care Team Providers Care Coastal And Estuary Specialist Name Role Phone Duke Salinas M.D. 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, G25.2) Status: [...] 3602 Ordered: 14-Jul-2016 PROTIME PANEL 7000 Ordered: 24-Aug-2016 Immunization Name Dates Details Td on: 22-Oct-2001 Pneumo (Pneumovax) on: 14-Sep-2006 Influenza on: 03-Sep-2008 Td Lot #: [id number] on: Influenza on: 09-Aug-2009 Influenza A (H1N1) Monoval Vac SUSP on: 28-Oct-2009 Influenza on: 29-Aug-2012 Influenza on: 05-Sep-2013 Fluzone High-Dose SUSP #1 Lot #: [id number] on: 20-Aug-2014 Prevnar 13 Intramuscular Suspension on: 21-Sep-2014 Fluzone High-Dose 0.5 ML Intramuscular Suspension Prefilled Syringe Lot #: [id number] on: 12-Aug-2015 Pneumovax 23 25 MCG/0.5ML Injection Injectable Lot #: [id number] on: 10-Aug-2016 Fluzone High-Dose 0.5 ML Intramuscular Suspension Prefilled Syringe Lot #: [id number] on: 10-Aug-2016 Family History Name Dates Details [...] Comments: Location: RUE; Position: Sitting BP Diastolic 78 mm[Hg] Status: Comments: Location: RUE; Position: Sitting Heart Rate 92 /min Status: Comments: Location: ; Weight 183 lb Status: Physical Findings 95 Status: Comments: O2 Saturation Body Mass Index Calculated 30.45 kg/m2 Status: Body Surface Area Calculated 1.9 m2 Status: Results Date Description Value Details 05-Aug-2016 09:23 Diabetic Eye Exam No diabetic retinopathy Range: 0 07-Aug-2016 11:54 PROTIME PANEL 7000 PROTIME 31.1 secs (Above high threshold) Range: 12.0-14.9 INR 2.97 19-Aug-2016 13:08 CT HEAD WITHOUT AND WITH IV CONTRAST Comments: Exam Date: 08/19/2016 12:32Dictation Date: 08/19/2016 13:08 [facility] Rad[facility] ReportETHAN NUNO Jeannette A- [id number] (X-RAY)PATIENT OF DR. HERNANDEZ BD: 1935 SECONDARY DRLluvia 08/19/16 XC HEAD WITHOUT/ WITH XC OPTIRAY 320 75ML INDICATION: R22.0: LOCAL 24-Aug-2016 14:45 PROTIME PANEL 7000 PROTIME 15.7 secs (Above high threshold) Range: 12.0-14.9 INR 1.26 Plan of Care Name Dates Details Planned Observations Planned Goals not documented Planned Encounters Appointment; Provider: Donny Artis M.D. On 14-Jan-2017 09:15 Appointment; Provider: Jarek Salinas M.D. On 10-Sep-2016 10:15 Interventions Provided Labs/Procedures/Imaging* PROTIME PANEL 7000; To be Done: 24 Aug 2016 Instructions Name Dates Details Instructions not [...]
--- OUTSIDE RECORDS SUMMARY | 2017-03-31 14:58 | XMS REPORT | Summary of Care ---
Author Author Jarek Salinas M.D. Organization Unknown Address [address] [place], [place] [id number] Phone Unavailable Care Team Providers Care Mangle Press Catcher Name Role Phone Duke Salinas M.D. Unavailable [...] 0 Brad Jovel, Jarek Wall * Start 07-Mar-2012 Active Red Yeast Rice [...] Jarek Salinas M.D. * Start 23-Mar-2014 Active Potassium Chloride ER 10 MEQ Oral Tablet Extended Release Take one tablet daily. * Refills: 0 Jarek Salinas M.D. * Start 13-Feb-2016 Active Furosemide 40 MG [...] of Arterial Catheterization History of Pacemaker Placement Comprehensive Metabolic Panel 1212 Ordered: 14-Jul-2016 LIPID PROFILE 1184 Ordered: 14-Jul-2016 HEMOGLOBIN A1C 3507 Ordered: 14-Jul-2016 THYROID STIM. HORMONE 3602 Ordered: 14-Jul-2016 CBC w/ Auto Diff 7150 Ordered: 14-Jul-2016 PROTIME PANEL 7000 Ordered: 03-Sep-2016 Immunization Name Dates Details Td on: 22-Oct-2001 Pneumo (Pneumovax) on: 14-Sep-2006 Influenza on: 03-Sep-2008 Td Lot #: [id number] on: Influenza on: 09-Aug-2009 Influenza A (H1N1) Monoval Vac SUSP on: 28-Oct-2009 Influenza on: 29-Aug-2012 Influenza on: 05-Sep-2013 Fluzone High-Dose SUSP #1 Lot #: [id number] on: 20-Aug-2014 Prevnar 13 Intramuscular Suspension on: 21-Sep-2014 Fluzone High-Dose 0.5 ML Intramuscular Suspension Prefilled Syringe Lot #: [id number] on: 12-Aug-2015 Pneumovax 23 25 MCG/0.5ML Injection Injectable Lot #: [id number] on: 10-Aug-2016 Fluzone High-Dose 0.5 ML Intramuscular Suspension Prefilled Syringe Lot #: [id number] on: 10-Aug-2016 Family History Name Dates Details [...] 12:32Dictation Date: 08/19/2016 13:08 [facility] Radiologic ReportNURYSETHAN A- [id number] (X-RAY)PATIENT OF DR. HERNANDEZ BD: 1935 SECONDARY 08/19/16 XC HEAD WITHOUT/ WITH XC OPTIRAY 320 75ML INDICATION: R22.0: LOCAL 24-Aug-2016 14:45 PROTIME PANEL 7000 PROTIME 15.7 secs (Above high threshold) Range: 12.0-14.9 INR 1.26 02-Sep-2016 11:42 PROTIME PANEL 7000 PROTIME 21.3 secs (Above high threshold) Range: 12.0-14.9 INR 1.85 Plan of Care Name Dates Details Planned Observations CBC w/ Auto Diff 7150 On 31-Aug-2016 Intent Comprehensive Metabolic Panel 1212 On 31-Aug-2016 Intent LIPID PROFILE 1184 On 31-Aug-2016 Intent HEMOGLOBIN A1C 3507 On 31-Aug-2016 Intent THYROID STIM. HORMONE 3602 On 31-Aug-2016 Intent Planned Goals not documented Planned Encounters Appointment; Provider: Donny Artis M.D. On 14-Jan-2017 09:15 Appointment; Provider: Jarek Salinas M.D. On 10-Sep-2016 10:15 Appointment; Provider: Glenroy Hernandez M.D. On 09-Sep-2016 09:45 Appointment; Provider: Schedule Radiology On 19-Aug-2016 13:00 Appointment; Provider: Schedule Radiology On 24-Jul-2016 09:00 Interventions Provided Medication Changes* Acyclovir 800 MG Oral Tablet - Completed Labs/Procedures/Imaging* PROTIME PANEL 7000; Done: Jul 13 2016 10:34AM Instructions Name Dates Details Instructions not documented [...] Diagnosis: Problem not documented On 12:35 Appointment; aMrtha Gudino M.D. Encounter Diagnosis: Problem not documented On 09:30 Appointment; Jarek Salinas M.D. Encounter Diagnosis: Problem not documented On 15:45 Appointment; Saúl Anaya M.D. Encounter Diagnosis: Problem not documented On 26-Mar-2015 13:15 Appointment; Jarek Slainas M.D. Encounter Diagnosis: Problem [...]
--- OUTSIDE RECORDS SUMMARY | 2017-03-31 14:58 | XMS REPORT ---
Author Author Hemalatha Davidson [facility] eClinicalWorks Address Unknown Phone Unavailable Care Team Providers Care Vocational Rehabilitation Specialist Name Role Phone Hemalatha Davidson CP Unavailable Allergies No Known Allergies Problems Problem Type Condition Code Onset Dates Condition Status Problem Ventricular Tachycardia, Nonsustained 427.1 Active Problem Atrial flutter 427.32 Active Problem S/P AICD V45.02 Active Medications No Known Medications Results No Known Results Summary Purpose eClinicalWorks Submission
--- OUTSIDE RECORDS SUMMARY | 2017-03-31 14:58 | XMS REPORT | Summary of Care ---
Author Author Jarek Salinas M.D. Organization Unknown Address [address], [place] [phone] Phone Unavailable Care Team Providers Care Aquaculturist Name Role Phone Duke Salinas M.D. Unavailable [...] right temporal lobe (784.2, 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 Abnormal brain scan (794.09, R94.02) Status: Active Brain mass (348.9, G93.9) Status: Active Atrial fibrillation (427.31, I48.91) Status: [...] 3602 Ordered: 14-Jul-2016 PROTIME PANEL 7000 Ordered: 13-Jul-2016 CT HEAD WITHOUT AND WITH IV CONTRAST Ordered: 25-Jun-2016 Immunization Name Dates Details Td on: 22-Oct-2001 Pneumo (Pneumovax) on: 14-Sep-2006 Influenza on: 03-Sep-2008 Td Lot #: [id number] on: Influenza on: 09-Aug-2009 Influenza A (H1N1) Monoval Vac SUSP on: 28-Oct-2009 Influenza on: 29-Aug-2012 Influenza on: 05-Sep-2013 Fluzone High-Dose SUSP #1 Lot #: [id number] on: 20-Aug-2014 Prevnar 13 Intramuscular Suspension on: 21-Sep-2014 Fluzone High-Dose 0.5 ML Intramuscular Suspension Prefilled Syringe Lot #: [id number] on: 12-Aug-2015 Family History Name Dates Details [...] m2 Status: Results Date Description Value Details 24-Jun-2016 14:48 [...] (Above high threshold) Range: 12.0-14.9 INR 3.03 Plan of Care Name Dates Details Planned Observations Planned Goals not documented Planned Encounters Appointment; Provider: Donny Artis M.D. On 14-Jan-2017 09:15 Appointment; Provider: Jarek Salinas M.D. On 10-Sep-2016 10:15 Appointment; Provider: Martha Gudino M.D. On 29-Jul-2016 09:45 Appointment; Provider: Glenroy Joyner M.D. On 27-Jul-2016 09:15 Appointment; Provider: Schedule Radiology On 24-Jul-2016 09:00 Interventions Provided Labs/Procedures/Imaging* PROTIME PANEL 7000; To be Done: 13 Jul 2016 Instructions Name Dates Details Instructions not documented Encounters Appointment; Jaerk Salinas M.D. Encounter Diagnosis: Problem [...] Problem not documented On 24-Jun-2015 09:00 Appointment; Jaerk Salinas M.D. Encounter Diagnosis: Problem [...]
--- OUTSIDE RECORDS SUMMARY | 2017-03-31 14:59 | XMS REPORT | Summary of Care ---
Author Author Brock Rodriguez D.O. Organization Unknown Address [address], [place] [phone] Phone Unavailable Care Team Providers Care Pre Sales Network Engineer Name Role Phone Duke Salinas M.D. 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 Quantity: 0 Brad Yates., Jarek A * Start 16-Mar-2008 Active Multiple [...] Jovel, Jarek Wall * Start 07-Mar-2012 Active Warfarin Sodium 5 [...] Jovel, Martha Hollingsworth * Start 16-Sep-2015 Active Zolpidem Tartrate 10 MG Oral Tablet TAKE ONE TABLET BY MOUTH EVERY NIGHT AT BEDTIME * Quantity: 30 Refills: 1 Zuri Benson APRN * Start 03-Mar-2017 Active TraMADol HCl - 50 MG Oral Tablet 1-2 PO every 6 hours as needed for Headache * Quantity: 50 Refills: 0 Rodriguez D.O., Brock L * Start 12-Mar-2017 Active Ondansetron 4 MG Oral Tablet Dispersible TAKE 1 TABLET Every 6 hours PRN nausea and vomiting * Quantity: 20 Refills: 0 Rodriguez D.O., Brock L * Start 12-Mar-2017 Active Allergies and Adverse [...] 14-Sep-2006 Influenza on: 03-Sep-2008 Td Lot #: [id number] on: Influenza on: 09-Aug-2009 Influenza A (H1N1) Monoval Vac SUSP on: 28-Oct-2009 Influenza on: 29-Aug-2012 Influenza on: 05-Sep-2013 Fluzone High-Dose SUSP #1 Lot #: [id number] on: 20-Aug-2014 Prevnar 13 Intramuscular Suspension on: 21-Sep-2014 Fluzone High-Dose 0.5 ML Intramuscular Suspension Prefilled Syringe Lot #: [id number] on: 12-Aug-2015 Pneumovax 23 25 MCG/0.5ML Injection Injectable Lot #: [id number] on: 10-Aug-2016 Fluzone High-Dose 0.5 ML Intramuscular Suspension Prefilled Syringe Lot #: [id number] on: 10-Aug-2016 Family History Name Dates Details [...] smoker Vital Signs Date Test Result Details 12-Mar-2017 12:33 BP Systolic 163 mm[Hg] Status: [...] BP Systolic 121 mm[Hg] Status: Comments: Location: LUE; Position: Sitting BP Diastolic 60 mm[Hg] Status: Comments: Location: E; Position: Sitting Heart Rate 77 /min Status: Comments: Location: ; Weight 183 lb Status: Physical Findings 93 Status: Comments: O2 Saturation Body Mass Index Calculated 30.45 kg/m2 Status: Body Surface Area Calculated 1.9 m2 Status: Results Date Description Value Details 12-Feb-2017 08:05 CBC w/ Auto Diff 7150 [...] >60 ml/min Range: >60 EST GFR, NON-AFR ANGUILLAN >60 ml/min Range: >60 Comments: EST GFR [...] 10:45 Appointment; Provider: Jarek Salinas M.D. On 22-Mar-2017 08:00 Appointment; Provider: Schedule Radiology On 15-Mar-2017 11:00 Interventions Provided Medication Changes* Ondansetron 4 MG Oral Tablet Dispersible - Start * TraMADol HCl - 50 MG Oral Tablet - Start Instructions Name Dates Details Instructions not documented Encounters Appointment; Zuri Benson A.P.R.N. Encounter Diagnosis: Problem [...] not documented On 02-Apr-2016 12:15 Appointment; Jarek aSlinas M.D. Encounter Diagnosis: Problem not documented On [...]
--- OUTSIDE RECORDS SUMMARY | 2017-03-31 14:59 | XMS REPORT | Summary of Care ---
Author Author Noah Sheffield M.D. Unknown Address Unknown Phone Unavailable Care Team Providers Care Rn Renal Name Role Phone Duke Salinas M.D. 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 Medications Name Dates Details Aspir-81 [...] PROFILE 1210 Ordered: HEMOGLOBIN A1C 3507 Ordered: CBC w/ Auto Diff 7150 Ordered: Comprehensive Metabolic Panel 1212 Ordered: BNP 3103 Ordered: TROPONIN I 3451 Ordered: CT HEAD WITHOUT IV CONTRAST Ordered: Immunization Name Dates Details Td Administered on:22-Oct-2001 Pneumo (Pneumovax) Administered on:14-Sep-2006 Influenza Administered on:03-Sep-2008 Td Lot #: [id number] Administered on: Influenza Administered on:09-Aug-2009 Influenza A (H1N1) Monoval Vac Intramuscular Suspension Administered on:28-Oct-2009 Influenza Administered on:29-Aug-2012 Influenza Administered on:05-Sep-2013 Fluzone High-Dose Intramuscular Suspension #1 Lot #: [id number] Administered on:20-Aug-2014 Prevnar 13 Intramuscular Suspension Administered on:21-Sep-2014 Fluzone High-Dose 0.5 ML Intramuscular Suspension Prefilled Syringe Lot #: [id number] Administered on:12-Aug-2015 Family History Unknown Family Member* [...] Schedule Radiology On 13:00 * Appointment; Provider: Matrha Gudino On 01-Jul-2015 12:45 * Appointment; Provider: [...]
--- OUTSIDE RECORDS SUMMARY | 2017-03-31 14:59 | XMS REPORT | Summary of Care ---
Author Author Jarek Salinas M.D. Organization Unknown Address [address], [place] [phone] Phone Unavailable Care Team Providers Care Loom Fixer Supervisor Name Role Phone Duke Salinas M.D. [...] on:14-Sep-2006 Influenza Administered on:03-Sep-2008 Td Lot #: [id number] Administered on: Influenza Administered on:09-Aug-2009 Influenza A (H1N1) Monoval Vac Intramuscular Suspension Administered on:28-Oct-2009 Influenza Administered on:29-Aug-2012 Influenza Administered on:05-Sep-2013 Fluzone High-Dose Intramuscular Suspension #1 Lot #: [id number] Administered on:20-Aug-2014 Prevnar 13 Intramuscular Suspension Administered on:21-Sep-2014 Fluzone High-Dose 0.5 ML Intramuscular Suspension Prefilled Syringe Lot #: [id number] Administered on:12-Aug-2015 Family History Unknown Family Member* [...]
--- OUTSIDE RECORDS SUMMARY | 2017-03-31 14:59 | XMS REPORT ---
Author Author GENERATED, SYSTEM Organization Unknown Address Unknown Phone Unavailable Care Team Providers Care Information Security Manager Name Role Phone MD TIGRE, COLLIN PP Unavailable Reason For Visit Chief Complaint ACCIDENTAL OVERDOSE Social History Functional Status Vital Signs Results Chemistry from 03/19/2017 4:33 AMSODIUM 137 MMOL/L (136-145 MMOL/L) POTASSIUM 4.3 MMOL/L (3.5-5.1 MMOL/L) CHLORIDE 104 MMOL/L (98-107 MMOL/L) TCO2 26.3 MMOL/L (21.0-32.0 MMOL/L) *ANION GAP 6.7 MMOL/L L (8.0-16.0 MMOL/L) BUN 28 MG/DL H (7-18 MG/DL) CREATININE 1.05 MG/DL (0.70-1.30 MG/DL) *BUN/CREATININE RATIO 26.7 H (9.1-17.0 ) GLUCOSE 180 MG/DL H (65-99 MG/DL) *GFR EST NON AFR PALAUAN 65 ML/MIN (Reference Range: not available) *GFR EST AFR AMER 76 ML/MIN (Reference Range: not available) CALCIUM 9.1 MG/DL (8.5-10.1 MG/DL) BILIRUBIN TOTAL 0.70 MG/DL (0.20-1.00 MG/DL) TOTAL PROTEIN 7.2 GM/DL (6.4-8.2 GM/DL) ALBUMIN 3.7 GM/DL (3.4-5.0 GM/DL) *GLOBULIN 3.5 GM/DL (2.3-3.5 GM/DL) *A/G RATIO 1.1 MG/DL L (1.5-2.2 MG/DL) ALK PHOS 91 U/L (46-116 U/L) ALT (SGPT) 25 U/L (14-59 U/L) AST (SGOT) 19 U/L (15-37 U/L) TROPONIN-I 0.031 NG/ML (0.000-0.056 NG/ML) Hematology from 03/19/2017 4:33 AMWBC 7.3 X10e3/UL (3.6-11.2 X10e3/UL) RBC 4.98 X10e6/UL (4.06-5.63 X10e6/UL) HEMOGLOBIN 14.8 G/DL (12.5-16.3 G/DL) HEMATOCRIT 44.9 % (36.7-47.1 %) *MCV 90.1 FL (80.0-100.0 FL) *MCH 29.7 PG (27.0-33.0 PG) *MCHC 33.0 G/DL (32.0-36.0 G/DL) *RDW 14.5 % (12.3-17.0 %) *RDWSD 45.9 (37.1-47.8 ) PLATELET 237 X10e3/UL (159-386 X10e3/UL) *MPV 7.0 FL L (7.4-10.4 FL) AUTOMATED DIFF PERFORMED (Reference Range: not available) SEGS 62.3 % (Reference Range: not available) *LYMPHOCYTES 23.1 % (Reference Range: not available) *MONOCYTES 10.5 % (Reference Range: not available) *EOSINOPHILS 2.8 % (Reference Range: not available) *BASOPHILS 1.3 % (Reference Range: not available) *ABSOLUTE NEUTROPHILS 4.60 X10e3/UL (1.80-7.80 X10e3/UL) *ABSOLUTE LYMPHOCYTES 1.70 X10e3/UL (1.00-3.00 X10e3/UL) *ABSOLUTE MONOCYTES 0.80 X10e3/UL (0.30-1.00 X10e3/UL) *ABSOLUTE EOSINOPHILS 0.20 X10e3/UL (0.00-0.50 X10e3/UL) *ABSOLUTE BASOPHILS 0.10 X10e3/UL (0.00-0.20 X10e3/UL) Urinalysis from 03/19/2017 5:30 AM*URINE COLOR YELLOW (STRAW/YELL/DK YELL ) *URINE APPEARANCE CLEAR (CLEAR ) URINE PH 5.5 (5.0-8.0 ) URINE SPECIFIC GRAVITY 1.010 (<=1.005->=1.030 ) *URINE GLUCOSE NEGATIVE MG/DL (NEGATIVE MG/DL) *URINE BILIRUBIN NEGATIVE (NEGATIVE ) *URINE KETONES NEGATIVE MG/DL (NEGATIVE MG/DL) *URINE BLOOD NEGATIVE (NEGATIVE ) *URINE PROTEIN NEGATIVE MG/DL (NEGATIVE MG/DL) *URINE UROBILINOGEN 0.2 EU/DL (0.2-1.0 EU/DL) *URINE NITRITES NEGATIVE (NEGATIVE ) *URINE LEUKOCYTES NEGATIVE (NEGATIVE ) Coagulation from 03/19/2017 4:33 AM*PROTHROMBIN TIME 17.0 SECONDS H (9.4-11.5 SECONDS) *INR 1.6 H (0.9-1.1 ) [facility]2017 5[facility] History: Somnolent. Urinary incontinence. Mental status change. Priors: None. Findings: Heart size mildly enlarged. There is chronic elevation of the right hemidiaphragm. There are left subclavian cardiac leads good position. No acute infiltrate, pneumothorax or pleural effusions identified. Impression: Cardiomegaly without acute cardiopulmonary process. Electronically signed by: Michael Cruz MD Dictated: 03/19/2017 09:00 (Reference Range: not available) CT Scan from 03/19/2017 5:03 [facility] [facility] CONTRAST History: Acute mental status change. Somnolent. Urinary incontinence. Priors: None. Findings: Ventricles and Extra axial spaces: Normal in size and morphology for the patient's age. Hemorrhage: None. Cerebral parenchyma: There is moderate sized acute, nonhemorrhagic infarct involving the majority of the right temporal lobe. There is mild low density in the periventricular white matter consistent chronic microvascular ischemic change. Mass effect/midline shift: None. Brainstem/Cerebellum: Normal. Calvarium: Normal. Visualized Paranasal sinuses/Mastoids: Clear. Impression: Moderate sized acute, nonhemorrhagic infarct involving the majority of the right temporal lobe. Electronically signed by: Michael Cruz MD Dictated: 03/19/2017 09:02 (Reference Range: not available) Problems Encounter Diagnosis No relevant problems exist. Additional Problems * Acute Pain Comment:Problem resolved by [facility] Workflow upon Discharge, Status :Resolved. * Atrial Flutter Comment:Problem resolved by [facility] Work[facility] upon Discharge, Status:Resolved. * Cerebral infarction Comment:Problem resolved by [facility] Workflow upon Discharge, Status:Resolved. * Diabetes Mellitus Comment:Problem resolved by [facility] Workflow upon Discharge , Status:Resolved. * Fall Risk Comment:Problem resolved by [facility] Workflow upon Discharge, Status: Resolved. * Fall Risk Comment:Problem resolved by [facility] Workflow upon Discharge, Status: Resolved. * History of Atrial Fibrillation Comment:Problem resolved by [facility] Workflow upon Discharge, Status:Resolved. * History of Coronary Artery Bypass Grafting Comment:Problem resolved by [facility] Workflow upon Discharge, Status:Resolved. * History of Raised Blood Lipids Comment:Problem resolved by [facility] Workflow upon Discharge, Status:Resolved. * Mobility Impairment Comment:Problem resolved by [facility] Workflow upon Discharge, Status:Resolved. Encounters Encounter Diagnosis No relevant problems exist. Plan of Care Procedures * Completed Procedure Code: [id number] Procedure Name: not valued, on 05/20/2016 12: 15 PM * Completed Procedure Code: 00.00 Procedure Name: not valued, on 07/01/2015 12: 00 AM * Completed Procedure Code: 88.72 Procedure Name: not valued, on 06/11/2015 12: 00 AM Immunizations No immunizations administered or ordered. Hospital Course Hospital Discharge Instructions Allergies, Adverse Reactions, Alerts This section is hardware supplies sales representative of the current allergy information, at the time of the CCD generation. In the case of regeneration of the CCD, the allergy information may not reflect the state of known allergies at the time of the CCD' s subject visit. * Pravachol causes unspecified. * Zocor causes unspecified. * Latex Allergy has not been assessed. * IV Contrast Allergy has not been assessed. Medication Medication reconciliation has not been performed.
[2017-03-31 15:00] VITALS: PULSE 80; RESP 14; O2SAT 97
--- OUTSIDE RECORDS SUMMARY | 2017-03-31 15:00 | XMS REPORT | Summary of Care ---
Author Author Devon Tyler M.D. Unknown Address Unknown Phone Unavailable Care Team Providers Care Welding Machine Operator Thermit Name Role Phone Duke Salinas M.D. Unavailable [...] positional vertigo, right (386.11, H81.11) Status: Active Medications Name Dates Details Aspir-81 81 MG Oral Tablet Delayed Release TAKE 1 TABLET DAILY. Quantity: 0 Yackterrence M.D., Jarek A * Start 16-Mar-2008 Active Multiple Vitamin TABS TAKE 1 TABLET DAILY. * Quantity: 0 Refills: 0 Yackterrence M.D., Jarek A * Start 16-Mar-2008 Active Fish Oil 1000 MG Oral Capsule Take one capsule daily. * Refills: 0 Yackterrence M.D., Jarek A * Start 07-Mar-2012 Active Red Yeast Rice 600 MG Oral Tablet TAKE 2 TABLETS DAILY. * Refills: 0 Brad M.Richard., Jarek A * Start 07-Mar-2012 Active Warfarin Sodium 5 MG Oral Tablet TAKE ONE TABLET BY MOUTH ONCE DAILY * Quantity: 90 Refills: 0 Brad Jovel, Jarek Wall * Start 29-Jan-2017 Active Gemfibrozil 600 MG Oral Tablet TAKE ONE TABLET BY MOUTH ONCE DAILY AT NIGHT * Quantity: 90 Refills: 0 Brad Jovel, Jarek A * Start 01-Feb-2017 Active MetFORMIN HCl - 500 MG Oral Tablet Take 1 tablet twice daily * Refills: 0 Brad Jovel, Jarek A * Start Active Carvedilol 12.5 MG Oral Tablet Take 1 1/2 tablets twice daily * Refills: 0 Shahab Jovel, Martha Hollingsworth * Start 16-Sep-2015 Active Allergies and Adverse Reactions Name [...] 14-Sep-2006 Influenza on: 03-Sep-2008 Td Lot #: [id number] on: Influenza on: 09-Aug-2009 Influenza A (H1N1) Monoval Vac SUSP on: 28-Oct-2009 Influenza on: 29-Aug-2012 Influenza on: 05-Sep-2013 Fluzone High-Dose SUSP #1 Lot #: [id number] on: 20-Aug-2014 Prevnar 13 Intramuscular Suspension on: 21-Sep-2014 Fluzone High-Dose 0.5 ML Intramuscular Suspension Prefilled Syringe Lot #: [id number] on: 12-Aug-2015 Pneumovax 23 25 MCG/0.5ML Injection Injectable Lot #: [id number] on: 10-Aug-2016 Fluzone High-Dose 0.5 ML Intramuscular Suspension Prefilled Syringe Lot #: [id number] on: 10-Aug-2016 Family History Name Dates Details [...] 121 mm[Hg] Status: Comments: Location: ; Position: Standing BP Diastolic 60 mm[Hg] Status: Comments: Location: ; Position: Standing Heart Rate 77 /min Status: Comments: Location: [...] >60 ml/min Range: >60 EST GFR, NON-AFR ARGENTINE >60 ml/min Range: >60 Comments: EST GFR [...] Provider: Jarek Salinas M.D. On 22-Mar-2017 08:00 Instructions Name Dates Details Instructions not documented Encounters Appointment; Donny Artis M.D. Encounter Diagnosis: Problem [...]
--- OUTSIDE RECORDS SUMMARY | 2017-03-31 15:00 | XMS REPORT | Summary of Care ---
Author Author Jarek Salinas M.D. Organization Unknown Address [address] [place], [place] [id number] Phone Unavailable Care Team Providers Care Bookseamer Blindstitch Name Role Phone Duke Salinas M.D. 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 * Start 01-Feb-2017 Active MetFORMIN HCl - 500 MG Oral Tablet Take 1 tablet twice daily * Refills: 0 Jarek Salinas M.D. * Start Active Warfarin Sodium 5 MG Oral Tablet TAKE ONE TABLET BY MOUTH ONCE DAILY * Quantity: 90 Refills: 0 Jarek Salinas M.D. * Start 29-Jan-2017 Active TraMADol HCl - 50 MG Oral Tablet 1-2 PO every 6 hours as needed for Headache * Quantity: 50 Refills: 0 Brock Rodriguez D.O. * Start 12-Mar-2017 Active Ondansetron 4 MG Oral Tablet Dispersible TAKE 1 TABLET Every 6 hours PRN nausea and vomiting * Quantity: 20 Refills: 0 Brock Rodriguez D.O. * Start 12-Mar-2017 Active Zolpidem Tartrate 10 MG Oral Tablet TAKE ONE TABLET BY MOUTH EVERY NIGHT AT BEDTIME * Quantity: 30 Refills: 1 Zuri Benson APRN * Start 03-Mar-2017 Active Carvedilol 12.5 MG Oral Tablet Take 1 1/2 tablets twice daily * Refills: 0 Martha Gudino M.D. * Start 16-Sep-2015 Active Red Yeast Rice 600 MG Oral Tablet TAKE 2 TABLETS DAILY. * Refills: 0 Jarek Salinas M.D. * Start 07-Mar-2012 Active Fish Oil 1000 MG Oral Capsule Take one capsule daily. * Refills: 0 Jarek Salinas M.D. * Start 07-Mar-2012 Active Multiple Vitamin TABS TAKE 1 TABLET DAILY. * Quantity: 0 Refills: 0 Jarek Salinas M.D. * Start 16-Mar-2008 Active Aspir-81 81 MG Oral Tablet Delayed Release TAKE 1 TABLET DAILY. * Quantity: 0 Refills: 0 Jarek Salinas M.D. * Start 16-Mar-2008 Active Allergies and Adverse Reactions Name [...] 14-Sep-2006 Influenza on: 03-Sep-2008 Td Lot #: [id number] on: Influenza on: 09-Aug-2009 Influenza A (H1N1) Monoval Vac SUSP on: 28-Oct-2009 Influenza on: 29-Aug-2012 Influenza on: 05-Sep-2013 Fluzone High-Dose SUSP #1 Lot #: [id number] on: 20-Aug-2014 Prevnar 13 Intramuscular Suspension on: 21-Sep-2014 Fluzone High-Dose 0.5 ML Intramuscular Suspension Prefilled Syringe Lot #: [id number] on: 12-Aug-2015 Pneumovax 23 25 MCG/0.5ML Injection Injectable Lot #: [id number] on: 10-Aug-2016 Fluzone High-Dose 0.5 ML Intramuscular Suspension Prefilled Syringe Lot #: [id number] on: 10-Aug-2016 Family History Name Dates Details [...] smoker Vital Signs Date Test Result Details 16-Mar-2017 10:20 BP Systolic 120 mm[Hg] Status: [...] BP Systolic 110 mm[Hg] Status: Comments: Location: LUE; Position: Sitting BP Diastolic 70 mm[Hg] Status: Comments: Location: LUE; Position: Sitting Heart Rate 88 /min Status: Comments: Location: [...] 10:53Dictation Date: 03/15/2017 11:32 [facility] Radiologic ReportETHAN RICKETTS- [id number] (X-RAY)PATIENT OF DR. 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 On 24-Feb-2018 11:15 Appointment; Provider: Glenroy Joyner M.D. On 09-Apr-2017 10:45 Appointment; Provider: Jarek Salinas M.D. On 23-Mar-2017 08:15 Instructions Name Dates Details Instructions not documented Encounters Appointment; Brock Rodriguez D.O. Encounter Diagnosis: Problem [...]
--- OUTSIDE RECORDS SUMMARY | 2017-03-31 15:00 | XMS REPORT | Summary of Care ---
Author Author Zuri Benson APRN Organization Unknown Address [address] [place] [id number] Phone Unavailable Care Team Providers Care Drafter Electronic Name Role Phone Duke Salinas M.D. Unavailable [...] Status: Active Anxiety (300.00, F41.9) Status: Active Dyslipidemia (272.4, E78.5) Status: Active [...] right temporal lobe (784.2, 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 Encounter for medication counseling (V65.49, [...] of Pacemaker Placement PROTIME PANEL 7000 Ordered: 14-Dec-2016 Immunization Name Dates Details Td on: 22-Oct-2001 Pneumo (Pneumovax) on: 14-Sep-2006 Influenza on: 03-Sep-2008 Td Lot #: [id number] on: Influenza on: 09-Aug-2009 Influenza A (H1N1) Monoval Vac SUSP on: 28-Oct-2009 Influenza on: 29-Aug-2012 Influenza on: 05-Sep-2013 Fluzone High-Dose SUSP #1 Lot #: [id number] on: 20-Aug-2014 Prevnar 13 Intramuscular Suspension on: 21-Sep-2014 Fluzone High-Dose 0.5 ML Intramuscular Suspension Prefilled Syringe Lot #: [id number] on: 12-Aug-2015 Pneumovax 23 25 MCG/0.5ML Injection Injectable Lot #: [id number] on: 10-Aug-2016 Fluzone High-Dose 0.5 ML Intramuscular Suspension Prefilled Syringe Lot #: [id number] on: 10-Aug-2016 Family History Name Dates Details Family history of Reported Family History Of Cancer Comments: Family History Status: Active Family history of Reported Family History Of Heart Disease Comments: Family History Status: Active Name Dates Details Family history of Diabetes Mellitus (V18.0) Status: Active Social History Name Dates Details - Status: Name Dates Details Never smoker Vital Signs Date Test Result Details 08-Jan-2017 13:12 BP Systolic 112 mm[Hg] Status: [...] 01/04/2017 08:28Dictation Date: 01/04/2017 09:17 XC HEAD Plan of Care Name Dates [...] not documented On 13-Aug-2016 11:45 Appointment; Jarek aSlinas M.D. Encounter Diagnosis: Problem [...]
--- OUTSIDE RECORDS SUMMARY | 2017-03-31 15:00 | XMS REPORT | Summary of Care ---
Author Author Shannon Rudd Unknown Address [address], [place] [id number] Phone Unavailable Care Team Providers Care Palliative Care Coordinator Name Role Phone Duke Salinas M.D. Unavailable Unavailable Martha Gudino M.D. Unavailable Unavailable Shannon Rudd Unavailable Unavailable Jarek Salinas Unavailable Unavailable Unavailable [...] 29-Jan-2017 Active Gemfibrozil 600 MG Oral Tablet Take 1 tablet at night * Quantity: 90 Refills: 3 Brad Yates., Jarek Wall * Start 25-Mar-2015 Active MetFORMIN [...] 14-Sep-2006 Influenza on: 03-Sep-2008 Td Lot #: [id number] on: Influenza on: 09-Aug-2009 Influenza A (H1N1) Monoval Vac SUSP on: 28-Oct-2009 Influenza on: 29-Aug-2012 Influenza on: 05-Sep-2013 Fluzone High-Dose SUSP #1 Lot #: [id number] on: 20-Aug-2014 Prevnar 13 Intramuscular Suspension on: 21-Sep-2014 Fluzone High-Dose 0.5 ML Intramuscular Suspension Prefilled Syringe Lot #: [id number] on: 12-Aug-2015 Pneumovax 23 25 MCG/0.5ML Injection Injectable Lot #: [id number] on: 10-Aug-2016 Fluzone High-Dose 0.5 ML Intramuscular Suspension Prefilled Syringe Lot #: [id number] on: 10-Aug-2016 Family History Name Dates Details [...] documented On 11-Jan-2017 09:00 Appointment; Zuri Benson A.P.RLluviaNLluvia Encounter Diagnosis: Problem not documented On 08-Jan-2017 13:00 Appointment; Zuri Benson A.PLluviaRLluviaNLluvia Encounter Diagnosis: Problem not documented On 31-Dec-2016 [...] not documented On 09-Dec-2015 11:45 Appointment; Jarek Sailnas M.D. Encounter Diagnosis: Problem [...] Problem not documented On 26-Aug-2015 11:30 Appointment; Jaerk Salinas M.D. Encounter Diagnosis: Problem [...]
--- OUTSIDE RECORDS SUMMARY | 2017-03-31 15:01 | XMS REPORT | Summary of Care ---
Author Author Larry Jovel, T. K. Organization Unknown Address [address], [place] [id number] Phone Unavailable Care Team Providers Care Enhanced Environmental Operator Name Role Phone Brad Jovel, A Unavailable Unavailable Jarek Salinas PP Unavailable Unavailable Unavailable Functional Status Functional Status Health Issues* Name Dates Details Functional status health issues are not documented Status: Cognitive Status Health Issues* Name Dates Details Cognitive status health issues are not documented Status: Problems Name Dates Details Type 2 diabetes mellitus (250.00, E11.9) Status: Active Diabetes mellitus (250.00, E11.9) Status: Active 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
--- OUTSIDE RECORDS SUMMARY | 2017-03-31 15:01 | XMS REPORT | Summary of Care ---
Author Author Jarek Salinas M.D. Organization Unknown Address [address], [place] [id number] Phone Unavailable Care Team Providers Care Rn Documentation Specialist Name Role Phone Duke Salinas M.D. [...] 14-Sep-2006 Influenza on: 03-Sep-2008 Td Lot #: [id number] on: Influenza on: 09-Aug-2009 Influenza A (H1N1) Monoval Vac SUSP on: 28-Oct-2009 Influenza on: 29-Aug-2012 Influenza on: 05-Sep-2013 Fluzone High-Dose SUSP #1 Lot #: [id number] on: 20-Aug-2014 Prevnar 13 Intramuscular Suspension on: 21-Sep-2014 Fluzone High-Dose 0.5 ML Intramuscular Suspension Prefilled Syringe Lot #: [id number] on: 12-Aug-2015 Pneumovax 23 25 MCG/0.5ML Injection Injectable Lot #: [id number] on: 10-Aug-2016 Fluzone High-Dose 0.5 ML Intramuscular Suspension Prefilled Syringe Lot #: [id number] on: 10-Aug-2016 Family History Name Dates Details [...] Body Surface Area Calculated 1.91 m2 Status: 05-Oct-2016 13:46 BP Systolic 120 mm[Hg] Status: [...] INR 2.07 28-Oct-2016 13:12 ECG/ EKG Outside Inter Electro CardioGram 02-Nov-2016 09:35 CT HEAD WITHOUT [...] 11-Jan-2017 09:00 Appointment; Provider: Schedule Radiology On 02-Nov-2016 09:00 Interventions Provided Labs/Procedures/Imaging* PROTIME PANEL 7000; Done: Nov 04 2016 9:59AM Instructions Name Dates Details Instructions not documented [...]
--- OUTSIDE RECORDS SUMMARY | 2017-03-31 15:01 | XMS REPORT | Summary of Care ---
Author Author Jarek Salinas M.D. Organization Unknown Address [address], [place] [phone] Phone Unavailable Care Team Providers Care Open End Spinning Operator Name Role Phone Duke Salinas M.D. 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
--- OUTSIDE RECORDS SUMMARY | 2017-03-31 15:01 | XMS REPORT | Summary of Care ---
Author Author Martha Gudino M.D. Organization Unknown Address [address] [place] [address] Phone Unavailable Care Team Providers Care Motorcycle Fabricator Name Role Phone Duke Salinas M.D. Unavailable [...] 1184 Ordered:02-Aug-2015 THYROID STIM. HORMONE 3602 Ordered:02-Aug-2015 Immunization Name Dates Details Td Administered on:22-Oct-2001 Pneumo (Pneumovax) Administered on:14-Sep-2006 Influenza Administered on:03-Sep-2008 Td Lot #: [id number] Administered on: Influenza Administered on:09-Aug-2009 Influenza A (H1N1) Monoval Vac Intramuscular Suspension Administered on:28-Oct-2009 Influenza Administered on:29-Aug-2012 Influenza Administered on:05-Sep-2013 Fluzone High-Dose Intramuscular Suspension #1 Lot #: [id number] Administered on:20-Aug-2014 Prevnar 13 Intramuscular Suspension Administered on:21-Sep-2014 Fluzone High-Dose 0.5 ML Intramuscular Suspension Prefilled Syringe Lot #: [id number] Administered on:12-Aug-2015 Family History Unknown Family Member* Name Dates Details Family history of Reported Family History Of Cancer Comments: Family History Status: Active Family history of Reported Family History Of Heart Disease Comments: Family History Status: Active Father* Name Dates Details Family history of Diabetes Mellitus (V18.0) Status: Active Social History Smoking Status* Unknown if ever smoked Vital Signs Date Test Result Details 30-Sep-2015 13:01 BP Systolic 128 mm[Hg] Status: [...] ml/min (Better) Range: >60 EST GFR, NON-AFR BENINESE 58 ml/min (Below low threshold) Range: >60 [...]
--- OUTSIDE RECORDS SUMMARY | 2017-03-31 15:01 | XMS REPORT | Summary of Care ---
Author Author Zuri Benson APRN Organization Unknown Address [address] [place] [id number] Phone Unavailable Care Team Providers Care Cooling Pipe Inspector Name Role Phone Duke Salinas M.D. [...] Active Brain mass (348.9, G93.9) Status: Active Hypertension (401.9, I10) Status: Active Encounter for medication counseling (V65.49, Z71.89) Status: Active Medications Name Dates Details Aspir-81 [...] Pacemaker Placement PROTIME PANEL 7000 Ordered: 14-Dec-2016 CT HEAD WITHOUT AND WITH IV CONTRAST Ordered: 04-Nov-2016 Immunization Name Dates Details Td on: 22-Oct-2001 Pneumo (Pneumovax) on: 14-Sep-2006 Influenza on: 03-Sep-2008 Td Lot #: [id number] on: Influenza on: 09-Aug-2009 Influenza A (H1N1) Monoval Vac SUSP on: 28-Oct-2009 Influenza on: 29-Aug-2012 Influenza on: 05-Sep-2013 Fluzone High-Dose SUSP #1 Lot #: [id number] on: 20-Aug-2014 Prevnar 13 Intramuscular Suspension on: 21-Sep-2014 Fluzone High-Dose 0.5 ML Intramuscular Suspension Prefilled Syringe Lot #: [id number] on: 12-Aug-2015 Pneumovax 23 25 MCG/0.5ML Injection Injectable Lot #: [id number] on: 10-Aug-2016 Fluzone High-Dose 0.5 ML Intramuscular Suspension Prefilled Syringe Lot #: [id number] on: 10-Aug-2016 Family History Name Dates Details Family history of Reported Family History Of Cancer Comments: Family History Status: Active Family history of Reported Family History Of Heart Disease Comments: Family History Status: Active Name Dates Details Family history of Diabetes Mellitus (V18.0) Status: Active Social History Name Dates Details - Status: Name Dates Details Never smoker Vital Signs Date Test Result Details 31-Dec-2016 13:00 BP Systolic 122 mm[Hg] Status: [...] (Above high threshold) Range: 12.0-14.9 INR 2.26 Plan of Care Name Dates Details Planned Observations Planned Goals not documented Planned Encounters Appointment; Provider: Donny Artis M.D. On 18-Feb-2017 11:15 Appointment; Provider: Jarek Salinas M.D. On 15-Feb-2017 13:45 Appointment; Provider: Glenroy Joyner M.D. On 11-Jan-2017 09:00 Appointment; Provider: Zuri Benson A.P.R.N. On 08-Jan-2017 13:00 Appointment; Provider: Schedule Radiology On 04-Jan-2017 09:00 [...] not documented On 09-Dec-2015 11:45 Appointment; Jarek Salinsa M.D. Encounter Diagnosis: Problem not documented On [...]
--- OUTSIDE RECORDS SUMMARY | 2017-03-31 15:02 | XMS REPORT | Summary of Care ---
Author Author Jarek Salinas M.D. Organization Unknown Address [address], [place] [id number] Phone Unavailable Care Team Providers Care Survey Interviewer Name Role Phone Duke Salinas M.D. 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 Seborrheic keratosis (702.19, L82.1) Status: Active Benign neoplasm of skin of trunk (216.5, D23.5) Status: Active Atrial fibrillation (427.31, I48.91) Status: Active Diabetes mellitus (250.00, E11.9) Status: Active Hypertension (401.9, I10) Status: Active Dyslipidemia (272.4, E78.5) Status: Active Trigger finger, acquired (727.03, M65.30) Status: Active Medications Name Dates Details Aspir-81 [...] on:14-Sep-2006 Influenza Administered on:03-Sep-2008 Td Lot #: [id number] Administered on: Influenza Administered on:09-Aug-2009 Influenza A (H1N1) Monoval Vac Intramuscular Suspension Administered on:28-Oct-2009 Influenza Administered on:29-Aug-2012 Influenza Administered on:05-Sep-2013 Fluzone High-Dose Intramuscular Suspension #1 Lot #: [id number] Administered on:20-Aug-2014 Prevnar 13 Intramuscular Suspension Administered [...]
--- OUTSIDE RECORDS SUMMARY | 2017-03-31 15:02 | XMS REPORT | Summary of Care ---
Author Author Jarek Salinas M.D. Organization Unknown Address [address] [place], [place] [id number] Phone Unavailable Care Team Providers Care Sports Attorney Name Role Phone Duke Salinas M.D. 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, I25.10) [...] Complete Colonoscopy Completed:28-Feb-2013 PROTIME PANEL 7000 Ordered: Immunization Name Dates Details Td Administered on:22-Oct-2001 Pneumo (Pneumovax) Administered on:14-Sep-2006 Influenza Administered on:03-Sep-2008 Td Lot #: [id number] Administered on: Influenza Administered on:09-Aug-2009 Influenza A (H1N1) Monoval Vac Intramuscular Suspension Administered on:28-Oct-2009 Influenza Administered on:29-Aug-2012 Influenza Administered on:05-Sep-2013 Fluzone High-Dose Intramuscular Suspension #1 Lot #: [id number] Administered on:20-Aug-2014 Prevnar 13 Intramuscular Suspension Administered [...]
--- OUTSIDE RECORDS SUMMARY | 2017-03-31 15:02 | XMS REPORT | Summary of Care ---
Author Author Jarek Salinas M.D. Organization Unknown Address [address] [place], [place] [id number] Phone Unavailable Care Team Providers Care Director [facility] Name Role Phone Duke Salinas M.D. Unavailable [...] positional vertigo, right (386.11, H81.11) Status: Active Nocturia (788.43, R35.1) Status: Active [...] mellitus, type 2 (250.00, E11.9) Status: Active Anxiety (300.00, F41.9) Status: Active Confusion (298.9, R41.0) Status: Active Insomnia (780.52, G47.00) Status: Active Hypertension (401.9, I10) Status: Active Medications Name Dates Details Aspir-81 81 MG Oral Tablet Delayed Release TAKE 1 TABLET DAILY. Quantity: 0 Yackley M.D., Jarek A * Start 16-Mar-2008 Active Multiple Vitamin TABS TAKE 1 TABLET DAILY. * Quantity: 0 Refills: 0 Yackley M.D., Jarek A * Start 16-Mar-2008 Active Fish Oil 1000 MG Oral Capsule Take one capsule daily. * Refills: 0 Yackley M.D., Jarek A * Start 07-Mar-2012 Active Red Yeast Rice 600 MG Oral Tablet TAKE 2 TABLETS DAILY. * Refills: 0 Jarek Salinas M.D. * Start 07-Mar-2012 Active Warfarin Sodium 5 MG Oral Tablet TAKE ONE TABLET BY MOUTH ONCE DAILY * Quantity: 90 Refills: 0 Jarek Salinas M.D. * Start 29-Jan-2017 Active Gemfibrozil 600 MG [...] Headache * Quantity: 50 Refills: 0 Rodriguez D.Kyra, Brock Telles * Start 12-Mar-2017 Active Ondansetron 4 MG Oral Tablet Dispersible TAKE 1 TABLET Every 6 hours PRN nausea and vomiting * Quantity: 20 Refills: 0 Rodriguez D.Kyra, Brock Telles * Start 12-Mar-2017 Active BusPIRone HCl - 10 MG Oral Tablet take one tab bid * Quantity: 60 Refills: 4 Brad Jovel, Jarek Wall * Start 17-Mar-2017 Active Allergies and Adverse Reactions Name Dates [...] 14-Sep-2006 Influenza on: 03-Sep-2008 Td Lot #: [id number] on: Influenza on: 09-Aug-2009 Influenza A (H1N1) Monoval Vac SUSP on: 28-Oct-2009 Influenza on: 29-Aug-2012 Influenza on: 05-Sep-2013 Fluzone High-Dose SUSP #1 Lot #: [id number] on: 20-Aug-2014 Prevnar 13 Intramuscular Suspension on: 21-Sep-2014 Fluzone High-Dose 0.5 ML Intramuscular Suspension Prefilled Syringe Lot #: [id number] on: 12-Aug-2015 Pneumovax 23 25 MCG/0.5ML Injection Injectable Lot #: [id number] on: 10-Aug-2016 Fluzone High-Dose 0.5 ML Intramuscular Suspension Prefilled Syringe Lot #: [id number] on: 10-Aug-2016 Family History Name Dates Details [...] BP Diastolic 60 mm[Hg] Status: Comments: Location: [facility] [place]; Position: Sitting Heart Rate 80 /min Status: [...] 10:53Dictation Date: 03/15/2017 11:32 [facility] Radiologic ReportETHAN NUNO [place]- [id number] (X-RAY)PATIENT OF DR. JOYNER BD: 1935 SECONDARY [...] not documented On 13-Feb-2016 10:00 Appointment; Martha uGdino M.D. Encounter Diagnosis: Problem not documented On [...]
--- OUTSIDE RECORDS SUMMARY | 2017-03-31 15:02 | XMS REPORT | Summary of Care ---
Author Author Zuri Benson APRN Organization Unknown Address [address] [place], [place] [id number] Phone Unavailable Care Team Providers Care Cashier Credit Name Role Phone Duke Salinas M.D. 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 Sustained VT (ventricular tachycardia) (427.1, I47.2) Status: Active Right forearm cellulitis (682.3, L03.113) Status: Active Dyslipidemia (272.4, E78.5) Status: Active Lung disease, chronic obstructive (496, J44.9) Status: Active Encounter for medication counseling (V65.49, [...] Status: Active Nocturia (788.43, R35.1) Status: Active Nausea (787.02, R11.0) Status: Active 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, 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) Status: Active Headache (784.0, R51) Status: Active ACC/AHA stage C heart failure with preserved ejection fraction (428.9, I50.9) Status: Active Atrial fibrillation (427.31, I48.91) Status: Active Diabetes mellitus, type 2 (250.00, E11.9) Status: Active Confusion (298.9, R41.0) Status: Active Insomnia (780.52, G47.00) Status: Active Hypertension (401.9, I10) Status: Active Intermittent epigastric abdominal pain (789.06, R10.13) Status: Active Anxiety (300.00, F41.9) Status: Active 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, 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 Shingles (053.9, B02.9) Status: Active Nonsustained ventricular tachycardia (427.1, I47.2) Status: Active Coronary artery disease (414.00, 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 Cardiomyopathy (425.4, I42.9) Status: Active 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 Jarek Salinas M.D. * Start 07-Mar-2012 Active Red Yeast Rice 600 MG Oral Tablet TAKE 2 TABLETS DAILY. * Refills: 0 Jarek Salinas M.D. * Start 07-Mar-2012 Active Gemfibrozil 600 MG Oral Tablet TAKE [...] Martha Gudino M.D. * Start 16-Sep-2015 Active TraMADol HCl - 50 MG Oral Tablet 1-2 PO every 6 hours as needed for Headache * Quantity: 50 Refills: 0 Brock Rodriguez D.O. * Start 12-Mar-2017 Active PARoxetine HCl - 20 MG Oral Tablet Take one tablet by mouth daily * Quantity: 30 Refills: 0 Zuri Benson APRN * Start 29-Mar-2017 Active Warfarin Sodium 5 MG Oral Tablet TAKE ONE TABLET BY MOUTH ONCE DAILY * Quantity: 90 Refills: 0 Jarek Salinas M.D. * Start 29-Jan-2017 Active Multiple Vitamin TABS TAKE 1 TABLET DAILY. * Quantity: 0 Refills: 0 Jarek Salinas M.D. * Start 16-Mar-2008 Active Aspir-81 81 MG Oral Tablet Delayed Release TAKE 1 TABLET DAILY. * Quantity: 0 Refills: 0 Jarek Salinas M.D. * Start 16-Mar-2008 Active Ondansetron 4 MG Oral Tablet Dispersible TAKE 1 TABLET Every 6 hours PRN nausea and vomiting * Quantity: 20 Refills: 0 Michael Ramos.Brock Rae * Start 12-Mar-2017 Active Allergies and Adverse [...] Pacemaker Placement PROTIME PANEL 7000 Ordered: 28-Jan-2017 STOOL OCCULT BLOOD PANEL (x3) 8210 Ordered: 29-Mar-2017 H. pylori Breath Test 082281 Ordered: 29-Mar-2017 PROTIME PANEL 7000 Ordered: 12-Feb-2017 Immunization Name Dates Details Td on: 22-Oct-2001 Pneumo (Pneumovax) on: 14-Sep-2006 Influenza on: 03-Sep-2008 Td Lot #: [id number] on: Influenza on: 09-Aug-2009 Influenza A (H1N1) Monoval Vac SUSP on: 28-Oct-2009 Influenza on: 29-Aug-2012 Influenza on: 05-Sep-2013 Fluzone High-Dose SUSP #1 Lot #: [id number] on: 20-Aug-2014 Prevnar 13 Intramuscular Suspension on: 21-Sep-2014 Fluzone High-Dose 0.5 ML Intramuscular Suspension Prefilled Syringe Lot #: [id number] on: 12-Aug-2015 Pneumovax 23 25 MCG/0.5ML Injection Injectable Lot #: [id number] on: 10-Aug-2016 Fluzone High-Dose 0.5 ML Intramuscular Suspension Prefilled Syringe Lot #: [id number] on: 10-Aug-2016 Family History Name Dates Details [...] smoker Vital Signs Date Test Result Details 29-Mar-2017 08:51 BP Systolic 130 mm[Hg] Status: Comments: Location: ; Position: BP Diastolic 68 mm[Hg] Status: Comments: Location: ; Position: Heart Rate 85 /min Status: Comments: Location: ; Weight 190 lb Status: Physical Findings 93 Status: Comments: O2 Saturation Body Mass Index Calculated 29.76 kg/m2 Status: Body Surface Area Calculated 1.98 m2 Status: 22-Mar-2017 14:25 BP Systolic 140 mm[Hg] Status: Comments: Location: LUE; Position: Sitting BP Diastolic 60 mm[Hg] Status: Comments: Location: LUE; Position: Sitting Heart Rate 107 /min Status: Comments: Location: ; Weight 187 lb Status: Body Mass Index Calculated 29.29 kg/m2 Status: Body Surface Area Calculated 1.97 m2 Status: 19-Mar-2017 15:25 BP Systolic 130 mm[Hg] Status: Comments: Location: ; Position: BP Diastolic 60 mm[Hg] Status: Comments: Location: ; Position: Heart Rate 80 /min Status: Comments: Location: [...] 10:53Dictation Date: 03/15/2017 11:32 [facility] Rad[facility] ReportETHAN NUNO- [id number] (X-RAY)PATIENT OF DR. 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 On 24-Feb-2018 11:15 Appointment; Provider: Zuri Benson A.P.R.N. On 14-Apr-2017 09:00 Appointment; Provider: Glenroy Joyner M.D. On 09-Apr-2017 10:45 Appointment; Provider: Jarek Salinas M.D. On 01-Apr-2017 14:15 Interventions Provided Medication Changes* ALPRAZolam 0.25 MG Oral Tablet - Stop * BusPIRone HCl - 10 MG Oral Tablet - Stop * PARoxetine HCl - 20 MG Oral Tablet - Start * Zolpidem Tartrate 10 MG Oral Tablet - Stop Labs/Procedures/Imaging* H. pylori Breath Test 643523; To be Done: 29 Mar 2017 * STOOL OCCULT BLOOD PANEL (x3) 8210; To be Done: 29 Mar 2017 Instructions Name Dates Details Instructions not documented Encounters Appointment; Jarek Salinas M.D. Encounter Diagnosis: Problem not documented On 22-Mar-2017 15:45 Appointment; Jarek Salinas M.D. Encounter Diagnosis: Problem not documented On 19-Mar-2017 15:30 Appointment; Jarek Salinas M.D. Encounter Diagnosis: Problem not documented On 16-Mar-2017 10:00 Appointment; Brock Rodriguez D.O. Encounter Diagnosis: Problem not documented On 12-Mar-2017 12:15 Appointment; Zuri Benson A.PLluviaRLester Encounter Diagnosis: Problem not documented On 01-Mar-2017 [...]
--- OUTSIDE RECORDS SUMMARY | 2017-03-31 15:02 | XMS REPORT ---
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5 MG Orally Twice a day 1 tablet with food Fish Oil [facility] [address]-93 1000 MG Orally Once a day 1 capsule Tamsulosin HCl [facility] [address]-77 0.4 MG Orally Once a day 1 capsule 30 minutes after the same meal each day Red Yeast Rice [facility] [address] 600 MG Orally QD 2 cap Warfarin Sodium [facility] [address]-35 5 MG ASDIR & 7.5 mg Amiodarone HCl [facility] [address]-12 200 MG Orally Twice a day 1 tablet Aspirin [facility] [address] 81 MG Orally Once a day 1 tablet Gemfibrozil [facility] [address]-63 600 MG Orally qd 1 tablet Procedures Procedure Coding System Code Date Office Visit, Est Pt., Level 4 CPT-4 18067 Oct 03, 2015 Ofc Program ICD Dual, Staff CPT-4 37217 Oct 03, 2015 ELECTROCARDIOGRAM, COMPLETE CPT-4 80402 Oct 03, 2015 Vital Signs Date/Time: Oct 03, 2015 BMI 29.91 Index Weight 191 lbs Height 67 in Cardiac Monitoring Heart Rate 99 /min Oximetry 95% % Blood Pressure Diastolic 60 mm Hg Blood Pressure Systolic 118 mm Hg Results Name Result Date Reference Range Unit Abnormality Flag Atria ECG Summary Purpose eClinicalWorks Submission
--- OUTSIDE RECORDS SUMMARY | 2017-03-31 15:02 | XMS REPORT ---
Author Author GENERATED, SYSTEM Organization Unknown Address Unknown Phone Unavailable Care Team Providers Care Hand Shaper Name Role Phone MD TIGRE, COLLIN PP Unavailable Reason For Visit Reason for Visit from 06/10/2015 8:42 PM:* Pt Stated Reason for Adm : Afib Chief Complaint ABRIAL FLUTTER UNCONTROLLED Social History Social History from 06/14/2015 3:47 PM:* Tobacco Use? : Never Smoker Social History from 06/10/2015 8:42 PM:* Tobacco Use? : Never Smoker Functional Status Functional Status from 06/14/2015 8:36 AM:* LOC : Alert * Oriented To : Person,Place,Time,Event * Weight Bearing Status : Full * Assist Level : Independent * # Assists : 1 Functional Status from 06/13/2015 9:09 PM:* LOC : Alert * Oriented To : Person,Place,Time * Weight Bearing Status : Full * Assist Level : Partial * # Assists : 1 Functional Status from 06/13/2015 7:22 PM:* # Assists : 1 Functional Status from 06/13/2015 5:16 PM:* # Assists : 1 Functional Status from 06/13/2015 2:29 PM:* # Assists : 1 Functional Status from 06/13/2015 7:30 AM:* LOC : Alert * Oriented To : Person,Place,Time,Event * Weight Bearing Status : Full * Assist Level : Dependent * # Assists : 1 Functional Status from 06/12/2015 8:24 PM:* LOC : Alert * Oriented To : Person,Place,Time,Event * Weight Bearing Status : Full * Assist Level : Partial * # Assists : 1 Functional Status from 06/12/2015 12:40 PM:* # Assists : 1 Functional Status from 06/12/2015 7:45 AM:* LOC : Alert * Oriented To : Person,Place,Time * Weight Bearing Status : Full * Assist Level : Partial * # Assists : 1 Functional Status from 06/12/2015 3:24 AM:* LOC : Alert * Oriented To : Person,Place,Time,Event * Weight Bearing Status : Full * Assist Level : Partial * # Assists : 1 Functional Status from 06/11/2015 7:05 PM:* LOC : Alert * Oriented To : Person,Place,Time,Event * Weight Bearing Status : Full * Assist Level : Independent * # Assists : 1 Functional Status from 06/11/2015 4:02 PM:* LOC : Alert * Oriented To : Person,Place,Time * Weight Bearing Status : Full * Assist Level : Independent * # Assists : 1 Functional Status from 06/11/2015 8:30 AM:* # Assists : 1 Functional Status from 06/11/2015 7:55 AM:* # Assists : 1 Functional Status from 06/11/2015 7:38 AM:* LOC : Alert * Oriented To : Person,Place,Time * Weight Bearing Status : Full * Assist Level : Partial * # Assists : 1 Functional Status from 06/10/2015 8:42 PM:* LOC : Alert * Oriented To : Person,Place,Time * Weight Bearing Status : Full * Assist Level : Partial * # Assists : 1 Vital Signs [facility] Vital Signs from 06/14/2015 3:25 PM:* Height : 5/7 ft,in * Temperature : 97.2 F * Pulse : 78 * Respirations : 20 * BP : 132/68 [facility] Vital Signs from 06/14/2015 11:10 AM:* Height : 5/7 ft,in * Temperature : 98.9 F * Pulse : 67 * Respirations : 20 * BP : 141/67 [facility] Vital Signs from 06/14/2015 8:36 AM:* Heart Rate : 130 [facility] Vital Signs from 06/14/2015 7:25 AM:* Height : 5/7 ft,in * Temperature : 98.6 F * Pulse : 74 * Respirations : 20 * BP : 171/80 [facility] Vital Signs from 06/14/2015 4:29 AM:* Height : 5/7 ft,in * Temperature : 97.5 F * Pulse : 71 * Respirations : 20 * BP : 157/71 [facility] Vital Signs from 06/14/2015 4:28 AM:* Weight : 88.5/ kg * Height : 5/7 ft,in [facility] Vital Signs from 06/13/2015 10:16 PM:* Height : 5/7 ft,in * Temperature : 98.9 F * Pulse : 60 * Respirations : 20 * BP : 131/61 [facility] Vital Signs from 06/13/2015 9:09 PM:* Heart Rate : 62 [facility] Vital Signs from 06/13/2015 6:39 PM:* Height : 5/7 ft,in * Temperature : 97.8 F * Pulse : 61 * Respirations : 20 * BP : 142/62 [facility] Vital Signs from 06/13/2015 3:50 PM:* Height : 5/7 ft,in * Temperature : 99.3 F * Pulse : 63 * Respirations : 20 * BP : 120/59 [facility] Vital Signs from 06/13/2015 12:27 PM:* Height : 5/7 ft,in * Temperature : 98.2 F * Pulse : 68 * Respirations : 20 * BP : 131/63 [facility] Vital Signs from 06/13/2015 12:00 PM:* Heart Rate : 61 * Resp Rate : 20 * Systolic BP (mmHg) : 118 * Diastolic BP (mmHg) : 62 * Mean BP (mmHg) : 92 * O2 Saturation (%) : 95 [facility] Vital Signs from 06/13/2015 11:30 AM:* Heart Rate : 60 [facility] Vital Signs from 06/13/2015 11:00 AM:* Heart Rate : 59 * Resp Rate : 22 * O2 Saturation (%) : 95 [facility] Vital Signs from 06/13/2015 10:30 AM:* Heart Rate : 61 * Resp Rate : 26 * Systolic BP (mmHg) : 110 * Diastolic BP (mmHg) : 66 * Mean BP (mmHg) : 87 [facility] Vital Signs from 06/13/2015 10:00 AM:* Heart Rate : 56 * Resp Rate : 23 * Systolic BP (mmHg) : 100 * Diastolic BP (mmHg) : 54 * Mean BP (mmHg) : 70 [facility] V[facility] Signs from 06/13/2015 9:30 AM:* Heart Rate : 59 * Resp Rate : 24 * Systolic BP (mmHg) : 109 * Diastolic BP (mmHg) : 90 * Mean BP (mmHg) : 94 [facility] Signs from 06/13/2015 9:00 AM:* Heart Rate : 60 * Resp Rate : 23 * Systolic BP (mmHg) : 113 * Diastolic BP (mmHg) : 66 * Mean BP (mmHg) : 69 [facility] Vital Signs from 06/13/2015 8:30 AM:* Heart Rate : 71 * Resp Rate : 24 * Systolic BP (mmHg) : 112 * Diastolic BP (mmHg) : 52 * Mean BP (mmHg) : 78 [facility] Vital Signs from 06/13/2015 8:00 AM:* Temp : 98.8 * Heart Rate : 76 * Resp Rate : 26 * Systolic BP (mmHg) : 113 * Diastolic BP (mmHg) : 92 * Mean BP (mmHg) : 100 [facility] V[facility] Signs from 06/13/2015 7:30 AM:* Heart Rate : 67 * Heart Rate : 76 * Resp Rate : 21 * Systolic BP (mmHg) : 104 * Diastolic BP (mmHg) : 50 * Mean BP (mmHg) : 65 * O2 Saturation (%) : 94 [facility] Signs from 06/13/2015 7:12 AM:* Weight : 90.3/ kg * Height : 5/7 ft,in [facility] Vital Signs from 06/13/2015 7:00 AM:* Heart Rate : 65 * Resp Rate : 25 * Systolic BP (mmHg) : 98 * Diastolic BP (mmHg) : 49 * Mean BP (mmHg) : 64 * O2 Saturation (%) : 95 [facility] Signs from 06/13/2015 6:00 AM:* Heart Rate : 64 * Resp Rate : 18 * Systolic BP (mmHg) : 75 * Diastolic BP (mmHg) : 44 * Mean BP (mmHg) : 52 * O2 Saturation (%) : 96 [facility] Signs from 06/13/2015 5:30 AM:* Heart Rate : 62 * Resp Rate : 20 * Systolic BP (mmHg) : 95 * Diastolic BP (mmHg) : 51 * Mean BP (mmHg) : 69 * O2 Saturation (%) : 95 [facility] Signs from 06/13/2015 5:00 AM:* Heart Rate : 72 * Resp Rate : 27 * Systolic BP (mmHg) : 135 * Diastolic BP (mmHg) : 69 * Mean BP (mmHg) : 101 * O2 Saturation (%) : 95 [facility] Signs from 06/13/2015 4:30 AM:* Heart Rate : 62 * Resp Rate : 16 * Systolic BP (mmHg) : 116 * Diastolic BP (mmHg) : 55 * Mean BP (mmHg) : 76 * O2 Saturation (%) : 95 [facility] Signs from 06/13/2015 4:00 AM:* Heart Rate : 65 * Resp Rate : 28 * Systolic BP (mmHg) : 130 * Diastolic BP (mmHg) : 61 * Mean BP (mmHg) : 81 * O2 Saturation (%) : 94 [facility] Signs from 06/13/2015 3:30 AM:* Heart Rate : 67 * Resp Rate : 40 * Systolic BP (mmHg) : 126 * Diastolic BP (mmHg) : 78 * Mean BP (mmHg) : 89 * O2 Saturation (%) : 93 [facility] Signs from 06/13/2015 3:00 AM:* Temp : 98.4 * Heart Rate : 59 * Resp Rate : 15 * Systolic BP (mmHg) : 119 * Diastolic BP (mmHg) : 60 * Mean BP (mmHg) : 83 * O2 Saturation (%) : 95 [facility] Signs from 06/13/2015 2:30 AM:* Heart Rate : 70 * Resp Rate : 19 * Systolic BP (mmHg) : 113 * Diastolic BP (mmHg) : 60 * Mean BP (mmHg) : 72 * O2 Saturation (%) : 94 [facility] Signs from 06/13/2015 2:00 AM:* Heart Rate : 82 * Resp Rate : 27 * Systolic BP (mmHg) : 127 * Diastolic BP (mmHg) : 70 * Mean BP (mmHg) : 103 [facility] Signs from 06/13/2015 1:30 AM:* Heart Rate : 58 * Resp Rate : 16 * Systolic BP (mmHg) : 114 * Diastolic BP (mmHg) : 52 * Mean BP (mmHg) : 82 * O2 Saturation (%) : 96 [facility] Signs from 06/13/2015 1:00 AM:* Heart Rate : 64 * Resp Rate : 19 * Systolic BP (mmHg) : 103 * Diastolic BP (mmHg) : 52 * Mean BP (mmHg) : 76 * O2 Saturation (%) : 94 [facility] Signs from 06/13/2015 12:30 AM:* Heart Rate : 78 * Resp Rate : 16 * Systolic BP (mmHg) : 130 * Diastolic BP (mmHg) : 64 * Mean BP (mmHg) : 95 [facility] Signs from 06/13/2015 12:00 AM:* Heart Rate : 65 * Resp Rate : 21 * Systolic BP (mmHg) : 117 * Diastolic BP (mmHg) : 63 * Mean BP (mmHg) : 69 * O2 Saturation (%) : 95 [facility] Signs from 06/12/2015 11:00 PM:* Temp : 98.7 * Heart Rate : 64 * Resp Rate : 29 * Systolic BP (mmHg) : 96 * Diastolic BP (mmHg) : 60 * Mean BP (mmHg) : 77 * O2 Saturation (%) : 95 [facility] Signs from 06/12/2015 10:00 PM:* Heart Rate : 65 * Resp Rate : 26 * Systolic BP (mmHg) : 138 * Diastolic BP (mmHg) : 69 * Mean BP (mmHg) : 101 * O2 Saturation (%) : 95 [facility] Signs from 06/12/2015 9:00 PM:* Heart Rate : 87 * Resp Rate : 43 * Systolic BP (mmHg) : 126 * Diastolic BP (mmHg) : 63 * Mean BP (mmHg) : 83 [facility] Signs from 06/12/2015 8:24 PM:* Heart Rate : 69 [facility]ital Signs from 06/12/2015 8:00 PM:* Heart Rate : 67 * Resp Rate : 11 * Systolic BP (mmHg) : 123 * Diastolic BP (mmHg) : 75 * Mean BP (mmHg) : 92 * O2 Saturation (%) : 96 [facility] Signs from 06/12/2015 7:00 PM:* Temp : 98.2 * Heart Rate : 60 * Resp Rate : 16 * Systolic BP (mmHg) : 110 * Diastolic BP (mmHg) : 55 * Mean BP (mmHg) : 81 * O2 Saturation (%) : 95 [facility] Signs from 06/12/2015 6:00 PM:* Heart Rate : 62 * Resp Rate : 42 * Systolic BP (mmHg) : 109 * Diastolic BP (mmHg) : 58 * Mean BP (mmHg) : 79 [facility] Signs from 06/12/2015 5:00 PM:* Heart Rate : 56 * Resp Rate : 17 * Systolic BP (mmHg) : 104 * Diastolic BP (mmHg) : 53 * Mean BP (mmHg) : 69 * O2 Saturation (%) : 94 [facility] Sign[facility] from 06/12/2015 4:00 PM:* Heart Rate : 54 * Resp Rate : 26 * Systolic BP (mmHg) : 99 * Diastolic BP (mmHg) : 46 * Mean BP (mmHg) : 63 * O2 Saturation (%) : 95 [facility] Sign[facility] from 06/12/2015 3:00 PM:* Temp : 98.6 * Heart Rate : 57 * Resp Rate : 27 * O2 Saturation (%) : 94 [facility] Sign[facility] from 06/12/2015 2:00 PM:* Heart Rate : 58 * Resp Rate : 100 * Systolic BP (mmHg) : 93 * Diastolic BP (mmHg) : 44 * Mean BP (mmHg) : 63 * O2 Saturation (%) : 94 [facility] Sign[facility] from 06/12/2015 1:00 PM:* Heart Rate : 62 * Resp Rate : 20 * Systolic BP (mmHg) : 104 * Diastolic BP (mmHg) : 47 * Mean BP (mmHg) : 65 * O2 Saturation (%) : 96 [facility] Sign[facility] from 06/12/2015 12:00 PM:* Temp : 98 * Heart Rate : 56 * Resp Rate : 30 * Systolic BP (mmHg) : 92 * Diastolic BP (mmHg) : 45 * Mean BP (mmHg) : 62 * O2 Saturation (%) : 93 [facility] Sign[facility] from 06/12/2015 11:00 AM:* Heart Rate : 54 * Resp Rate : 22 * Systolic BP (mmHg) : 75 * Diastolic BP (mmHg) : 42 * Mean BP (mmHg) : 55 * O2 Saturation (%) : 94 [facility] from 06/12/2015 10:00 AM:* Heart Rate : 69 * Resp Rate : 29 * Systolic BP (mmHg) : 103 * Diastolic BP (mmHg) : 72 * Mean BP (mmHg) : 82 * O2 Saturation (%) : 96 [facility] Sign[facility] from 06/12/2015 9:30 AM:* Heart Rate : 64 * Resp Rate : 16 * Systolic BP (mmHg) : 102 * Diastolic BP (mmHg) : 58 * Mean BP (mmHg) : 80 * O2 Saturation (%) : 95 [facility] Sign[facility] from 06/12/2015 9:00 AM:* Heart Rate : 71 * Resp Rate : 24 * Systolic BP (mmHg) : 118 * Diastolic BP (mmHg) : 48 * Mean BP (mmHg) : 73 * O2 Saturation (%) : 95 [facility] Sign[facility] from 06/12/2015 8:45 AM:* Heart Rate : 73 * Resp Rate : 23 * Systolic BP (mmHg) : 133 * Diastolic BP (mmHg) : 57 * Mean BP (mmHg) : 80 * O2 Saturation (%) : 95 [facility] Sign[facility] from 06/12/2015 8:30 AM:* Heart Rate : 62 * Resp Rate : 22 * Systolic BP (mmHg) : 105 * Diastolic BP (mmHg) : 47 * Mean BP (mmHg) : 72 * O2 Saturation (%) : 93 [facility] Sign[facility] from 06/12/2015 8:15 AM:* Heart Rate : 65 * Resp Rate : 24 * Systolic BP (mmHg) : 117 * Diastolic BP (mmHg) : 50 * Mean BP (mmHg) : 73 * O2 Saturation (%) : 93 [facility] Sign[facility] from 06/12/2015 8:00 AM:* Temp : 97.9 * Heart Rate : 64 * Resp Rate : 23 * Systolic BP (mmHg) : 68 * Diastolic BP (mmHg) : 45 * Mean BP (mmHg) : 59 * O2 Saturation (%) : 92 [facility] Sign[facility] from 06/12/2015 7:45 AM:* Heart Rate : 67 * Heart Rate : 72 * Resp Rate : 16 * Systolic BP (mmHg) : 112 * Diastolic BP (mmHg) : 81 * Mean BP (mmHg) : 86 * O2 Saturation (%) : 92 [facility] Sign[facility] from 06/12/2015 7:30 AM:* Heart Rate : 65 * Resp Rate : 30 * Systolic BP (mmHg) : 110 * Diastolic BP (mmHg) : 46 * Mean BP (mmHg) : 66 * O2 Saturation (%) : 94 [facility] Sign[facility] from 06/12/2015 7:15 AM:* Heart Rate : 66 * Resp Rate : 10 * Systolic BP (mmHg) : 103 * Diastolic BP (mmHg) : 59 * Mean BP (mmHg) : 70 * O2 Saturation (%) : 93 [facility] Sign[facility] from 06/12/2015 7:00 AM:* Heart Rate : 68 * Resp Rate : 24 * Systolic BP (mmHg) : 102 * Diastolic BP (mmHg) : 62 * Mean BP (mmHg) : 66 * O2 Saturation (%) : 96 [facility] Sign[facility] from 06/12/2015 3:45 AM:* Heart Rate : 79 * Resp Rate : 20 * Systolic BP (mmHg) : 102 * Diastolic BP (mmHg) : 49 * Mean BP (mmHg) : 64 * O2 Saturation (%) : 96 [facility] Sign[facility] from 06/12/2015 3:30 AM:* Heart Rate : 71 * Resp Rate : 11 * Systolic BP (mmHg) : 110 * Diastolic BP (mmHg) : 47 * Mean BP (mmHg) : 64 * O2 Saturation (%) : 96 [facility] Sign[facility] from 06/12/2015 3:24 AM:* Heart Rate : 71 [facility] Signs from 06/12/2015 3:17 AM:* Weight : 89.8/ kg * Height : 5/7 ft,in [facility] Signs from 06/12/2015 3:15 AM:* Heart Rate : 68 * Resp Rate : 19 * Systolic BP (mmHg) : 102 * Diastolic BP (mmHg) : 48 * Mean BP (mmHg) : 69 * O2 Saturation (%) : 96 [facility] Sign[facility] from 06/12/2015 3:00 AM:* Heart Rate : 72 * Resp Rate : 22 * Systolic BP (mmHg) : 97 * Diastolic BP (mmHg) : 43 * Mean BP (mmHg) : 57 * O2 Saturation (%) : 97 [facility] Sign[facility] from 06/12/2015 2:45 AM:* Heart Rate : 63 * Resp Rate : 14 * Systolic BP (mmHg) : 88 * Diastolic BP (mmHg) : 41 * Mean BP (mmHg) : 56 * O2 Saturation (%) : 94 [facility] Sign[facility] from 06/12/2015 2:30 AM:* Heart Rate : 67 * Resp Rate : 16 * Systolic BP (mmHg) : 91 * Diastolic BP (mmHg) : 41 * Mean BP (mmHg) : 56 * O2 Saturation (%) : 93 [facility] Sign[facility] from 06/12/2015 2:15 AM:* Heart Rate : 68 * Resp Rate : 9 * Systolic BP (mmHg) : 100 * Diastolic BP (mmHg) : 71 * Mean BP (mmHg) : 79 * O2 Saturation (%) : 95 [facility] Sign[facility] from 06/12/2015 2:00 AM:* Heart Rate : 68 * Resp Rate : 27 * Systolic BP (mmHg) : 76 * Diastolic BP (mmHg) : 38 * Mean BP (mmHg) : 53 * O2 Saturation (%) : 93 [facility] Sign[facility] from 06/12/2015 1:45 AM:* Heart Rate : 69 * Resp Rate : 10 * Systolic BP (mmHg) : 111 * Diastolic BP (mmHg) : 74 * Mean BP (mmHg) : 87 * O2 Saturation (%) : 92 [facility] Sign[facility] from 06/12/2015 1:30 AM:* Heart Rate : 75 * Resp Rate : 14 * Systolic BP (mmHg) : 109 * Diastolic BP (mmHg) : 51 * Mean BP (mmHg) : 69 * O2 Saturation (%) : 92 [facility] Sign[facility] from 06/12/2015 1:15 AM:* Heart Rate : 77 * Resp Rate : 23 * Systolic BP (mmHg) : 89 * Diastolic BP (mmHg) : 51 * Mean BP (mmHg) : 73 * O2 Saturation (%) : 93 [facility] Sign[facility] from 06/12/2015 1:00 AM:* Resp Rate : 18 * Systolic BP (mmHg) : 115 * Diastolic BP (mmHg) : 103 * Mean BP (mmHg) : 107 * O2 Saturation (%) : 96 [facility] Sign[facility] from 06/12/2015 12:45 AM:* Resp Rate : 27 * Systolic BP (mmHg) : 104 * Diastolic BP (mmHg) : 79 * Mean BP (mmHg) : 87 * O2 Saturation (%) : 92 [facility] Sign[facility] from 06/12/2015 12:30 AM:* Heart Rate : 71 * Resp Rate : 18 * Systolic BP (mmHg) : 103 * Diastolic BP (mmHg) : 46 * Mean BP (mmHg) : 64 * O2 Saturation (%) : 95 [facility] from 06/12/2015 12:15 AM:* Heart Rate : 72 * Resp Rate : 13 * Systolic BP (mmHg) : 88 * Diastolic BP (mmHg) : 45 * Mean BP (mmHg) : 57 * O2 Saturation (%) : 96 [facility] Sign[facility] from 06/12/2015 12:00 AM:* Heart Rate : 70 * Resp Rate : 13 * Systolic BP (mmHg) : 102 * Diastolic BP (mmHg) : 44 * Mean BP (mmHg) : 63 * O2 Saturation (%) : 96 [facility] Sign[facility] from 06/11/2015 11:45 PM:* Heart Rate : 66 * Resp Rate : 16 * Systolic BP (mmHg) : 98 * Diastolic BP (mmHg) : 44 * Mean BP (mmHg) : 62 * O2 Saturation (%) : 95 [facility] from 06/11/2015 11:30 PM:* Heart Rate : 72 * Resp Rate : 16 * Systolic BP (mmHg) : 92 * Diastolic BP (mmHg) : 42 * Mean BP (mmHg) : 64 * O2 Saturation (%) : 97 [facility] Sign[facility] from 06/11/2015 11:15 PM:* Heart Rate : 65 * Resp Rate : 16 * Systolic BP (mmHg) : 96 * Diastolic BP (mmHg) : 45 * Mean BP (mmHg) : 67 * O2 Saturation (%) : 94 [facility] from 06/11/2015 11:00 PM:* Heart Rate : 64 * Resp Rate : 18 * Systolic BP (mmHg) : 106 * Diastolic BP (mmHg) : 46 * Mean BP (mmHg) : 65 * O2 Saturation (%) : 95 [facility] from 06/11/2015 10:45 PM:* Heart Rate : 70 * Resp Rate : 10 * Systolic BP (mmHg) : 89 * Diastolic BP (mmHg) : 42 * Mean BP (mmHg) : 57 * O2 Saturation (%) : 96 [facility] from 06/11/2015 10:30 PM:* Heart Rate : 67 * Resp Rate : 18 * Systolic BP (mmHg) : 98 * Diastolic BP (mmHg) : 41 * Mean BP (mmHg) : 65 * O2 Saturation (%) : 95 [facility] from 06/11/2015 10:15 PM:* Heart Rate : 67 * Resp Rate : 21 * Systolic BP (mmHg) : 94 * Diastolic BP (mmHg) : 39 * Mean BP (mmHg) : 59 * O2 Saturation (%) : 95 [facility] from 06/11/2015 10:00 PM:* Heart Rate : 70 * Resp Rate : 19 * Systolic BP (mmHg) : 85 * Diastolic BP (mmHg) : 44 * Mean BP (mmHg) : 53 * O2 Saturation (%) : 96 [facility] from 06/11/2015 9:45 PM:* Heart Rate : 63 * Resp Rate : 15 * Systolic BP (mmHg) : 85 * Diastolic BP (mmHg) : 39 * Mean BP (mmHg) : 51 * O2 Saturation (%) : 94 [facility] from 06/11/2015 9:30 PM:* Heart Rate : 59 * Resp Rate : 17 * Systolic BP (mmHg) : 87 * Diastolic BP (mmHg) : 41 * Mean BP (mmHg) : 56 * O2 Saturation (%) : 94 [facility] from 06/11/2015 9:15 PM:* Heart Rate : 55 * Resp Rate : 18 * Systolic BP (mmHg) : 93 * Diastolic BP (mmHg) : 49 * Mean BP (mmHg) : 61 * O2 Saturation (%) : 94 [facility] from 06/11/2015 9:00 PM:* Heart Rate : 67 * Resp Rate : 28 * Systolic BP (mmHg) : 105 * Diastolic BP (mmHg) : 46 * Mean BP (mmHg) : 64 * O2 Saturation (%) : 97 [facility] from 06/11/2015 8:45 PM:* Heart Rate : 67 * Resp Rate : 20 * Systolic BP (mmHg) : 103 * Diastolic BP (mmHg) : 45 * Mean BP (mmHg) : 64 * O2 Saturation (%) : 96 [facility] from 06/11/2015 8:30 PM:* Heart Rate : 68 * Resp Rate : 10 * Systolic BP (mmHg) : 111 * Diastolic BP (mmHg) : 77 * Mean BP (mmHg) : 81 * O2 Saturation (%) : 97 [facility] from 06/11/2015 8:15 PM:* Heart Rate : 57 * Resp Rate : 7 * Systolic BP (mmHg) : 112 * Diastolic BP (mmHg) : 51 * Mean BP (mmHg) : 66 * O2 Saturation (%) : 96 [facility] from 06/11/2015 8:00 PM:* Heart Rate : 57 * Resp Rate : 21 * Systolic BP (mmHg) : 97 * Diastolic BP (mmHg) : 61 * Mean BP (mmHg) : 75 * O2 Saturation (%) : 97 [facility] from 06/11/2015 7:45 PM:* Heart Rate : 57 * Resp Rate : 15 * Systolic BP (mmHg) : 81 * Diastolic BP (mmHg) : 49 * Mean BP (mmHg) : 66 * O2 Saturation (%) : 97 [facility] from 06/11/2015 7:30 PM:* Heart Rate : 60 * Resp Rate : 12 * Systolic BP (mmHg) : 103 * Diastolic BP (mmHg) : 55 * Mean BP (mmHg) : 64 * O2 Saturation (%) : 96 [facility] from 06/11/2015 7:15 PM:* Heart Rate : 56 * Resp Rate : 22 * O2 Saturation (%) : 100 [facility] from 06/11/2015 7:00 PM:* Temp : 98.3 * Heart Rate : 57 * Resp Rate : 24 * Systolic BP (mmHg) : 103 * Diastolic BP (mmHg) : 42 * Mean BP (mmHg) : 63 * O2 Saturation (%) : 99 [facility] from 06/11/2015 6:55 PM:* Heart Rate : 50 * Resp Rate : 17 * Systolic BP (mmHg) : 63 * Diastolic BP (mmHg) : 46 * Mean BP (mmHg) : 55 * O2 Saturation (%) : 98 [facility] from 06/11/2015 6:50 PM:* Heart Rate : 50 * Resp Rate : 14 * O2 Saturation (%) : 99 [facility] from 06/11/2015 6:45 PM:* Heart Rate : 50 * Resp Rate : 19 * O2 Saturation (%) : 98 [facility] from 06/11/2015 6:40 PM:* Heart Rate : 55 * Resp Rate : 12 * Systolic BP (mmHg) : 98 * Diastolic BP (mmHg) : 48 * Mean BP (mmHg) : 67 * O2 Saturation (%) : 97 [facility] from 06/11/2015 6:30 PM:* Heart Rate : 52 * Resp Rate : 28 * Systolic BP (mmHg) : 90 * Diastolic BP (mmHg) : 44 * Mean BP (mmHg) : 55 * O2 Saturation (%) : 98 [facility] from 06/11/2015 6:25 PM:* Heart Rate : 51 * Resp Rate : 20 * O2 Saturation (%) : 99 [facility] from 06/11/2015 6:20 PM:* Heart Rate : 49 * Resp Rate : 22 * Systolic BP (mmHg) : 71 * Diastolic BP (mmHg) : 42 * Mean BP (mmHg) : 51 * O2 Saturation (%) : 98 [facility] from 06/11/2015 6:15 PM:* Heart Rate : 47 * Resp Rate : 19 * O2 Saturation (%) : 96 [facility] from 06/11/2015 6:10 PM:* Heart Rate : 47 * Resp Rate : 16 * Systolic BP (mmHg) : 63 * Diastolic BP (mmHg) : 42 * Mean BP (mmHg) : 53 * O2 Saturation (%) : 97 [facility] from 06/11/2015 6:05 PM:* Heart Rate : 46 * Resp Rate : 16 * O2 Saturation (%) : 98 [facility] from 06/11/2015 6:00 PM:* Heart Rate : 46 * Resp Rate : 19 * Systolic BP (mmHg) : 69 * Diastolic BP (mmHg) : 39 * Mean BP (mmHg) : 47 * O2 Saturation (%) : 96 [facility] from 06/11/2015 5:55 PM:* Heart Rate : 42 * Resp Rate : 17 * O2 Saturation (%) : 96 [facility] from 06/11/2015 5:50 PM:* Heart Rate : 46 * Resp Rate : 25 * Systolic BP (mmHg) : 70 * Diastolic BP (mmHg) : 38 * Mean BP (mmHg) : 48 * O2 Saturation (%) : 95 [facility] from 06/11/2015 5:45 PM:* Heart Rate : 45 * Resp Rate : 21 * O2 Saturation (%) : 96 [facility] from 06/11/2015 5:40 PM:* Heart Rate : 53 * Resp Rate : 18 * Systolic BP (mmHg) : 65 * Diastolic BP (mmHg) : 37 * Mean BP (mmHg) : 47 * O2 Saturation (%) : 94 [facility] from 06/11/2015 5:35 PM:* Heart Rate : 46 * Resp Rate : 12 * Systolic BP (mmHg) : 67 * Diastolic BP (mmHg) : 37 * Mean BP (mmHg) : 46 * O2 Saturation (%) : 96 [facility] from 06/11/2015 5:30 PM:* Heart Rate : 45 * Resp Rate : 15 * Systolic BP (mmHg) : 62 * Diastolic BP (mmHg) : 39 * Mean BP (mmHg) : 46 * O2 Saturation (%) : 92 [facility] from 06/11/2015 5:25 PM:* Heart Rate : 46 * Resp Rate : 8 * Systolic BP (mmHg) : 68 * Diastolic BP (mmHg) : 40 * Mean BP (mmHg) : 49 * O2 Saturation (%) : 96 [facility] from 06/11/2015 5:20 PM:* Heart Rate : 45 * Resp Rate : 14 * Systolic BP (mmHg) : 64 * Diastolic BP (mmHg) : 41 * Mean BP (mmHg) : 48 * O2 Saturation (%) : 96 [facility] from 06/11/2015 5:15 PM:* Heart Rate : 50 * Resp Rate : 14 * Systolic BP (mmHg) : 75 * Diastolic BP (mmHg) : 58 * Mean BP (mmHg) : 63 * O2 Saturation (%) : 96 [facility] from 06/11/2015 5:10 PM:* Heart Rate : 46 * Resp Rate : 15 * Systolic BP (mmHg) : 104 * Diastolic BP (mmHg) : 79 * Mean BP (mmHg) : 83 * O2 Saturation (%) : 95 [facility] from 06/11/2015 5:05 PM:* Heart Rate : 47 * Resp Rate : 11 * Systolic BP (mmHg) : 108 * Diastolic BP (mmHg) : 85 * Mean BP (mmHg) : 93 * O2 Saturation (%) : 93 [facility] from 06/11/2015 5:00 PM:* Heart Rate : 46 * Resp Rate : 23 * Systolic BP (mmHg) : 63 * Diastolic BP (mmHg) : 39 * Mean BP (mmHg) : 47 * O2 Saturation (%) : 93 [facility] from 06/11/2015 4:45 PM:* Heart Rate : 44 * Resp Rate : 17 * Systolic BP (mmHg) : 67 * Diastolic BP (mmHg) : 39 * Mean BP (mmHg) : 48 * O2 Saturation (%) : 94 [facility] from 06/11/2015 4:30 PM:* Heart Rate : 72 * Resp Rate : 24 * Systolic BP (mmHg) : 83 * Diastolic BP (mmHg) : 56 * Mean BP (mmHg) : 63 * O2 Saturation (%) : 93 [facility] from 06/11/2015 4:02 PM:* Heart Rate : 132 [facility] from 06/11/2015 3:30 PM:* Temp : 98 * Heart Rate : 70 * Resp Rate : 25 * Systolic BP (mmHg) : 114 * Diastolic BP (mmHg) : 57 * Mean BP (mmHg) : 68 [facility] from 06/11/2015 3:00 PM:* Systolic BP (mmHg) : 120 * Diastolic BP (mmHg) : 63 * Mean BP (mmHg) : 76 [facility] from 06/11/2015 2:30 PM:* Systolic BP (mmHg) : 95 * Diastolic BP (mmHg) : 65 * Mean BP (mmHg) : 80 [facility] from 06/11/2015 2:00 PM:* Systolic BP (mmHg) : 114 * Diastolic BP (mmHg) : 86 * Mean BP (mmHg) : 98 [facility] from 06/11/2015 1:30 PM:* Heart Rate : 57 * Resp Rate : 22 * Systolic BP (mmHg) : 108 * Diastolic BP (mmHg) : 63 * Mean BP (mmHg) : 83 [facility] from 06/11/2015 1:00 PM:* Heart Rate : 57 * Resp Rate : 20 * Systolic BP (mmHg) : 117 * Diastolic BP (mmHg) : 71 * Mean BP (mmHg) : 86 * O2 Saturation (%) : 97 [facility] from 06/11/2015 12:30 PM:* Resp Rate : 24 * Systolic BP (mmHg) : 121 * Diastolic BP (mmHg) : 84 * Mean BP (mmHg) : 93 * O2 Saturation (%) : 96 [facility] from 06/11/2015 12:00 PM:* Temp : 98.2 * Heart Rate : 68 * Resp Rate : 22 * Systolic BP (mmHg) : 112 * Diastolic BP (mmHg) : 58 * Mean BP (mmHg) : 88 * O2 Saturation (%) : 97 [facility] Vital Signs from 06/11/2015 11:30 AM:* Heart Rate : 69 * Resp Rate : 26 * Systolic BP (mmHg) : 113 * Diastolic BP (mmHg) : 55 * Mean BP (mmHg) : 79 * O2 Saturation (%) : 96 Hospital Vital Signs from 06/11/2015 11:00 AM:* Heart Rate : 65 * Resp Rate : 14 * Systolic BP (mmHg) : 110 * Diastolic BP (mmHg) : 69 * Mean BP (mmHg) : 81 * O2 Saturation (%) : 95 Hospital Vital Signs from 06/11/2015 10:42 AM:* Weight : 88.9/ kg * Height : 5/7 ft,in Hospital Vital Signs from 06/11/2015 10:30 AM:* Heart Rate : 133 * Resp Rate : 12 * Systolic BP (mmHg) : 141 * Diastolic BP (mmHg) : 93 * Mean BP (mmHg) : 103 * O2 Saturation (%) : 96 Hospital Vital Signs from 06/11/2015 10:00 AM:* Heart Rate : 46 * Resp Rate : 19 * Systolic BP (mmHg) : 99 * Diastolic BP (mmHg) : 66 * Mean BP (mmHg) : 80 * O2 Saturation (%) : 97 Hospital Vital Signs from 06/11/2015 9:45 AM:* Heart Rate : 61 * Resp Rate : 26 * O2 Saturation (%) : 97 Hospital Vital Signs from 06/11/2015 9:30 AM:* Heart Rate : 56 * Resp Rate : 17 * Systolic BP (mmHg) : 119 * Diastolic BP (mmHg) : 52 * Mean BP (mmHg) : 81 * O2 Saturation (%) : 96 Hospital Vital Signs from 06/11/2015 9:15 AM:* Heart Rate : 134 * Resp Rate : 17 * O2 Saturation (%) : 96 Hospital Vital Signs from 06/11/2015 9:14 AM:* Pulse : 133 Hospital Vital Signs from 06/11/2015 9:00 AM:* Heart Rate : 60 * Resp Rate : 23 * Systolic BP (mmHg) : 123 * Diastolic BP (mmHg) : 70 * Mean BP (mmHg) : 91 * O2 Saturation (%) : 97 Hospital Vital Signs from 06/11/2015 8:30 AM:* Heart Rate : 68 * Resp Rate : 24 * Systolic BP (mmHg) : 142 * Diastolic BP (mmHg) : 77 * Mean BP (mmHg) : 105 * O2 Saturation (%) : 98 Hospital Vital Signs from 06/11/2015 8:00 AM:* Temp : 97.9 * Heart Rate : 73 * Resp Rate : 35 * Systolic BP (mmHg) : 83 * Diastolic BP (mmHg) : 69 * Mean BP (mmHg) : 76 * O2 Saturation (%) : 95 Hospital Vital Signs from 06/11/2015 7:38 AM:* Heart Rate : 59 Hospital Vital Signs from 06/11/2015 7:30 AM:* Heart Rate : 53 * Resp Rate : 25 * Systolic BP (mmHg) : 128 * Diastolic BP (mmHg) : 76 * Mean BP (mmHg) : 97 * O2 Saturation (%) : 96 Hospital Vital Signs from 06/11/2015 7:15 AM:* Heart Rate : 49 * Resp Rate : 23 * Systolic BP (mmHg) : 113 * Diastolic BP (mmHg) : 61 * Mean BP (mmHg) : 77 * O2 Saturation (%) : 98 Hospital Vital Signs from 06/11/2015 7:00 AM:* Heart Rate : 55 * Resp Rate : 16 * Systolic BP (mmHg) : 121 * Diastolic BP (mmHg) : 63 * Mean BP (mmHg) : 88 * O2 Saturation (%) : 97 Hospital Vital Signs from 06/11/2015 4:53 AM:* Weight : 88.9/ kg * Height : 5/7 ft,in Hospital Vital Signs from 06/11/2015 4:00 AM:* Heart Rate : 51 * Resp Rate : 16 * Systolic BP (mmHg) : 99 * Diastolic BP (mmHg) : 48 * Mean BP (mmHg) : 72 * O2 Saturation (%) : 96 Hospital Vital Signs from 06/11/2015 3:00 AM:* Heart Rate : 51 * Resp Rate : 19 * Systolic BP (mmHg) : 87 * Diastolic BP (mmHg) : 54 * Mean BP (mmHg) : 70 * O2 Saturation (%) : 96 Hospital Vital Signs from 06/11/2015 2:00 AM:* Heart Rate : 51 * Resp Rate : 19 * Systolic BP (mmHg) : 94 * Diastolic BP (mmHg) : 47 * Mean BP (mmHg) : 83 * O2 Saturation (%) : 95 Hospital Vital Signs from 06/11/2015 1:00 AM:* Heart Rate : 46 * Resp Rate : 18 * O2 Saturation (%) : 96 Hospital Vital Signs from 06/11/2015 12:00 AM:* Heart Rate : 144 * Resp Rate : 0 * Systolic BP (mmHg) : 103 * Diastolic BP (mmHg) : 68 * Mean BP (mmHg) : 80 * O2 Saturation (%) : 95 Hospital Vital Signs from 06/10/2015 11:00 PM:* Temp : 98.6 * Heart Rate : 143 * Resp Rate : 14 * Systolic BP (mmHg) : 86 * Diastolic BP (mmHg) : 66 * Mean BP (mmHg) : 74 * O2 Saturation (%) : 97 Hospital Vital Signs from 06/10/2015 10:00 PM:* Heart Rate : 148 * Resp Rate : 11 * Systolic BP (mmHg) : 109 * Diastolic BP (mmHg) : 74 * Mean BP (mmHg) : 86 * O2 Saturation (%) : 96 Hospital Vital Signs from 06/10/2015 9:00 PM:* Heart Rate : 146 * Resp Rate : 10 * Systolic BP (mmHg) : 117 * Diastolic BP (mmHg) : 86 * Mean BP (mmHg) : 94 * O2 Saturation (%) : 98 Hospital Vital Signs from 06/10/2015 8:42 PM:* Weight : 88.6/ kg * Height : 5/7 ft,in Hospital Vital Signs from 06/10/2015 8:00 PM:* Temp : 98.8 * Heart Rate : 149 * Resp Rate : 9 * O2 Saturation (%) : 98 Results Chemistry from 06/13/2015 3:48 AMSODIUM 134 MMOL/L L (136-145 MMOL/L) POTASSIUM 4.2 MMOL/L (3.5-5.1 MMOL/L) CHLORIDE 104 MMOL/L (98-107 MMOL/L) TCO2 24.3 MMOL/L (21.0-32.0 MMOL/L) ANION GAP 5.7 MMOL/L L (8.0-16.0 MMOL/L) BUN 18 MG/DL (7-18 MG/DL) CREATININE 1.04 MG/DL (0.63-1.13 MG/DL) BUN/CREATININE RATIO 17.3 H (9.1-17.0 ) GLUCOSE 175 MG/DL H (65-99 MG/DL) GFR EST NON AFR GHANAIAN 67 ML/MIN GFRA EST AFR AMER 78 ML/MIN CALCIUM 8.6 MG/DL (8.5-10.1 MG/DL) BILIRUBIN TOTAL 0.67 MG/DL (0.20-1.00 MG/DL) TOTAL PROTEIN 6.5 GM/DL (6.4-8.2 GM/DL) ALBUMIN 3.1 GM/DL L (3.4-5.0 GM/DL) GLOBULIN 3.4 GM/DL (2.3-3.5 GM/DL) A/G RATIO 0.9 MG/DL L (1.5-2.2 MG/DL) ALK PHOS 68 U/L (46-116 U/L) ALT (SGPT) 20 U/L (14-59 U/L) AST (SGOT) 27 U/L (15-37 U/L) MAGNESIUM 2.2 MG/DL (1.8-2.4 MG/DL) Chemistry from 06/12/2015 10:14 PMMAGNESIUM 2.0 MG/DL (1.8-2.4 MG/DL) Chemistry from 06/11/2015 3:48 AMSODIUM 139 MMOL/L (136-145 MMOL/L) POTASSIUM 4.0 MMOL/L (3.5-5.1 MMOL/L) CHLORIDE 105 MMOL/L (98-107 MMOL/L) TCO2 24.3 MMOL/L (21.0-32.0 MMOL/L) ANION GAP 9.7 MMOL/L (8.0-16.0 MMOL/L) BUN 22 MG/DL H (7-18 MG/DL) CREATININE 1.08 MG/DL (0.63-1.13 MG/DL) BUN/CREATININE RATIO 20.4 H (9.1-17.0 ) GLUCOSE 175 MG/DL H (65-99 MG/DL) GFR EST NON AFR GHANAIAN 64 ML/MIN GFRA EST AFR AMER 74 ML/MIN CALCIUM 8.4 MG/DL L (8.5-10.1 MG/DL) BILIRUBIN TOTAL 0.63 MG/DL (0.20-1.00 MG/DL) TOTAL PROTEIN 6.6 GM/DL (6.4-8.2 GM/DL) ALBUMIN 3.3 GM/DL L (3.4-5.0 GM/DL) GLOBULIN 3.3 GM/DL (2.3-3.5 GM/DL) A/G RATIO 1.0 MG/DL L (1.5-2.2 MG/DL) ALK PHOS 73 U/L (46-116 U/L) ALT (SGPT) 19 U/L (14-59 U/L) AST (SGOT) 18 U/L (15-37 U/L) TROPONIN-I <0.04 (SEE BELOW ) TSH 1.72 UIU/ML (0.34-4.82 UIU/ML) CK 68 U/L (39-308 U/L) Chemistry from 06/10/2015 10:17 PMTROPONIN-I 0.05 (SEE BELOW ) CK 74 U/L (39-308 U/L) Hematology from 06/13/2015 3:48 AMWBC 11.4 X10e3/UL H (3.6-11.2 X10e3/UL) RBC 4.60 X10e6/UL (4.06-5.63 X10e6/UL) HEMOGLOBIN 14.2 G/DL (12.5-16.3 G/DL) HEMATOCRIT 42.4 % (36.7-47.1 %) MCV 92.1 FL (80.0-100.0 FL) MCH 30.9 PG (27.0-33.0 PG) MCHC 33.6 G/DL (32.0-36.0 G/DL) RDW 14.1 % (12.3-17.0 %) RDWSD 44.6 (37.1-47.8 ) PLATELET 224 X10e3/UL (159-386 X10e3/UL) MPV 7.3 FL L (7.4-10.4 FL) Hematology from 06/11/2015 3:48 AMWBC 10.1 X10e3/UL (3.6-11.2 X10e3/UL) RBC 5.00 X10e6/UL (4.06-5.63 X10e6/UL) HEMOGLOBIN 15.7 G/DL (12.5-16.3 G/DL) HEMATOCRIT 46.2 % (36.7-47.1 %) MCV 92.6 FL (80.0-100.0 FL) MCH 31.3 PG (27.0-33.0 PG) MCHC 33.8 G/DL (32.0-36.0 G/DL) RDW 13.7 % (12.3-17.0 %) RDWSD 43.8 (37.1-47.8 ) PLATELET 284 X10e3/UL (159-386 X10e3/UL) MPV 7.0 FL L (7.4-10.4 FL) Coagulation from 06/13/2015 3:48 AMPROTHROMBIN TIME 20.0 SECONDS H (9.4-11.5 SECONDS) INR 1.8 H (0.9-1.1 ) Coagulation from 06/12/2015 3:44 AMPARTIAL THROMBOPLASTIN TIME 53.0 SECONDS H ( 23.0-31.0 SECONDS) Coagulation from 06/11/2015 3:48 AMPARTIAL THROMBOPLASTIN TIME 59.5 SECONDS H ( 23.0-31.0 SECONDS) Coagulation from 06/10/2015 11:32 PMPARTIAL THROMBOPLASTIN TIME 69.7 SECONDS H ( 23.0-31.0 SECONDS) Echocardiology from 06/13/2015 12:00 AMEchocardiogram See also the report from this date DX Radiology from 06/11/2015 5:20 AMCHEST 1 VIEW History: new rapid heart rhythm Priors: 06/10/15 Findings: There postoperative mediastinal changes. The cardiac silhouette normal limits. Again, there is obscuration of the left heart border. A lingular infiltrate is not excluded Impression: Cardiomegaly and obscuration of the cardiac apex. A lingular infiltrate is not excluded. Electronically signed by: Emiliano Moon MD Dictated: 06/11/2015 08:10 Nuclear Medicine from 06/14/2015 12:33 PMMYOCARDIAL PERFUSION PHARMACOLOGICAL History: VTACH. Technique: The patient was given 10.5 millicuries of Tc99m Myoview and spect images were obtained of the heart. The patient was then stressed with 0.4mg intravenous lexiscan per protocol and given a second injection of 30.2 millicuries of Tc99m Myoview. Gated spect images were then obtained of the heart. Priors: None. Findings: When comparing the stress and rest images, there is no evidence of chronic infrct or stress induced ischemia.Left ventricular ejection fraction measures 59%. Impression: No evidence of chronic infarct or stress induced ischemia Left ventricular ejection fraction of 59%. Electronically signed by: Emiliano Moon MD Dictated: 06/14/2015 15:15 Problems Encounter Diagnosis * Atrial Flutter Status:Active. * Diabetes Mellitus Status:Active. * Fall Risk Comment:Problem resolved by [facility] Work[employer] upon Discharge, Status: Resolved. * History of Atrial Fibrillation Status:Active. * History of Coronary Artery Bypass Grafting Status:Active. * History of Raised Blood Lipids Status:Active. * Mobility Impairment Status:Active. Encounters Encounter Diagnosis * Atrial Flutter Status:Active. * Diabetes Mellitus Status:Active. * Fall Risk Comment:Problem resolved by [facility] Work[employer] upon Discharge, Status: Resolved. * History of Atrial Fibrillation Status:Active. * History of Coronary Artery Bypass Grafting Status:Active. * History of Raised Blood Lipids Status:Active. * Mobility Impairment Status:Active. Plan of Care Follow-up Appointments from 06/14/2015 3:47 PM:* #1 Office appointment: : Dr. Landeros * #1 Date/Time : 06/21/2015 10:45 AM * Address # 1 : [facility]: [facility] [place]- or * #2 Office appointment: : Dr. Gudino * #2 Date/Time : 06/21/2015 2:15 AM * Address # 2 : [facility]: [facility] [place]- [phone] or Treatment Plan from 06/14/2015 1:10 PM:* Care Management Note : Patient had an episode of Vtach, and a stress test is ordered. Metoprolol was increased on and was changed to PO amiodarone. Will continue to follow. Treatment Plan from 06/13/2015 10:55 AM:* Care Management Note : Farmworker General rounded w/ Dr. Yessenia Gudino. Patient had runs of a wide complex tachycardia overnight of unknown etiology. Due to arrhythmias noted above, Dr. Gudino feels that patient should not be discharge to home today. Will transfer to [facility] for further telemetry monitoring. Farmworker General in to speak w/ patient et spouse. Explained need to stay. Verbalized understanding. Treatment Plan from 06/11/2015 2:27 PM:* Care Management Note : Discharge planning discussed with patient. He lives with spouse and plans to return home at discharge. Patient denies need for assistance at home, stating he manages his own care needs. Transitional care, home health, private care options all offered. Patient declines any services. Treatment Plan from 06/11/2015 10:26 AM:* Care Management Note : Patient admitted into ICU due to Uncontrolled Atrial Flutter. Patient currently being treated with IVF, Cardizem drip, Heparin drip, and cardio consult. Plan of care is expected to exceed 2 midnights at this time. Procedures No relevant procedures performed. Immunizations No immunizations administered or ordered. Hospital Course Hospital Discharge Instructions How to care for yourself at home from 06/14/2015 3:47 PM:* Discharge Activity : Activity as tolerated,May Shower,Do not engage in sports, heavy work or heavy lifting until your physician gives permission * Discharge Diet : Modification as given by physician * Discharge Diet: : Diabetic, low sodium * Call your doctor if: : Fever over 101 F or severe chills,Chest pain or other unexplained symptoms,Tingling or numbness develops,A sudden increase or decrease in weight,You have persistent or worsening symptoms,If you have Heart Failure and you gain 3 pounds within 1 week or your symptoms worsen. (Weigh at home tomorrow morning) * Specific Discharge Teaching Instructions provided: : Yes * Discharge on Warfarin : Yes * Appointment for INR : 1 week Allergies, Adverse Reactions, Alerts * No Latex Allergy. * No IV Contrast Allergy. * No Known Drug Allergies. Medication It is the responsibility of the patient or patient printing sales representative to confirm the list of medications with either the patient's personal care provider or the patient's follow-up care provider to ensure the patient has an appropriate list of medications to take at home. Discharge medications New medications* amiodarone 200 mg Tablet, Ordered By: COLLIN LANDEROS MD Directions: 1 tablet oral twice a day * omega-3 fatty acids-fish oil (Fish Oil) 340 mg-1,000 mg Capsule, Ordered By: COLLIN LANDEROS MD Directions: 1 capsule oral daily with breakfast * metoprolol succinate 25 mg Tablet Extended Release 24 hr, Ordered By: COLLIN LANDEROS MD Directions: 1 tablet oral daily Continued medications* aspirin 81 mg tablet,delayed release (DR/EC), Ordered By : COLLIN LANDEROS MD Directions: 1 tablet oral daily * gemfibrozil 600 mg Tablet, Ordered By: COLLIN LANDEROS MD Directions: 1 tablet oral daily at bedtime * lisinopril 5 mg Tablet, Ordered By: COLLIN LANDEROS MD Directions: 1 tablet oral daily * metFORMIN 1,000 mg Tablet, Ordered By: COLLIN LANDEROS MD Directions: 0.5 tablet oral twice a day * multivitamin with foLIC Acid (One Daily Multivitamin) 400 mcg Tablet, Ordered By: COLLIN LANDEROS MD Directions: 1 tablet oral daily * omega-3 fatty acids (Fish Oil) 500 mg Capsule, Ordered By: COLLIN LANDEROS MD Directions: 2 capsule oral daily * red yeast rice 600 mg Capsule, Ordered By: COLLIN LANDEROS MD Directions: 2 capsule oral daily * tamsuLOSIN 0.4 mg capsule,extended release 24hr, Ordered By: COLLIN LANDEROS MD Directions: 1 capsule oral daily * warfarin 5 mg Tablet, Ordered By: COLLIN LANDEROS MD Directions: 1 tablet oral daily Stopped medications* None
--- OUTSIDE RECORDS SUMMARY | 2017-03-31 15:03 | XMS REPORT | Summary of Care ---
Author Author Shahab Jovel, Martha Hollingsworth Organization Unknown Address [address] [place] [address] Phone Unavailable Care Team Providers Care Deck Hand Name Role Phone Duke Landeros M.D. Unavailable Unavailable Elfego Sheffield M.D. Unavailable Unavailable Martha Gudino M.D. Unavailable Unavailable Jarek Landeros PP Unavailable Unavailable [...] Status: Active Anxiety (300.00, F41.9) Status: Active Diabetes mellitus, type 2 (250.00, E11.9) Status: Active High risk medication [...] on:14-Sep-2006 Influenza Administered on:03-Sep-2008 Td Lot #: [id number] Administered on: Influenza Administered on:09-Aug-2009 Influenza A (H1N1) Monoval Vac Intramuscular Suspension Administered on:28-Oct-2009 Influenza Administered on:29-Aug-2012 Influenza Administered on:05-Sep-2013 Fluzone High-Dose Intramuscular Suspension #1 Lot #: [id number] Administered on:20-Aug-2014 Prevnar 13 Intramuscular Suspension Administered on:21-Sep-2014 Fluzone High-Dose 0.5 ML Intramuscular Suspension Prefilled Syringe Lot #: [id number] Administered on:12-Aug-2015 Family History Unknown Family Member* [...] 14:15 [facility]ST [facility] Radiologic ReportETHAN [id number] (X-RAY)PATIENT OF DR. LANDEROS BD: 1935 SECONDARY [...]
--- OUTSIDE RECORDS SUMMARY | 2017-03-31 15:03 | XMS REPORT | Summary of Care ---
Author Author Jarek Salinas M.D. Organization Unknown Address [address], [place] [id number] Phone Unavailable Care Team Providers Care Crane Man Name Role Phone Duke Salinas M.D. Unavailable [...] Status: Active Obesity (278.00, E66.9) Status: Active Hypertension (401.9, I10) Status: Active SOB (shortness of breath) on exertion (786.05, R06.02) Status: Active Shortness of breath (786.05, R06.02) Status: Active Coronary artery disease (414.00, 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 Atrial flutter with rapid ventricular response (427.32, I48.92) Status: Active AICD (automatic cardioverter/defibrillator) present (V45.02, Z95.810) Status: Active Nonsustained ventricular tachycardia (427.1, I47.2) Status: Active Anxiety (300.00, F41.9) Status: Active COPD (chronic obstructive pulmonary disease) (496, J44.9) Status: Active CHF (congestive heart failure) (428.0, I50.9) Status: Active Cardiomyopathy (425.4, I42.9) Status: Active Diabetes mellitus, type 2 (250.00, E11.9) Status: Active Medications Name Dates Details Aspir-81 81 MG Oral Tablet Delayed Release TAKE 1 TABLET DAILY. Quantity: 0 Jarek Salinas M.D.* Started -Mar-2008 ActiveMultiple Vitamin Oral Tablet TAKE 1 TABLET DAILY. * Quantity: 0 Refills: 0 Jarke Salinas M.D.* Started 16-Mar-2008 ActiveFish Oil 1000 [...] on:14-Sep-2006 Influenza Administered on:03-Sep-2008 Td Lot #: [id number] Administered on: Influenza Administered on:09-Aug-2009 Influenza A (H1N1) Monoval Vac Intramuscular Suspension Administered on:28-Oct-2009 Influenza Administered on:29-Aug-2012 Influenza Administered on:05-Sep-2013 Fluzone High-Dose Intramuscular Suspension #1 Lot #: [id number] Administered on:20-Aug-2014 Prevnar 13 Intramuscular Suspension Administered on:21-Sep-2014 Fluzone High-Dose 0.5 ML Intramuscular Suspension Prefilled Syringe Lot #: [id number] Administered on:12-Aug-2015 Family History Unknown Family Member* Name Dates Details Family history of Reported Family History Of Cancer Comments: Family History Status: Active Family history of Reported Family History Of Heart Disease Comments: Family History Status: Active Father* Name Dates Details Family history of Diabetes Mellitus (V18.0) Status: Active Social History Smoking Status* Unknown if ever smoked Vital Signs Date Test Result Details 24-Oct-2015 15:34 BP Systolic 116 mm[Hg] Status: [...] ml/min (Better) Range: >60 EST GFR, NON-AFR AZERBAIJANI 58 ml/min (Below low threshold) Range: >60 [...] ml/min (Better) Range: >60 EST GFR, NON-AFR AZERBAIJANI 56 ml/min (Below low threshold) Range: >60 Comments: EST GFR is reported in ml/min per 1.73 m2 of body surface area. For -Fijian, please multiple result by 1.2.----- GLUCOSE 179 [...] MI0.10-0.59 ng/ml= Indeterminate for MI0.60-1.50 ng/ml=Suggestive of [place]----- 18-Oct-2015 12:46 PROTIME PANEL 7000 Comments: Critical result called to Dannielle/Brad by Sandra King on 10/18/2015 at 12:51 [...] MI0.10-0.59 ng/ml=Indeterminate for MI0.60- 1.50 ng/ml=Suggestive of [place]----- 09:47 Comprehensive Metabolic Panel 1212 SODIUM 131 [...] ml/min (Better) Range: >60 EST GFR, NON-AFR AZERBAIJANI >60 ml/min (Better) Range: >60 Comments: EST GFR is reported in ml/min per 1.73 m2 of body surface area. For -Fijian, please multiple result by 1.2.----- GLUCOSE 254 [...] 11:45 * Appointment; Provider: Martha Gudino On 28-Oct-2015 09:00 * Appointment; Provider: Martha Gudino On 01-Jul-2015 12:45 * Appointment; Provider: Martha Gudino On 16:00 Instructions * Instructions not documented Encounters Appointment; Jarek aSlinas Encounter Diagnosis: Problem not documented On 24-Oct-2015 [...] Problem not documented On 22-Oct-2014 09:30 Appointment; Jarke Salinas Encounter Diagnosis: Problem not [...]
--- OUTSIDE RECORDS SUMMARY | 2017-03-31 15:03 | XMS REPORT | Summary of Care ---
Author Author Jarek Salinas M.D. Organization Unknown Address [address], [place] [id number] Phone Unavailable Care Team Providers Care Preparole Counseling Aide Name Role Phone Duke Salinas M.D. 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
--- OUTSIDE RECORDS SUMMARY | 2017-03-31 15:03 | XMS REPORT ---
Author Author Hemalatha Davidson Organization [employer] Address Unknown Phone Unavailable Care Team Providers Care Mortgage Loan Specialist Name Role Phone Hemalatha Davidson CP Unavailable Allergies, Adverse Reactions, Alerts Substance Reaction Event Type Zocor Info Not Available Drug Allergy Pravachol Info Not Available Drug Allergy Problems Problem Type Condition ICD-9 Code Onset Dates Condition Status Problem Atrial flutter 427.32 Active Assessment Ventricular Tachycardia, Nonsustained 427.1 Active Problem Ventricular Tachycardia, Nonsustained 427.1 Active Assessment Atrial flutter 427.32 Active Medications Medication Code System Code Instructions Start Date End Date Status Dosage Aspirin [facility] [address] 81 MG Orally Once a day 1 tablet Lisinopril [facility] [address]-82 5 MG Orally Once a day 1 tablet Metformin HCl [facility] [address]-30 1000 MG Orally Twice a day 1/2 tablet Tamsulosin HCl [facility] [address]-65 0.4 MG Orally Once a day 1 capsule 30 minutes after the same meal each day Warfarin Sodium [facility] [address]-18 5 MG ASDIR 1 tablet Red Yeast Rice [facility] [address] 600 MG Orally QD 2 cap Multiple Vitamin [facility] [address]-27 Orally Once a day 1 tablet Gemfibrozil [facility] [address]-74 600 MG Orally Twice a day 1 tablet Fish Oil [facility] [address]-42 1000 MG Orally Once a day 1 capsule Procedures Procedure Coding System Code Date Office Visit, New Pt., Level 4 CPT-4 14752 Jul 10, 2015 Vital Signs Date/Time: Jul 10, 2015 BMI 29.88 Index Weight 190.8 lbs Height 67 in Cardiac Monitoring Heart Rate 76 /min Oximetry 97 % Blood Pressure Diastolic 80 mm Hg Blood Pressure Systolic 170 mm Hg Results No Known Results Summary Purpose [employer] Submission
--- OUTSIDE RECORDS SUMMARY | 2017-03-31 15:03 | XMS REPORT | Summary of Care ---
Author Author Martha Gudino M.D. Organization Unknown Address [address] [place] [address] Phone Unavailable Care Team Providers Care Tax Clerk Name Role Phone Duke Salinas M.D. 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, I25.10) [...] Name Dates Details Atherosclerotic heart disease of [place] coronary artery without angina pectoris (414.01, I25.10) [...] 7000 Ordered:20-Jun-2015 BASIC METABOLIC PROFILE 1210 Ordered:24-Jun-2015 PROTIME PANEL 7000 Ordered:24-Jun-2015 Immunization Name Dates Details Td Administered on:22-Oct-2001 Pneumo (Pneumovax) Administered on:14-Sep-2006 Influenza Administered on:03-Sep-2008 Td Lot #: [id number] Administered on: Influenza Administered on:09-Aug-2009 Influenza A (H1N1) Monoval Vac Intramuscular Suspension Administered on:28-Oct-2009 Influenza Administered on:29-Aug-2012 Influenza Administered on:05-Sep-2013 Fluzone High-Dose Intramuscular Suspension #1 Lot #: [id number] Administered on:20-Aug-2014 Prevnar 13 Intramuscular Suspension Administered [...] (Better) 09:48 Comprehensive Metabolic Panel 1212 Comments: 8/3 Fastin hours SODIUM 138 mmol/L (Better) Range: [...] ml/min (Better) Range: >60 EST GFR, NON-AFR [place] 55 ml/min (Below low threshold) Range: >60 Comments: EST GFR is reported in ml/min per 1.73 m2 of body surface area. For -Sammarinese, please multiple result by 1.2.----- GLUCOSE 149 [...] 0.0-0.7 BASO 0.1 K/uL (Better) Range: 0.0-0.2 Plan of Care Planned Observations* Name Dates [...]
--- OUTSIDE RECORDS SUMMARY | 2017-03-31 15:03 | XMS REPORT | Summary of Care ---
Author Author Martha Gudino M.D. [facility] Unknown Address [address] [place] [address] Phone Unavailable Care Team Providers Care Stave Jointer Name Role Phone Duke Salinas M.D. Unavailable [...] I42.9) Status: Active Atherosclerotic heart disease of [place] coronary artery without angina pectoris (414.01, I25.10) [...] Complete Colonoscopy Completed:28-Feb-2013 PROTIME PANEL 7000 Ordered:22-Mar-2015 PROTIME PANEL 7000 Ordered:04-Mar-2015 Immunization Name Dates Details Td Administered on:22-Oct-2001 Pneumo (Pneumovax) Administered on:14-Sep-2006 Influenza Administered on:03-Sep-2008 Td Lot #: [id number] Administered on: Influenza Administered on:09-Aug-2009 Influenza A (H1N1) Monoval Vac Intramuscular Suspension Administered on:28-Oct-2009 Influenza Administered on:29-Aug-2012 Influenza Administered on:05-Sep-2013 Fluzone High-Dose Intramuscular Suspension #1 Lot #: [id number] Administered on:20-Aug-2014 Prevnar 13 Intramuscular Suspension Administered [...]
--- OUTSIDE RECORDS SUMMARY | 2017-03-31 15:04 | XMS REPORT | Summary of Care ---
Author Author Jarek Landeros M.D. Organization Unknown Address [address], [place] [address] Phone Unavailable Care Team Providers Care Knowledge Engineer Name Role Phone Duke Landeros M.D. Unavailable [...] breath) on exertion (786.05, R06.02) Status: Active Cardiomyopathy (425.4, I42.9) Status: Active Medications Name Dates Details Aspir-81 81 MG Oral Tablet Delayed Release TAKE 1 TABLET DAILY. Quantity: 0 Jarek Landeros M.D.* Started 16-Mar-2008 ActiveMultiple Vitamin Oral Tablet TAKE 1 TABLET DAILY. * Quantity: 0 Refills: 0 Jarek Landeros M.D.* Started 16-Mar-2008 ActiveMetFORMIN HCl - 1000 MG Oral Tablet Take One Tablet By Mouth Twice Daily * Quantity: 180 Refills: 3 Jarek Landeros M.D.* Started 18-Nov-2009 ActiveFish Oil 1000 MG [...] needed. * Quantity: 30 Refills: 3 Jarek Landeros M.D.* Started 25-Oct-2015 ActivePromethazine-Codeine 6.25-10 MG/5ML Oral Syrup TAKE FIVE ML BY MOUTH EVERY 4 HOURS NEEDED * Quantity: 120 Refills: 0 Jarek Landeros M.D.* Started 28-Oct-2015 Active Allergies and Adverse [...] History of Pacemaker Placement PROTIME PANEL 7000 Ordered:26-Nov-2015 Immunization Name Dates Details Td Administered on:22-Oct-2001 Pneumo (Pneumovax) Administered on:14-Sep-2006 Influenza Administered on:03-Sep-2008 Td Lot #: [id number] Administered on: Influenza Administered on:09-Aug-2009 Influenza A (H1N1) Monoval Vac Intramuscular Suspension Administered on:28-Oct-2009 Influenza Administered on:29-Aug-2012 Influenza Administered on:05-Sep-2013 Fluzone High-Dose Intramuscular Suspension #1 Lot #: [id number] Administered on:20-Aug-2014 Prevnar 13 Intramuscular Suspension Administered on:21-Sep-2014 Fluzone High-Dose 0.5 ML Intramuscular Suspension Prefilled Syringe Lot #: [id number] Administered on:12-Aug-2015 Family History Unknown Family Member* [...] to report Results Date Description Value Details 26-Nov-2015 13:01 PROTIME PANEL 7000 PROTIME 21.1 secs (Above high threshold) Range: 12.0-14.9 INR 1.82 (Better) 14:15 XRay CHEST-PA & LAT Comments: Exam Date: 11/26/2015 13: 35Dictation Date: 11/26/2015 14:15 X CHEST PA & [facility] Radiologic ReportMALETHAN NUNO Jeannette [id number] (X-RAY)PATIENT OF DR. LANDEROS BD: 1935 SECONDARY 11/26/15 X CHEST PA & LAT INDICATION: R06.02: SHORTNESS OF BREATHCO (Better) Plan of Care Planned Observations* Name Dates Details Planned Goals not documented Goal Planned Encounters* Appointment; Provider: Donny Artis On 12-Mar-2016 08:00 * Appointment; Provider: Martha Gudino On 02-Mar-2016 09:30 * Appointment; Provider: Jarek Landeros On 13-Feb-2016 10:00 * Appointment; Provider: Martha Gudino On 09-Dec-2015 11:45 * Appointment; Provider: Jarek Landeros On 09-Dec-2015 09:00 * Appointment; Provider: Martha Gudino On 01-Jul-2015 12:45 * Appointment; Provider: Martha Gudino On 16:00 Instructions * Instructions not documented Encounters Appointment; Jarek Landeros Encounter Diagnosis: Problem not [...] Problem not documented On 18-Feb-2015 10:30 Appointment; oNah Sheffield Encounter Diagnosis: Problem not [...] not documented On 06-Jul-2014 13:15 Appointment; Jarek Landerso Encounter Diagnosis: Problem not documented On 22-Mar-2014 09:00 Appointment; Aleida Aparicio Encounter Diagnosis: Problem not documented On 05-Mar-2014 08:30
--- OUTSIDE RECORDS SUMMARY | 2017-03-31 15:04 | XMS REPORT | Summary of Care ---
Author Author Jarek Salinas M.D. Organization Unknown Address [address], [place] [id number] Phone Unavailable Care Team Providers Care Instructional Coordinator Name Role Phone Duke Salinas M.D. 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
--- OUTSIDE RECORDS SUMMARY | 2017-03-31 15:04 | XMS REPORT | Summary of Care ---
Author Author Noah Sheffield M.D. Unknown Address Unknown Phone Unavailable Care Team Providers Care Mill Controller Name Role Phone Duke Salinas M.D. Unavailable [...] on:14-Sep-2006 Influenza Administered on:03-Sep-2008 Td Lot #: [id number] Administered on: Influenza Administered on:09-Aug-2009 Influenza A (H1N1) Monoval Vac Intramuscular Suspension Administered on:28-Oct-2009 Influenza Administered on:29-Aug-2012 Influenza Administered on:05-Sep-2013 Fluzone High-Dose Intramuscular Suspension #1 Lot #: [id number] Administered on:20-Aug-2014 Prevnar 13 Intramuscular Suspension Administered on:21-Sep-2014 Fluzone High-Dose 0.5 ML Intramuscular Suspension Prefilled Syringe Lot #: [id number] Administered on:12-Aug-2015 Family History Unknown Family Member* [...] Range: >60 EST GFR, NON-AFR CITIZEN OF [place] 53 ml/min (Below low threshold) Range: >60 Comments: EST GFR is reported in ml/min per 1.73 m2 of body surface area. For -[place], please multiple result by 1.2.----- GLUCOSE 314 [...] MI0.10-0.59 ng/ml= Indeterminate for MI0.60-1.50 ng/ml=Suggestive of [place]----- 13:12 BNP 3103 Comments: Items were attached [...]
--- OUTSIDE RECORDS SUMMARY | 2017-03-31 15:04 | XMS REPORT | Summary of Care ---
Author Author Jarek Salinas M.D. Organization Unknown Address [address], [place] [id number] Phone Unavailable Care Team Providers Care Speech And Hearing Director Name Role Phone Duke Salinas M.D. [...] for influenza vaccination (V04.81, Z23) Status: Active Atherosclerotic heart disease of [place] [...] Refills: 3 Jarek Salinas M.D.* Started 24-Sep-2014 ActiveNitrostat 0.4 MG Sublingual Tablet Sublingual PLACE 1 TABLET UNDER THE TONGUE EVERY 5 MINUTES UP TO 3 DOSES NEEDED FOR CHEST PAIN. * Quantity: 90 Refills: 3 Jarek Salinas M.D.* Started 16-Jun-2012 ActiveMetoprolol Tartrate 100 MG Oral Tablet take one tablet by mouth every day * Quantity: 90 Refills: 3 Jarek Salinas M.D.* Started 08-Mar-2012 ActiveGemfibrozil 600 MG Oral Tablet Take One Tablet By Mouth Twice Daily * Quantity: 180 Refills: 3 Jarek Salinas M.D.* Started 29-Jul-2009 ActiveLisinopril 5 MG Oral Tablet TAKE 1 TABLET DAILY. * Quantity: 90 Refills: 3 Jarek Salinas M.D.* Started 30-Aug-2008 ActiveMetFORMIN HCl - 1000 [...] on:14-Sep-2006 Influenza Administered on:03-Sep-2008 Td Lot #: [id number] Administered on: Influenza Administered on:09-Aug-2009 Influenza A (H1N1) Monoval Vac Intramuscular Suspension Administered on:28-Oct-2009 Influenza Administered on:29-Aug-2012 Influenza Administered on:05-Sep-2013 Fluzone High-Dose Intramuscular Suspension #1 Lot #: [id number] Administered on:20-Aug-2014 Prevnar 13 Intramuscular Suspension Administered [...] not documented On 05-Mar-2014 08:30 Appointment; Jarek Slainas Encounter Diagnosis: Problem not documented On 06-Oct-2013 [...]
--- OUTSIDE RECORDS SUMMARY | 2017-03-31 15:04 | XMS REPORT | Summary of Care ---
Author Author Jarek Salinas M.D. Organization Unknown Address [address] [place], [place] [address] Phone Unavailable Care Team Providers Care Alliances Consultant Name Role Phone Duke Salinas M.D. [...] Shortness of breath (786.05, R06.02) Status: Active Nonsustained ventricular tachycardia (427.1, I47.2) [...] 1 tablet at night * Refills: 0 Jaerk Salinas M.D.* Started 25-Mar-2015 ActiveTamsulosin HCl - [...] * Quantity: 60 Refills: 11 * Started ActiveALPRAZolam 0.25 MG Oral Tablet Take 1-2 tablets every 8 hours as needed. * Quantity: 30 Refills: 3 Jarek Salinas M.D.* Started 25-Oct-2015 ActiveFurosemide 40 MG Oral Tablet TAKE 1 TABLET DAILY DIRECTED. * Quantity: 30 Refills: 11 Noah Sheffield M.D.* Started 21-Oct-2015 Ended 19-Oct-2016 ActiveWarfarin Sodium 5 MG Oral Tablet TAKE ONE TABLET BY MOUTH ONCE DAILY * Quantity: 90 Refills: 3 Jarek Salinas M.D.* Started 23-Mar-2014 ActivePromethazine-Codeine 6.25-10 MG/5ML Oral Syrup TAKE FIVE [...] on:14-Sep-2006 Influenza Administered on:03-Sep-2008 Td Lot #: [id number] Administered on: Influenza Administered on:09-Aug-2009 Influenza A (H1N1) Monoval Vac Intramuscular Suspension Administered on:28-Oct-2009 Influenza Administered on:29-Aug-2012 Influenza Administered on:05-Sep-2013 Fluzone High-Dose Intramuscular Suspension #1 Lot #: [id number] Administered on:20-Aug-2014 Prevnar 13 Intramuscular Suspension Administered on:21-Sep-2014 Fluzone High-Dose 0.5 ML Intramuscular Suspension Prefilled Syringe Lot #: [id number] Administered on:12-Aug-2015 Family History Unknown Family Member* [...] /min Status: O2 SAT 96 % Status: Results Date Description Value Details 21-Oct-2015 08:41 ECG/ EKG (Specialists) Electro CardioGram [...] MI0.10-0.59 ng/ml=Indeterminate for MI0.60- 1.50 ng/ml=Suggestive of [place]----- 09:47 Comprehensive Metabolic Panel 1212 SODIUM 131 [...] ml/min (Better) Range: >60 EST GFR, NON-AFR [place] >60 ml/min (Better) Range: >60 Comments: EST GFR is reported in ml/min per 1.73 m2 of body surface area. For -[place], please multiple result by 1.2.----- GLUCOSE 254 [...]
--- OUTSIDE RECORDS SUMMARY | 2017-03-31 15:05 | XMS REPORT ---
Author Author GENERATED, SYSTEM Organization Unknown Address Unknown Phone Unavailable Care Team Providers Care Software Reverse Engineer Name Role Phone MD TIGRE, COLLIN PP Unavailable Reason For Visit Chief Complaint A FLUTTER PAUSE 5.8 SECONDS [facility] Social History Functional Status Vital Signs Results Problems Encounter Diagnosis No relevant problems exist. Additional Problems * Atrial Flutter Comment:Problem resolved [...] of Care Procedures * Completed Procedure Code: 88.72 Procedure Name: not valued, on 06/11/2015 12: 00 AM Immunizations No immunizations administered or ordered. Hospital Course Hospital Discharge Instructions Allergies, Adverse Reactions, Alerts * Latex Allergy has not been assessed. * IV Contrast Allergy has not been assessed. * No Known Drug Allergies. Medication It is the responsibility of the patient or patient procurement representative to confirm the list of medications with either the patient's personal care provider or the patient's follow-up care provider to ensure the patient has an appropriate list of medications to take at home. Discharge medications Continued medications* amiodarone 200 mg Tablet, Ordered By: TRE DWYER MD Directions: 1 tablet oral twice a day * aspirin 81 mg tablet,delayed release (DR/EC), Ordered By: TRE DWYER MD Directions: 1 tablet oral daily Additional Instructions: Took 4 tabs this AM per instructions * gemfibrozil 600 mg Tablet, Ordered By: TRE DWYER MD Directions: 1 tablet oral daily at bedtime * lisinopril 5 mg Tablet, Ordered By: TRE DWYER MD Directions: 1 tablet oral daily * metFORMIN 1,000 mg Tablet, Ordered By: TRE DWYER MD Directions: 0.5 tablet oral twice a day Additional Instructions: restart 07/04/2015 * multivitamin with foLIC Acid (One Daily Multivitamin) 400 mcg Tablet, Ordered By: TRE DWYER MD Directions: 1 tablet oral daily * omega-3 fatty acids (Fish Oil) 500 mg Capsule, Ordered By: TRE DWYER MD Directions: 2 capsule oral daily * red yeast rice 600 mg Capsule, Ordered By: TRE DWYER MD Directions: 2 capsule oral daily * tamsuLOSIN 0.4 mg capsule,extended release 24hr, Ordered By: TRE DWYER MD Directions: 1 capsule oral daily * warfarin 5 mg Tablet, Ordered By: TRE DWYER MD Directions: 1 tablet oral daily Stopped medications* None
--- OUTSIDE RECORDS SUMMARY | 2017-03-31 15:05 | XMS REPORT ---
Author Author Hemalatha Davidson [facility] eClinicalWorks Address Unknown Phone Unavailable Care Team Providers Care Head Counselor Name Role Phone Hemalatha Davidson CP Unavailable [...] Start Date End Date Status Dosage Aspirin [facility] [address] 81 MG Orally Once a day [address] [facility] [address]-31 5 MG Orally Once a day [address] [facility] [address]-79 0.4 MG Orally Once a day 1 capsule 30 minutes after the same meal each day Red Yeast Rice [facility] [address] 600 MG Orally QD [address] [facility] [address]-56 1000 MG Orally Twice a day 1/2 tablet with meals Fish Oil [facility] [address]-58 1000 MG Orally Once a day [address] [facility] [address]-37 5 MG ASDIR & 7.[address] S[address] [facility] [address]-49 120 MG Orally bid not defined Multiple Vitamin [facility] [address]-59 Orally Once a day [address] [facility] [address]-77 600 MG Orally Twice a day 1 tablet Procedures Procedure Coding System Code Date Ofc Program ICD Dual, Staff CPT-4 14897 Aug 07, 2015 Office Visit, Est Pt., Level 3 CPT-4 79174 Aug 07, 2015 Vital Signs Date/Time: Aug 07, 2015 BMI 29.88 Index Weight 190.8 lbs Height 67 in Cardiac Monitoring Heart Rate 70 /min Oximetry 96% % Blood Pressure Diastolic 70 mm Hg Blood Pressure Systolic 140 mm Hg Results No Known Results Summary Purpose eClinicalWorks Submission
--- OUTSIDE RECORDS SUMMARY | 2017-03-31 15:05 | XMS REPORT | Summary of Care ---
Author Author Orlando Donaldson M.D. Organization Unknown Address [address], [place] [id number] Phone Unavailable Care Team Providers Care Blueprint Clerk Name Role Phone Duke Salinas M.D. [...] on:14-Sep-2006 Influenza Administered on:03-Sep-2008 Td Lot #: [id number] Administered on: Influenza Administered on:09-Aug-2009 Influenza A (H1N1) Monoval Vac Intramuscular Suspension Administered on:28-Oct-2009 Influenza Administered on:29-Aug-2012 Influenza Administered on:05-Sep-2013 Fluzone High-Dose Intramuscular Suspension #1 Lot #: [id number] Administered on:20-Aug-2014 Prevnar 13 Intramuscular Suspension Administered on:21-Sep-2014 Fluzone High-Dose 0.5 ML Intramuscular Suspension Prefilled Syringe Lot #: [id number] Administered on:12-Aug-2015 Family History Unknown Family Member* [...] Problem not documented On 23-Jul-2014 13:00 Appointment; Jraek Salinas Encounter Diagnosis: Problem not documented On 06-Jul-2014 13:15 Appointment; Jarek Salinas Encounter Diagnosis: Problem not documented On 22-Mar-2014 09:00 Appointment; Aleida Aparicio Encounter Diagnosis: Problem not documented On 05-Mar-2014 08:30
--- OUTSIDE RECORDS SUMMARY | 2017-03-31 15:05 | XMS REPORT | Summary of Care ---
Author Author Jarek Salinas M.D. Organization Unknown Address [address] [place], [place] [address] Phone Unavailable Care Team Providers Care Circular Knife Cutter Machine Name Role Phone Duke Salinas M.D. Unavailable [...] Noah Sheffield M.D.* Started 21-Oct-2015 Ended 19-Oct-2016 ActiveZithromax 500 MG Oral Tablet Take one tablet daily for 7 days. * Quantity: 7 Refills: 0 Jarek Salinas M.D.* Started 01-Nov-2015 Ended 08-Nov-2015 ActiveWarfarin Sodium 5 MG Oral Tablet TAKE [...] on:14-Sep-2006 Influenza Administered on:03-Sep-2008 Td Lot #: [id number] Administered on: Influenza Administered on:09-Aug-2009 Influenza A (H1N1) Monoval Vac Intramuscular Suspension Administered on:28-Oct-2009 Influenza Administered on:29-Aug-2012 Influenza Administered on:05-Sep-2013 Fluzone High-Dose Intramuscular Suspension #1 Lot #: [id number] Administered on:20-Aug-2014 Prevnar 13 Intramuscular Suspension Administered on:21-Sep-2014 Fluzone High-Dose 0.5 ML Intramuscular Suspension Prefilled Syringe Lot #: [id number] Administered on:12-Aug-2015 Family History Unknown Family Member* [...] ml/min (Better) Range: >60 EST GFR, NON-AFR [place] 56 ml/min (Below low threshold) Range: >60 Comments: EST GFR is reported in ml/min per 1.73 m2 of body surface area. For -[place], please multiple result by 1.2.----- GLUCOSE 179 [...] MI0.10-0.59 ng/ml= Indeterminate for MI0.60-1.50 ng/ml=Suggestive of [place]----- 18-Oct-2015 12:46 PROTIME PANEL 7000 Comments: Critical [...] MI0.10-0.59 ng/ml=Indeterminate for MI0.60- 1.50 ng/ml=Suggestive of [place]----- 09:47 Comprehensive Metabolic Panel 1212 SODIUM 131 [...] ml/min (Better) Range: >60 EST GFR, NON-AFR [place]IN[place] >60 ml/min (Better) Range: >60 Comments: EST GFR is reported in ml/min per 1.73 m2 of body surface area. For -[place], please multiple result by 1.2.----- GLUCOSE 254 [...]
--- OUTSIDE RECORDS SUMMARY | 2017-03-31 15:05 | XMS REPORT | Summary of Care ---
Author Author Glenroy Joyner M.D. Unknown Address Unknown Phone Unavailable Care Team Providers Care Rubber Off Name Role Phone Duke Salinas M.D. Unavailable Unavailable Martha Gudino M.D. Unavailable Unavailable Anand Joyner M.D. Unavailable Unavailable [...] 14-Sep-2006 Influenza on: 03-Sep-2008 Td Lot #: [id number] on: Influenza on: 09-Aug-2009 Influenza A (H1N1) Monoval Vac SUSP on: 28-Oct-2009 Influenza on: 29-Aug-2012 Influenza on: 05-Sep-2013 Fluzone High-Dose SUSP #1 Lot #: [id number] on: 20-Aug-2014 Prevnar 13 Intramuscular Suspension on: 21-Sep-2014 Fluzone High-Dose 0.5 ML Intramuscular Suspension Prefilled Syringe Lot #: [id number] on: 12-Aug-2015 Family History Name Dates Details [...] 07/24/2016 08:40Dictation Date: 07/24/2016 09:26 XC HEAD Plan of Care Name Dates [...] not documented On 30-Jul-2015 15:15 Appointment; Martha Gudion M.D. Encounter Diagnosis: Problem not documented On [...]
--- OUTSIDE RECORDS SUMMARY | 2017-03-31 15:05 | XMS REPORT | Summary of Care ---
Author Author Glenroy Joyner M.D. Unknown Address Unknown Phone Unavailable Care Team Providers Care Supervisor Winter Name Role Phone Duke Salinas M.D. Unavailable [...] Jovel, Jarek Duke * Start 13-Feb-2016 Active Allergies and Adverse [...] 14-Sep-2006 Influenza on: 03-Sep-2008 Td Lot #: [id number] on: Influenza on: 09-Aug-2009 Influenza A (H1N1) Monoval Vac SUSP on: 28-Oct-2009 Influenza on: 29-Aug-2012 Influenza on: 05-Sep-2013 Fluzone High-Dose SUSP #1 Lot #: [id number] on: 20-Aug-2014 Prevnar 13 Intramuscular Suspension on: 21-Sep-2014 Fluzone High-Dose 0.5 ML Intramuscular Suspension Prefilled Syringe Lot #: [id number] on: 12-Aug-2015 Pneumovax 23 25 MCG/0.5ML Injection Injectable Lot #: [id number] on: 10-Aug-2016 Fluzone High-Dose 0.5 ML Intramuscular Suspension Prefilled Syringe Lot #: [id number] on: 10-Aug-2016 Family History Name Dates Details [...] HEAD WITHOUT AND WITH IV CONTRAST On 22-Mar-2017 Intent Planned Goals not documented Planned Encounters [...]
--- OUTSIDE RECORDS SUMMARY | 2017-03-31 15:06 | XMS REPORT | Summary of Care ---
Author Author Jarek Salinas M.D. Organization Unknown Address [address], [place] [address] Phone Unavailable Care Team Providers Care Account Service Representative Name Role Phone Duke Salinas M.D. 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, I25.10) [...] on:14-Sep-2006 Influenza Administered on:03-Sep-2008 Td Lot #: [id number] Administered on: Influenza Administered on:09-Aug-2009 Influenza A (H1N1) Monoval Vac Intramuscular Suspension Administered on:28-Oct-2009 Influenza Administered on:29-Aug-2012 Influenza Administered on:05-Sep-2013 Fluzone High-Dose Intramuscular Suspension #1 Lot #: [id number] Administered on:20-Aug-2014 Prevnar 13 Intramuscular Suspension Administered [...] m2 Status: Results Date Description Value Details 25-Jan-2015 09:46 PROTIME PANEL 7000 PROTIME 27.5 secs (Above high threshold) Range: 12.0-14.9 INR 2.62 (Better) 13-Feb-2015 09:14 CBC w/ Auto Diff 7150 [...] ml/min (Better) Range: >60 EST GFR, NON-AFR [place]ENTR[place] >60 ml/min (Better) Range: >60 Comments: EST GFR is reported in ml/min per 1.73 m2 of body surface area. For -[place], please multiple result by 1.2.----- GLUCOSE 98 [...]
--- OUTSIDE RECORDS SUMMARY | 2017-03-31 15:06 | XMS REPORT ---
Author Author Hemalatha Davidson [facility] eClinicalWorks Address Unknown Phone Unavailable Care Team Providers Care 2Nd Grade Teacher Name Role Phone Hemalatha Davidson CP Unavailable [...]
--- OUTSIDE RECORDS SUMMARY | 2017-03-31 15:06 | XMS REPORT | Summary of Care ---
Author Author Jarek Salinas M.D. Organization Unknown Address [address], [place] [phone] Phone Unavailable Care Team Providers Care Globe Mounter Name Role Phone Duke Salinas M.D. Unavailable [...] 14-Sep-2006 Influenza on: 03-Sep-2008 Td Lot #: [id number] on: Influenza on: 09-Aug-2009 Influenza A (H1N1) Monoval Vac SUSP on: 28-Oct-2009 Influenza on: 29-Aug-2012 Influenza on: 05-Sep-2013 Fluzone High-Dose SUSP #1 Lot #: [id number] on: 20-Aug-2014 Prevnar 13 Intramuscular Suspension on: 21-Sep-2014 Fluzone High-Dose 0.5 ML Intramuscular Suspension Prefilled Syringe Lot #: [id number] on: 12-Aug-2015 Pneumovax 23 25 MCG/0.5ML Injection Injectable Lot #: [id number] on: 10-Aug-2016 Fluzone High-Dose 0.5 ML Intramuscular Suspension Prefilled Syringe Lot #: [id number] on: 10-Aug-2016 Family History Name Dates Details [...] BP Systolic 132 mm[Hg] Status: Comments: Location: RU; Position: Sitting BP Diastolic 74 mm[Hg] Status: Comments: Location: RUE; Position: Sitting Heart Rate 84 /min Status: [...] 12:32Dictation Date: 08/19/2016 13:08 [facility]C HEAD [facility] Radiologic ReportETHAN NUNO A- [id number] (X-RAY)PATIENT OF DR. HERNANDEZ BD: 1935 SECONDARY [...] >60 ml/min Range: >60 EST GFR, NON-AFR [place]AHRAINI 58 ml/min (Below low threshold) Range: >60 [...] Radiology On 02-Nov-2016 09:00 Interventions Provided Labs/Procedures/Imaging* BASIC METABOLIC PROFILE 1210; To be Done: 10 Sep 2016 Instructions Name Dates Details Instructions not documented Encounters Appointment; Glenroy Hernandez M.D. Encounter Diagnosis: Problem not documented On 09-Sep-2016 09:45 Appointment; Glenroy Hernandez M.D. Encounter Diagnosis: Problem [...] Problem not documented On 30-Sep-2015 12:45 Appointment; Martah Gudino M.D. Encounter Diagnosis: Problem [...]
--- OUTSIDE RECORDS SUMMARY | 2017-03-31 15:06 | XMS REPORT | Summary of Care ---
Author Author Glenroy Joyner M.D. Unknown Address Unknown Phone Unavailable Care Team Providers Care Header Set Up Operator Name Role Phone Brad Jovel, Duke Unavailable [...] 14-Sep-2006 Influenza on: 03-Sep-2008 Td Lot #: [id number] on: Influenza on: 09-Aug-2009 Influenza A (H1N1) Monoval Vac SUSP on: 28-Oct-2009 Influenza on: 29-Aug-2012 Influenza on: 05-Sep-2013 Fluzone High-Dose SUSP #1 Lot #: [id number] on: 20-Aug-2014 Prevnar 13 Intramuscular Suspension on: 21-Sep-2014 Fluzone High-Dose 0.5 ML Intramuscular Suspension Prefilled Syringe Lot #: [id number] on: 12-Aug-2015 Family History Name Dates Details [...] BP Systolic 136 mm[Hg] Status: Comments: Location: E; Position: Sitting BP Diastolic 72 mm[Hg] Status: [...] Description Value Details 11:32 ECG/ EKG Outside [facility] Electro CardioGram 10:47 BASIC METABOLIC PROFILE 1210 [...] >60 ml/min Range: >60 EST GFR, NON-AFR TONGAN 51 ml/min (Below low threshold) Range: >60 Comments: EST GFR is reported in ml/min per 1.73 m2 of body surface area. For -[place], please multiple result by 1.2.----- BUN:CREATININE RATIO [...] Joyner M.D. On 27-Jul-2016 09:15 Appointment; Provider: Jarek Salinas M.D. On 13-Jul-2016 09:00 Instructions Name Dates Details Instructions not [...] not documented On 13-Feb-2016 10:00 Appointment; Martha Gduino M.D. Encounter Diagnosis: Problem not documented On [...]
--- OUTSIDE RECORDS SUMMARY | 2017-03-31 15:06 | XMS REPORT ---
Author Author Hemalatha Davidson [facility] eClinicalWorks Address Unknown Phone Unavailable Care Team Providers Care Student Life Dean Name Role Phone Hemalatha Davidson CP Unavailable Allergies No Known Allergies Problems Problem Type Condition ICD-9 Code Onset Dates Condition Status Problem Ventricular Tachycardia, Nonsustained 427.1 Active Problem Atrial flutter 427.32 Active Problem S/P AICD V45.02 Active Medications No Known Medications Results No Known Results Summary Purpose eClinicalWorks Submission
--- OUTSIDE RECORDS SUMMARY | 2017-03-31 15:07 | XMS REPORT | Summary of Care ---
Author Author Jarek Salinas M.D. Organization Unknown Address [address] [place], [place] [id number] Phone Unavailable Care Team Providers Care Automobile Service Station Attendant Name Role Phone Duke Salinas M.D. 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 * Refills: 0 * Started ActiveWarfarin Sodium 5 MG Oral Tablet Take one tablet daily. 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
--- OUTSIDE RECORDS SUMMARY | 2017-03-31 15:07 | XMS REPORT ---
Author Author Hemalatha Davidson [facility] eClinicalWorks Address Unknown Phone Unavailable Care Team Providers Care Power Hair Clipper Name Role Phone Hemalatha Davidson CP Unavailable [...] Instructions Start Date End Date Status Dosage Carvedilol [facility] [address]-17 18.75 Orally Twice a day 1 tablet with food Warfarin Sodium [facility] [address]-42 5 MG ASDIR & 7.5 mg Multiple Vitamin [facility] [address]-52 Orally Once a day 1 tablet Aspirin [facility] [address]282 81 MG Orally Once a day 1 tablet Amiodarone HCl [facility] [address]-16 100 MG Orally Once a day 1 tablet Furosemide [facility] [address]-60 40 MG Orally Once a day 1 tablet Metformin HCl [facility] [address]-72 1000 MG Orally Twice a day 1/2 tablet with meals Gemfibrozil [facility] [address]-29 600 MG Orally qd 1 tablet Fish Oil [facility] [address]-14 1000 MG Orally Once a day 1 capsule Red Yeast Rice [facility] [address] 600 MG Orally bid 2 cap Potassium Chloride Qiana ER [facility] [address]-91 10 MEQ Orally once a day 1 tablet Procedures Procedure Coding System Code Date Ofc Program ICD Dual, Staff CPT-4 04197 May 27, 2016 Office Visit, Est Pt., Level 4 CPT-4 74795 May 27, 2016 Vital Signs Date/Time: May 27, 2016 BMI 28.97 Index Weight 185 lbs Height 67 in Cardiac Monitoring Heart Rate 78 /min Oximetry 92 % Blood Pressure Diastolic 72 mm Hg Blood Pressure Systolic 138 mm Hg Results No Known Results Summary Purpose eClinicalWorks Submission
--- OUTSIDE RECORDS SUMMARY | 2017-03-31 15:07 | XMS REPORT | Summary of Care ---
Author Author Jarek Salinas M.D. Organization Unknown Address [address] [place], [place] [id number] Phone Unavailable Care Team Providers Care Landscaping Supervisor Name Role Phone Duke Salinas M.D. [...] HORMONE 3602 Ordered:07-Oct-2015 HEMOGLOBIN A1C 3507 Ordered:07-Oct-2015 TROPONIN I 3451 Ordered:08-Oct-2015 CREATINE KINASE 1300 Ordered:08-Oct-2015 Comprehensive Metabolic Panel 1212 Ordered:08-Oct-2015 XRay CHEST-PA & LAT Ordered:08-Oct-2015 Immunization Name Dates Details Td Administered on:22-Oct-2001 Pneumo (Pneumovax) Administered on:14-Sep-2006 Influenza Administered on:03-Sep-2008 Td Lot #: [id number] Administered on: Influenza Administered on:09-Aug-2009 Influenza A (H1N1) Monoval Vac Intramuscular Suspension Administered on:28-Oct-2009 Influenza Administered on:29-Aug-2012 Influenza Administered on:05-Sep-2013 Fluzone High-Dose Intramuscular Suspension #1 Lot #: [id number] Administered on:20-Aug-2014 Prevnar 13 Intramuscular Suspension Administered on:21-Sep-2014 Fluzone High-Dose 0.5 ML Intramuscular Suspension Prefilled Syringe Lot #: [id number] Administered on:12-Aug-2015 Family History Unknown Family Member* [...] ml/min (Better) Range: >60 EST GFR, NON-AFR ERITREAN 58 ml/min (Below low threshold) Range: >60 [...] %O2 SATURATION 97.0 % (Better) Range: 94.0-98.0 Plan of Care Planned Observations* Name Dates [...]
--- OUTSIDE RECORDS SUMMARY | 2017-03-31 15:07 | XMS REPORT | Summary of Care ---
Author Author Martha Gudino M.D. Organization Unknown Address [address] [place] [address] Phone Unavailable Care Team Providers Care Instrument Repairer Steam Plant Name Role Phone Duke Salinas M.D. 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, I25.10) [...] on:14-Sep-2006 Influenza Administered on:03-Sep-2008 Td Lot #: [id number] Administered on: Influenza Administered on:09-Aug-2009 Influenza A (H1N1) Monoval Vac Intramuscular Suspension Administered on:28-Oct-2009 Influenza Administered on:29-Aug-2012 Influenza Administered on:05-Sep-2013 Fluzone High-Dose Intramuscular Suspension #1 Lot #: [id number] Administered on:20-Aug-2014 Prevnar 13 Intramuscular Suspension Administered [...] ml/min (Better) Range: >60 EST GFR, NON-AFR TAJIK 55 ml/min (Below low threshold) Range: >60 Comments: EST GFR is reported in ml/min per 1.73 m2 of body surface area. For -Italian, please multiple result by 1.2.----- GLUCOSE 149 [...] ml/min (Better) Range: >60 EST GFR, NON-AFR TAJIK >60 ml/min (Better) Range: >60 Comments: EST GFR is reported in ml/min per 1.73 m2 of body surface area. For -Italian, please multiple result by 1.2.----- BUN:CREATININE RATIO [...]
--- OUTSIDE RECORDS SUMMARY | 2017-03-31 15:07 | XMS REPORT | Summary of Care ---
Author Author Noah Sheffield M.D. 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
--- OUTSIDE RECORDS SUMMARY | 2017-03-31 15:07 | XMS REPORT | Summary of Care ---
Author Author Glenroy Joyner M.D. Unknown Address Unknown Phone Unavailable Care Team Providers Care Outside Plant Engineer Name Role Phone Duke Salinas M.D. [...] Ordered: 14-Sep-2016 PROTIME PANEL 7000 Ordered: 02-Nov-2016 Immunization Name Dates Details Td on: 22-Oct-2001 Pneumo (Pneumovax) on: 14-Sep-2006 Influenza on: 03-Sep-2008 Td Lot #: [id number] on: Influenza on: 09-Aug-2009 Influenza A (H1N1) Monoval Vac SUSP on: 28-Oct-2009 Influenza on: 29-Aug-2012 Influenza on: 05-Sep-2013 Fluzone High-Dose SUSP #1 Lot #: [id number] on: 20-Aug-2014 Prevnar 13 Intramuscular Suspension on: 21-Sep-2014 Fluzone High-Dose 0.5 ML Intramuscular Suspension Prefilled Syringe Lot #: [id number] on: 12-Aug-2015 Pneumovax 23 25 MCG/0.5ML Injection Injectable Lot #: [id number] on: 10-Aug-2016 Fluzone High-Dose 0.5 ML Intramuscular Suspension Prefilled Syringe Lot #: [id number] on: 10-Aug-2016 Family History Name Dates Details [...] 11/02/2016 08:47Dictation Date: 11/02/2016 09:35 XC HEAD Plan of Care Name Dates [...]
[2017-03-31] MEDS ORDERED: PRN ORDERS MC (15:15)
[2017-03-31] MEDS ORDERED: LORAZEPAM 0.5 MG TABLET PO PRN (15:15)
[2017-03-31] MEDS ORDERED: HALOPERIDOL 5 MG/ML INJECTION IM PRN (15:15)
[2017-03-31] MEDS ORDERED: HALOPERIDOL 0.5 MG TABLET PO PRN (15:15)
[2017-03-31] MEDS ORDERED: LORAZEPAM 2 MG/ML INJECTION IM PRN (15:15)
[2017-03-31 15:26] VITALS: BP 163/77; PULSE 65; RESP 18; TEMP 97.6; O2SAT 97
[2017-03-31] MEDS ORDERED: NITROGLYCERIN 0.4 MG SUBLINGUAL TABLET SL PRN (15:30)
[2017-03-31 15:35] VITALS: Ht 170.2 cm; Wt 83.8 kg
--- NOTE | 2017-03-31 15:44 | GENHPPDOC ---
[facility] 03/31/17 Time of Service: 14:00 Start Time: 14:00 Stop Time: 15:00 >50% of this visit spent in counseling/coordination care. Chief Complaint: Depression, anxiety, hopelessness. History of Present Illness Patient is an 82-year-old, , father of 3 ,who was referred by his primary care physician for exacerbation of depressive symptoms. He was said to have been diagnosed with brain mass about 8 months ago and since then he has been having some depressive symptoms. Patient was said to have had a detailed work up done in [facility] and repeat CT scans has not shown increase in the said mass. Patient endorses decrease appetite, low energy, anxiety and intermittent feelings of hopelessness and helplessness. Patient has been socially withdrawn according to his family and he has had some anhedonia. Patient denies any morbid thoughts, suicide ideations, intent or plans to hurt himself or some other person. Family reports that these symptoms have been increasing in the last 1 month and has become debilitating. Patient was recently started on a medication which he was supposed to be taking as needed and he feels confused about the dosing schedule. He was also started on Paroxetine 20mg by his PCP which appears to have worsened his symptoms. Patient denies any change in memory and he is still able to do his ADL. SLUMS administered at his bedside showed a score of 26/30 missing 2 points for short term recall of 2 objects out of 5 and 2 points on the story. Patient denies any auditory or visual hallucinations and no form of delusion reported or elicited. He denies past history of depressive symptoms and denies any history suggestive of naif or hypomania. Patient reports that he is willing to participate in unit treatment protocol. Review of CBC,CMP, UA, UDS were unremarkable. Patient's strength: he is able to handle his ADL and appears willing to receive treatment. Past Psyc History: Denies past inpatient hospitalization and denies past suicide attempt. Past Medical Hx: Atrial Fluter, Cardiomyopathy,CAD, Dyslipidemia,Hx of VA, HTN, COPD, Hx of VT,Seborrheic Keratosis, Hx of Skin Cancer Past Surgical Hx: Hx of Heart Catheterization, Pace Maker in situ Family Hx: Denies hx of mental illness in his family. Father has history of DM Social Hx: Patient has been for over 60 years and has 3 children. 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 He denies hx of ETOH use or any history illicit drug use Depression: hopeless, decreased energy, change in appetite, social withdrawl, sleep disturbance Anxiety: worries, restless, sleep changes, panic Past Medical History Past Medical History Patient's Medical History: (1) Intention tremor (2) History of ventricular fibrillation (3) CDPD (4) COPD (chronic obstructive pulmonary disease) (5) Hypertension (6) History of seborrheic keratosis (7) History of myocardial infarction (8) Diabetes (9) Dyslipidemia (10) History of skin cancer (11) CAD (coronary artery disease) Surgical History Patient's Surgical History: Cardiac Pace maker in situ. Hx of CABG Current Medications Home Meds Reported Medications Nitroglycerin (Nitroglycerin) 0.4 Mg Tab.subl, 0.4 MG SL Q5M Y for CHEST PAIN 03/31/17 Warfarin Sodium (Warfarin Sodium) 5 Mg Tablet, 2.5 MG PO MoFr@1700 03/31/17 Warfarin Sodium (Warfarin Sodium) 5 Mg Tablet, 5 MG PO SuTuWeThSa@1700 03/31/17 Tramadol HCl (Tramadol HCl) 50 Mg Tablet, 50-100 MG PO Q6HR Y for HEADACHE 03/31/17 Red Yeast Rice (Red Yeast Rice) 600 Mg Tablet, 600 MG PO BID 03/31/17 Paroxetine HCl (Paroxetine HCl) 20 Mg Tablet, 20 MG PO HS ONLY TOOK ONCE. CAUSED INSOMNIA AND ANXIETY. 03/31/17 Ondansetron HCl (Ondansetron HCl) 4 Mg Tablet, 4 MG PO Q6HR Y for NAUSEA 03/31/17 Multivitamin with Minerals (Multiple Vitamin) 1 Each Tablet, 1 TAB PO NOON 03/31/17 Metformin HCl (Metformin HCl) 500 Mg Tablet, 500 MG PO BIDWM 03/31/17 Gemfibrozil (Gemfibrozil) 600 Mg Tablet, 600 MG PO WS 03/31/17 [place]-3 Fatty Acids/Fish Oil (Fish Oil 1,000 mg Capsule) 1 Each Capsule, 1000 MG PO NOON 03/31/17 Carvedilol (Carvedilol) 12.5 Mg Tablet, 12.5 MG PO BIDWM 03/31/17 Aspirin (Aspir 81) 81 Mg Tablet.dr, 81 MG PO DAILY 03/31/17 Allergies: Coded Allergies: paroxetine (Verified Allergy, Intermediate, ANXIETY, 03/31/17) rosuvastatin (Verified Allergy, Intermediate, MUSCLE CRAMPING, 03/31/17) Family History Family History: Denies hx of mental illness in his family. Vaccines 2016 Review of Systems Constitutional: REPORTS: appetite decrease, fatigue, insomnia, DENIES: weight gain, weight loss Eyes General: DENIES: itching, photophobia, watering Lids/Accessories: DENIES: erythema Vision: DENIES: blurring, night blindness, tunnel vision ENMT Ears: DENIES: pain Hearing: DENIES: hearing loss, tinnitus Sinuses: NOT FOUND: congestion Cardiovascular DENIES: chest pain, dyspnea on exertion, orthopnea Rhythm/Rate: DENIES: palpitations, tachycardia Vascular: DENIES: pallor of an extremity, pedal edema Pulmonary Respiratory: DENIES: dyspnea, tachypnea GI Upper Abdomen: DENIES: heartburn/indigestion, hematemesis, vomiting General: polyuria, DENIES: cloudy urine, hematuria Musculoskeletal General: pain (back and neck pain) Neurological General: tremor, DENIES: seizures, syncope Psychiatric Psychiatric: anxiety, depression, nervousness Hematologic/Lymphatic DENIES: bleeding gums, frequent nosebleeds Allergic/Immunological DENIES: hives Generations Exam Vitals Vital Signs Date Time Temp Pulse Resp B/P Pulse Ox O2 Delivery O2 Flow Rate FiO2 03/31/17 13:35 98.8 70 20 169/77 96 Room Air Physical examination performed by the hospitalist. Height (Feet): 5 Height (Inches): 7.00 Mental Status Exam Muscle Strength/Tone: Normal Dressing: Casual Grooming: Good Attitude: Cooperative Motor Activity: Tremors Eye Contact: Good Speech: Normal Volume: Normal Rhythm: Appropriate Rhythm Sensory: Alert Orientation: Oriented to person, Oriented to place, Oriented to time Mood: Depressed Affect: Restricted Rate of Thoughts: Appropriate Rate Thought Organization: Organized Associations: Intact Abstract Reasoning: Intact, able to abstract Computation: Intact Thought Content: Normal Perception/Psychotic: Perception Normal Attention Span/Concentration: Normal Language: Naming Intact Fund of Knowledge: Appropriate Memory: Poor-immediate (SLUMS 26/30) Suicidal Ideation: None Homicidal Ideation: None Insight: Fair Judgment: Poor Impulse Control: Poor Laboratory Tests Test 03/31/17 11:51 03/31/17 11:58 03/31/17 12:46 White Blood Count 7.9T/MM3 Red Blood Count 4.70M/MM3 Hemoglobin 14.3GM/DL Hematocrit 42.8% Mean Corpuscular Volume 91.1UM3 Mean Corpuscular Hemoglobin 30.4UUG Mean Corpuscular Hemoglobin Concent 33.4GM/DL RDW Standard Deviation 45.2FL Platelet Count 241T/MM3 Mean Platelet Volume 9.0UM3 Immature Granulocyte % (Auto) 0.1% Neutrophils (%) (Auto) 71.8% Lymphocytes (%) (Auto) 17.1% Monocytes (%) (Auto) 9.5% Eosinophils (%) (Auto) 1.1% Basophils (%) (Auto) 0.4% Absolute Immature Granulocyte (auto 0.01T/MM3 Absolute Neutrophils (auto) 5.7T/MM3 Absolute Lymphocytes (auto) 1.4T/MM3 Absolute Monocytes (auto) 0.8T/MM3 Absolute Eosinophils (auto) 0.1T/MM3 Absolute Basophils (auto) 0.0T/MM3 Prothromb Time International Ratio 1.38 Turbidity < 20 Sodium Level 142MEQ/L Potassium Level 4.4MEQ/L Chloride Level 106MEQ/L Carbon Dioxide Level 23MEQ/L Anion Gap 13MEQ/L Blood Urea Nitrogen 18.0MG/DL Creatinine 0.9MG/DL Glomerular Filtration Rate Calc 81 BUN/Creatinine Ratio 20RATIO Glucose Level 230MG/DL Calculated Osmolality 282MOSM/KG Calcium Level 9.2MG/DL Total Bilirubin 0.90MG/DL Icterus Index < 2 Aspartate Amino Transf (AST/SGOT) 17U/L Alanine Aminotransferase (ALT/SGPT) 36U/L Alkaline Phosphatase 81U/L Total Protein 6.9G/DL Albumin 4.2G/DL Globulin 2.7G/DL Albumin/Globulin Ratio 1.6RATIO Thyroid Stimulating Hormone (TSH) 1.86MIU/L Chemistry Specimen Hemolysis < 15 Salicylates Level < 1.0MG/DL Acetaminophen Level < 10UG/ML Alcohol, Quantitative <10MG/DL Urine Opiates Screen NegativeNG/ML Urine Oxycodone Screen NegativeNG/ML Urine Methadone Screen NegativeNG/ML Urine Propoxyphene Screen NegativeNG/ML Urine Barbiturates Screen NegativeNG/ML Urine Tricyclic Antidepressants NegativeNG/ML Urine Phencyclidine Screen NegativeNG/ML Urine Amphetamines Screen NegativeNG/ML Urine Methamphetamines Screen NegativeNG/ML Urine Benzodiazepines Screen NegativeNG/ML Urine Cocaine Screen NegativeNG/ML Urine Cannabinoids Screen NegativeNG/ML Lab Scanned Report REFERENCE [id number] Assessment and Plan (1) Major depressive disorder, single episode, unspecified Assessment: Admit patient to the unit. Consult Internal medicine for medical management. DC Paroxetine. Cont home medications. Observe patient on the unit and monitor appetite, sleep and social interactions. 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
--- NOTE | 2017-03-31 16:09 | NUR ---
admission 82 year old male admitted to room 193. pt came from home in [place] with his . pt went to ED for medical clearance then to generations. pt brought via wheelchair accompanied by his and daughter in-law. pt is alert and oriented x3. able to make needs known. states the reason for admission is to straighten out his meds. pt has a pacemaker and defibrillator. no skin issues noted at this time. pt and family oriented to room and facility. wallet and keys were sent home with . pt is dressed appropriately for the weather.
[2017-03-31] MEDS ORDERED: WARFARIN 5 MG TABLET PO SCH (17:00)
--- NOTE | 2017-03-31 17:10 | NUR ---
SLUMS score is 30
[2017-03-31] MEDS: CARVEDILOL 12.5 MG TABLET PO SCH (17:13)
[2017-03-31] MEDS: METFORMIN 500 MG TABLET PO SCH (17:13)
[2017-03-31] MEDS: GEMFIBROZIL 600 MG TABLET PO SCH (17:13)
--- NOTE | 2017-03-31 18:32 | NUR ---
Pt is currently watching [employer]. He called his around 1600 and upset her because he told her how he didnt like it here and all his medications were wrong. The daughter in law called back up here to discuss with nurse. All his medications are the same. They were reviewed with pt as well. He called his son about 20 min ago complaining about being here, saying there was no tv and he wants his cell phone. Will pass on in report that calls should probably be limited for pt.
[2017-03-31 19:20] VITALS: BP 121/69; PULSE 89; RESP 16; TEMP 97.2; O2SAT 100
[2017-03-31 20:00] VITALS: RESP 20
[2017-03-31] MEDS ORDERED: RED YEAST RICE 600 MG PO SCH (21:00)
[2017-03-31] MEDS: ACETAMINOPHEN 325 MG TABLET PO PRN (21:31)
--- NOTE | 2017-03-31 21:31 | NUR ---
prn given Pt is up with stand by assist, pt did hs cares and changed into pj's, pt states he has pain behind his shoulder blades, pt requested and given a back massage, pt agreed to take Tylenol 650mg po. Pt is in bed resting, will monitor pt.
--- NOTE | 2017-03-31 22:30 | NUR ---
prn update Pt is in bed resting with 2 bed rails up and bed alarm on.
--- NOTE | 2017-03-31 23:15 | NUR ---
bedtime Pt went to sleep at 23:15, pt is in bed with 2 bed rails up and bed alarm on. Pt slept 0 on dayshift. will monitor pt.
--- NOTE | 2017-03-31 23:32 | NUR ---
etoh/ams Pt states he does not drink or smoke, pt aims score is 0, pt slum score is 30.
--- NOTE | 2017-03-31 23:49 | NUR ---
prn given Pt is awake up able to rest, pt request something else for sleep. Pt offered and given Ativan 0.5mg po to help pt to relax and to rest. Pt is in bed with 2 bed rails up and bed alarm on.
--- NOTE | 2017-04-01 00:30 | NUR ---
prn update Pt is sleeping in bed with 2 bed rails up and bed alarm on.
[2017-04-01] MEDS: ACETAMINOPHEN 325 MG TABLET PO PRN (03:40)
--- NOTE | 2017-04-01 03:40 | NUR ---
prn given Pt is awake up and down several times to the bathroom, pt unable to sleep, lab called and came over and moni am inr. Pt states the Ativan helped a little, but not enough, pt states "I am afraid I will here and I want to be at home. Pt reassured that his labs from earlier today looked fine and that he was here to get help with anxiety and to help him sleep. Pt stated "I came to help me get some rest, but nothing has worked. Pt reminded that he has only been here one day, that we are here to help him. Pt agreeable to Tylenol 650mg and a back rub, pt back rubbed with lotion. Pt is now in bed with 2 bed rails up and bed alarm on.
[2017-04-01 04:02] LABS: INR 1.38 (0.77-1.03); PROTHROMBIN TIME 15.1 SEC (9.48-12.52)
--- NOTE | 2017-04-01 04:24 | NUR ---
prn update Pt is sleeping in bed, with bed rails up and bed alarm on.
--- NOTE | 2017-04-01 04:24 | NUR ---
Chart Check 24 hour chart check completed
--- NOTE | 2017-04-01 05:30 | NUR ---
prn update Pt is resting in bed, with 2 bed rails up and bed alarm on
--- NOTE | 2017-04-01 06:25 | NUR ---
shift summary Pt is alert and oriented x3, pt is up with stand by assist. Pt cooperative with assessment, meds, vitals. Pt had trouble sleeping during the night, pt having back pain, pt getting Tylenol 650mg at 21:31 and 03:40. Pt anxious and unable to rest, pt given Ativan at 23:49. Pt is now resting in bed with 2 bed rails up and bed alarm on.
[2017-04-01 08:00] VITALS: PULSE 79; RESP 20
[2017-04-01 08:16] VITALS: BP 142/70; PULSE 79; RESP 20; TEMP 97.8; O2SAT 94
[2017-04-01] MEDS: CARVEDILOL 12.5 MG TABLET PO SCH ×2 (08:17→17:57)
[2017-04-01] MEDS: METFORMIN 500 MG TABLET PO SCH ×2 (08:17→17:57)
--- NOTE | 2017-04-01 09:37 | NUR ---
Nutrition risk r/t poor PO intake > 3 days Diet: [id number]; intake: 100% (previous night meal);False positive (less than 3 days); RD will continue to monitor intake x 1406
--- NOTE | 2017-04-01 10:08 | NUR ---
CM LACE SCORE IS 9. Addendum: 04/01/17 at 1008 by SACHA FRANCISCO SW Amended: Links added.
--- NOTE | 2017-04-01 10:08 | HPPDOC ---
JO WALTON 04/01/17 0943: HPI - Adult Date DATE: 04/01/17 TIME: 09:22 General Chief Complaint: Major depressive disorder, anxiety, uncontrolled diabetes History of Present Illness Geovany Goldstein is a pleasant 82-year-old male who was admitted to [facility] unit last night, on 03/31/17, for evaluation and treatment of his depression and anxiety. He reports that his PCP, Dr. Salinas, referred him to [facility] for evaluation and clearance for admission. Medical history is obtained from prior notes, nursing records and the patient himself. He reports that he is "a man that worries" and was started on Paroxetine 20mg on 03/29/17 which seemed to exacerbate his symptoms. After starting the medication he became increasingly more anxious with insomnia. Prior medical records report that he has had a significant increase in anxiety which lead to poor sleeping, decreased appetite , depressed energy, increased confusion and decline in his ability to engage and perform ADLs over the past month. He has also been socially withdrawn according to his family. He denies any morbid thoughts, suicide ideations, intent or plans to harm himself or others. In speaking with the patient, he speaks as if his symptoms are new, but records indicate that his anxiety and depression have been persistent for some time. He admits to having felt hopeless and helpless which makes him very discouraged. 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 Recent scan by Dr. Salinas showed no change in the mass per the patient thought the scan results are not available for review. He currently denies any headache, changes in vision or hearing, numbness, tingling, weakness or syncope. He denies any hallucinations and no form of delusions reported or elicited. Family has previously expressed concern that the patient, whom lives independently, has not been taking his medications as prescribed for his other medical conditions including a-fib/flutter, diabetes, CHF and hypertension. Lipid panel was done on 02/12 with a total cholesterol of 149, low HDL and elevated LDL. A1c on 02/12 was elevated at 9.6 and his metformin was increased to BID at that time. Due to his behavioral changes and major depression, he was accepted into [facility] unit for further evaluation and treatment. Hospitalist service was consulted for medical management. On exam, he is initially found talking with social work in the [place]air. He states that he feels like he is in correction and is eager for discharge, openly admitting that he thinks he made a mistake voluntarily agreeing to come to the hospital. He reports that he feels great this morning but admits that he did not sleep well last night despite taking Ativan. Nursing notes were reviewed and indicate that he was restless throughout the night. His appetite has been good but he has not had a bowel movement in 2 days. 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 CABG x 3. Heart cath. Colonscopy. Skin cancer excision. Knee surgery. Current Medications Home Meds Reported Medications Nitroglycerin (Nitroglycerin) 0.4 Mg Tab.subl, 0.4 MG SL Q5M Y for CHEST PAIN 03/31/17 Warfarin Sodium (Warfarin Sodium) 5 Mg Tablet, 2.5 MG PO MoFr@1700 03/31/17 Warfarin Sodium (Warfarin Sodium) 5 Mg Tablet, 5 MG PO SuTuWeThSa@1700 03/31/17 Tramadol HCl (Tramadol HCl) 50 Mg Tablet, 50-100 MG PO Q6HR Y for HEADACHE 03/31/17 Red Yeast Rice (Red Yeast Rice) 600 Mg Tablet, 600 MG PO BID 03/31/17 Paroxetine HCl (Paroxetine HCl) 20 Mg Tablet, 20 MG PO HS ONLY TOOK ONCE. CAUSED INSOMNIA AND ANXIETY. 03/31/17 Ondansetron HCl (Ondansetron HCl) 4 Mg Tablet, 4 MG PO Q6HR Y for NAUSEA 03/31/17 Multivitamin with Minerals (Multiple Vitamin) 1 Each Tablet, 1 TAB PO NOON 03/31/17 Metformin HCl (Metformin HCl) 500 Mg Tablet, 500 MG PO BIDWM 03/31/17 Gemfibrozil (Gemfibrozil) 600 Mg Tablet, 600 MG PO WS 03/31/17 [place]-3 Fatty Acids/Fish Oil (Fish Oil 1,000 mg Capsule) 1 Each Capsule, 1000 MG PO NOON 03/31/17 Carvedilol (Carvedilol) 12.5 Mg Tablet, 12.5 MG PO BIDWM 03/31/17 Aspirin (Aspir 81) 81 Mg Tablet.dr, 81 MG PO DAILY 03/31/17 Allergies: Coded Allergies: paroxetine (Verified Allergy, Intermediate, ANXIETY, 03/31/17) rosuvastatin (Verified Allergy, Intermediate, MUSCLE CRAMPING, 03/31/17) Family History Family History: Father - diabetes. Grandfather - heart disease. Grandmother - breast cancer. Denies any family history of psychiatric illness or disease. Social History Smoking Status: Never smoker Does patient use chewing tobac: No Second Hand Exposure: No Substance Use Type: does not use Alcohol Intake: none Marital Status: (63 years) Sexuality: female partner Housing: house Household Members: spouse (Ira) Number of Children: 3 Current Occupational Status: retired Advance Directives: No DPOA for Healthcare Only Social History Comments PCP - Dr. Salinas. Review of Systems Constitutional: REPORTS: appetite decrease, difficulty falling asleep, fatigue , insomnia, DENIES: chills, fever, syncope, weakness Eyes General: DENIES: photophobia Vision: DENIES: double vision ENMT Hearing: REPORTS: hearing loss (chronic) Sinuses: NOT FOUND: congestion Nose: NOT FOUND: nosebleeds Mouth/Throat: DENIES: change in swallowing, change in voice, sore throat Cardiovascular dyspnea on exertion, DENIES: chest pain Rhythm/Rate: DENIES: palpitations, tachycardia Vascular: DENIES: pallor of an extremity, pedal edema, unilateral swelling Pulmonary Respiratory: DENIES: cough, dyspnea, pleuritic chest pain, sputum, tachypnea GI Upper Abdomen: DENIES: dysphagia, heartburn/indigestion, nausea, pain, vomiting Lower Abdomen: constipation, DENIES: blood in stool, diarrhea, pain General: nocturia, DENIES: burning, cloudy urine, dysuria, frequency, pain, urgency Musculoskeletal General: DENIES: joint pain, pain, weakness Integumentary Skin: DENIES: rash Neurological General: DENIES: change in strength, headache, numbness, seizures, syncope, weakness Psychiatric Psychiatric: anxiety, depression, DENIES: hallucinations, suicidal ideation/ attempt Hematologic/Lymphatic DENIES: frequent nosebleeds All Other Systems All Other Systems: Reviewed (remainder of 10-point ROS Neg.) Physical Exam General General Nourishment: well nourished, well developed, apparent age, adult General Body Habitus: well groomed Vital Signs Vital Signs Date Time Temp Pulse Resp B/P Pulse Ox O2 Delivery O2 Flow Rate FiO2 04/01/17 08:16 97.8 79 20 142/70 94 Room Air Height (Feet): 5 Height (Inches): 7.00 Eyes Brief: FOUND: PERRL, NOT FOUND: scleral icterus ENMT Brief: FOUND: mucosa moist, normal dentition Neck Brief: FOUND: midline, NOT FOUND: nuchal rigidity, tracheal deviation Respiratory Inspection: NOT FOUND: accessory muscle use, audible stridor, audible wheezing , tachypnea Palpation: NOT FOUND: tenderness Auscultation: FOUND: normal Breasts: FOUND: symmetric Cardiovascular Auscultation: FOUND: S1, S2 Peripheral Pulses: 2+: Dorasalis Pedis (L), Dorsalis Pedis (R), Radial (L), Radial (R) Edema: 0: Anasarca, Arm (L), Arm (R), Face, Leg (L), Leg (R) Abdomen Inspection: FOUND: distention Palpation: FOUND: soft, NOT FOUND: involuntary guarding, tender, voluntary guarding Auscultation: FOUND: hypoactive Lymphatic (brief) Lymphatic Brief: NOT FOUND: lymphedema Musculoskeletal (brief) Musculoskeletal Brief: FOUND: extremities move equally, NOT FOUND: deformity, loss of motion Comments ambulates easily without assistance through adair Integumentary (brief) Integumentary Brief: FOUND: dry, pink, warm Neurologic Mental Status: FOUND: alert, oriented (x3) RN Documented GCS Eye Opening: Verbal: Motor: Total: Cranial Nerves: FOUND: forehead movement, shoulder shrug, NOT FOUND: facial asymmetry Unusual Movements: FOUND: tremor Other Reflexes: FOUND: great toe movement Psychiatric (brief) FOUND: alert, attentive, oriented Psychiatric Psychiatric General: NOT FOUND: delusions, hallucinations, threatening Attitude: FOUND: cooperative Suicide/Homicide: NOT FOUND: suicidal ideation, suicidal plan Laboratory Laboratory Tests Test 03/31/17 11:51 03/31/17 11:58 03/31/17 12:46 04/01/17 03:36 White Blood Count 7.9T/MM3 Red Blood Count 4.70M/MM3 Hemoglobin 14.3GM/DL Hematocrit 42.8% Mean Corpuscular Volume 91.1UM3 Mean Corpuscular Hemoglobin 30.4UUG Mean Corpuscular Hemoglobin Concent 33.4GM/DL RDW Standard Deviation 45.2FL Platelet Count 241T/MM3 Mean Platelet Volume 9.0UM3 Immature Granulocyte % (Auto) 0.1% Neutrophils (%) (Auto) 71.8% Lymphocytes (%) (Auto) 17.1% Monocytes (%) (Auto) 9.5% Eosinophils (%) (Auto) 1.1% Basophils (%) (Auto) 0.4% Absolute Immature Granulocyte (auto 0.01T/MM3 Absolute Neutrophils (auto) 5.7T/MM3 Absolute Lymphocytes (auto) 1.4T/MM3 Absolute Monocytes (auto) 0.8T/MM3 Absolute Eosinophils (auto) 0.1T/MM3 Absolute Basophils (auto) 0.0T/MM3 Prothromb Time International Ratio 1.38 1.38 Turbidity < 20 Sodium Level 142MEQ/L Potassium Level 4.4MEQ/L Chloride Level 106MEQ/L Carbon Dioxide Level 23MEQ/L Anion Gap 13MEQ/L Blood Urea Nitrogen 18.0MG/DL Creatinine 0.9MG/DL Glomerular Filtration Rate Calc 81 BUN/Creatinine Ratio 20RATIO Glucose Level 230MG/DL Calculated Osmolality 282MOSM/KG Calcium Level 9.2MG/DL Total Bilirubin 0.90MG/DL Icterus Index < 2 Aspartate Amino Transf (AST/SGOT) 17U/L Alanine Aminotransferase (ALT/SGPT) 36U/L Alkaline Phosphatase 81U/L Total Protein 6.9G/DL Albumin 4.2G/DL Globulin 2.7G/DL Albumin/Globulin Ratio 1.6RATIO Thyroid Stimulating Hormone (TSH) 1.86MIU/L Chemistry Specimen Hemolysis < 15 Salicylates Level < 1.0MG/DL Acetaminophen Level < 10UG/ML Alcohol, Quantitative <10MG/DL Urine Opiates Screen NegativeNG/ML Urine Oxycodone Screen NegativeNG/ML Urine Methadone Screen NegativeNG/ML Urine Propoxyphene Screen NegativeNG/ML Urine Barbiturates Screen NegativeNG/ML Urine Tricyclic Antidepressants NegativeNG/ML Urine Phencyclidine Screen NegativeNG/ML Urine Amphetamines Screen NegativeNG/ML Urine Methamphetamines Screen NegativeNG/ML Urine Benzodiazepines Screen NegativeNG/ML Urine Cocaine Screen NegativeNG/ML Urine Cannabinoids Screen NegativeNG/ML Lab Scanned Report REFERENCE [id number] Radiology 03/31/17 - CXR: no focal pneumonia or congestive changes; cardiomegaly vs. pericardial effusion; pacemaker/defibrillator noted. Assessment & Plan Problems: (1) Major depressive disorder, single episode, unspecified Status: Acute (2) Anxiety disorder due to general medical condition Status: Acute (3) Diabetes Status: Chronic Qualifiers: Diabetes mellitus type: type 2 Diabetes mellitus complication status: with kidney complications Diabetes mellitus complication detail: with chronic kidney disease Chronic kidney disease stage: stage 3 (moderate) Assessment & Plan: uncontrolled. A1c on 02/12/17 = 9.6. (4) Hypertension Status: Chronic Qualifiers: Hypertension type: essential hypertension Qualified Codes: I10 - Essential (primary) hypertension (5) Dyslipidemia Status: Chronic Assessment & Plan: lipid panel done 02/12/17. (6) CAD (coronary artery disease) Status: Chronic Qualifiers: Coronary Disease-Associated Artery/Lesion type: [place] artery [place] vs. transplanted heart: [place] heart Associated angina: angina presence unspecified Qualified Codes: I25.10 - Atherosclerotic heart disease of [place] coronary artery without angina pectoris (7) History of myocardial infarction Status: Resolved (8) Cardiomyopathy Status: Chronic (9) CHF (NYHA class II, ACC/AHA stage C) Status: Chronic (10) COPD (chronic obstructive pulmonary disease) Status: Chronic (11) Chronic a-fib Status: Chronic (12) Brain mass Status: Chronic Assessment & Plan: found 05/19/16. No biopsy or treatment. (13) Benign paroxysmal positional vertigo due to bilateral vestibular disorder Status: Chronic (14) History of ventricular tachycardia Status: Resolved Assessment 82 year old male admitted to [facility] unit for major depressive disorder and severe anxiety for evaluation and treatment. Hospitalist service consulted for medical management of uncontrolled DM, hypertension and other chronic medical conditions. Labs on admission were unremarkable with the exception of glucose at 230. A1c from 02/12/17 was elevated at 9.6. INR subtherapeutic at 1.38. Plan/Intensity of Service 04/01/17. MIRAKIAN: ADMIT. Agree with admission to [facility] unit for further evaluation and medical treatment for major depression and anxiety. Hospitalist service consulted for medical management. Continue home medications with the exception of paroxetine per psych. Monitor blood pressure closely. A1c reported to 9.6 on 02/12/17. Metformin increased to 500mg BID at that time. Monitor blood sugars closely with BGMs in AM and HS. 2000 kcal carb diet. INR subtherapeutic at time of admission at 1.86. Pharmacy to manage. Encourage participation in floor activities and provide safe and supportive environment as patient is eager for discharge. Will monitor labs periodically throughout admission. CBC and CMP relatively unremarkable upon admission. B12 and Folate pending. Upon discharge, patient's care will be returned to his PCP. DVT Prophylaxis: Coumadin Code Status Full Code Hospital Course Summary Disclaimer The hospital course summary below is not to be considered part of the above Progress Note. Hospital Course Summary 04/01/17. MIRAKIAN: ADMIT. Agree with admission to [facility] unit for further evaluation and medical treatment for major depression and anxiety. Hospitalist service consulted for medical management. Continue home medications with the exception of paroxetine per psych. Monitor blood pressure closely. A1c reported to 9.6 on 02/12/17. Metformin increased to 500mg BID at that time. Monitor blood sugars closely with BGMs in AM and HS. 2000 kcal carb diet. INR subtherapeutic at time of admission at 1.86. Pharmacy to manage. Encourage participation in floor activities and provide safe and supportive environment as patient is eager for discharge. Will monitor labs periodically throughout admission. CBC and CMP relatively unremarkable upon admission. B12 and Folate pending. Upon discharge, patient's care will be returned to his PCP. MARKUS COPE MD 04/02/171952: Past Medical History Current Medications Home Meds Reported Medications Nitroglycerin (Nitroglycerin) 0.4 Mg Tab.subl, 0.4 MG SL Q5M Y for CHEST PAIN 03/31/17 Warfarin Sodium (Warfarin Sodium) 5 Mg Tablet, 2.5 MG PO MoFr@1700 03/31/17 Warfarin Sodium (Warfarin Sodium) 5 Mg Tablet, 5 MG PO SuTuWeThSa@1700 03/31/17 Tramadol HCl (Tramadol HCl) 50 Mg Tablet, 50-100 MG PO Q6HR Y for HEADACHE 03/31/17 Red Yeast Rice (Red Yeast Rice) 600 Mg Tablet, 600 MG PO BID 03/31/17 Paroxetine HCl (Paroxetine HCl) 20 Mg Tablet, 20 MG PO HS ONLY TOOK ONCE. CAUSED INSOMNIA AND ANXIETY. 03/31/17 Ondansetron HCl (Ondansetron HCl) 4 Mg Tablet, 4 MG PO Q6HR Y for NAUSEA 03/31/17 Multivitamin with Minerals (Multiple Vitamin) 1 Each Tablet, 1 TAB PO NOON 03/31/17 Metformin HCl (Metformin HCl) 500 Mg Tablet, 500 MG PO BIDWM 03/31/17 Gemfibrozil (Gemfibrozil) 600 Mg Tablet, 600 MG PO WS 03/31/17 [place]-3 Fatty Acids/Fish Oil (Fish Oil 1,000 mg Capsule) 1 Each Capsule, 1000 MG PO NOON 03/31/17 Carvedilol (Carvedilol) 12.5 Mg Tablet, 12.5 MG PO BIDWM 03/31/17 Aspirin (Aspir 81) 81 Mg Tablet.dr, 81 MG PO DAILY 03/31/17 Allergies: Coded Allergies: paroxetine (Verified Allergy, Intermediate, ANXIETY, 03/31/17) rosuvastatin (Verified Allergy, Intermediate, MUSCLE CRAMPING, 03/31/17) JO WALTON April 01, 2017 09:43 MARKUS COPE MD April 02, 2017 19:53
[2017-04-01] MEDS ORDERED: POLYETHYL.GLYCOL 3350 PACKET 17gm PO ONE (10:15)
--- NOTE | 2017-04-01 10:41 | NUR ---
CM THIS WORKER SPOKE WITH PT, INTRODUCED SELF, EXPLAINED ROLE, PROVIDED CONTACT INFO. PT STATED HE AND SPOUSE JOHN LIVE IN [place], [place]. HE GAVE PERMISSION FOR THIS WORKER TO CONTACT HIS SPOUSE. LEFT GENERAL MESSAGE WITH JOHN, PROVIDING CONTACT INFO.
--- NOTE | 2017-04-01 11:33 | NUR ---
COUMADIN CONSULT (Initial): H. 82 y.o. Male with history of a. fib and chronic anticoagulation therapy with Warfarin. Home dose: 5 mg po daily except for Wednesday and Wednesday 2.5 mg po. goal INR range 2.0-3.0. Patient H & P reports family concerns of patient medication non-compliance. O. date INR dose 03/31 1.38 5 mg 5 1.38 plan: 5 mg INR sub-therapeutic. Will give Warfarin 5 mg today. No significant drug-drug interactions noted. Will continue to monitor and make adjustments accordingly. Thank you, Yenny Nash [facility]
[2017-04-01] MEDS: OMEGA-3 ACID ESTERS 1 G CAPSULE PO SCH (11:57)
[2017-04-01] MEDS: MULTIVIT + MINERALS (OPTI-GEN) PO SCH (11:57)
[2017-04-01] MEDS: ASPIRIN *EC* 81mg TABLET PO SCH (11:57)
[2017-04-01] MEDS ORDERED: WARFARIN 5 MG TABLET PO SCH (12:00)
--- NOTE | 2017-04-01 12:00 | NUR ---
WATER PUMP SERVICER -- PSH/FAMILY CONTACT/ADV. SHAIKH SW spoke with pt's , Ira, on the phone and spoke with pt in person to complete the PSH. On the phone, it was very evident that has some anxiety issues AEB fast speech and jumping around in the conversation at times. Ira's anxiety is heightened and she is now having more medical issues because of the increase in pt's mental health symptoms. Pt discussed that he has felt different over the past two months. He has had anxiety his whole life but recently his insomnia has become worse. However, pt reports sleeping in his chair in the living room during the day but not being able to sleep at night. Pt exhibits depressive behaviors that include feeling sad about his situation and how his feels about the change in her and the worry that it causes her. He also is having more anger episodes which is not normal for pt. He feels lonely when he gets anxious because he tries to do some of his self soothing techniques that [place] Then he is alone and dealing with the anxiety. Pt will also read his Bible or watch TV. Pt likes to also listen to [employer] motivational speakers. Pt does have DPOA-HC complete naming his 3 children to act on his behalf for his DPOA. Pt still wants to be a full code at this time. Pt has had a bypass surgery about 20 years ago and about 9 months ago, he had a pace maker and defibrilator place. Also back in May of 2016, pt was dx'd with a brain mass on the right side. It is monitored every 2 months by [facility]. Pt's PCP is Dr. Jarek Salinas whom recommended pt come to the unit to help him since he had an adverse reaction to new meds prescribed for him on Wednesday. Pt has good family support in his , children and grandchildren. Pt is anxious to get out of here and go back home, but this SW explained medication management and adjustments will be done here to ensure pt will be able be successful in his home environment.
--- NOTE | 2017-04-01 15:40 | NUR ---
ROLL MILL OPERATOR--INDIVIDUAL ROLL MILL OPERATOR--INDIVIDUAL [facility]1 with patient to provide educational information regarding diagnosis and treatment of depression and anxiety. Talked with patient about how his symptoms have evolved over the past several years. He admits to a history of being "high strung." His mother tended to worry a lot, too. He initially did not recognize that he might be depressed. As he talked, he became tearful and very emotional as he relayed various issues that have been challenging to him and his . He was able to identify some major life changes that have occurred over past two years, including the loss of various close friends and relatives. He admitted this morning he had the thought, "This is the beginning of the end." He explained that in his mind, someone goes to the hospital, then they go to the rest home and then they . He feels isolated and alone in the hospital and is hopeful he can discharge soon. He is agreeable to staying to allow the doctor to try some different medications to help with his symptoms. Pt. admitted that talking with the SW has helped him this afternoon. He reported decrease in his symptoms of anxiety and improved mood. He did appear more relaxed and his hands were not shaking as much as they had earlier.
--- NOTE | 2017-04-01 15:48 | NUR ---
Vaccines According to medical records at [facility] medical records. Pt had the influenza vaccine on 08/10/16. Pneu 13 on 09/21/14, Pneu 23 on 08/10/16.
[2017-04-01 16:00] VITALS: BP 116/65; PULSE 62; RESP 20; TEMP 97.6; O2SAT 92
--- NOTE | 2017-04-01 17:15 | GENPN ---
[facility]ations Subjective Date DATE: 04/01/17 TIME: 17:03 Subjective/Severity of Illness Medications Current Medications Medications (Trade) Dose Ordered Sig/Otilia Start Time Stop Time Status Last Admin Dose Admin Miscellaneous Medication (May use PRN orders) 1 PRN PRN 03/31/17 15:15 Haloperidol (Haldol) 0.5 mg Q6H PRN 03/31/17 15:15 Lorazepam (Ativan) 0.5 mg Q6H PRN 03/31/17 15:15 04/01/17 11:52 DC 03/31/17 23:49 0.5 MG Lorazepam (Ativan) 0.5 mg Q6H PRN 03/31/17 15:15 04/01/17 11:52 DC Haloperidol Lactate (Haldol 5 Mg/ml Inj) 0.5 mg Q6H PRN 03/31/17 15:15 Aspirin (Ecotrin) 81 mg 12 04/01/17 12:00 04/01/17 11:57 81 MG Carvedilol (Coreg) 12.5 mg BIDWM 03/31/17 17:30 04/01/17 08:17 12.5 MG Gemfibrozil (Lopid) 600 mg WS 03/31/17 17:30 03/31/17 17:13 600 MG Metformin HCl (Glucophage) 500 mg BIDWM 03/31/17 17:30 04/01/17 08:17 500 MG Multivitamins/ Minerals (Vision) 1 tab NOON 04/01/17 12:00 04/01/17 11:57 1 TAB Nitroglycerin (Nitrostat) 0.4 mg Q5M PRN 03/31/17 15:30 Warfarin Sodium (COUMADIN 5 mg) 2.5 mg MoFr@1700 04/02/17 17:00 04/02/17 17:00 DC Warfarin Sodium (COUMADIN 5 mg) 5 mg SuTuWeThSa@1700 03/31/17 17:00 04/01/17 11:35 DC 03/31/17 17:00 5 MG Cvjmc-9-Wmnq Ethyl Esters (Lovaza) 1 g NOON 04/01/17 12:00 04/01/17 11:57 1 G Non-Formulary Medication 600 mg BID 03/31/17 21:00 03/31/17 21:00 DC Warfarin Sodium (Coumadin Protocol) NOTE 03/31/17 17:00 Acetaminophen (Tylenol Regular Strength) 650 mg Q3-4H PRN 03/31/17 21:30 04/01/17 03:40 650 MG Polyethylene Glycol (Miralax) 17 g DAILY 04/02/17 09:00 Mirtazapine (Remeron) 7.5 mg HS 04/01/17 21:00 Warfarin Sodium (COUMADIN 5 mg) 5 mg NOON 04/01/17 12:00 04/01/17 12:01 DC 04/01/17 11:57 5 MG Subjective Patient is an 82-year-old CM, who presented with depressive and anxiety symptoms. 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 Patient worries a lot and he began endorsing vegetative symptoms of depression prior to his admission. He had a trial of Paroxetine by his PCP which further exacerbated his anxiety symptoms. Today patient was seen and chart reviewed. He received Lorazepam last night to help with sleep. Patient reports that he would like to have a medication that will help with both his anxiety and depression symptoms. Starting Mirtazapine was discussed with him and after discussing risk, benefits with the option of not starting any medication, patient agreed to a trial of low dose Mirtazapine. Discussed this plan with his and she was okay with it. He denies any suicide ideations, intent or plans to hurt himself or some other person. Time of Service: 11:20 Start Time: 11:20 Stop Time: 11:40 Care >50% of this visit spent in counseling/coordination care. [facility]ations Exam Vitals Vital Signs Date Time Temp Pulse Resp B/P Pulse Ox O2 Delivery O2 Flow Rate FiO2 04/01/17 16:00 97.6 62 20 116/65 92 Room Air Physical examination performed by the hospitalist. Height (Feet): 5 Height (Inches): 7.00 Mental Status Exam Muscle Strength/Tone: Normal Dressing: Casual Grooming: Good Attitude: Cooperative Motor Activity: Tremors Eye Contact: Good Speech: Normal Volume: Normal Rhythm: Appropriate Rhythm Sensory: Alert Orientation: Oriented to person, Oriented to place, Oriented to time Mood: Neutral Affect: Congruent Rate of Thoughts: Appropriate Rate Thought Organization: Organized Associations: Intact Thought Content: Normal Perception/Psychotic: Perception Normal Attention Span/Concentration: Normal Language: Naming Intact Memory: Poor-immediate Suicidal Ideation: None Homicidal Ideation: None Insight: Fair Judgment: Fair Impulse Control: Fair Laboratory Tests Test 04/01/17 03:36 04/01/17 14:53 Prothromb Time International Ratio 1.38 Glucometer 199mg/dL Assessment and Plan (1) Major depressive disorder, single episode, unspecified Assessment: Admit patient to the unit. Consult Internal medicine for medical management. DC Paroxetine. Cont home medications. Observe patient on the unit and monitor appetite, sleep and social interactions. 04/01/17: Start Mirtazapine 7.5mg q HS. 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
[2017-04-01] MEDS: GEMFIBROZIL 600 MG TABLET PO SCH (17:57)
--- NOTE | 2017-04-01 18:15 | NUR ---
sleep note Patient woke up at 0615, she slept a total of 7 hr last night.
--- NOTE | 2017-04-01 18:16 | NUR ---
SHIFT SUMMARY patient has been pleasant cooperative with cares and compliant with medications, patient has been smiling and polite to staff, he spoke to his over the phone today and told her "I have no friends here, am all alone, they took all my stuff away from me and lock it up." He seemed sad when he was talking to her. Patient has been walking down the adair, in his room, day room and dining room, he watch TV, he is able to make needs known, he socializes with staff, denies any pain this shift, no inappropriate behaviors noted. No PRN medications given. He is listening to music on his Ipod right now, denies needs or concerns at the moment.
[2017-04-01] MEDS: MIRTAZAPINE 15 MG TABLET PO SCH (19:57)
[2017-04-01 20:08] VITALS: BP 140/74; PULSE 83; RESP 14; TEMP 96; O2SAT 96
--- NOTE | 2017-04-02 00:11 | NUR ---
Chart Check 24 hour chart check completed
--- NOTE | 2017-04-02 00:14 | NUR ---
Status Pt walking around the unit listening to music on ipod at start of shift. Pt a/o x3, up modified independence with steady gait. Pt pleasant, cooperative with VS, assessment and medication. Pt sat in the DR visiting with staff and new male pt, conversation was appropriate. He did not have any PRNs or behaviors prior to going to bed. Pt went to bed at 2015 and asleep by 2300. He has been up to the BR and at that time he was trying to turn off his bed alarm. He did cancel the call light on the wall and staff notified pt that staff are the only ones who can turn off the alarms, pt verbalized understanding. Pt back to sleep quickly. Pt educated about call light. BGM was 157. Bed locked, in low position, SR up x 2, call light in reach, bed alarm is on and functioning. Will continue to monitor.
[2017-04-02 03:28] LABS: FOLATE 18.5 NG/ML (2.76-20)
[2017-04-02 05:43] LABS: INR 1.62 (0.77-1.03)
--- NOTE | 2017-04-02 06:00 | NUR ---
Summary/sleep Pt has been up several times through the night. He was in bed at 2014 and asleep by [id number]. He was up to the BR and back to sleep from [id number] using the BR. Back to sleep [id number] using the restroom again. He slept [id number] then lab arrived for blood draw, pt was cooperative. pt back to sleep at 0515 and is currently sleeping. He had a total of 7hr 15 minutes. Pt has not had any behaviors or PRNs. Bed is in low position, locked, SR up x 2, call light in reach and has been using it appropriately, bed alarm is on and functioning. Will continue to monitor.
--- NOTE | 2017-04-02 07:00 | NUR ---
Pt Status Pt alert and oriented x3. Reports he slept the best in 2 weeks. Relates about medication change that resulted in poor sleep for several days and "I will never take that medication again." Pt dressed self and personal care by self.
[2017-04-02 07:17] LABS: PROTHROMBIN TIME 17.7 SEC (9.48-12.52)
[2017-04-02 08:13] VITALS: BP 155/84; PULSE 85; RESP 18; TEMP 97.5; O2SAT 96
[2017-04-02] MEDS: CARVEDILOL 12.5 MG TABLET PO SCH ×2 (08:17→17:25)
[2017-04-02] MEDS: METFORMIN 500 MG TABLET PO SCH ×2 (08:17→17:25)
[2017-04-02] MEDS: POLYETHYL.GLYCOL 3350 PACKET 17gm PO SCH (08:18)
--- NOTE | 2017-04-02 09:22 | NUR ---
WARFARIN CONSULT S: 82 y/o M on warfarin for afib; home dose is 5 mg po daily except 2.5 mg on Mon&Fri. Goal INR range 2-3. H&P reports possible non-compliance with medication. O: DATE INR WARFARIN DOSE 03/31 1.38 5 mg 04/01 1.38 5 mg 04/02 1.62 5 mg A/P: INR subtherapeutic but rising. Will order warfarin 5 mg today. No significant drug-drug interactions noted. Will continue to monitor and make adjustments accordingly. Thank you for the consult. Catrachita Hodge, PharmD, BCPS
[2017-04-02] MEDS: ASPIRIN *EC* 81mg TABLET PO SCH (11:40)
[2017-04-02] MEDS: MULTIVIT + MINERALS (OPTI-GEN) PO SCH (11:40)
[2017-04-02] MEDS: OMEGA-3 ACID ESTERS 1 G CAPSULE PO SCH (11:40)
[2017-04-02] MEDS ORDERED: WARFARIN 5 MG TABLET PO ONE (12:00)
--- NOTE | 2017-04-02 12:47 | NUR ---
DIESEL ENGINE MECHANIC--AM GROUP SW provided educational group for memory cognition of events in the participants lives. Card game used to jog memory and enact positive recall. After education component complete, music therapy used for memory recall as well. SW would provide a piece of music specific to each person and ask them to recall the name of the group/artist or the song or asked the pt to name a song to be played. Pt was able to accurately provide answers to the card game and provide names of artists played for music therapy. Pts came to visit during the middle of the group. Pt sat next to his and held her hand. They sang together to songs they knew and smiled during interactions with the group. Pt seemed relaxed and content while having his with him in group.
--- NOTE | 2017-04-02 14:13 | NUR ---
EVANGELINA CM LEFT VM FOR PT SPOUSE HARMONY. CM EXPLAINED ROLE AND PROVIDED CONTACT INFORMATION.
[2017-04-02 16:14] VITALS: BP 137/70; PULSE 80; RESP 18; TEMP 97.7; O2SAT 95
--- NOTE | 2017-04-02 16:27 | NUR ---
PYTHON ENGINEER--PM GROUP Pt. was present and actively engaged in psychoeducational group facilitated by [facility]. Pt. was alert, Ox3, calm with pleasant mood. Pt's has been here much of the afternoon and he has enjoyed her visit. He reports improvement in his mood and feelings of anxiety. The topic for group was reminiscing about importance of Memorial Day. Played Retellity and pt. joined in answering many of the questions. Finished up group by listening to music hymns. Pt. sang along with many of the songs. Pt. appeared more relaxed with slightly improved mood by end of group.
[2017-04-02] MEDS ORDERED: WARFARIN 5 MG TABLET PO SCH (17:00)
--- NOTE | 2017-04-02 17:21 | PNPDOC ---
MATTHEW LOPEZ APRN 04/02/17 1721: Progress Note Date 04/02/17 Clinic notes received from [facility] PCP Zuri Benson-Viri regarding lab results from 03/29/17. Patient found to have positive H Pylori. Will start on Amoxicillin 1 gm PO BID x7 days and Clarithromycin BID, Omeprazole 20 BID. Will continue to follow patient. MARKUS COPE MD 04/02/175: Progress Note Date Seen and examined. Patient alert oriented and in no distress. Conversant and pleasant. Reviewing labs but anticipate short stay MATTHEW LOPEZ APRN April 02, 2017 17:21 MARKUS COPE MD April 02, 2017 19:55
--- NOTE | 2017-04-02 17:23 | GENPN ---
[facility]ations Subjective Date DATE: 04/02/17 TIME: 17:20 Subjective/Severity of Illness Medications Current Medications Medications (Trade) Dose Ordered Sig/Otilia Start Time Stop Time Status Last Admin Dose Admin Miscellaneous Medication (May use PRN orders) 1 PRN PRN 03/31/17 15:15 Haloperidol (Haldol) 0.5 mg Q6H PRN 03/31/17 15:15 Lorazepam (Ativan) 0.5 mg Q6H PRN 03/31/17 15:15 04/01/17 11:52 DC 03/31/17 23:49 0.5 MG Lorazepam (Ativan) 0.5 mg Q6H PRN 03/31/17 15:15 04/01/17 11:52 DC Haloperidol Lactate (Haldol 5 Mg/ml Inj) 0.5 mg Q6H PRN 03/31/17 15:15 Aspirin (Ecotrin) 81 mg 12 04/01/17 12:00 04/02/17 11:40 81 MG Carvedilol (Coreg) 12.5 mg BIDWM 03/31/17 17:30 04/02/17 08:17 12.5 MG Gemfibrozil (Lopid) 600 mg WS 03/31/17 17:30 04/01/17 17:57 600 MG Metformin HCl (Glucophage) 500 mg BIDWM 03/31/17 17:30 04/02/17 08:17 500 MG Multivitamins/ Minerals (Vision) 1 tab NOON 04/01/17 12:00 04/02/17 11:40 1 TAB Nitroglycerin (Nitrostat) 0.4 mg Q5M PRN 03/31/17 15:30 Warfarin Sodium (COUMADIN 5 mg) 2.5 mg MoFr@1700 04/02/17 17:00 04/02/17 17:00 DC Warfarin Sodium (COUMADIN 5 mg) 5 mg SuTuWeThSa@1700 03/31/17 17:00 04/01/17 11:35 DC 03/31/17 17:00 5 MG Flctq-0-Ajoz Ethyl Esters (Lovaza) 1 g NOON 04/01/17 12:00 04/02/17 11:40 1 G Non-Formulary Medication 600 mg BID 03/31/17 21:00 03/31/17 21:00 DC Warfarin Sodium (Coumadin Protocol) NOTE 03/31/17 17:00 Acetaminophen (Tylenol Regular Strength) 650 mg Q3-4H PRN 03/31/17 21:30 04/01/17 03:40 650 MG Polyethylene Glycol (Miralax) 17 g DAILY 04/02/17 09:00 04/02/17 08:18 17 G Mirtazapine (Remeron) 7.5 mg HS 04/01/17 21:00 04/01/17 19:57 7.5 MG Warfarin Sodium (COUMADIN 5 mg) 5 mg NOON 04/01/17 12:00 04/01/17 12:01 DC 04/01/17 11:57 5 MG Amoxicillin (Amoxil) 1,000 mg Q12HR 04/02/17 21:00 Clarithromycin (Biaxin) 500 mg Q12HR 04/02/17 21:00 Omeprazole (Prilosec) 20 mg ACBID 04/02/17 17:30 Subjective Pt seen and chart examined. Case discussed with nursing. Nursing reports pt is doing well. Sleeping well and has a good appetite. No behaviors noted. On face to face the pt sta5es he is doing well. He reports his mood is improved and he denies any S/i. Sleeping better and anxiety well controlled. Tolerating meds. Time of Service: 17:00 Start Time: 17:00 Stop Time: 17:15 Care >50% of this visit spent in counseling/coordination care. Generations Exam Vitals Vital Signs Date Time Temp Pulse Resp B/P Pulse Ox O2 Delivery O2 Flow Rate FiO2 04/02/17 16:14 97.7 80 18 137/70 95 Room Air Physical examination performed by the hospitalist. Height (Feet): 5 Height (Inches): 7.00 Mental Status Exam Muscle Strength/Tone: Normal Dressing: Casual Grooming: Good Attitude: Cooperative Motor Activity: Normal Eye Contact: Good Speech: Normal Volume: Normal Rhythm: Appropriate Rhythm Sensory: Alert Orientation: Oriented X4 Mood: Euthymic Affect: Congruent Rate of Thoughts: Appropriate Rate Thought Organization: Organized Associations: Intact Abstract Reasoning: Intact, able to abstract Thought Content: Normal Perception/Psychotic: Perception Normal Attention Span/Concentration: Normal Fund of Knowledge: Appropriate Memory: Grossly Intact Suicidal Ideation: None Homicidal Ideation: None Insight: Limited Judgment: Limited Impulse Control: Fair Laboratory Tests Test 04/02/17 04:37 04/02/17 07:08 Prothromb Time International Ratio 1.62 Glucometer 143mg/dL Assessment and Plan (1) Major depressive disorder, single episode, unspecified Assessment: Admit patient to the unit. Consult Internal medicine for medical management. DC Paroxetine. Cont home medications. Observe patient on the unit and monitor appetite, sleep and social interactions. 04/01/17: Start Mirtazapine 7.5mg q HS. 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 current psych. meds FRED NICE MD April 02, 2017 17:23
[2017-04-02] MEDS: GEMFIBROZIL 600 MG TABLET PO SCH (17:25)
--- NOTE | 2017-04-02 17:44 | NUR ---
Pt status Explained to pt. that new medications ordered for positive H. Pylori and name and time of doses and importance. Pt receptive to teaching and continued compliant with supper meds and interacts positively with staff and other patients.
[2017-04-02] MEDS: OMEPRAZOLE 20 MG CAPSULE PO SCH (19:35)
[2017-04-02] MEDS: CLARITHROMYCIN 500 MG TABLET PO SCH (19:35)
[2017-04-02] MEDS: AMOXICILLIN 500 MG CAPSULE PO SCH (19:36)
--- NOTE | 2017-04-02 19:39 | NUR ---
Shift Summary and Sleep Time Pt had one hour of sleep this shift. Was up at 0700 for cares but back to bed until up at 0800. Pt cooperative with medications, diet taken well and appropriate interactions with staff and others.
[2017-04-02] MEDS: MIRTAZAPINE 15 MG TABLET PO SCH (20:11)
[2017-04-02 22:50] VITALS: PULSE 67; RESP 20
[2017-04-02 23:08] VITALS: BP 145/77; PULSE 67; RESP 20; TEMP 97.4; O2SAT 95
--- NOTE | 2017-04-03 00:10 | NUR ---
Mid shift status Pt was sitting in day room at beginning of shift. Pt is pleasant and cooperative. Alert x 3. Up with moderate independence. Steady gait. Pt denies pain. Denies SOA. Compliant with HS meds, but told this nurse he is getting agitated with all the new meds he is having to take. It was explained to pt that there will be some med adjustments while he is here. Pt complained of not being able to sleep at nights. He commented how he hopes he will sleep tonight. Pt BGM at was 148. Pt has not displayed any verbal or physical aggression. No exhibition of anxiety noted. No agitation or behaviors. No PRNs given. Pt makes needs known. Is continent. Currently sleeping. Bed rails up x 2 and alarm on. Will continue to monitor
--- NOTE | 2017-04-03 00:44 | NUR ---
Bed time Pt went to bed at 2130. Asleep at 2200. Up twice to void. Currently sleeping. Will continue to monitor
--- NOTE | 2017-04-03 06:30 | NUR ---
Summary Pt has been sleeping since 2199. Sleeping over 6 hours this shift. Up x 4 to use BR. Pt alert x 3. Up with moderate independence. Steady gait. Pt at 0400, after using BR, complained he has had a difficult time sleeping. Stated he was in a good sleep when first going to bed. Pt then asked if he could have something to help him sleep. 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 Pt verbalized understanding and stated he would try to get some more sleep then. Pt has not displayed any verbal or physical aggression. No exhibition of anxiety noted this shift. Pt denies SI or thoughts to harm self or others. His concern this shift is about the new medications he is taking. States he is here because he was given a medication that was not good for him and he was brought here. Pt has been pleasant and cooperative with cares this shift. Although he has questioned his medications, he has been compliant with all meds. HS BGM at 148 and Fasting BGM at 131. No PRNs given this shift. Currently sleeping. Bed rails up x 2 and alarm on. Will continue to monitor
[2017-04-03] MEDS: OMEPRAZOLE 20 MG CAPSULE PO SCH ×2 (06:32→17:04)
[2017-04-03] MEDS: AMOXICILLIN 500 MG CAPSULE PO SCH ×2 (07:56→17:04)
[2017-04-03] MEDS: POLYETHYL.GLYCOL 3350 PACKET 17gm PO SCH (07:57)
[2017-04-03] MEDS: METFORMIN 500 MG TABLET PO SCH ×2 (07:57→17:05)
[2017-04-03] MEDS: CARVEDILOL 12.5 MG TABLET PO SCH ×2 (07:57→17:04)
[2017-04-03] MEDS: CLARITHROMYCIN 500 MG TABLET PO SCH ×2 (07:57→17:04)
[2017-04-03 08:00] VITALS: BP 151/83; PULSE 83; RESP 16; TEMP 96.8
--- NOTE | 2017-04-03 08:00 | NUR ---
Pt Status Pt. alert and oriented x3 and cooperative with meds and does personal care by self. Respectful of staff and other patients. Pt continued to verbalize concern about new medications and potential for med side effects. Reviewed meds with patients and explanations provided. Noted pt up at 0545 for a.m. care by observation schedule and when assessed pt he reports he did not sleep well last night. Did report is common to have 3-4 trips to bathroom every night.
[2017-04-03 08:31] LABS: INR 1.76 (0.77-1.03); PROTHROMBIN TIME 19.3 SEC (9.48-12.52)
--- NOTE | 2017-04-03 09:22 | NUR ---
COUMADIN CONSULT: 82yo M with hx of [place], post [place]. Has been on chronic anticoagulation therapy with home dose of warfarin reported as 5 mg po daily except for Wednesday and Wednesday 2.5 mg. Family reports concerns of patient medication non-compliance. Pt has considerable drug-drug interactions with warfarin as follows: - ASA EC 81mg daily - Clarithromycin 500mg po bid - Gemfibrozil 600mg po hs - Omeprazole 20mg po bid All these can elevate INR. Date INR dose 03/31 1.38 5 mg 04/01 1.38 5 mg 04/02 1.62 5 mg 04/03 1.76 Will repeat 5mg dose. Will continue conservative dosing secondary to drug-drug interactions. Thank you.
--- NOTE | 2017-04-03 11:41 | GENPN ---
Generations Subjective Date DATE: 04/03/17 TIME: 11:37 Subjective/Severity of Illness Medications Current Medications Medications (Trade) Dose Ordered Sig/Otilia Start Time Stop Time Status Last Admin Dose Admin Miscellaneous Medication (May use PRN orders) 1 PRN PRN 03/31/17 15:15 Haloperidol (Haldol) 0.5 mg Q6H PRN 03/31/17 15:15 Lorazepam (Ativan) 0.5 mg Q6H PRN 03/31/17 15:15 04/01/17 11:52 DC 03/31/17 23:49 0.5 MG Lorazepam (Ativan) 0.5 mg Q6H PRN 03/31/17 15:15 04/01/17 11:52 DC Haloperidol Lactate (Haldol 5 Mg/ml Inj) 0.5 mg Q6H PRN 03/31/17 15:15 Aspirin (Ecotrin) 81 mg 12 04/01/17 12:00 04/02/17 11:40 81 MG Carvedilol (Coreg) 12.5 mg BIDWM 03/31/17 17:30 04/03/17 07:57 12.5 MG Gemfibrozil (Lopid) 600 mg WS 03/31/17 17:30 04/02/17 17:25 600 MG Metformin HCl (Glucophage) 500 mg BIDWM 03/31/17 17:30 04/03/17 07:57 500 MG Multivitamins/ Minerals (Vision) 1 tab NOON 04/01/17 12:00 04/02/17 11:40 1 TAB Nitroglycerin (Nitrostat) 0.4 mg Q5M PRN 03/31/17 15:30 Warfarin Sodium (COUMADIN 5 mg) 2.5 mg MoFr@1700 04/02/17 17:00 04/02/17 17:00 DC Warfarin Sodium (COUMADIN 5 mg) 5 mg SuTuWeThSa@1700 03/31/17 17:00 04/01/17 11:35 DC 03/31/17 17:00 5 MG Tjbhp-3-Segz Ethyl Esters (Lovaza) 1 g NOON 04/01/17 12:00 04/02/17 11:40 1 G Non-Formulary Medication 600 mg BID 03/31/17 21:00 03/31/17 21:00 DC Warfarin Sodium (Coumadin Protocol) NOTE 03/31/17 17:00 Acetaminophen (Tylenol Regular Strength) 650 mg Q3-4H PRN 03/31/17 21:30 04/01/17 03:40 650 MG Polyethylene Glycol (Miralax) 17 g DAILY 04/02/17 09:00 04/03/17 07:57 17 G Mirtazapine (Remeron) 7.5 mg HS 04/01/17 21:00 04/02/17 20:11 7.5 MG Warfarin Sodium (COUMADIN 5 mg) 5 mg NOON 04/01/17 12:00 04/01/17 12:01 DC 04/01/17 11:57 5 MG Amoxicillin (Amoxil) 1,000 mg BIDWM 04/02/17 18:00 04/03/17 07:56 1,000 MG Clarithromycin (Biaxin) 500 mg BIDWM 04/02/17 18:00 04/03/17 07:57 500 MG Omeprazole (Prilosec) 20 mg ACBID 04/02/17 17:30 04/03/17 06:32 20 MG Warfarin Sodium (COUMADIN 5 mg) 5 mg NOON 04/03/17 12:00 04/03/17 13:00 Subjective Pt seen and chart examined. Case discussed with nursing. Nursing reports pt is doing well. Sleeping well and has a good appetite. On face to face the pt states he is doing well. He reports his mood is stable and he denies any S/i. Anxiety well controlled. Tolerating meds. No concerns at this time Time of Service: 10:45 Start Time: 10:45 Stop Time: 11:00 Care >50% of this visit spent in counseling/coordination care. Generations Exam Vitals Vital Signs Date Time Temp Pulse Resp B/P Pulse Ox O2 Delivery O2 Flow Rate FiO2 04/03/17 08:00 96.8 83 16 151/83 Room Air 04/02/17 23:08 95 Physical examination performed by the hospitalist. Height (Feet): 5 Height (Inches): 7.00 Mental Status Exam Muscle Strength/Tone: Normal Dressing: Casual Grooming: Good Attitude: Cooperative Motor Activity: Normal Eye Contact: Good Speech: Normal Volume: Normal Rhythm: Appropriate Rhythm Sensory: Alert Orientation: Oriented X4 Mood: Euthymic Affect: Congruent Rate of Thoughts: Appropriate Rate Thought Organization: Organized Associations: Intact Abstract Reasoning: Intact, able to abstract Computation: Intact Thought Content: Normal Perception/Psychotic: Perception Normal Attention Span/Concentration: Normal Fund of Knowledge: Appropriate Memory: Grossly Intact Suicidal Ideation: None Homicidal Ideation: None Insight: Fair Judgment: Fair Impulse Control: Good Laboratory Tests Test 04/02/17 23:04 04/03/17 05:40 04/03/17 07:36 Glucometer 148mg/dL 131mg/dL Prothromb Time International Ratio 1.76 Assessment and Plan (1) Major depressive disorder, single episode, unspecified Assessment: Admit patient to the unit. Consult Internal medicine for medical management. DC Paroxetine. Cont home medications. Observe patient on the unit and monitor appetite, sleep and social interactions. 04/01/17: Start Mirtazapine 7.5mg q HS. 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 current psych. meds FRED NICE MD April 03, 2017 11:40
[2017-04-03] MEDS: ASPIRIN *EC* 81mg TABLET PO SCH (11:47)
[2017-04-03] MEDS: OMEGA-3 ACID ESTERS 1 G CAPSULE PO SCH (11:47)
[2017-04-03] MEDS: MULTIVIT + MINERALS (OPTI-GEN) PO SCH (11:47)
[2017-04-03] MEDS ORDERED: WARFARIN 5 MG TABLET PO SCH (12:00)
--- NOTE | 2017-04-03 14:45 | PNPDOC ---
MATTHEW LOPEZ V GRAIN COMBINE DRIVER 04/03/17 1441: Subjective Date DATE: 04/03/17 TIME: 14:36 Subjective Geovany is seen this morning in follow up. He is sitting in the day room watching TV. He is alert and pleasant during examination. He states that he is feeling good, better than he has felt in several weeks. He denies having any pain including chest pain or abdominal pain. He denies any nausea and states his appetite is good. He is voiding without difficulty and bowels are moving regularly The pressure this morning 151/83. Did receive outpatient fax from primary care provider at [facility] last evening revealing positive H. pylori. Objective Vital Signs Vital signs Vital Signs Date Time Temp Pulse Resp B/P Pulse Ox O2 Delivery O2 Flow Rate FiO2 04/03/17 08:00 96.8 83 16 151/83 Room Air 04/02/17 23:08 95 Height (Feet): 5 Height (Inches): 7.00 Weight (Kilograms): 83.800 General General Appearance: Alert, Orientated x 3, Cooperative, No Acute Distress Eyes (Brief) Eyes: FOUND: EOMI ENMT (Brief) ENMT: FOUND: mucosa moist, normal dentition, NOT FOUND: pharnyx erythema Neck (Brief) Neck: FOUND: midline, NOT FOUND: adenopathy, carotid bruits, tracheal deviation Respiratory (Brief) Respiratory: FOUND: clear all ramirez, equal bilaterally, NOT FOUND: wheezes Cardiovascular (Brief) Cardiac: FOUND: regular rate, regular rhythm, NOT FOUND: murmur, pedal edema Capillary Refill: <2 sec Abdomen (Brief) Abdominal: FOUND: BS normo active x4, soft, NOT FOUND: distended, tender Lymphatic (Brief) Lymphatic: NOT FOUND: adenopathy Musculoskeletal (Brief) Musculoskeletal: NOT FOUND: tenderness Integumentary (Brief) Integumentary: FOUND: dry, pink, warm Neurologic (Brief) Neurological: FOUND: cranial 2-12 intact Psychiatric (Brief) Psychiatric: FOUND: alert, attentive, normal affect, oriented Assessment & Plan Problems: (1) Major depressive disorder, single episode, unspecified Status: Acute (2) Anxiety disorder due to general medical condition Status: Acute (3) Diabetes Status: Chronic Qualifiers: Diabetes mellitus type: type 2 Diabetes mellitus complication status: with kidney complications Diabetes mellitus complication detail: with chronic kidney disease Chronic kidney disease stage: stage 3 (moderate) Assessment & Plan: uncontrolled. A1c on 02/12/17 = 9.6. (4) Hypertension Status: Chronic Qualifiers: Hypertension type: essential hypertension Qualified Codes: I10 - Essential (primary) hypertension (5) Dyslipidemia Status: Chronic Assessment & Plan: lipid panel done 02/12/17. (6) CAD (coronary artery disease) Status: Chronic Qualifiers: Coronary Disease-Associated Artery/Lesion type: [place] artery [place] vs. 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 No biopsy or treatment. (13) Benign paroxysmal positional vertigo due to bilateral vestibular disorder Status: Chronic (14) History of ventricular tachycardia Status: Resolved (15) H. pylori infection Status: Acute Plan/Intensity of Service 04/03 Regarding positive H-Pylori started patient on Amoxicillin 1 gm PO BID and Clarithromycin 500mg BID along with Prilosec BID. Recommend treatment for 7 day ending on 04/10. Continue to monitor blood sugars on metformin twice a day INR 1.76. Coumadin dosing as per pharmacy protocol Otherwise, patient is medically stable. Psychiatric notes reviewed Code Status Full Code Hospital Course Summary Disclaimer The hospital course summary below is not to be considered part of the above Progress Note. Hospital Course Summary 04/01/17. CLAREAKIAN: ADMIT. Agree with admission to generation unit for further evaluation and medical treatment for major depression and anxiety. Hospitalist service consulted for medical management. Continue home medications with the exception of paroxetine per psych. Monitor blood pressure closely. A1c reported to 9.6 on 02/12/17. Metformin increased to 500mg BID at that time. Monitor blood sugars closely with BGMs in AM and HS. 2000 kcal carb diet. INR subtherapeutic at time of admission at 1.86. Pharmacy to manage. Encourage participation in floor activities and provide safe and supportive environment as patient is eager for discharge. Will monitor labs periodically throughout admission. CBC and CMP relatively unremarkable upon admission. B12 and Folate pending. Upon discharge, patient's care will be returned to his PCP. 04/03 Regarding positive H-Pylori started patient on Amoxicillin 1 gm PO BID and Clarithromycin 500mg BID along with Prilosec BID. Recommend treatment for 7 day ending on 04/10. Continue to monitor blood sugars on metformin twice a day INR 1.76. Coumadin dosing as per pharmacy protocol Otherwise, patient is medically stable. Psychiatric notes reviewed MARKUS COPE MD 04/04/17 2104: Assessment & Plan Assessment Seen and examined. Agree with soap note physical findings assessment and plan by nurse practitioner MATTHEW Ferguson APRN April 03, 2017 14:41 MARKUS COPE MD April 04, 2017 21:04
[2017-04-03 16:50] VITALS: BP 133/71; PULSE 68; RESP 16; TEMP 97.2; O2SAT 94
[2017-04-03] MEDS: GEMFIBROZIL 600 MG TABLET PO SCH (17:04)
[2017-04-03 17:53] VITALS: BP 133/71; PULSE 68; RESP 16; TEMP 97.2; O2SAT 94
--- NOTE | 2017-04-03 18:11 | NUR ---
Shift Summary and Sleep Time Pt cooperative with medications and expresses concern about having new meds and possible reaction. Reinforced medications new to treat H. Pylori. Pt pleasant to other patients and staff. Had 0.5 sleep time since up at 0715.
[2017-04-03] MEDS: MIRTAZAPINE 15 MG TABLET PO SCH (20:02)
[2017-04-03 21:30] VITALS: PULSE 79; RESP 16
[2017-04-03 21:33] VITALS: BP 142/77; PULSE 79; RESP 16; TEMP 97.1; O2SAT 95
--- NOTE | 2017-04-04 00:28 | NUR ---
Mid shift status Pt was sitting in day room at beginning of shift. Pt is alert x 3. Up with moderate independence. Steady gait. Pleasant and cooperative with assessment. Compliant with HS med, however pt still shows concern as to why he is taking so many pills during the day. When giving pt his HS med, pt inquired as to what he is taking now. Explained the reason for his HS med and pt took without difficulty. Pt stated "they gave me like 6-7 pills earlier today, I don't know for what". I explained again to pt some of the pills are needed due to his infection. Pt stated he understood. Pt denies SI or morbid thoughts of self harm or harm to others. Pt has not exhibited any signs of anxiety this shift. Pt stayed in day room until 2100. He was falling asleep in recliner. Went to sleep at 2215. Has been up twice to use BR. Pt has not displayed any agitated behaviors. No PRNs given at this time. Pt HS BGM was 197. Pt stated he had apple juice and cake with dinner. He then stated he will watch what he has tomorrow so his blood sugar is not so high. Pt has been continent. Makes his needs known. Uses call light appropriately. Currently sleeping. Bed rails up x 2 and alarm on. Will continue to monitor
--- NOTE | 2017-04-04 00:43 | NUR ---
Bed time Pt went to bed at 5 and was asleep at 2215. Reported sleeping 0.5 hours during day hours. Currently sleeping. Will continue to monitor
--- NOTE | 2017-04-04 05:36 | NUR ---
Summary Pt has slept since 2214. Up to use BR three times this shift. Pt alert x 3. Up with moderate independence. Steady gait. Pt has not exhibited any signs of anxiety this shift. Denies SI, or any morbid thoughts of self- harm or harm to others. No agitation or behaviors noted. No PRNs given. Pt has been pleasant and cooperative. Pt has been continent. Makes needs known. Uses call light appropriately. Pt denies any pain or chest pain. Pt BGM at HS was 197 and fasting BGM this morning was 112. Pt stated he has been able to sleep some this shift. Currently sleeping. Bed rails up x 2 and alarm on. Will continue to monitor
[2017-04-04] MEDS: OMEPRAZOLE 20 MG CAPSULE PO SCH ×2 (06:38→17:17)
[2017-04-04 08:00] VITALS: BP 129/70; PULSE 89; RESP 20; TEMP 97.6; O2SAT 96
[2017-04-04] MEDS: METFORMIN 500 MG TABLET PO SCH ×2 (08:08→17:18)
[2017-04-04] MEDS: AMOXICILLIN 500 MG CAPSULE PO SCH ×2 (08:08→17:17)
[2017-04-04] MEDS: CLARITHROMYCIN 500 MG TABLET PO SCH ×2 (08:08→17:18)
[2017-04-04] MEDS: CARVEDILOL 12.5 MG TABLET PO SCH ×2 (08:08→17:18)
[2017-04-04] MEDS: POLYETHYL.GLYCOL 3350 PACKET 17gm PO SCH (08:09)
--- NOTE | 2017-04-04 09:25 | GENPN ---
[facility] Subjective Date DATE: 04/04/17 TIME: 09:23 Subjective/Severity of Illness Medications Current Medications Medications (Trade) Dose Ordered Sig/Otilia Start Time Stop Time Status Last Admin Dose Admin Miscellaneous Medication (May use PRN orders) 1 PRN PRN 03/31/17 15:15 Haloperidol (Haldol) 0.5 mg Q6H PRN 03/31/17 15:15 Lorazepam (Ativan) 0.5 mg Q6H PRN 03/31/17 15:15 04/01/17 11:52 DC 03/31/17 23:49 0.5 MG Lorazepam (Ativan) 0.5 mg Q6H PRN 03/31/17 15:15 04/01/17 11:52 DC Haloperidol Lactate (Haldol 5 Mg/ml Inj) 0.5 mg Q6H PRN 03/31/17 15:15 Aspirin (Ecotrin) 81 mg 12 04/01/17 12:00 04/03/17 11:47 81 MG Carvedilol (Coreg) 12.5 mg BIDWM 03/31/17 17:30 04/04/17 08:08 12.5 MG Gemfibrozil (Lopid) 600 mg WS 03/31/17 17:30 04/03/17 17:04 600 MG Metformin HCl (Glucophage) 500 mg BIDWM 03/31/17 17:30 04/04/17 08:08 500 MG Multivitamins/ Minerals (Vision) 1 tab NOON 04/01/17 12:00 04/03/17 11:47 1 TAB Nitroglycerin (Nitrostat) 0.4 mg Q5M PRN 03/31/17 15:30 Warfarin Sodium (COUMADIN 5 mg) 2.5 mg MoFr@1700 04/02/17 17:00 04/02/17 17:00 DC Warfarin Sodium (COUMADIN 5 mg) 5 mg SuTuWeThSa@1700 03/31/17 17:00 04/01/17 11:35 DC 03/31/17 17:00 5 MG [id number] Ethyl Esters (Lovaza) 1 g NOON 04/01/17 12:00 04/03/17 11:47 1 G Non-Formulary Medication 600 mg BID 03/31/17 21:00 03/31/17 21:00 DC Warfarin Sodium (Coumadin Protocol) NOTE 03/31/17 17:00 Acetaminophen (Tylenol Regular Strength) 650 mg Q3-4H PRN 03/31/17 21:30 04/01/17 03:40 650 MG Polyethylene Glycol (Miralax) 17 g DAILY 04/02/17 09:00 04/04/17 08:09 17 G Mirtazapine (Remeron) 7.5 mg HS 04/01/17 21:00 04/03/17 20:02 7.5 MG Warfarin Sodium (COUMADIN 5 mg) 5 mg NOON 04/01/17 12:00 04/01/17 12:01 DC 04/01/17 11:57 5 MG Amoxicillin (Amoxil) 1,000 mg BIDWM 04/02/17 18:00 04/04/17 08:08 1,000 MG Clarithromycin (Biaxin) 500 mg BIDWM 04/02/17 18:00 04/04/17 08:08 500 MG Omeprazole (Prilosec) 20 mg ACBID 04/02/17 17:30 04/04/17 06:38 20 MG Warfarin Sodium (COUMADIN 5 mg) 5 mg NOON 04/03/17 12:00 04/03/17 13:00 DC 04/03/17 11:47 5 MG Subjective Pt seen and chart examined. Case discussed with nursing. Nursing reports pt is doing well. Sleeping well and has a good appetite. On face to face the pt states he is doing well. Depression and anxiety are well controlled. Feels he is back to baseline and safe for D/C. Tolerating meds. Voices no concerns at this time. Time of Service: :15 Start Time: :15 Stop Time: :30 Care >50% of this visit spent in counseling/coordination care. [facility] Exam Vitals Vital Signs Date Time Temp Pulse Resp B/P Pulse Ox O2 Delivery O2 Flow Rate FiO2 04/04/17 08:00 97.6 89 20 129/70 96 Room Air Physical examination performed by the hospitalist. Height (Feet): 5 Height (Inches): 7.00 Mental Status Exam Muscle Strength/Tone: Normal Dressing: Casual Grooming: Good Attitude: Cooperative Motor Activity: Normal Eye Contact: Good Speech: Normal Volume: Normal Rhythm: Appropriate Rhythm Sensory: Alert Orientation: Oriented X4 Mood: Euthymic Affect: Congruent Rate of Thoughts: Appropriate Rate Thought Organization: Organized Associations: Intact Abstract Reasoning: Intact, able to abstract Thought Content: Normal Perception/Psychotic: Perception Normal Attention Span/Concentration: Normal Fund of Knowledge: Appropriate Memory: Grossly Intact Suicidal Ideation: None Homicidal Ideation: None Insight: Limited Judgment: Limited Impulse Control: Good Laboratory Tests Test 04/03/17 20:26 04/04/17 04:34 04/04/17 08:42 Glucometer 197mg/dL 112mg/dL Prothromb Time International Ratio Pending Assessment and Plan (1) Major depressive disorder, single episode, unspecified Assessment: Admit patient to the unit. Consult Internal medicine for medical management. DC Paroxetine. Cont home medications. Observe patient on the unit and monitor appetite, sleep and social interactions. 04/01/17: Start Mirtazapine 7.5mg q HS. DC Lorazepam PRN 04/02/17 Continue current care 04/03/17 Continue current care 04/04/17 Anticipate D/C Wednesday (2) Anxiety disorder due to general medical condition Cont. current psych. meds FRED NICE MD April 04, 2017 09:25
[2017-04-04 09:44] LABS: INR 1.93 (0.77-1.03); PROTHROMBIN TIME 21.1 SEC (9.48-12.52)
--- NOTE | 2017-04-04 10:08 | NUR ---
COUMADIN CONSULT: 82yo M with hx of Martha Donna, post OR. Has been on chronic anticoagulation therapy with home dose of warfarin reported as 5 mg po daily except for Mon. & Kwan 2.5 mg. Family reports concerns of patient medication non-compliance. Pt has considerable drug-drug interactions with warfarin as follows: - ASA EC 81mg daily - Clarithromycin 500mg po bid - Gemfibrozil 600mg po hs - Omeprazole 20mg po bid All these can elevate INR. Date INR dose 03/31 1.38 5 mg 04/01 1.38 5 mg 04/02 1.62 5 mg 04/03 1.76 5 mg 04/04 1.93 Will give 5mg again today. Will continue conservative dosing secondary to drug-drug interactions. Thank you.
[2017-04-04] MEDS ORDERED: WARFARIN 5 MG TABLET PO SCH (12:00)
[2017-04-04] MEDS: ASPIRIN *EC* 81mg TABLET PO SCH (12:06)
[2017-04-04] MEDS: MULTIVIT + MINERALS (OPTI-GEN) PO SCH (12:06)
[2017-04-04] MEDS: OMEGA-3 ACID ESTERS 1 G CAPSULE PO SCH (12:06)
--- NOTE | 2017-04-04 14:10 | NUR ---
SUMMARY PATIENT HAS BEEN PLEASANT AND COOPERATIVE WITH STAFF TODAY. HE HAS TAKEN HIS MEDICATIONS WHOLE WITHOUT ANY PROBLEMS. HE HAS EATEN 100% OF HIS MEALS AND HAS HAD ADEQUATE FLUID INTAKE. HE HAS NOT HAD ANY EPISODES OF ANXIETY AND HAS EXPRESSED TODAY THAT HE IS FEELING ALOT BETTER THAN WHEN HE WAS ADMITTED. HE STATES HE IS NOT DEPRESSED HE WAS AND IS LOOKING FORWARD TO GOING HOME SOON. PATIENT SLEPT 8.15 HOURS LAST NIGHT AND HE STATED THAT LASTNIGHT WAS THE FIRST NIGHT HE HAD FELT RESTED. HE IS GOOD ABOUT LETTING HIS NEEDS KNOWN. HE TOOK A SHOWER THIS MORNING WITH MINIMAL ASSISTANCE BUT WITH CONSTANT OBSERVATION FOR SAFETY. PATIENT'S IS PRESENT THIS AFTERNOON AND REMAINED WITH PATIENT IN THE DAYROOM AT END OF SHIFT.
[2017-04-04 16:00] VITALS: BP 127/69; PULSE 64; RESP 16; TEMP 97.6; O2SAT 95
[2017-04-04] MEDS: GEMFIBROZIL 600 MG TABLET PO SCH (17:17)
--- NOTE | 2017-04-04 17:37 | NUR ---
SUMMARY ASSUMED CARE AT 1500. PT HAS BEEN PLEASANT AND APPR WITH STAFF AND CARES. NO SX OF AGITATION OR AGGRESSION. COMPLIANT WITH MEDICATIONS, TAKEN WHOLE WITHOUT DIFFICULTY. PT'S WAS VISITING AT SHIFT ONSET. AFTER SHE LEFT, PT ASKED IF HE WOULD BE ABLE TO HAVE SOMETHING TONIGHT TO HELP HIM SLEEP. RN ASKED IF HE'D HAD TROUBLE SLEEPING LAST NIGHT. PT STATE HE HADN'T, BUT THOUGHT HE MIGHT TONIGHT. WHEN RN ASKED WHY, PT REPLIED, "OH, JUST THINGS WE TALKED ABOUT THAT SHOULDN'T WORRY ME, BUT DO." HE DENIED NEEDING ANYTHING FOR ANXIETY AT THAT TIME. RN STATED SHE WOULD PASS ON HIS REQUEST TO [employer]ASHION STYLING INTERN ADN ASKED HIM TO LET HER KNOW IF HE FELT LIKE HE NEEDED ANYTHING IN THE MEANTIME. Addendum: 04/04/17 at 1741 by UCHE BARBER RN PT CURRENTLY IN DR, WITH STAFF PRESENT.
[2017-04-04 19:31] VITALS: BP 147/77; PULSE 81; RESP 16; TEMP 97.2; O2SAT 96
[2017-04-04] MEDS: MIRTAZAPINE 15 MG TABLET PO SCH (20:03)
--- NOTE | 2017-04-05 | NUR ---
status arrived on shift, patient was alert and oriented x3 in dayroom watching tv. Patient was pleasant and cooperative with assessment and HS medication. Patient reports feeling less anxious, and appears to have a brighter affect. patient transitioned to bed and was asleep at 2115.
--- NOTE | 2017-04-05 02:05 | NUR ---
Chart Check 24 hour chart check completed
[2017-04-05 04:58] LABS: BASOPHILS # (AUTO) 0.1 T/MM3 (0-0.2); BASOPHILS % (AUTO) 0.7 % (0-2); EOSINOPHILS # (AUTO) 0.3 T/MM3 (0-0.5); EOSINOPHILS % (AUTO) 3.5 % (0-4); HCT - HEMATOCRIT 43.3 % (41-53); IMMATURE GRANULOCYTE # (AUTO) 0.01 T/MM3 (0.00-0.03); IMMATURE GRANULOCYTE % (AUTO) 0.1 % (0.0-0.5); LYMPHOCYTES # (AUTO) 1.6 T/MM3 (1-4.8); LYMPHOCYTES % (AUTO) 21.1 % (23-45); MEAN CORPUSCULAR HGB 29.9 UUG (26-34); MEAN CORPUSCULAR HGB CONC(MCHC 32.3 GM/DL (31-37); MEAN CORPUSCULAR VOLUME 92.3 UM3 (80-100); MEAN PLATELET VOLUME 8.9 UM3 (9.4-12.4); MONOCYTES # (AUTO) 0.8 T/MM3 (0-0.8); MONOCYTES % (AUTO) 10.2 % (0-9.0); NEUTROPHILS #(AUTO)-ABSOLUTE 4.8 T/MM3 (1.8-7.7); NEUTROPHILS % (AUTO) 64.4 % (33-66); RED BLOOD COUNT 4.69 M/MM3 (4.50-5.90); WBC - WHITE BLOOD COUNT 7.5 T/MM3 (4.5-11.0)
[2017-04-05 05:01] LABS: INR 2.18 (0.77-1.03); PROTHROMBIN TIME 23.8 SEC (9.48-12.52)
[2017-04-05 05:06] LABS: ANION GAP 11 MEQ/L (5-15); BUN/CREATININE RATIO 18 RATIO (6-26); CALCIUM 9.1 MG/DL (8.4-10.2); CHLORIDE 108 MEQ/L (98-107); CO2 - CARBON DIOXIDE 24 MEQ/L (22-30); GLOMERULAR FILTRATION RATE 71; GLUCOSE 145 MG/DL (75-110); POTASSIUM 4.3 MEQ/L (3.6-5); SODIUM 143 MEQ/L (134-144)
--- NOTE | 2017-04-05 05:45 | NUR ---
Summary once going to bed patient slept from 2114 to 14, before getting up to use the restroom. Patient has been up multiple times during the night to use the bathroom, once back in bed patient quickly falls back to sleep. Since going back to sleep at 0130 patient has been up 3 times to the restroom. No behaviors noted, no prns given. Patient is currently in bed asleep with the bed alarm on and call light is in reach.
[2017-04-05] MEDS: OMEPRAZOLE 20 MG CAPSULE PO SCH ×2 (05:50→17:14)
--- NOTE | 2017-04-05 08:00 | NUR ---
Sleep Pt slept for 6.75 hours. Pt did have solid 3 hours and then up and down urinating, see previous RN note. Pt awake at 0745. Will continue to monitor.
[2017-04-05 08:11] VITALS: BP 151/82; PULSE 85; RESP 16; TEMP 96.7; O2SAT 96
[2017-04-05] MEDS: POLYETHYL.GLYCOL 3350 PACKET 17gm PO SCH (08:24)
[2017-04-05] MEDS: METFORMIN 500 MG TABLET PO SCH ×2 (08:26→17:14)
[2017-04-05] MEDS: CLARITHROMYCIN 500 MG TABLET PO SCH ×2 (08:26→17:14)
[2017-04-05] MEDS: CARVEDILOL 12.5 MG TABLET PO SCH ×2 (08:26→17:14)
[2017-04-05] MEDS: AMOXICILLIN 500 MG CAPSULE PO SCH ×2 (08:26→17:14)
[2017-04-05 08:32] VITALS: PULSE 85; RESP 16
--- NOTE | 2017-04-05 10:18 | NUR ---
COUMADIN CONSULT (Recurring): Today's INR = 2.18. Will give Warfarin 4 mg today. Will continue to monitor & make adjustments accordingly. Thank you.
--- NOTE | 2017-04-05 10:58 | NUR ---
PRIEST- GROUP Pt. was present and actively participated in psychoeducational group facilitated by [facility]. Topic was on managing anxiety symptoms. Talked with patients about wide range of interventions that can help to alleviate distress caused by symptoms. Discussed medications, exercise, deep breathing, prayers, and music. Had pt. practice deep breathing exercise. One pt. mentioned that everyone experiences stress and anxiety. This SW identified those symptoms that are serious enough to warrant further intervention. Pt. reports he is feeling much better than when he first came in. He states he is ready to go home. Finished group by listening to variety of music. Pt. sang along with many of the songs played.
--- NOTE | 2017-04-05 11:30 | NUR ---
Nutrition risk f/u Diet: [id number]; intake; 100% of meals x 3 days; no additional intervention required at this time.
--- NOTE | 2017-04-05 11:35 | NUR ---
CM CM LEFT VM FOR SPOUSE TO DISCUSS D/C PLAN FOR POSSIBLE TOMORROW.
--- NOTE | 2017-04-05 11:37 | NUR ---
Morning status Pt has denied suicide ideation. Pt denies depression. Pt wanted to call , and allowed Pt to speak with . Pt states, "It reduces my anxiety." Pt states, "My mood has been good, I'm ready to go home." When asked if he was going to do anything different when he gets home, Pt states, "I don't need to do anything." Pt education needed for success of going home. Discussed need for getting out of home and socialization. Pt needs reinforcement and continued encouragement. Will continue to monitor.
[2017-04-05] MEDS: MULTIVIT + MINERALS (OPTI-GEN) PO SCH (11:54)
[2017-04-05] MEDS: OMEGA-3 ACID ESTERS 1 G CAPSULE PO SCH (11:55)
[2017-04-05] MEDS: ASPIRIN *EC* 81mg TABLET PO SCH (11:55)
[2017-04-05] MEDS ORDERED: WARFARIN 4 MG TABLET PO SCH (12:00)
[2017-04-05 14:13] LABS: BLOOD, URINE NEGATIVE (NEGATIVE); COLOR,URINE YELLOW (YELLOW); LEUKOCYTE ESTERASE ,URINE NEGATIVE (NEGATIVE); NITRITE,URINE NEGATIVE (NEGATIVE)
--- NOTE | 2017-04-05 14:44 | NUR ---
EVANGELINA HUTCHINSON VISITED WITH GROUP LEADER AND CONFIRMS THAT PT D/C PLAN IS HOME. CM HAS ATTEMPTED TO REACH SPOUSE AND NO ANSWER. PT WILL D/C TODAY OR TOMORROW PER GROUP LEADER.
--- NOTE | 2017-04-05 16:05 | NUR ---
JOINERS SUPERVISOR--PM GROUP SW used cognitive memory recall during the first part of the psychosocial group. Participants were asked to recall words that related to phrases given. Then music was played for memory. Pt was able to discuss words in relation to phrases given and would sing and hum to music that was played. Pt was asking questions and interacting appropriately with staff and other pts. Pt had a cheery disposition and laughed and smiled throughout the group.
[2017-04-05 16:15] VITALS: BP 124/69; PULSE 88; RESP 16; TEMP 97.3; O2SAT 94
[2017-04-05] MEDS ORDERED: OMEP20CA10 PO (16:24)
[2017-04-05] MEDS ORDERED: AMOX500C2 PO (16:24)
[2017-04-05] MEDS ORDERED: CLAR500T3 PO (16:24)
[2017-04-05] MEDS ORDERED: POLY17PO18 PO (16:24)
[2017-04-05] MEDS: GEMFIBROZIL 600 MG TABLET PO SCH (17:14)
[2017-04-05] MEDS ORDERED: MIRT15TA6 PO (17:26)
--- NOTE | 2017-04-05 18:55 | NUR ---
Discharge Pt discharged at this time to home with . Pt's and [id number] and son present upon discharge. All discharge instructions, including side effects of medication, new medication unit contact information given along with plans for follow-up care with PCP and MH professional as outlined in PHS. No pending labs on discharge. Visitors (, [id number], and son) verbalized understanding of all discharge instructions and where to receive continued help and follow up. Pt and son aware of s/s of suicide and depression, education packet reviewed and given. Pt and family aware of prevention of falls, education packet reviewed and given. Pt aware of side effect of new medication remeron and possible fall when getting up at night. Pt to f/u with his PCP re: frequency in urine and for PCP to be aware of new medication. New information faxed to Dr. Salinas re: continum of care. Pt in no acute distress. Denies chest pain/discomfort upon discharge. Belongings returned including clothes, electric razor, glasses, medications and suitcase. Pt assist x 1 by this RN out of front entrance where he got into the vehicle and son drove. RX of remeron, amoxicillin, and clarithromycin picked up by and daughter in law at [facility] prior to dismissal. All questions answered. Family and Pt aware of what phone number to call with further questions.
--- NOTE | 2017-04-06 14:59 | NUR ---
CM CM LVM
--- NOTE | 2017-04-06 17:46 | GENPN ---
[facility] Subjective Date DATE: 04/06/17 TIME: 17:44 Subjective/Severity of Illness Medications Current Medications Medications (Trade) Dose Ordered Sig/Otilia Start Time Stop Time Status Last Admin Dose Admin Miscellaneous Medication (May use PRN orders) 1 PRN PRN 03/31/17 15:15 04/05/17 19:28 DC Haloperidol (Haldol) 0.5 mg Q6H PRN 03/31/17 15:15 04/05/17 19:28 DC Lorazepam (Ativan) 0.5 mg Q6H PRN 03/31/17 15:15 04/01/17 11:52 DC 03/31/17 23:49 0.5 MG Lorazepam (Ativan) 0.5 mg Q6H PRN 03/31/17 15:15 04/01/17 11:52 DC Haloperidol Lactate (Haldol 5 Mg/ml Inj) 0.5 mg Q6H PRN 03/31/17 15:15 04/05/17 19:28 DC Aspirin (Ecotrin) 81 mg 12 04/01/17 12:00 04/05/17 19:28 DC 04/05/17 11:55 81 MG Carvedilol (Coreg) 12.5 mg BIDWM 03/31/17 17:30 04/05/17 19:28 DC 04/05/17 17:14 12.5 MG Gemfibrozil (Lopid) 600 mg WS 03/31/17 17:30 04/05/17 19:28 DC 04/05/17 17:14 600 MG Metformin HCl (Glucophage) 500 mg BIDWM 03/31/17 17:30 04/05/17 19:28 DC 04/05/17 17:14 500 MG Multivitamins/ Minerals (Vision) 1 tab NOON 04/01/17 12:00 04/05/17 19:28 DC 04/05/17 11:54 1 TAB Nitroglycerin (Nitrostat) 0.4 mg Q5M PRN 03/31/17 15:30 04/05/17 19:28 DC Warfarin Sodium (COUMADIN 5 mg) 2.5 mg MoFr@1700 04/02/17 17:00 04/02/17 17:00 DC Warfarin Sodium (COUMADIN 5 mg) 5 mg SuTuWeThSa@1700 03/31/17 17:00 04/01/17 11:35 DC 03/31/17 17:00 5 MG Ctkri-2-Imye Ethyl Esters (Lovaza) 1 g NOON 04/01/17 12:00 04/05/17 19:28 DC 04/05/17 11:55 1 G Non-Formulary Medication 600 mg BID 03/31/17 21:00 03/31/17 21:00 DC Warfarin Sodium (Coumadin Protocol) NOTE 03/31/17 17:00 04/05/17 19:28 DC Acetaminophen (Tylenol Regular Strength) 650 mg Q3-4H PRN 03/31/17 21:30 04/05/17 19:28 DC 04/01/17 03:40 650 MG Polyethylene Glycol (Miralax) 17 g DAILY 04/02/17 09:00 04/05/17 19:28 DC 04/05/17 08:24 17 G Mirtazapine (Remeron) 7.5 mg HS 04/01/17 21:00 04/05/17 19:28 DC 04/04/17 20:03 7.5 MG Warfarin Sodium (COUMADIN 5 mg) 5 mg NOON 04/01/17 12:00 04/01/17 12:01 DC 04/01/17 11:57 5 MG Amoxicillin (Amoxil) 1,000 mg BIDWM 04/02/17 18:00 04/05/17 19:28 DC 04/05/17 17:14 1,000 MG Clarithromycin (Biaxin) 500 mg BIDWM 04/02/17 18:00 04/05/17 19:28 DC 04/05/17 17:14 500 MG Omeprazole (Prilosec) 20 mg ACBID 04/02/17 17:30 04/05/17 19:28 DC 04/05/17 17:14 20 MG Warfarin Sodium (COUMADIN 5 mg) 5 mg NOON 04/03/17 12:00 04/03/17 13:00 DC 04/03/17 11:47 5 MG Warfarin Sodium (COUMADIN 5 mg) 5 mg NOON 04/04/17 12:00 04/04/17 13:00 DC 04/04/17 12:06 5 MG Warfarin Sodium (COUMADIN 4 mg) 4 mg NOON 04/05/17 12:00 04/05/17 12:30 DC 04/05/17 11:55 4 MG Subjective Patient seen and chart reviewed. Case discussed with treatment team. On interview, patient is pleasant and cooperative. He reports improvement in mood, anxiety and feels he is ready for discharge. Family is present with him and in agreement and feel he is safe for discharge as well. Patient denies any SI, HI or AVH. Patient denies any adverse side effects related to psychotropic medications. Nursing staff report patient can be anxious at times but is overall cooperative. Patient slept well overnight. VSS. Patient is eating well. Psychotropic PRNs required in the past 24 hours: none. Time of Service: 09:15 Start Time: 18:20 Stop Time: 18:40 Care >50% of this visit spent in counseling/coordination care. [facility] Exam Vitals Vital Signs Date Time Temp Pulse Resp B/P Pulse Ox O2 Delivery O2 Flow Rate FiO2 04/05/17 16:15 97.3 88 16 124/69 94 Room Air Physical examination performed by the hospitalist. Height (Feet): 5 Height (Inches): 7.00 Mental Status Exam Muscle Strength/Tone: Normal Dressing: Casual Grooming: Good Attitude: Cooperative Motor Activity: Normal Eye Contact: Good Speech: Normal Volume: Normal Rhythm: Appropriate Rhythm Sensory: Alert Orientation: Oriented to person, Oriented to place, Oriented to time Mood: Euthymic Affect: Congruent, Stable Rate of Thoughts: Appropriate Rate Thought Organization: Organized Associations: Intact Abstract Reasoning: Intact, able to abstract Thought Content: Normal Perception/Psychotic: Perception Normal Attention Span/Concentration: Normal Language: Naming Intact Fund of Knowledge: Rosi aware current events Memory: Grossly Intact Suicidal Ideation: Denies Homicidal Ideation: Denies Insight: Fair Judgment: Fair Impulse Control: Fair Assessment and Plan (1) Major depressive disorder, single episode, unspecified Assessment: 03/31/17: Admit patient to the unit. Consult Internal medicine for medical management. DC Paroxetine. Cont home medications. Observe patient on the unit and monitor appetite, sleep and social interactions. 04/01/17: Start Mirtazapine 7.5mg q HS. DC Lorazepam PRN 04/02/17 Continue current care 04/03/17 Continue current care 04/04/17 Anticipate D/C Wednesday04/05/17: Discharge to home with family today. (2) Anxiety disorder due to general medical condition JEFFY EASTMAN MD April 06, 2017 17:46
--- NOTE | 2017-04-06 17:52 | DSPDOC ---
General Date Date DATE: 04/06/17 TIME: 17:47 Attending Physician Denis Mendieta MD Admitting Physician Denis Mendieta MD Consulting Physician True Galindo MD Admitting Diagnosis major depressive disorder severe with single episode with anxious distress Discharge Diagnosis MDD, severe, single episode Anxiety due to general medical condition Laboratory Laboratory Tests Test 04/05/17 14:05 Urine Collection Type Cleancatch-midstream Urine Color Yellow (YELLOW) Urine Turbidity Clear (CLEAR) Urine pH 5.5 (5.0-8.0) Urine Specific [place] 1.025 (1.015-1.025) Urine Protein Negative (NEGATIVE) Urine Glucose (UA) Trace (NEGATIVE) Urine Ketones Negative (NEGATIVE) Urine Blood Negative (NEGATIVE) Urine Nitrite Negative (NEGATIVE) Urine Bilirubin Negative (NEGATIVE) Urine Urobilinogen 1.0EU/DL (NORMAL) Urine Leukocyte Esterase Negative (NEGATIVE) Urinalysis Comment Microscopic not ind. History of Present Illness Per admitting psychiatrist Dr. Mendieta: Patient is an 82-year-old, , father of 3 ,who was referred by his primary care physician for exacerbation of depressive symptoms. He was said to have been diagnosed with brain mass about 8 months ago and since then he has been having some depressive symptoms. Patient was said to have had a detailed work up done in [facility] and repeat CT scans has not shown increase in the said mass. Patient endorses decrease appetite, low energy, anxiety and intermittent feelings of hopelessness and helplessness. Patient has been socially withdrawn according to his family and he has had some anhedonia. Patient denies any morbid thoughts, suicide ideations, intent or plans to hurt himself or some other person. Family reports that these symptoms have been increasing in the last 1 month and has become debilitating. Patient was recently started on a medication which he was supposed to be taking as needed and he feels confused about the dosing schedule. He was also started on Paroxetine 20mg by his PCP which appears to have worsened his symptoms. Patient denies any change in memory and he is still able to do his ADL. SLUMS administered at his bedside showed a score of 26/30 missing 2 points for short term recall of 2 objects out of 5 and 2 points on the story. Patient denies any auditory or visual hallucinations and no form of delusion reported or elicited. He denies past history of depressive symptoms and denies any history suggestive of naif or hypomania. Patient reports that he is willing to participate in unit treatment protocol. Review of CBC,CMP, UA, UDS were unremarkable. Patient's strength: he is able to handle his ADL and appears willing to receive treatment. Past Psych History: Denies past inpatient hospitalization and denies past suicide attempt. Past Medical Hx: Atrial Fluter, Cardiomyopathy,CAD, Dyslipidemia,Hx of SC, HTN, COPD, Hx of VT,Seborrheic Keratosis, Hx of Skin Cancer Past Surgical Hx: Hx of Heart Catheterization, Pace Maker in situ Family Hx: Denies hx of mental illness in his family. Father has history of DM Social Hx: Patient has been for over 60 years and has 3 children. He has high school education and worked with the [employer] until assisted 20 years ago. He denies hx of ETOH use or any history illicit drug use Per hospitalist consulted for management of medical comorbidities: Geovany Goldstein is a pleasant 82-year-old male who was admitted to [facility] unit last night, on 03/31/17, for evaluation and treatment of his depression and anxiety. He reports that his PCP, Dr. Salinas, referred him to [facility] for evaluation and clearance for admission. Medical history is obtained from prior notes, nursing records and the patient himself. He reports that he is "a man that worries" and was started on Paroxetine 20mg on 03/29/17 which seemed to exacerbate his symptoms. After starting the medication he became increasingly more anxious with insomnia. Prior medical records report that he has had a significant increase in anxiety which lead to poor sleeping, decreased appetite , depressed energy, increased confusion and decline in his ability to engage and perform ADLs over the past month. He has also been socially withdrawn according to his family. He denies any morbid thoughts, suicide ideations, intent or plans to harm himself or others. In speaking with the patient, he speaks as if his symptoms are new, but records indicate that his anxiety and depression have been persistent for some time. He admits to having felt hopeless and helpless which makes him very discouraged. 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 Recent scan by Dr. Salinas showed no change in the mass per the patient thought the scan results are not available for review. He currently denies any headache, changes in vision or hearing, numbness, tingling, weakness or syncope. He denies any hallucinations and no form of delusions reported or elicited. Family has previously expressed concern that the patient, whom lives independently, has not been taking his medications as prescribed for his other medical conditions including a-fib/flutter, diabetes, CHF and hypertension. Lipid panel was done on 02/12 with a total cholesterol of 149, low HDL and elevated LDL. A1c on 02/12 was elevated at 9.6 and his metformin was increased to BID at that time. Due to his behavioral changes and major depression, he was accepted into [facility] unit for further evaluation and treatment. Hospitalist service was consulted for medical management. On exam, he is initially found talking with social work in the [place]. He states that he feels like he is in assisted and is eager for discharge, openly admitting that he thinks he made a mistake voluntarily agreeing to come to the hospital. He reports that he feels great this morning but admits that he did not sleep well last night despite taking Ativan. Nursing notes were reviewed and indicate that he was restless throughout the night. His appetite has been good but he has not had a bowel movement in 2 days. Hospital Course The patient was admitted to [facility] and placed on safety and elopement precautions. Based on the diagnostic interview and collateral information provided by family, it was established that the patient suffers from MDD, severe and anxiety disorder due to general medical condition. See notable medication changes below. Prior to all medication trials, the side effects, risk and benefits of all medications were discussed with the patient and/or medical DPOA (or guardian). The patient tolerated medications well and without any side effects. By the time of discharge, the patient participated in unit activities to the best of his/her ability and didnt have self-harming behavior or aggressive outbursts. The patients vital signs remained within normal limits and stable. Throughout the hospitalization, problematic symptoms leading to admission improved to the point that continued outpatient psychiatric treatment was believed to be an appropriate level of care. The patients family was contacted prior to dismissal home. They agreed to help coordinate the patients outpatient care and supervise for safety. It was recommended that the patient not have any access to medications (prescription or [id number]) or weapons after discharge. 03/31/17: Admit patient to the unit. Consult Internal medicine for medical management. DC Paroxetine. Cont home medications. Observe patient on the unit and monitor appetite, sleep and social interactions. 04/01/17: Start Mirtazapine 7.5mg q HS. DC Lorazepam PRN 04/02/17 Continue current care 04/03/17 Continue current care 04/04/17 Anticipate D/C Wednesday04/05/17: Discharge to home with family. Per hospitalist managing medical comorbidities: 04/01/17. MIRAKIAN: ADMIT. Agree with admission to [facility] unit for further evaluation and medical treatment for major depression and anxiety. Hospitalist service consulted for medical management. Continue home medications with the exception of paroxetine per psych. Monitor blood pressure closely. A1c reported to 9.6 on 02/12/17. Metformin increased to 500mg BID at that time. Monitor blood sugars closely with BGMs in AM and HS. 2000 kcal carb diet. INR subtherapeutic at time of admission at 1.86. Pharmacy to manage. Encourage participation in floor activities and provide safe and supportive environment as patient is eager for discharge. Will monitor labs periodically throughout admission. CBC and CMP relatively unremarkable upon admission. B12 and Folate pending. Upon discharge, patient's care will be returned to his PCP. 04/03 Regarding positive H-Pylori started patient on Amoxicillin 1 gm PO BID and Clarithromycin 500mg BID along with Prilosec BID. Recommend treatment for 7 day ending on 04/10. Continue to monitor blood sugars on metformin twice a day INR 1.76. Coumadin dosing as per pharmacy protocol Otherwise, patient is medically stable. Psychiatric notes reviewed Problems: Code Status Full Code Home Meds Active Scripts Mirtazapine (Mirtazapine) 15 Mg Tablet, 7.5 MG PO HS for Depression, anxiety for 30 Days, #30 TAB Prov:JEFFY EASTMAN MD 04/05/17 Polyethylene Glycol 3350 (Healthylax) 17 Gm Powd.pack, 17 G PO DAILY for 30 Days Prov:MATTHEW LOPEZ APRN 04/05/17 Omeprazole (Omeprazole) 20 Mg Capsule., 20 MG PO ACBID for 30 Days, #60 CAP Prov:MATTHEW LOPEZ APRN 04/05/17 Clarithromycin (Biaxin) 500 Mg Tablet, 500 MG PO BIDWM for 4 Days, #8 TAB Prov:MATTHEW LOPEZ APRN 04/05/17 Amoxicillin (Amoxicillin) 500 Mg Capsule, 1000 MG PO BIDWM for 4 Days, #16 CAP Prov:MATTHEW LOPEZ V BLANCHARD GRINDER OPERATOR 04/05/17 Reported Medications Nitroglycerin (Nitroglycerin) 0.4 Mg Tab.subl, 0.4 MG SL Q5M Y for CHEST PAIN 03/31/17 Warfarin Sodium (Warfarin Sodium) 5 Mg Tablet, 2.5 MG PO MoFr@1700 03/31/17 Warfarin Sodium (Warfarin Sodium) 5 Mg Tablet, 5 MG PO SuTuWeThSa@1700 03/31/17 Red Yeast Rice (Red Yeast Rice) 600 Mg Tablet, 600 MG PO BID 03/31/17 Multivitamin with Minerals (Multiple Vitamin) 1 Each Tablet, 1 TAB PO NOON 03/31/17 Metformin HCl (Metformin HCl) 500 Mg Tablet, 500 MG PO BIDWM 03/31/17 Gemfibrozil (Gemfibrozil) 600 Mg Tablet, 600 MG PO WS 03/31/17 [place]-3 Fatty Acids/Fish Oil (Fish Oil 1,000 mg Capsule) 1 Each Capsule, 1000 MG PO NOON 03/31/17 Carvedilol (Carvedilol) 12.5 Mg Tablet, 12.5 MG PO BIDWM 03/31/17 Aspirin (Aspir 81) 81 Mg Tablet.dr, 81 MG PO DAILY 03/31/17 Discontinued Reported Medications Tramadol HCl (Tramadol HCl) 50 Mg Tablet, 50-100 MG PO Q6HR Y for HEADACHE 03/31/17 Paroxetine HCl (Paroxetine HCl) 20 Mg Tablet, 20 MG PO HS ONLY TOOK ONCE. CAUSED INSOMNIA AND ANXIETY. 03/31/17 Ondansetron HCl (Ondansetron HCl) 4 Mg Tablet, 4 MG PO Q6HR Y for NAUSEA 03/31/17 Face to Face Encounter I met with patient on the day of dismissal and discussed follow up appointments , medications, and safety plan. Discharge Disposition Discharge to home with family to f/u with outpatient provider. JEFFY EASTMAN MD April 06, 2017 17:50
== END 2017-04-05 18:55 | disposition home or self-care (01) | DRG 885 ==
LOC: ED 10:44 → GEN 14:32
PROVIDERS: ADMIT Psychiatry & Neurology Psychiatry; ATTEND Psychiatry & Neurology Psychiatry
DX: F32.2 Major depressive disorder, single episode, severe without psychotic features (principal); I13.0 Hypertensive heart and chronic kidney disease with heart failure and stage 1 through stage 4 chronic kidney disease, or unspecified chronic kidney disease; I42.9 Cardiomyopathy, unspecified; F41.9 Anxiety disorder, unspecified; G93.89 Other specified disorders of brain; E11.22 Type 2 diabetes mellitus with diabetic chronic kidney disease; E11.65 Type 2 diabetes mellitus with hyperglycemia; N18.3 Chronic kidney disease, stage 3 (moderate); I50.9 Heart failure, unspecified; J44.9 Chronic obstructive pulmonary disease, unspecified; G25.2 Other specified forms of tremor; I25.10 Atherosclerotic heart disease of native coronary artery without angina pectoris; I48.2 Chronic atrial fibrillation; E78.5 Hyperlipidemia, unspecified; Z79.01 Long term (current) use of anticoagulants; Z79.82 Long term (current) use of aspirin; Z95.810 Presence of automatic (implantable) cardiac defibrillator; Z95.1 Presence of aortocoronary bypass graft; B96.81 Helicobacter pylori [H. pylori] as the cause of diseases classified elsewhere
CPT/HCPCS: 36415; 80048; 80053; 80306; 80307; 81003; 82607; 82746; 82948; 84443; 85025; 85610